=== PATIENT | male | born 1975 | race Caucasian/White ===

== ENCOUNTER → 2020-07-14 12:46 | Outpatient (BNVA) | payer MEDICARE, MEDICAID, SELFPAY | PROVIDERS: PCP Internal Medicine; Visit Provider Physician Assistant | DX: E66.9 Obesity, unspecified (principal); Z68.35 Body mass index [BMI] 35.0-35.9, adult; I10 Essential (primary) hypertension; Z98.84 Bariatric surgery status; Z79.899 Other long term (current) drug therapy; Z79.891 Long term (current) use of opiate analgesic; Z87.891 Personal history of nicotine dependence | CPT/HCPCS: 99213 ==

== ENCOUNTER 2020-07-24 12:08 | Outpatient (REF) | payer MEDICARE, MEDICAID, SELFPAY | END 2020-07-24 12:09 | disposition home or self-care (01) | LOC: HO.LAB 12:08 | PROVIDERS: Visit Provider Internal Medicine | DX: Z20.828 Contact with and (suspected) exposure to other viral communicable diseases (principal) | CPT/HCPCS: 87635 ==

== ENCOUNTER → 2020-08-11 10:36 | Outpatient (BNVA) | payer MEDICARE, MEDICAID, SELFPAY | PROVIDERS: PCP Internal Medicine; Referring Provider Internal Medicine; Visit Provider Surgery | DX: E66.9 Obesity, unspecified (principal); Z68.35 Body mass index [BMI] 35.0-35.9, adult; Z98.84 Bariatric surgery status; R91.1 Solitary pulmonary nodule | CPT/HCPCS: 99212; 99214 ==

== ENCOUNTER 2020-09-06 09:09 | Outpatient (REF) | payer MEDICARE, MEDICAID, SELFPAY ==
[2020-09-06 10:04] LABS: MANUAL DIFF FLAG NO
[2020-09-06 10:22] LABS: Basophils Percent Auto 0.3 % (0-2); Eosinophils Absolute Auto 0.2 X10*3/uL (0.0-0.4); Eosinophils Percent Auto 2.8 % (0-4); Hematocrit 43.8 % (42-52); Hemoglobin 14.4 g/dl (14.0-18.0); Imm Gran Abs Auto 0.02 X10*3/uL (0.00-0.03); Imm Gran Pct Auto 0.3 % (0.0-0.4); Lymphocytes Absolute Auto 1.9 X10*3/uL (1.2-4.9); Lymphocytes Percent Auto 29.3 % (20-40); Mean Corpuscular HGB Conc 32.9 g/dl (31.0-36.0); Mean Corpuscular Hemoglobin 28.7 pg (27.0-33.0); Mean Corpuscular Volume 87.3 fL (80-98); Mean Platelet Volume 9.6 fL (9.4-12.4); Monocytes Absolute Auto 0.5 X10*3/uL (0.1-1.2); Monocytes Percent Auto 7.6 % (2-11); Neutrophils Absolute Auto 3.8 X10*3/uL (2.0-8.3); Neutrophils Percent Auto 59.7 % (45-73); Platelet Count 259 X10*3/uL (160-400); Red Blood Count 5.02 X10*6/uL (4.60-5.80); Red Cell Distribution Width 13.4 % (11.0-16.0); White Blood Count 6.4 X10*3/uL (4.8-10.8)
[2020-09-06 10:50] LABS: Alanine Aminotransferase 40 U/L (0-40); Albumin Level 4.2 g/dL (3.5-5.0); Alkaline Phosphatase 59 U/L (39-117); Anion Gap 11 (12-20); Aspartate Amino Transferase 28 U/L (5-37); Bilirubin Total 0.5 mg/dL (0.0-1.0); Blood Urea Nitrogen 26 mg/dL (9-16); C Reactive Protein 0.67 mg/dL (< or = 0.50); Calcium 9.4 mg/dL (8.4-10.2); Carbon Dioxide 31 mmol/L (22-29); Chloride 101 mmol/L (96-108); Estimated Glomerular Filt Rate > 60; Glucose Random 94 mg/dL (60-115); Potassium 4.2 mmol/l (3.3-5.1); Sodium 139 mmol/L (135-145); Total Protein 7.6 g/dL (6.5-8.0)
[2020-09-06 11:46] LABS: Erythrocyte Sedimentation Rate 17 MM/HR (0-15)
== END 2020-09-06 09:10 | disposition home or self-care (01) ==
LOC: HO.LAB 09:09
PROVIDERS: Absent Provider Internal Medicine Rheumatology; PCP Internal Medicine; Visit Provider Internal Medicine Hypertension Specialist
DX: N28.1 Cyst of kidney, acquired (principal); I10 Essential (primary) hypertension; D63.8 Anemia in other chronic diseases classified elsewhere; M05.79 Rheumatoid arthritis with rheumatoid factor of multiple sites without organ or systems involvement
CPT/HCPCS: 36415; 80053; 85025; 85652; 86140

== ENCOUNTER 2020-09-07 15:02 | Outpatient (REF) | payer MEDICARE, MEDICAID, SELFPAY | END 2020-09-07 15:03 | disposition home or self-care (01) | LOC: HO.LAB 15:02 | PROVIDERS: PCP Internal Medicine; Visit Provider Internal Medicine | DX: Z20.828 Contact with and (suspected) exposure to other viral communicable diseases (principal) | CPT/HCPCS: C9803; U0003 ==

== ENCOUNTER 2020-09-18 14:29 | Outpatient (REF) | payer MEDICARE, MEDICAID, SELFPAY | END 2020-09-18 14:30 | disposition home or self-care (01) | LOC: HO.HAP 14:29 | PROVIDERS: Visit Provider Internal Medicine | DX: Z46.1 Encounter for fitting and adjustment of hearing aid (principal) | CPT/HCPCS: V5267 ==

== ENCOUNTER → 2020-10-13 08:23 | Outpatient (BNVA) | payer MEDICARE, MEDICAID, SELFPAY | PROVIDERS: PCP Internal Medicine; Visit Provider Physician Assistant | DX: E66.9 Obesity, unspecified (principal); Z98.84 Bariatric surgery status | CPT/HCPCS: Q3014 ==

== ENCOUNTER 2020-10-26 14:40 | Outpatient (REF) | payer MEDICARE, MEDICAID, SELFPAY ==
--- NOTE | 2020-10-26 14:28 | US_ITS ---
EXAMINATION: US VENOUS ULTRASOUND WITH DOPPLER LOWER EXTREMITY, BILATERAL CLINICAL INFORMATION: Bilateral lower extremity swelling. COMPARISON: None TECHNIQUE: Ultrasound of the deep veins is performed from the hip to the calf with compression sonography and color and pulse Doppler assessment. Spectral analysis with color-flow imaging is performed. FINDINGS: RIGHT: There is normal venous compression and respiratory variation and augmented flow. The visualized common femoral vein, superficial femoral vein, profunda femoral vein, popliteal vein, and the trifurcation region shows no evidence of deep venous thrombosis. There is no significant popliteal fossa cyst. LEFT: There is normal venous compression and respiratory variation and augmented flow. The visualized common femoral vein, superficial femoral vein, profunda femoral vein, popliteal vein, and the trifurcation region shows no evidence of deep venous thrombosis. There is no significant popliteal fossa cyst. If the patient's symptoms persist, followup ultrasound in 5 days 7 days might be of value to exclude proximal propagation from a non-visualized calf vein. US/US venous duplex LE BI IMPRESSION: No DVT demonstrated in the bilateral lower extremities.
== END 2020-10-26 14:41 | disposition home or self-care (01) ==
LOC: HO.US 14:40
PROVIDERS: PCP Internal Medicine; Visit Provider Internal Medicine
DX: M79.89 Other specified soft tissue disorders (principal); R09.89 Other specified symptoms and signs involving the circulatory and respiratory systems
CPT/HCPCS: 93970

== ENCOUNTER → 2020-11-15 13:23 | Outpatient (BNVA) | payer MEDICARE, MEDICAID, SELFPAY | PROVIDERS: PCP Internal Medicine; Visit Provider Internal Medicine | DX: I25.10 Atherosclerotic heart disease of native coronary artery without angina pectoris (principal); I10 Essential (primary) hypertension; M79.89 Other specified soft tissue disorders | CPT/HCPCS: 93005; 99212 ==

== ENCOUNTER → 2020-12-15 08:15 | Outpatient (BNVA) | payer MEDICARE, MEDICAID, SELFPAY | PROVIDERS: PCP Internal Medicine; Visit Provider Physician Assistant | DX: E66.9 Obesity, unspecified (principal); Z98.84 Bariatric surgery status | CPT/HCPCS: Q3014 ==

== ENCOUNTER 2020-12-25 12:26 | Outpatient (REF) | payer MEDICARE, MEDICAID, SELFPAY ==
[2020-12-25 13:19] LABS: MANUAL DIFF FLAG NO
[2020-12-25 13:29] LABS: Basophils Percent Auto 0.2 % (0-2); Eosinophils Absolute Auto 0.3 X10*3/uL (0.0-0.4); Eosinophils Percent Auto 3.2 % (0-4); Hematocrit 39.4 % (42-52); Hemoglobin 13.1 g/dl (14.0-18.0); Imm Gran Abs Auto 0.04 X10*3/uL (0.00-0.03); Imm Gran Pct Auto 0.5 % (0.0-0.4); Lymphocytes Absolute Auto 1.7 X10*3/uL (1.2-4.9); Mean Corpuscular HGB Conc 33.2 g/dl (31.0-36.0); Mean Corpuscular Hemoglobin 28.5 pg (27.0-33.0); Mean Corpuscular Volume 85.8 fL (80-98); Mean Platelet Volume 9.4 fL (9.4-12.4); Monocytes Absolute Auto 0.7 X10*3/uL (0.1-1.2); Monocytes Percent Auto 8.1 % (2-11); Neutrophils Absolute Auto 6.1 X10*3/uL (2.0-8.3); Platelet Count 280 X10*3/uL (160-400); Red Blood Count 4.59 X10*6/uL (4.60-5.80); Red Cell Distribution Width 12.9 % (11.0-16.0); White Blood Count 8.8 X10*3/uL (4.8-10.8)
[2020-12-25 13:55] LABS: Anion Gap 11 (12-20); Blood Urea Nitrogen 31 mg/dL (9-16); Calcium 9.3 mg/dL (8.4-10.2); Carbon Dioxide 30 mmol/L (22-29); Chloride 102 mmol/L (96-108); Estimated Glomerular Filt Rate > 60; Potassium 4.3 mmol/L (3.3-5.1); Sodium 139 mmol/L (135-145)
[2020-12-25 13:58] LABS: Alanine Aminotransferase 42 U/L (0-40); Albumin Level 3.9 g/dL (3.5-5.0); Alkaline Phosphatase 68 U/L (39-117); Anion Gap 12 (12-20); Aspartate Amino Transferase 25 U/L (5-37); Bilirubin Total 0.5 mg/dL (0.0-1.0); Blood Urea Nitrogen 33 mg/dL (9-16); C Reactive Protein 1.84 mg/dL (< or = 0.50); Calcium 9.3 mg/dL (8.4-10.2); Carbon Dioxide 30 mmol/L (22-29); Chloride 102 mmol/L (96-108); Estimated Glomerular Filt Rate > 60; Glucose Random 103 mg/dL (60-115); Potassium 4.3 mmol/L (3.3-5.1); Sodium 140 mmol/L (135-145); Total Protein 7.3 g/dL (6.5-8.0)
[2020-12-25 14:22] LABS: Erythrocyte Sedimentation Rate 40 MM/HR (0-15)
== END 2020-12-25 12:27 | disposition home or self-care (01) ==
LOC: HO.LAB 12:26
PROVIDERS: Absent Provider Physician Assistant; PCP Internal Medicine; Visit Provider Internal Medicine Hypertension Specialist
DX: I10 Essential (primary) hypertension (principal); N28.1 Cyst of kidney, acquired; D63.8 Anemia in other chronic diseases classified elsewhere; M89.49 Other hypertrophic osteoarthropathy, multiple sites; Z98.84 Bariatric surgery status; Z90.3 Acquired absence of stomach [part of]
CPT/HCPCS: 36415; 80051; 80053; 82310; 82565; 84520; 85025; 85652; 86140

== ENCOUNTER 2021-01-23 11:33 | Outpatient (REF) | payer MEDICARE, MEDICAID, SELFPAY ==
[2021-01-23 11:51] LABS: COVID-19 Test Negative (Negative)
== END 2021-01-23 11:34 | disposition home or self-care (01) ==
LOC: HO.LAB 11:33
PROVIDERS: Visit Provider Internal Medicine
DX: Z20.822 Contact with and (suspected) exposure to COVID-19 (principal)
CPT/HCPCS: 36415; 87635; C9803

== ENCOUNTER 2021-01-29 01:38 | Emergency (ER) | payer MEDICARE, MEDICAID, SELFPAY ==
--- NOTE | 2021-01-29 | ECG_ITS ---
Test Reason : CP Blood Pressure : / mmHG Vent. Rate : 073 BPM Atrial Rate : 073 BPM P-R Int : 142 ms QRS Dur : 094 ms QT Int : 402 ms P-R-T Axes : 010 -01 024 degrees QTc Int : 442 ms Normal sinus rhythm Minimal voltage criteria for LVH, may be normal variant Nonspecific T wave abnormality Abnormal ECG When compared with ECG of 21-JUL-2018 21:49, T wave inversion no longer evident in Anterior leads Referred By: Generic ED Physician Electronically Signed By:ESTRELLITA MOREIRA
[2021-01-29 01:43] VITALS: BP 171/102; PULSE 82; RESP 16; TEMP 36.4; O2SAT 98; BMI 40.6
[2021-01-29 01:49] VITALS: PULSE 73
[2021-01-29 01:52] VITALS: BP 162/98; PULSE 74; RESP 12; TEMP 36.4; O2SAT 98
--- NOTE | 2021-01-29 01:59 | PC.NURSE ---
at bedside for initial assessment
--- NOTE | 2021-01-29 02:09 | ED_ITS ---
HPI - Chest Pain General Chief Complaint: Chest Pain Stated Complaint: chest pain Time Seen by Provider: 01/29/21 01:53 Source: patient Mode of arrival: EMS Limitations: no limitations History of Present Illness HPI narrative: 45-year-old male who presents emergency department for evaluation of chest pain, shortness of breath anxiety. The patient states that he has been anxious since his mother on January 15, 2021. He states that his mother of liver cancer and since that time he has been feeling extremely anxious. He states that this evening, at 11:00 p.m., he developed chest pain. He points to his mid sternal area when asked to localize the pain. He describes the pain as a ?pain ?. The pain lasted approximately 30 seconds. He states that he had several more episodes of this type of chest pain. He states that the chest pain was associated with shortness of breath and anxiety. He denied associated nausea, vomiting, diaphoresis, pain radiate to his neck, jaw, arms or back. The patient took Ativan 1 mg orally at home with no relief his symptoms therefore he called an ambulance and was transported to the emergency department for evaluation. The patient states that he has not had a COVID-19 infection. He received his 1st COVID-19 vaccination January 03, 2021. Related Data Home Medications Medication Instructions Recorded Confirmed ascorbic acid (vitamin C) 500 mg 500 mg PO DAILY 07/14/20 01/24/21 capsule celecoxib 200 mg capsule 200 mg PO BID 07/14/20 01/24/21 escitalopram oxalate 5 mg tablet 5 mg PO DAILY 07/14/20 01/24/21 ferrous sulfate 325 mg (65 mg 325 mg PO DAILY 07/14/20 01/24/21 iron) tablet folic acid 1 mg tablet 1 mg PO DAILY 07/14/20 01/24/21 meclizine 25 mg tablet 25 mg PO TID PRN 07/14/20 01/24/21 methotrexate sodium 25 mg/mL mg SUBCUT 07/14/20 01/24/21 injection solution metoprolol succinate 25 mg 25 mg PO DAILY 07/14/20 01/24/21 tablet,extended release 24 hr oxycodone 10 mg tablet 10 mg PO BID PRN 07/14/20 01/24/21 dxawroxq-xxitzoer-iwxm 45 mg-folic cap PO 08/11/20 01/24/21 acid 800 mcg-vit K 120 mcg capsule aspirin 81 mg tablet,delayed 81 mg PO DAILY 11/15/20 01/24/21 release nitroglycerin 0.4 mg sublingual 0.4 mg SUBLINGUAL Q5M PRN 11/15/20 01/24/21 tablet amlodipine 10 mg tablet 5 mg PO DAILY tab 12/15/20 01/24/21 irbesartan 150 mg tablet 300 mg PO DAILY tab 12/15/20 01/24/21 amlodipine 5 mg tablet 5 mg PO DAILY 01/24/21 01/24/21 irbesartan 300 mg tablet 300 mg PO DAILY 01/24/21 01/24/21 Previous Rx's Medication Instructions Recorded blood sugar diagnostic 1 strip MISCELLANEOUS .QD 90 Days 07/17/20 #100 strip lancets 28 gauge 1 gauge TOPICAL .QD 90 Days #100 07/17/20 cap docusate sodium 100 mg capsule 100 mg PO DAILY 90 Days #90 cap 09/27/20 calcium citrate 315 mg-vitamin D3 2 tab PO BID #360 tab 10/16/20 5 mcg (200 unit) tablet atorvastatin 10 mg tablet 10 mg PO DAILY #90 tab 10/26/20 fluticasone propionate 50 2 spray INTRANASAL DAILY #48 ml 10/30/20 mcg/actuation nasal spray,suspension hydroxyzine HCl 25 mg tablet 25 mg PO BEDTIME PRN #90 tab 11/21/20 lorazepam 1 mg tablet 1 mg PO BID 90 Days #180 tab 11/28/20 albuterol sulfate 90 mcg/actuation 2 puff INHALATION Q4H PRN #8.5 g 12/31/20 aerosol inhaler Allergies Allergy/AdvReac Type Severity Reaction Status Date / Time Iodinated Contrast Media Allergy Mild HIVE AND Verified 01/24/21 12:58 [Iodinated Contrast Media - ITCHINESS IV Dye] ON FACE Review of Systems Review of Systems: Yes all other systems are reviewed and are negative [facility] Past Medical History [facility] Narrative: The patient denies tobacco, alcohol and drug use. Medical History Abnormal cystoscopy Anxiety Asthma Atherosclerotic cardiovascular disease Former smoker GERD (gastroesophageal reflux disease) H/O hidradenitis suppurativa Hyperlipidemia Hypertension Left renal mass Lung nodule Obesity (BMI 30-39.9) Obstructive sleep apnea Rheumatoid arthritis Type 2 diabetes mellitus with hyperglycemia Vertigo Vitamin D deficiency Surgical History History of surgical removal of pilonidal cyst S/P laparoscopic sleeve gastrectomy Family History Family History Father Heart problem Acute arthritis Mother Breast cancer Diabetes mellitus Son No problems noted. Social History Social History Alcohol intake: never Smoking Status: Never smoker Smoked in Last 30 Days: No Use of substances other than those prescribed or required for medical reasons: No Advance Directives: No Advance Directives Information Provided: No Physical Exam Vital Signs: Vital Signs: Last Vital Signs Temp 97.6 F 01/29/21 01:52 Pulse 74 01/29/21 01:52 Resp 12 01/29/21 01:52 BP 162/98 H 01/29/21 01:52 Pulse Ox 98 01/29/21 01:52 Body Mass Index 40.6 Const: General: cooperative and anxious Orientation/consciousness: oriented to person and oriented to place Limitations: no limitations HENMT: Head: Yes normal to inspection, Yes normocephalic and Yes atraumatic Ears: external ears normal General nose exam: Normal external nose present Face and sinus: Yes normal facial exam Mouth: Normal oral and palatal mucosa present Throat: Yes posterior oropharynx normal Eyes: Periorbital: periorbital findings normal Eyelids: Yes eyelids normal Conjunctivae: conjunctivae normal Sclerae: sclerae normal Corneas: corneas normal Pupils: Equal, round and reactive pupils present Direct Ophthalmoscopy: normal light reflex Neck: Neck: Yes full ROM, Yes no lymphadenopathy, Yes no meningeal signs, Yes trachea midline and Yes supple Chest: Chest palpation & inspection: normal inspection of the chest and normal palpation of entire chest wall Resp: Effort & Inspection: normal respiratory effort and able to speak in complete sentences Auscultation: clear to auscultation bilaterally Cardio: Rate: regular rate Rhythm: regular rhythm Heart sounds: S1 n ormal heart sound present, S2 normal heart sound present and no murmurs GI: Inspection: Yes normal to inspection Palpation (GI): Soft to palpation, nontender, no guarding, not rigid and No hepatosplenomegaly present : General: Yes no CVA tenderness Back/Spine/Pelvis: Back: no CVA tenderness Cervical Spine: normal cervical lordosis Thoracic/Lumbar Spine: thoracic and lumbar spine normal to inspection Skin: Lesions: no lesions Rashes: no rashes Wounds: no wounds Neuro: General: oriented to person, oriented to place and no meningeal signs Cranial nerves: Yes CN's II-XII intact bilaterally and Yes Equal, round and reactive pupils present Cognition (Neuro): normal cognition Motor exam (neuro): 5/5 motor strength present throughout Extrem: General: Yes normal to inspection and Yes full ROM Psych: Appearance: well kempt Mental Status: mental status grossly normal Speech and movement: Normal speech and movement present Affect: Anxious affect present Attitude: cooperative Thought process: Normal thought process present Thought content: Normal thought content present Course Course Course Narrative: 45-year-old male who presents emergency department for evaluation of chest pain, shortness of breath and anxiety. The patient states that he has been having increased anxiety since his mother on January 15, 2021 of liver cancer. The patient's vital signs revealed that he was hypertensive with a blood pressure of 171/102 otherwise unremarkable. Physical examination revealed that he was anxious otherwise was unremarkable. I did order a CBC, CMP, troponin and an EKG on the patient. Patient was given Ativan 1 mg IV. 0608: Patient's laboratory evaluation revealed a detectable troponin of 13.6. Repeat 3 hour high sensitivity troponin was 11.6 suggesting the patient did not have myocardial injury is the cause was chest pain. Patient's chest pain is most likely caused by his anxiety and he did feel better after receiving Ativan IV. The patient was discharged home advised to follow-up with his PCP to discuss further management of his anxiety. MDM - Chest Pain Lab Data Result diagrams: 01/29/21 02:12 01/29/21 02:12 Labs: Lab Results 01/29/21 01/29/21 01/29/21 Range/Units 02:12 02:12 02:12 WBC 10.2 (4.8-10.8) X10*3/uL RBC 4.91 (4.60-5.80) X10*6/uL Hgb 13.7 L (14.0-18.0) g/dl Hct 41.8 L (42-52) % MCV 85.1 (80-98) fL MCH 27.9 (27.0-33.0) pg MCHC 32.8 (31.0-36.0) g/dl RDW 13.2 (11.0-16.0) % Plt Count 278 (160-400) X10*3/uL MPV 8.9 L (9.4-12.4) fL Immature Gran % (Auto) 0.4 (0.0-0.4) % Neut % (Auto) 65.7 (45-73) % Lymph % (Auto) 22.6 (20-40) % Cook % (Auto) 7.9 (2-11) % Eos % (Auto) 3.1 (0-4) % Baso % (Auto) 0.3 (0-2) % Lymph # (Auto) 2.3 (1.2-4.9) X10*3/uL Cook # (Auto) 0.8 (0.1-1.2) X10*3/uL Eos # (Auto) 0.3 (0.0-0.4) X10*3/uL Baso # (Auto) 0.0 (0.0-0.2) X10*3/uL Abs Immat Gran (auto) 0.04 H (0.00-0.03) X10*3/uL Absolute Neuts (auto) 6.7 (2.0-8.3) X10*3/uL Absolute Nucleated RBC 0.000 (0.0-0.012) X10*3/uL Nucleated RBC % (auto) 0.0 (0.0-0.2) /100WBC Sodium 142 (135-145) mmol/L Potassium 3.9 (3.3-5.1) mmol/L Chloride 101 (96-108) mmol/L Carbon Dioxide 36 H (22-29) mmol/L Anion Gap 9 L (12-20) BUN 25 H (9-16) mg/dL Creatinine 0.77 (0.5-1.4) mg/dL Estim Creat Clear Calc 125.1 Estimated GFR > 60 Random Glucose 102 (60-115) mg/dL Calcium 9.5 (8.4-10.2) mg/dL Total Bilirubin 0.3 (0.0-1.0) mg/dL AST 21 (5-37) U/L ALT 34 (0-40) U/L Alkaline Phosphatase 76 (39-117) U/L Troponin I High Sens 13.6 (<3.5-35.0) ng/L Total Protein 7.5 (6.5-8.0) g/dL Albumin 4.0 (3.5-5.0) g/dL // Range/Units 04:59 WBC (4.8-10.8) X10*3/uL RBC (4.60-5.80) X10*6/uL Hgb (14.0-18.0) g/dl Hct (42-52) % MCV (80-98) fL MCH (27.0-33.0) pg MCHC (31.0-36.0) g/dl RDW (11.0-16.0) % Plt Count (160-400) X10*3/uL MPV (9.4-12.4) fL Immature Gran % (Auto) (0.0-0.4) % Neut % (Auto) (45-73) % Lymph % (Auto) (20-40) % Cook % (Auto) (2-11) % Eos % (Auto) (0-4) % Baso % (Auto) (0-2) % Lymph # (Auto) (1.2-4.9) X10*3/uL Cook # (Auto) (0.1-1.2) X10*3/uL Eos # (Auto) (0.0-0.4) X10*3/uL Baso # (Auto) (0.0-0.2) X10*3/uL Abs Immat Gran (auto) (0.00-0.03) X10*3/uL Absolute Neuts (auto) (2.0-8.3) X10*3/uL Absolute Nucleated RBC (0.0-0.012) X10*3/uL Nucleated RBC % (auto) (0.0-0.2) /100WBC Sodium (135-145) mmol/L Potassium (3.3-5.1) mmol/L Chloride (96-108) mmol/L Carbon Dioxide (22-29) mmol/L Anion Gap (12-20) BUN (9-16) mg/dL Creatinine (0.5-1.4) mg/dL Estim Creat Clear Calc Estimated GFR Random Glucose (60-115) mg/dL Calcium (8.4-10.2) mg/dL Total Bilirubin (0.0-1.0) mg/dL AST (5-37) U/L ALT (0-40) U/L Alkaline Phosphatase (39-117) U/L Troponin I High Sens 11.3 (<3.5-35.0) ng/L Total Protein (6.5-8.0) g/dL Albumin (3.5-5.0) g/dL ECG Data ECG #1: Attestation: I personally reviewed and interpreted this ECG as follows: Interpretation: Normal sinus rhythm rate of 73, normal MD, QRS and QTC intervals, no T-wave abnormalities, no ST segment elevation, no ST segment depression, no old EKG for comparison. Discharge Plan Discharge Clinical Impression: Anxiety Chest pain Qualifiers: Chest pain type: unspecified Qualified Code(s): R07.9 - Chest pain, unspecified Patient Disposition: Home, Self-Care Instructions: Anxiety (ED) Additional Instructions: Your EKG was unremarkable. Your laboratory evaluation was normal. At this time, I believe that your chest pain shortness of breath caused by your anxiety. Follow-up with your doctor in 2 days to discuss further management of your anxiety. Please return to the emergency department if your symptoms get worse or if you develop any symptoms that are concerning to you. Prescriptions: No Action blood sugar diagnostic [FreeStyle Lite Strips] Strip 1 strip miscellaneous .QD 90 Days Qty: 100 RF: 3 lancets [FreeStyle Lancets] 28 gauge misc 1 gauge topical .QD 90 Days Qty: 100 RF: 3 docusate sodium 100 mg capsule 100 mg PO DAILY 90 Days Qty: 90 RF: 3 calcium citrate-vitamin D3 315 mg-5 mcg (200 unit) tablet 2 tab PO BID Qty: 360 RF: 3 fluticasone propionate 50 mcg/actuation spray,suspension 2 spray intranasal DAILY Qty: 48 RF: 5 hydroxyzine HCl 25 mg tablet 25 mg PO BEDTIME PRN (Reason: for anxiety) Qty: 90 RF: 3 lorazepam 1 mg tablet 1 mg PO BID 90 Days Qty: 180 RF: 1 albuterol sulfate 90 mcg/actuation HFA aerosol inhaler 2 puff inhalation Q4H PRN (Reason: for wheezing) Qty: 8.5 RF: 2 atorvastatin 10 mg tablet 10 mg PO DAILY Qty: 90 RF: 3 irbesartan 300 mg tablet 300 mg PO DAILY RF: 0 amlodipine 5 mg tablet 5 mg PO DAILY RF: 0 aspirin 81 mg tablet,delayed release (DR/EC) 81 mg PO DAILY RF: 0 nitroglycerin [Nitrostat] 0.4 mg tablet, sublingual 0.4 mg sublingual Q5M PRNRF: 0 oxycodone 10 mg tablet 10 mg PO BID PRN (Reason: severe pain) RF: 0 ascorbic acid (vitamin C) 500 mg capsule 500 mg PO DAILY RF: 0 escitalopram oxalate 5 mg tablet 5 mg PO DAILY RF: 0 celecoxib 200 mg capsule 200 mg PO BID RF: 0 folic acid 1 mg tablet 1 mg PO DAILY RF: 0 metoprolol succinate 25 mg tablet extended release 24 hr 25 mg PO DAILY RF: 0 methotrexate sodium 25 mg/mL solution subcut RF: 0 ferrous sulfate 325 mg (65 mg iron) tablet 325 mg PO DAILY RF: 0 meclizine 25 mg tablet 25 mg PO TID PRNRF: 0 irbesartan 150 mg tablet 300 mg PO DAILY RF: 0 amlodipine 10 mg tablet 5 mg PO DAILY RF: 0 Bariatric Multivitamins 45 mg iron- 800 mcg-120 mcg capsule PO RF: 0
[2021-01-29 02:18] LABS: MANUAL DIFF FLAG NO
[2021-01-29 02:19] LABS: Basophils Percent Auto 0.3 % (0-2); Eosinophils Absolute Auto 0.3 X10*3/uL (0.0-0.4); Eosinophils Percent Auto 3.1 % (0-4); Hematocrit 41.8 % (42-52); Hemoglobin 13.7 g/dl (14.0-18.0); Imm Gran Abs Auto 0.04 X10*3/uL (0.00-0.03); Imm Gran Pct Auto 0.4 % (0.0-0.4); Lymphocytes Absolute Auto 2.3 X10*3/uL (1.2-4.9); Lymphocytes Percent Auto 22.6 % (20-40); Mean Corpuscular HGB Conc 32.8 g/dl (31.0-36.0); Mean Corpuscular Hemoglobin 27.9 pg (27.0-33.0); Mean Corpuscular Volume 85.1 fL (80-98); Mean Platelet Volume 8.9 fL (9.4-12.4); Monocytes Absolute Auto 0.8 X10*3/uL (0.1-1.2); Monocytes Percent Auto 7.9 % (2-11); Neutrophils Absolute Auto 6.7 X10*3/uL (2.0-8.3); Neutrophils Percent Auto 65.7 % (45-73); Platelet Count 278 X10*3/uL (160-400); Red Blood Count 4.91 X10*6/uL (4.60-5.80); Red Cell Distribution Width 13.2 % (11.0-16.0); White Blood Count 10.2 X10*3/uL (4.8-10.8)
[2021-01-29] MEDS: LORazepam 2 MG/ML VIAL 1 MG IVPUSH (02:22)
[2021-01-29 02:42] LABS: Troponin-I High Sensitivity 13.6 ng/L (<3.5-35.0)
[2021-01-29 02:46] LABS: Alanine Aminotransferase 34 U/L (0-40); Alkaline Phosphatase 76 U/L (39-117); Anion Gap 9 (12-20); Aspartate Amino Transferase 21 U/L (5-37); Bilirubin Total 0.3 mg/dL (0.0-1.0); Blood Urea Nitrogen 25 mg/dL (9-16); Calcium 9.5 mg/dL (8.4-10.2); Carbon Dioxide 36 mmol/L (22-29); Chloride 101 mmol/L (96-108); Creatinine Clr Calc Pharmacy 125.1; Estimated Glomerular Filt Rate > 60; Glucose Random 102 mg/dL (60-115); Potassium 3.9 mmol/L (3.3-5.1); Sodium 142 mmol/L (135-145); Total Protein 7.5 g/dL (6.5-8.0)
[2021-01-29 05:34] LABS: Troponin-I High Sensitivity 11.3 ng/L (<3.5-35.0)
== END 2021-01-29 06:27 | disposition home or self-care (01) ==
PROVIDERS: Emergency Provider Emergency Medicine Emergency Medical Services
DX: R07.9 Chest pain, unspecified (principal); F41.9 Anxiety disorder, unspecified; I10 Essential (primary) hypertension; E78.5 Hyperlipidemia, unspecified; E11.9 Type 2 diabetes mellitus without complications; Z72.89 Other problems related to lifestyle; Z63.4 Disappearance and death of family member; Z79.02 Long term (current) use of antithrombotics/antiplatelets; Z79.899 Other long term (current) drug therapy; Z79.82 Long term (current) use of aspirin
CPT/HCPCS: 36415; 80053; 84484; 85025; 93005; 96374; 99284; J2060

== ENCOUNTER 2021-02-15 10:24 | Outpatient (REF) | payer MEDICARE, MEDICAID, SELFPAY ==
--- NOTE | ~2021-02-15 | CT_ITS ---
EXAMINATION: CT CHEST WITHOUT CONTRAST CLINICAL INFORMATION: Solitary pulmonary nodule COMPARISON: CT chest 05/19/2020 TECHNIQUE: Multidetector volumetric CT imaging of the chest was done. Axial MIP volume rendering provided. Sagittal and coronal reformatted images were obtained. This CT examination was performed using dose optimization techniques as appropriate, variously including the following: *Automated exposure control *Adjustment of mA and/or kV according to patient size (this includes techniques or standardized protocols for targeted exams where dose is matched to indication/reason for exam; i.e. extremities or head) *Use of iterative reconstruction technique DLP: 288 mGy-cm FINDINGS: OFFLINE EDITOR: Unremarkable. LUNGS: The lungs are expanded and clear of acute pneumonic process. Again visualized is a 1.2 x 0.9 cm nodule right middle lobe lateral segment adjacent to the parahilar region on axial image 34/4. A 2 mm calcified nodule right lower lobe, axial image 436/7, is stable as well. No additional nodules seen. Focal atelectatic changes seen in the right lung base. MEDIASTINUM: Central trachea and the bronchi are widely patent. The thyroid lobes are symmetrical and normal. Heart size and the great vessels are normal caliber. There are coronary artery calcifications present. There is no pericardial effusion. PLEURA: There is no pleural effusion. No pleural mass or thickening. AXILLA: There are small shotty lymph nodes in the mid axilla measuring 6 mm in short axis. The chest wall is unremarkable except for bilateral gynecomastia. UPPER ABDOMEN: Visualized liver, spleen, pancreas and bilateral adrenal glands are unremarkable. Gastric sleeve surgical changes are seen. There is 3 cm complex lesion with calcified muniz in the upper/midpole left kidney. A 1.9 cm exophytic cyst seen in the upper pole right kidney. OSSEOUS STRUCTURES: Unremarkable. CT/CT chest wo con IMPRESSION: Stable 1.2 cm noncalcified nodule right middle lobe, 2 mm calcified nodule right lower lobe. No new nodules seen. Complex lesion with calcified muniz upper/midpole left kidney and an exophytic simple cyst upper pole right kidney are stable. Gastric bypass/surgical changes in the left epigastric region.
== END 2021-02-15 10:25 | disposition home or self-care (01) ==
LOC: HO.CT 10:24
PROVIDERS: Visit Provider Surgery
DX: R91.1 Solitary pulmonary nodule (principal)
CPT/HCPCS: 71250

== ENCOUNTER → 2021-02-16 08:13 | Outpatient (BNVA) | payer MEDICARE, MEDICAID, SELFPAY | PROVIDERS: PCP Internal Medicine; Visit Provider Physician Assistant | DX: E66.01 Morbid (severe) obesity due to excess calories (principal); Z98.84 Bariatric surgery status | CPT/HCPCS: Q3014 ==

== ENCOUNTER → 2021-02-23 10:50 | Outpatient (BNVA) | payer MEDICARE, MEDICAID, SELFPAY | PROVIDERS: PCP Internal Medicine; Visit Provider Surgery | DX: R91.1 Solitary pulmonary nodule (principal); Z79.899 Other long term (current) drug therapy | CPT/HCPCS: 99212 ==

== ENCOUNTER 2021-03-05 11:42 | Outpatient (REF) | payer MEDICARE, MEDICAID, SELFPAY ==
--- NOTE | 2021-03-05 11:49 | MHC.AU.P13 ---
Hearing Instrument Problem Date of Visit: 03/05/21 Right Ear: Geodesist: Phonak Model: AUDEO M50-R Serial Number: [id number] Repair Warranty: 12/29/2021 Loss and Damage Warranty: 12/29/2021 Battery Size: Rechargeable Color: [place] House Father: 2M Type of Dome: SMALL POWER Type of Wax Guard: CERUSHIELD Dispensed By: [facility] Date of Fittin10/12/2018 Left Ear: Geodesist: Phonak Model: AUDEO M50-R Serial Number: [id number] Repair Warranty: 12/29/2021 Loss and Damage Warranty: 12/29/2021 Battery Size: Rechargeable Color: [place] House Father: 2M Type of Dome: SMALL POWER Type of Wax Guard: CERUSHIELD Dispensed By: [facility] Date of Fittin10/12/2018 Follow-Up Summary: Left hearing aid dropped off - charging light stays on even when out of hide selector - sent to [employer] for in warranty repair. Right aid was cleaned, wax guard changed, and small power dome replaced - right amplifying clearly. Recommendations: Recommendations: Patient will be contacted when materials have arrived. Signature: Provider: MARGARET Avendano-HIS
== END 2021-03-05 11:43 | disposition home or self-care (01) ==
LOC: HO.HAP 11:42
PROVIDERS: Visit Provider Internal Medicine
DX: Z13.89 Encounter for screening for other disorder (principal)

== ENCOUNTER 2021-03-06 06:54 | Outpatient (REF) | payer MEDICARE, MEDICAID, SELFPAY ==
[2021-03-06 08:16] LABS: MANUAL DIFF FLAG NO
[2021-03-06 08:21] LABS: Basophils Percent Auto 0.4 % (0-2); Eosinophils Absolute Auto 0.3 X10*3/uL (0.0-0.4); Eosinophils Percent Auto 3.3 % (0-4); Hematocrit 42.6 % (42-52); Hemoglobin 13.9 g/dl (14.0-18.0); Imm Gran Abs Auto 0.03 X10*3/uL (0.00-0.03); Imm Gran Pct Auto 0.4 % (0.0-0.4); Lymphocytes Absolute Auto 2.1 X10*3/uL (1.2-4.9); Lymphocytes Percent Auto 26.9 % (20-40); Mean Corpuscular HGB Conc 32.6 g/dl (31.0-36.0); Mean Corpuscular Hemoglobin 27.8 pg (27.0-33.0); Mean Corpuscular Volume 85.2 fL (80-98); Mean Platelet Volume 9.6 fL (9.4-12.4); Monocytes Absolute Auto 0.6 X10*3/uL (0.1-1.2); Monocytes Percent Auto 8.2 % (2-11); Neutrophils Absolute Auto 4.8 X10*3/uL (2.0-8.3); Neutrophils Percent Auto 60.8 % (45-73); Platelet Count 261 X10*3/uL (160-400); Red Cell Distribution Width 13.8 % (11.0-16.0); White Blood Count 7.9 X10*3/uL (4.8-10.8)
[2021-03-06 08:34] LABS: Estimated Average Glucose 123 mg/dL; Hemoglobin A1c % 5.9 %
[2021-03-06 08:46] LABS: Alanine Aminotransferase 37 U/L (0-40); Albumin Level 3.7 g/dL (3.5-5.0); Alkaline Phosphatase 67 U/L (39-117); Anion Gap 10 (12-20); Aspartate Amino Transferase 26 U/L (5-37); Bilirubin Total 0.6 mg/dL (0.0-1.0); Blood Urea Nitrogen 22 mg/dL (9-16); Calcium 9.4 mg/dL (8.4-10.2); Carbon Dioxide 32 mmol/L (22-29); Chloride 102 mmol/L (96-108); Cholesterol 167 mg/dL; Estimated Glomerular Filt Rate > 60; Glucose Random 109 mg/dL (60-115); HDL Cholesterol 42 mg/dL; LDL Cholesterol Calculated 93 mg/dl; Potassium 4.1 mmol/L (3.3-5.1); Sodium 140 mmol/L (135-145); Triglycerides 164 mg/dL
[2021-03-06 08:52] LABS: Creatinine Urine 31.99 mg/dL
[2021-03-06 08:55] LABS: C Reactive Protein 0.85 mg/dL (< or = 0.50)
[2021-03-06 08:56] LABS: Thyroid Stimulating Hormone 2.57 uIU/mL (0.32-4.0); Vitamin D 25-OH Total 23.5 ng/mL (>30)
[2021-03-06 08:57] LABS: Creatinine Urine 32.14 mg/dL
[2021-03-06 09:03] LABS: Free T4 (Free Thyroxine) 0.91 ng/dL (0.71-1.85)
[2021-03-06 09:09] LABS: Erythrocyte Sedimentation Rate 34 MM/HR (0-15)
[2021-03-06 09:13] LABS: Folate 17.6 ng/mL (> or = 4.0); Vitamin B12 1190 pg/mL (200-900)
[2021-03-11 03:01] LABS: Vitamin A 56 mcg/dL (38-98)
[2021-03-11 12:36] LABS: Vitamin B1 21 nmol/L (8-30)
== END 2021-03-06 06:55 | disposition home or self-care (01) ==
LOC: HO.LAB 06:54
PROVIDERS: Absent Provider Physician Assistant; PCP Internal Medicine; Visit Provider Internal Medicine Rheumatology
DX: M89.49 Other hypertrophic osteoarthropathy, multiple sites (principal); E78.00 Pure hypercholesterolemia, unspecified; E11.65 Type 2 diabetes mellitus with hyperglycemia; I10 Essential (primary) hypertension; M06.9 Rheumatoid arthritis, unspecified; Z90.3 Acquired absence of stomach [part of]; Z98.84 Bariatric surgery status
CPT/HCPCS: 36415; 80053; 80061; 82043; 82306; 82607; 82746; 83036; 84425; 84439; 84443; 84590; 85025; 85652; 86140

== ENCOUNTER 2021-03-09 14:38 | Emergency (ER) | payer MEDICARE, MEDICAID, SELFPAY ==
[2021-03-09] VITALS (7 sets, daily range): BP systolic 165–188; BP diastolic 92–108; PULSE 69–85; RESP 18; TEMP 36.4–36.7; O2SAT 95–98; BMI 40.8
--- NOTE | ~2021-03-09 | US_ITS ---
EXAMINATION: US VENOUS ULTRASOUND WITH DOPPLER LOWER EXTREMITY, LEFT CLINICAL INFORMATION: Pain COMPARISON: Previous exam September 2020 TECHNIQUE: Ultrasound of the deep veins is performed from the hip to the calf with compression sonography and color and pulse Doppler assessment. Spectral analysis with color-flow imaging is performed. FINDINGS: There is normal venous compression and respiratory variation and augmented flow. The visualized common femoral vein, superficial femoral vein, profunda femoral vein, popliteal vein, and the trifurcation region shows no evidence of deep venous thrombosis. There is no significant popliteal fossa cyst. US/US venous duplex LE LT IMPRESSION: No DVT demonstrated in the left lower extremity.
--- NOTE | ~2021-03-09 | XR_ITS ---
EXAMINATION: XR CHEST CLINICAL INFORMATION: Hypertension COMPARISON: Previous chest x-ray most recent April [address] January 2021 TECHNIQUE: 2 views of the chest were obtained. FINDINGS: The cardiac and mediastinal contours are stable. There is a 1.2 cm nodule at the right lung base just lateral to the hilar vessels on the PA view that appears unchanged. The lungs are otherwise clear. There is no pleural effusion or pneumothorax. Bony structures are unremarkable. XR/XR chest 2V IMPRESSION: No evidence for acute disease in the chest. Stable-appearing right base pulmonary nodule.
--- NOTE | ~2021-03-09 | CT_ITS ---
EXAMINATION: CT HEAD WITHOUT CONTRAST CLINICAL INFORMATION: Vision disturbance COMPARISON: Previous head CT August 2007 TECHNIQUE: Contiguous axial imaging was performed from the skull base to vertex without intravenous administration of contrast. This CT examination was performed using dose optimization techniques as appropriate, variously including the following: *Automated exposure control *Adjustment of mA and/or kV according to patient size (this includes techniques or standardized protocols for targeted exams where dose is matched to indication/reason for exam; i.e. extremities or head) *Use of iterative reconstruction technique DLP: 689 mGy-cm FINDINGS: There is no evidence of acute intracranial hemorrhage or territorial infarction. No abnormal mass effect or midline shift is seen. Kitchen to white matter differentiation is well preserved. No extra-axial fluid collections are identified. The ventricles are normal in size. There is no abnormal attenuation within the brain parenchyma. The osseous structures and soft tissues are normal. The mastoid air cells and visualized portions of the paranasal sinuses are well aerated. CT/CT head/brain wo con IMPRESSION: No acute intracranial pathology.
--- NOTE | 2021-03-09 14:49 | ECG_ITS ---
Test Reason : HTN Blood Pressure : / mmHG Vent. Rate : 070 BPM Atrial Rate : 070 BPM P-R Int : 138 ms QRS Dur : 102 ms QT Int : 402 ms P-R-T Axes : 007 -03 028 degrees QTc Int : 434 ms Normal sinus rhythm Minimal voltage criteria for LVH, may be normal variant Nonspecific T wave abnormality Abnormal ECG When compared with ECG of 29-JAN-2021 01:52, No significant change was found Referred By: Generic ED Physician Electronically Signed By:EDWINA ANNE MD
--- NOTE | 2021-03-09 15:12 | ED_ITS ---
HPI - General Adult General Chief complaint: Recheck/Abnormal Lab/Rx Stated complaint: hbp Time Seen by Provider: 03/09/21 14:58 Source: patient Mode of arrival: ambulatory Limitations: no limitations History of Present Illness HPI narrative: 45-year-old male with a past medical history of hypertension, coronary artery disease, diabetes, GERD, obesity, rheumatoid arthritis, hyperlipidemia here with complaints of high blood pressure for several weeks. The patient tells me that he was seen at his doctor on March 01 and was noted to have a blood pressure of 160/100. He denies any changes to his medication. He is followed by Nephrology for his hypertension and currently is taking Norvasc 5 mg daily, irbesartan 300 mg once daily, metoprolol 25 mg once daily. He tells me that he has had a generalized headache for the last 5 days. Takes Tylenol and does improved but returns. No associated nausea or vomiting. Sometimes he has blurry vision but does not feel like his vision is blurry now. No associated photophobia or phonophobia. Tells me he has a lot of stress going on at home. He recently lost his mother in December and this is causing him a lot of anxiety. Related Data Home Medications Medication Instructions Recorded Confirmed ascorbic acid (vitamin C) 500 mg 500 mg PO DAILY 07/14/20 03/02/21 capsule celecoxib 200 mg capsule 200 mg PO BID 07/14/20 03/02/21 escitalopram oxalate 5 mg tablet 5 mg PO DAILY 07/14/20 03/02/21 ferrous sulfate 325 mg (65 mg 325 mg PO DAILY 07/14/20 03/02/21 iron) tablet folic acid 1 mg tablet 1 mg PO DAILY 07/14/20 03/02/21 meclizine 25 mg tablet 25 mg PO TID PRN 07/14/20 03/02/21 methotrexate sodium 25 mg/mL mg SUBCUT 07/14/20 03/02/21 injection solution oxycodone 10 mg tablet 10 mg PO BID PRN 07/14/20 03/02/21 [id number] 45 mg-folic cap PO 08/11/20 03/02/21 acid 800 mcg-vit K 120 mcg capsule aspirin 81 mg tablet,delayed 81 mg PO DAILY 11/15/20 03/02/21 release nitroglycerin 0.4 mg sublingual 0.4 mg SUBLINGUAL Q5M PRN 11/15/20 03/02/21 tablet amlodipine 5 mg tablet 5 mg PO DAILY 01/24/21 03/02/21 irbesartan 300 mg tablet 300 mg PO DAILY 01/24/21 03/02/21 Previous Rx's Medication Instructions Recorded blood sugar diagnostic 1 strip MISCELLANEOUS .QD 90 Days 07/17/20 #100 strip lancets 28 gauge 1 gauge TOPICAL .QD 90 Days #100 07/17/20 cap docusate sodium 100 mg capsule 100 mg PO DAILY 90 Days #90 cap 09/27/20 calcium citrate 315 mg-vitamin D3 2 tab PO BID #360 tab 10/16/20 5 mcg (200 unit) tablet atorvastatin 10 mg tablet 10 mg PO DAILY #90 tab 10/26/20 fluticasone propionate 50 2 spray INTRANASAL DAILY #48 ml 10/30/20 mcg/actuation nasal spray,suspension hydroxyzine HCl 25 mg tablet 25 mg PO BEDTIME PRN #90 tab 11/21/20 lorazepam 1 mg tablet 1 mg PO BID 90 Days #180 tab 11/28/20 albuterol sulfate 90 mcg/actuation 2 puff INHALATION Q4H PRN #8.5 g 12/31/20 aerosol inhaler metoprolol succinate 25 mg 25 mg PO DAILY 90 Days #90 tab 02/06/21 tablet,extended release 24 hr lidocaine 5 % topical patch 1 patch TOPICAL DAILY 90 Days #90 03/02/21 ea cholecalciferol (vitamin D3) 25 25 mcg PO DAILY #30 cap 03/08/21 mcg (1,000 unit) capsule amlodipine [Norvasc] 10 mg PO DAILY #30 tab 03/09/21 Allergies Allergy/AdvReac Type Severity Reaction Status Date / Time Iodinated Contrast Media Allergy Mild HIVE AND Verified 03/09/21 14:46 [Iodinated Contrast Media - ITCHINESS IV Dye] ON FACE Review of Systems Review of Systems: Yes all other systems are reviewed and are negative Constitutional: Constitutional: Reports no additional constitutional complaints, Denies body ache(s), Denies chills, Denies fever(s), Reports headache(s) and Denies weakness Eyes: Eyes: Reports no additional eye complaints, Reports blurry vision and Denies change in vision ENT: Reports system reviewed and no additional complaints, except as documented, Denies dizziness, Reports headache(s), Denies nasal congestion, Denies nasal discharge and Denies neck pain Cardiovascular: Cardiovascular: Reports no additional cardiovascular compl aints, Denies chest pain, Denies leg edema and Denies dyspnea Respiratory: Respiratory: Reports no additional respiratory complaints, Denies cough and Denies dyspnea Gastrointestinal: Gastrointestinal: Reports no additional gastrointestinal complaints, Denies abdominal pain, Denies diarrhea, Denies nausea and Denies vomiting Genitourinary: Genitourinary: Denies urinary incontinence Musculoskeletal: Musculoskeletal: Reports no additional musculoskeletal complaints, Denies back pain, Denies arthralgias, Denies joint swelling, Denies neck pain, Denies numbness and Denies tingling Integumentary/Breasts: Skin/Breast: Reports system reviewed and no additional complaints, except as docu and Denies rash Neurologic: Reports system reviewed and no additional complaints, except as documented, Denies Abnormal speech present, Denies dizziness, Reports headache(s), Denies numbness, Denies tingling and Denies weakness Psychiatric: Psychiatric: Reports anxiety PMFSH Past Medical History Attestation statement: The following information was validated with the patient. Source: old records reviewed and nursing notes reviewed Medical History Abnormal cystoscopy Anxiety Asthma Atherosclerotic cardiovascular disease Former smoker GERD (gastroesophageal reflux disease) H/O hidradenitis suppurativa Hyperlipidemia Hypertension Left renal mass Lung nodule Obesity (BMI 30-39.9) Obstructive sleep apnea Rheumatoid arthritis Type 2 diabetes mellitus with hyperglycemia Vertigo Vitamin D deficiency Surgical History History of surgical removal of pilonidal cyst S/P laparoscopic sleeve gastrectomy Family History Family History Father Heart problem Acute arthritis Mother Breast cancer Diabetes mellitus Son No problems noted. Social History Social History Alcohol intake: never Patient Tobacco Use Status: Former Tobacco user Use of substances other than those prescribed or required for medical reasons: No Advance Directives: No Advance Directives Information Provided: Yes Physical Exam Vital Signs: Vital Signs: Last Vital Signs Temp 98.0 F 03/09/21 18:08 Pulse 72 03/09/21 18:08 Resp 18 03/09/21 18:08 BP 165/108 H 03/09/21 18:08 Pulse Ox 98 03/09/21 18:08 Body Mass Index 40.8 Const: General: cooperative, healthy appearing, comfortable and no acute distress Orientation/consciousness: patient oriented x3 Limitations: no limitations HENMT: Head: Yes normal to inspection Ears: hearing grossly normal bilaterally and TM's normal bilaterally General nose exam: Normal external nose present Face and sinus: Yes normal facial exam Mouth: Normal oral and palatal mucosa present Throat: Yes posterior oropharynx normal, Yes tonsils normal and Yes uvula midline Eyes: General: appearance normal, both eyes and all related structures Pupils: Equal, round and reactive pupils present Neck: Neck: Yes normal visual inspection Chest: Chest palpation & inspection: normal inspection of the chest Resp: Effort & Inspection: normal respiratory effort Auscultation: clear to auscultation bilaterally Cardio: Rate: regular rate Rhythm: regular rhythm Peripheral pulses: Peripheral pulses 2+ throughout GI: Inspection: Yes normal to inspection Palpation (GI): Soft to palpation and nontender Auscultation: normal bowel sounds Back/Spine/Pelvis: Thoracic/Lumbar Spine: thoracic and lumbar spine normal to inspection Skin: General skin exam: no rashes or lesions noted Neuro: General: patient oriented x3, no focal motor deficits and normal sensation to monofilament Cranial nerves: Yes CN's II-XII intact bilaterally, Yes Equal, round and reactive pupils present, Yes Bilaterally intact EOM present, Yes Nystagmus not present, Yes Normal facial strength present and Yes Midline tongue present Cognition (Neuro): normal cognition Speech: No Abnormal speech present Gait exam (Neuro): Normal gait present Motor exam (neuro): 5/5 motor strength present throughout Sensory Exam: Normal double simultaneous stimulation for sensation Extrem: General: Yes normal to inspection and Yes calf tenderness (left calf, mild swelling. no erythema or warmth) Course Course Course Narrative: 45-year-old male with history of hypertension here with complaints of hypertension for the last few weeks on controlled 160/100s despite taking all of his medications as prescribed. Complaining of a headache generalized for the last 5 days with intermittent blurry vision. Normal neuro exam. Hypertension 170/100 on arrival, repeat unchanged. Also complaining of left calf pain and swelling with no erythema or warmth. Will need labs, EKG, chest x-ray, CT head, UA, US LLE,blood pressure control. 1814-imaging unremarkable. Labs are unremarkable with the exception of a mildly elevated troponin which is likely secondary to uncontrolled hypertension. No chest pain or EKG changes. Will plan for repeat 3 hour troponin. Blood pressure is trending down. Patient does tell me that he normally takes his Norv asc 5 mg at 19:00 and so we will give him that dose here. Plan will be an increased dose of Norvasc from 5 mg 10 mg daily and close follow-up with his primary care doctor and able bodied seaman. Headache is improved 1899-repeat troponin delta. Patient is feeling improved. Blood pressure did stabilize. Will have him follow-up with his PCP and able bodied seaman. Patient tells me he has appointment with Dr. Moreland. Will increase dose of Norvasc from 5 mg 10 mg daily. Reviewed worrisome signs and symptoms and when to return to the emergency department. Comfortable discharge home. Medical Decision Making MDM Narrative Medical decision making narrative: Uncontrolled hypertension, ICH versus lesion, end-organ damage, DVT versus strain Medical Records Medical records reviewed: Yes I reviewed the patient's medical records. Lab Data Lab results reviewed: Yes I reviewed the patient's lab results. Result diagrams: 03/09/21 15:10 03/09/21 15:10 Labs: Lab Results 03/09/21 03/09/21 03/09/21 Range/Units 15:10 15:10 15:10 WBC 7.1 (4.8-10.8) X10*3/uL RBC 5.29 (4.60-5.80) X10*6/uL Hgb 14.7 (14.0-18.0) g/dl Hct 45.0 (42-52) % MCV 85.1 (80-98) fL MCH 27.8 (27.0-33.0) pg MCHC 32.7 (31.0-36.0) g/dl RDW 13.7 (11.0-16.0) % Plt Count 176 D (160-400) X10*3/uL MPV Not Reportable Immature Gran % (Auto) 0.6 H (0.0-0.4) % Neut % (Auto) 59.1 (45-73) % Lymph % (Auto) 29.4 (20-40) % [place] % (Auto) 7.3 (2-11) % Eos % (Auto) 3.2 (0-4) % Baso % (Auto) 0.4 (0-2) % Lymph # (Auto) 2.1 (1.2-4.9) X10*3/uL [place] # (Auto) 0.5 (0.1-1.2) X10*3/uL Eos # (Auto) 0.2 (0.0-0.4) X10*3/uL Baso # (Auto) 0.0 (0.0-0.2) X10*3/uL Abs Immat Gran (auto) 0.04 H (0.00-0.03) X10*3/uL Absolute Neuts (auto) 4.2 (2.0-8.3) X10*3/uL Absolute Nucleated RBC 0.020 H (0.0-0.012) X10*3/uL Nucleated RBC % (auto) 0.3 H (0.0-0.2) /100WBC Smear Tech's Comments VERIFIED Sodium 140 (135-145) mmol/L Potassium 3.9 (3.3-5.1) mmol/L Chloride 104 (96-108) mmol/L Carbon Dioxide 30 H (22-29) mmol/L Anion Gap 10 L (12-20) BUN 25 H (9-16) mg/dL Creatinine 0.77 (0.5-1.4) mg/dL Estim Creat Clear Calc 125.4 Estimated GFR > 60 Random Glucose 135 H (60-115) mg/dL Calcium 8.9 (8.4-10.2) mg/dL Total Bilirubin (0.0-1.0) mg/dL Direct Bilirubin (0.0-0.5) mg/dL AST (5-37) U/L ALT (0-40) U/L Alkaline Phosphatase (39-117) U/L Troponin I High Sens 14.7 (<3.5-35.0) ng/L Total Protein (6.5-8.0) g/dL Albumin (3.5-5.0) g/dL Urine Color Urine Appearance Urine pH (5.0-8.0) Ur Specific [place] (1.005-1.025) Urine Protein (NEG-TRACE) MG/DL Urine Glucose (UA) (NEG) MG/DL Urine Ketones (NEG) MG/DL Urine Blood (NEG) Urine Nitrite (NEG) Ur Leukocyte Esterase (NEG) Urine RBC (0) /HPF Urine WBC (0-4) /HPF Ur Squamous Epith Cells /LPF Urine Bacteria /LPF Urine Mucus /LPF 03/09/21 03/09/21 03/09/21 Range/Units 15:10 15:20 18:14 WBC (4.8-10.8) X10*3/uL RBC (4.60-5.80) X10*6/uL Hgb (14.0-18.0) g/dl Hct (42-52) % MCV (80-98) fL MCH (27.0-33.0) pg MCHC (31.0-36.0) g/dl RDW (11.0-16.0) % Plt Count (160-400) X10*3/uL MPV Immature Gran % (Auto) (0.0-0.4) % Neut % (Auto) (45-73) % Lymph % (Auto) (20-40) % [place] % (Auto) (2-11) % Eos % (Auto) (0-4) % Baso % (Auto) (0-2) % Lymph # (Auto) (1.2-4.9) X10*3/uL [place] # (Auto) (0.1-1.2) X10*3/uL Eos # (Auto) (0.0-0.4) X10*3/uL Baso # (Auto) (0.0-0.2) X10*3/uL Abs Immat Gran (auto) (0.00-0.03) X10*3/uL Absolute Neuts (auto) (2.0-8.3) X10*3/uL Absolute Nucleated RBC (0.0-0.012) X10*3/uL Nucleated RBC % (auto) (0.0-0.2) /100WBC Smear Tech's Comments Sodium (135-145) mmol/L Potassium (3.3-5.1) mmol/L Chloride (96-108) mmol/L Carbon Dioxide (22-29) mmol/L Anion Gap (12-20) BUN (9-16) mg/dL Creatinine (0.5-1.4) mg/dL Estim Creat Clear Calc Estimated GFR Random Glucose (60-115) mg/dL Calcium (8.4-10.2) mg/dL Total Bilirubin 0.3 (0.0-1.0) mg/dL Direct Bilirubin < 0.2 (0.0-0.5) mg/dL AST 31 (5-37) U/L ALT 49 H (0-40) U/L Alkaline Phosphatase 69 (39-117) U/L Troponin I High Sens 18.9 (<3.5-35.0) ng/L Total Protein 6.9 (6.5-8.0) g/dL Albumin 3.7 (3.5-5.0) g/dL Urine Color YELLOW Urine Appearance CLEAR Urine pH 6.0 (5.0-8.0) Ur Specific [place] 1.010 (1.005-1.025) Urine Protein 2+ H (NEG-TRACE) MG/DL Urine Glucose (UA) NEG (NEG) MG/DL Urine Ketones NEG (NEG) MG/DL Urine Blood NEG (NEG) Urine Nitrite NEG (NEG) Ur Leukocyte Esterase NEG (NEG) Urine RBC 0 (0) /HPF Urine WBC 0 (0-4) /HPF Ur Squamous Epith Cells 1+ /LPF Urine Bacteria TRACE /LPF Urine Mucus 1+ /LPF Imaging Data CT scan - head: Attestation: I personally reviewed and interpreted this imaging study as follows: Radiologist's impression: FINDINGS: There is no evidence of acute intracranial hemorrhage or territorial infarction. No abnormal mass effect or midline shift is seen. Kitchen to white matter differentiation is well preserved. No extra-axial fluid collections are identified. The ventricles are normal in size. There is no abnormal attenuation within the brain parenchyma. The osseous structures and soft tissues are normal. The mastoid air cells and visualized portions of the paranasal sinuses are well aerated. CT/CT head/brain wo con IMPRESSION: No acute intracranial pathology. Chest x-ray: Attestation: I personally reviewed and interpreted this imaging study as follows: Radiologist's impression: FINDINGS: The cardiac and mediastinal contours are stable. There is a 1.2 cm nodule at the right lung base just lateral to the hilar vessels on the PA view that appears unchanged. The lungs are otherwise clear. There is no pleural effusion or pneumothorax. Bony structures are unremarkable. XR/XR chest 2V IMPRESSION: No evidence for acute disease in the chest. Stable-appearing right base pulmonary nodule. Venous US: Attestation: I personally reviewed and interpreted this imaging study as follows: Radiologist's impression: FINDINGS: There is normal venous compression and respiratory variation and augmented flow. The visualized common femoral vein, superficial femoral vein, profunda femoral vein, popliteal vein, and the trifurcation region shows no evidence of deep venous thrombosis. There is no significant popliteal fossa cyst. US/US venous duplex LE LT IMPRESSION: No DVT demonstrated in the left lower extremity. ECG Data Attestation: I personally reviewed and interpreted this ECG as follows: Interpretation: NSR with rate 70, normal pr, normal qrs, normal qtc LVH Discharge Plan Discharge Clinical Impression: Hypertension, Headache Patient Disposition: Home, Self-Care Instructions: Acute Headache (ED), Hypertension (ED) Additional Instructions: We are increasing your Norvasc from 5 mg daily to 10 mg daily We want you to recheck your blood pressure with your primary care doctor within 1 week Continue Tylenol for pain as needed. Increase fluids rest Prescriptions: New amlodipine [Norvasc] 10 mg tablet 10 mg PO DAILY Qty: 30 RF: 0 No Action blood sugar diagnostic [FreeStyle Lite Strips] Strip 1 strip miscellaneous .QD 90 Days Qty: 100 RF: 3 lancets [FreeStyle Lancets] 28 gauge misc 1 gauge topical .QD 90 Days Qty: 100 RF: 3 docusate sodium 100 mg capsule 100 mg PO DAILY 90 Days Qty: 90 RF: 3 calcium citrate-vitamin D3 315 mg-5 mcg (200 unit) tablet 2 tab PO BID Qty: 360 RF: 3 fluticasone propionate 50 mcg/actuation spray,suspension 2 spray intranasal DAILY Qty: 48 RF: 5 hydroxyzine HCl 25 mg tablet 25 mg PO BEDTIME PRN (Reason: for anxiety) Qty: 90 RF: 3 lorazepam 1 mg tablet 1 mg PO BID 90 Days Qty: 180 RF: 1 albuterol sulfate 90 mcg/actuation HFA aerosol inhaler 2 puff inhalation Q4H PRN (Reason: for wheezing) Qty: 8.5 RF: 2 metoprolol succinate 25 mg tablet extended release 24 hr 25 mg PO DAILY 90 Days Qty: 90 RF: 2 cholecalciferol (vitamin D3) 25 mcg (1,000 unit) capsule 25 mcg PO DAILY Qty: 30 RF: 11 atorvastatin 10 mg tablet 10 mg PO DAILY Qty: 90 RF: 3 irbesartan 300 mg tablet 300 mg PO DAILY RF: 0 amlodipine 5 mg tablet 5 mg PO DAILY RF: 0 lidocaine 5 % adhesive patch,medicated 1 patch topical DAILY 90 Days Qty: 90 RF: 3 aspirin 81 mg tablet,delayed release (DR/EC) 81 mg PO DAILY RF: 0 nitroglycerin [Nitrostat] 0.4 mg tablet, sublingual 0.4 mg sublingual Q5M PRNRF: 0 oxycodone 10 mg tablet 10 mg PO BID PRN (Reason: severe pain) RF: 0 ascorbic acid (vitamin C) 500 mg capsule 500 mg PO DAILY RF: 0 escitalopram oxalate 5 mg tablet 5 mg PO DAILY RF: 0 celecoxib 200 mg capsule 200 mg PO BID RF: 0 folic acid 1 mg tablet 1 mg PO DAILY RF: 0 methotrexate sodium 25 mg/mL solution subcut RF: 0 ferrous sulfate 325 mg (65 mg iron) tablet 325 mg PO DAILY RF: 0 meclizine 25 mg tablet 25 mg PO TID PRNRF: 0 Bariatric Multivitamins 45 mg iron- 800 mcg-120 mcg capsule PO RF: 0 Referrals: Po,Saeid Mckay MD [Primary Care Provider] - 2 days Interventions: ED Discharge Assessment Last Done: 03/09/21 19:10 Discharge Date/Time: 03/09/21 19:10
[2021-03-09 15:18] LABS: Basophils Percent Auto 0.4 % (0-2); Eosinophils Absolute Auto 0.2 X10*3/uL (0.0-0.4); Eosinophils Percent Auto 3.2 % (0-4); Hemoglobin 14.7 g/dl (14.0-18.0); Imm Gran Abs Auto 0.04 X10*3/uL (0.00-0.03); Imm Gran Pct Auto 0.6 % (0.0-0.4); Lymphocytes Absolute Auto 2.1 X10*3/uL (1.2-4.9); Lymphocytes Percent Auto 29.4 % (20-40); MANUAL DIFF FLAG SCAN; Mean Corpuscular HGB Conc 32.7 g/dl (31.0-36.0); Mean Corpuscular Hemoglobin 27.8 pg (27.0-33.0); Mean Corpuscular Volume 85.1 fL (80-98); Monocytes Absolute Auto 0.5 X10*3/uL (0.1-1.2); Monocytes Percent Auto 7.3 % (2-11); NRBC Pct Auto 0.3 /100WBC (0.0-0.2); Neutrophils Absolute Auto 4.2 X10*3/uL (2.0-8.3); Neutrophils Percent Auto 59.1 % (45-73); PLT CLUMP 1; Red Blood Count 5.29 X10*6/uL (4.60-5.80); Red Cell Distribution Width 13.7 % (11.0-16.0); SCAN SMEAR FLAG 1
[2021-03-09] MEDS: Butalb/Acetamin/Caff 50/325/40 TABLET 1 TAB PO (15:29)
[2021-03-09] MEDS: amLODIPine Besylate 5 MG TABLET PO ×2 (15:29→17:44)
[2021-03-09 15:30] LABS: Glucose Urine UA NEG (NEG); Leukocyte Esterase Urine NEG (NEG); Nitrite Urine NEG (NEG); Urine Blood NEG (NEG); Urine Ketones NEG (NEG); Urine Protein 2+ MG/DL (NEG-TRACE)
[2021-03-09 15:33] LABS: Appearance Urine CLEAR; Color Urine YELLOW
[2021-03-09 15:47] LABS: Alanine Aminotransferase 49 U/L (0-40); Albumin Level 3.7 g/dL (3.5-5.0); Alkaline Phosphatase 69 U/L (39-117); Anion Gap 10 (12-20); Aspartate Amino Transferase 31 U/L (5-37); Bilirubin Direct < 0.2 mg/dL (0.0-0.5); Bilirubin Total 0.3 mg/dL (0.0-1.0); Blood Urea Nitrogen 25 mg/dL (9-16); Calcium 8.9 mg/dL (8.4-10.2); Carbon Dioxide 30 mmol/L (22-29); Chloride 104 mmol/L (96-108); Creatinine Clr Calc Pharmacy 125.4; Estimated Glomerular Filt Rate > 60; Glucose Random 135 mg/dL (60-115); Potassium 3.9 mmol/L (3.3-5.1); Sodium 140 mmol/L (135-145); Total Protein 6.9 g/dL (6.5-8.0)
[2021-03-09 15:50] LABS: Bacteria Urine TRACE /LPF; RBC Urine 0 /HPF (0); Squamous Epithelial Cell Urine 1+ /LPF; WBC Urine 0 /HPF (0-4)
[2021-03-09 15:51] LABS: Mucus Urine 1+ /LPF
[2021-03-09 16:06] LABS: Troponin-I High Sensitivity 14.7 ng/L (<3.5-35.0)
[2021-03-09 16:57] LABS: Platelet Count 176 X10*3/uL (160-400); White Blood Count 7.1 X10*3/uL (4.8-10.8)
[2021-03-09 16:58] LABS: SLIDE REVIEW VERIFIED
[2021-03-09 18:51] LABS: Troponin-I High Sensitivity 18.9 ng/L (<3.5-35.0)
== END 2021-03-09 19:10 | disposition home or self-care (01) ==
PROVIDERS: Nurse Practitioner Family; Emergency Provider Emergency Medicine; PCP Internal Medicine
DX: I10 Essential (primary) hypertension (principal); R51.9 Headache, unspecified; M79.662 Pain in left lower leg; I25.10 Atherosclerotic heart disease of native coronary artery without angina pectoris; E11.9 Type 2 diabetes mellitus without complications; Z79.899 Other long term (current) drug therapy; Z98.84 Bariatric surgery status
CPT/HCPCS: 36415; 70450; 71046; 80048; 80076; 81001; 84484; 85025; 93005; 93971; 99285

== ENCOUNTER 2021-03-12 16:26 | Outpatient (REF) | payer MEDICARE, MEDICAID, SELFPAY ==
--- NOTE | ~2021-03-12 | US_ITS ---
EXAMINATION: US SCROTUM CLINICAL INFORMATION: Other specified disorders of male genital organs. COMPARISON: None TECHNIQUE: A sonogram of the scrotum was performed assessing francisco-scale appearance and color Doppler flow. Spectral Doppler analysis of the arterial and venous flow were performed in the testes bilaterally. FINDINGS: RIGHT: Right testicle measures 3.5 x 1.9 x 3.4 cm, volume 11.5 mL. No focal testicular parenchymal lesions are visualized. Spectral Doppler analysis of the arterial and venous flow is normal in the right testis. Right epididymal head is normal in size. No right varicocele or varicocele is seen. Right epididymal Doppler flow is normal. There is asymmetric increased hyperechoic soft tissue seen in the right superior scrotum compared to the left side questionable for a lipoma of the cord versus fat-containing hernia. LEFT: Left testicle measures 4.0 x 2.3 x 2.7 cm, volume 12.8 mL. No focal testicular parenchymal lesions are visualized. Spectral Doppler analysis of the arterial and venous flow is normal in the left testis. Left epididymal head is normal in size. No left hydrocele or varicocele is seen. Left epididymal Doppler flow is normal. US/US scrotum IMPRESSION: Asymmetric increased hyperechoic soft tissue in the right superior scrotum. Right-sided lipoma of the cord versus inguinal hernia containing fat should be considered.
== END 2021-03-12 16:27 | disposition home or self-care (01) ==
LOC: HO.US 16:26
PROVIDERS: PCP Internal Medicine; Visit Provider Internal Medicine
DX: N50.89 Other specified disorders of the male genital organs (principal)
CPT/HCPCS: 76870

== ENCOUNTER 2021-03-15 12:27 | Outpatient (REF) | payer MEDICARE, MEDICAID, SELFPAY | END 2021-03-15 12:28 | disposition home or self-care (01) | LOC: HO.HAP 12:27 | PROVIDERS: Visit Provider Internal Medicine | DX: Z13.89 Encounter for screening for other disorder (principal) ==

== ENCOUNTER → 2021-03-20 08:33 | Outpatient (BNVA) | payer MEDICARE, MEDICAID, SELFPAY | PROVIDERS: PCP Internal Medicine; Visit Provider Dietitian, Registered | DX: E66.01 Morbid (severe) obesity due to excess calories (principal); Z68.41 Body mass index [BMI] 40.0-44.9, adult; E11.9 Type 2 diabetes mellitus without complications | CPT/HCPCS: 97803 ==

== ENCOUNTER 2021-04-18 08:40 | Outpatient (REF) | payer MEDICARE, MEDICAID, SELFPAY ==
[2021-04-22 13:27] LABS: Metanephrine, Free <25 pg/mL (<=57); Normetanephrines, Free 118 pg/mL (<=148); Total Metanephrine, Free 118 pg/mL (<=205)
[2021-04-23 11:56] LABS: Renin 0.44 ng/mL/h (0.25-5.82)
== END 2021-04-18 08:41 | disposition home or self-care (01) ==
LOC: HO.LAB 08:40
PROVIDERS: PCP Internal Medicine; Visit Provider Internal Medicine Hypertension Specialist
DX: I10 Essential (primary) hypertension (principal)
CPT/HCPCS: 36415; 82088; 83835; 84244

== ENCOUNTER 2021-05-15 15:10 | Outpatient (REF) | payer MEDICARE, MEDICAID, SELFPAY ==
--- NOTE | ~2021-05-15 | CT_ITS ---
EXAMINATION: CT ABDOMEN WITHOUT CONTRAST CLINICAL INFORMATION: Cyst of the kidney, acquired. COMPARISON: None. TECHNIQUE: Contiguous axial thin section helical images of the abdomen were performed without contrast. The data set was reformatted in the coronal and sagittal planes and reviewed on an independent workstation. This CT examination was performed using dose optimization techniques as appropriate, variously including the following: *Automated exposure control *Adjustment of mA and/or kV according to patient size (this includes techniques or standardized protocols for targeted exams where dose is matched to indication/reason for exam; i.e. extremities or head) *Use of iterative reconstruction technique DLP: 462 mGy-cm FINDINGS: LUNG BASES: There is plate-like atelectasis in both lung bases. The heart size is normal. LIVER, GALLBLADDER, BILIARY TREE: The liver is homogeneous in density, normal size and shape. There is no intrahepatic ductal dilatation. No focal lesion seen. PANCREAS: The pancreas is normal size and density. The peripancreatic fat is preserved. SPLEEN: The spleen is normal size and density and contour. No focal lesion seen. ADRENAL GLANDS AND KIDNEYS: Bilateral adrenal glands are normal size. There is a moderate size hypodense cyst with calcified muniz in the midpole left kidney measuring 2.8 x 2.8 cm, suggestive of Bosniak type IIF complex cyst. There is exophytic 2.1 x 1.5 cm cyst upper pole left kidney measuring 16 Hounsfield units, suggestive of simple cyst. No additional cysts or bullae visualized. There is mild bilateral perinephric stranding. BOWEL LOOPS: There is evidence of previous gastric bypass surgery. The small bowel loops are normal caliber. Appendix is not visualized. There is scattered stool in the right colon. No colonic distention seen. No free fluid or free air seen. There is mild haziness of the small bowel mesentery/jeff mesentery in the midabdomen without any focal lymph nodes or mass. LYMPH NODES: There are no retroperitoneal lymph nodes or mass seen. VASCULAR: Unremarkable. BONES: No lytic or sclerotic process seen. Mild degenerative disc changes with vacuum disc phenomena L2-L3, L3-L4, L4-L5 and L5-S1 disc levels is noted. 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 No radiopaque renal calculi or hydronephrosis. Post gastric bypass surgical changes in the left upper quadrant and epigastric region. Nonspecific jeff mesentery.
== END 2021-05-15 15:11 | disposition home or self-care (01) ==
LOC: HO.CT 15:10
PROVIDERS: PCP Internal Medicine; Visit Provider Internal Medicine Hypertension Specialist
DX: N28.1 Cyst of kidney, acquired (principal); I25.10 Atherosclerotic heart disease of native coronary artery without angina pectoris; I10 Essential (primary) hypertension; M79.89 Other specified soft tissue disorders
CPT/HCPCS: 74150; 99212

== ENCOUNTER → 2021-05-17 10:42 | Outpatient (BNVA) | payer MEDICARE, MEDICAID, SELFPAY | PROVIDERS: PCP Internal Medicine; Visit Provider Urology | DX: N50.89 Other specified disorders of the male genital organs (principal) | CPT/HCPCS: 99202 ==

== ENCOUNTER 2021-06-08 07:04 | Outpatient (REF) | payer MEDICARE, MEDICAID, SELFPAY ==
[2021-06-08 07:34] LABS: MANUAL DIFF FLAG NO
[2021-06-08 07:37] LABS: Basophils Percent Auto 0.3 % (0-2); Eosinophils Absolute Auto 0.3 X10*3/uL (0.0-0.4); Eosinophils Percent Auto 3.5 % (0-4); Hematocrit 42.8 % (42-52); Hemoglobin 14.1 g/dl (14.0-18.0); Imm Gran Abs Auto 0.04 X10*3/uL (0.00-0.03); Imm Gran Pct Auto 0.4 % (0.0-0.4); Lymphocytes Absolute Auto 2.3 X10*3/uL (1.2-4.9); Lymphocytes Percent Auto 24.9 % (20-40); Mean Corpuscular HGB Conc 32.9 g/dl (31.0-36.0); Mean Corpuscular Hemoglobin 27.5 pg (27.0-33.0); Mean Corpuscular Volume 83.4 fL (80-98); Mean Platelet Volume 9.1 fL (9.4-12.4); Monocytes Absolute Auto 0.6 X10*3/uL (0.1-1.2); Neutrophils Absolute Auto 5.8 X10*3/uL (2.0-8.3); Neutrophils Percent Auto 63.9 % (45-73); Platelet Count 277 X10*3/uL (160-400); Red Blood Count 5.13 X10*6/uL (4.60-5.80); White Blood Count 9.1 X10*3/uL (4.8-10.8)
[2021-06-08 07:59] LABS: Alanine Aminotransferase 37 U/L (0-40); Albumin Level 3.8 g/dL (3.5-5.0); Alkaline Phosphatase 70 U/L (39-117); Anion Gap 11 (12-20); Aspartate Amino Transferase 23 U/L (5-37); Bilirubin Total 0.4 mg/dL (0.0-1.0); Blood Urea Nitrogen 18 mg/dL (9-16); C Reactive Protein 1.21 mg/dL (< or = 0.50); Calcium 9.6 mg/dL (8.4-10.2); Carbon Dioxide 29 mmol/L (22-29); Chloride 104 mmol/L (96-108); Estimated Glomerular Filt Rate > 60; Glucose Fasting 130 mg/dL (60-99); Potassium 4.2 mmol/L (3.3-5.1); Sodium 140 mmol/L (135-145); Total Protein 7.1 g/dL (6.5-8.0)
[2021-06-08 08:15] LABS: Erythrocyte Sedimentation Rate 41 MM/HR (0-15)
[2021-06-13 15:22] LABS: Renin 0.49 ng/mL/h (0.25-5.82)
[2021-06-13 15:50] LABS: Metanephrine, Free 25 pg/mL (<=57); Normetanephrines, Free 62 pg/mL (<=148); Total Metanephrine, Free 87 pg/mL (<=205)
== END 2021-06-08 07:05 | disposition home or self-care (01) ==
LOC: HO.LAB 07:04
PROVIDERS: Absent Provider Internal Medicine Hypertension Specialist; PCP Internal Medicine; Visit Provider Internal Medicine Rheumatology
DX: M05.79 Rheumatoid arthritis with rheumatoid factor of multiple sites without organ or systems involvement (principal); I10 Essential (primary) hypertension
CPT/HCPCS: 36415; 80053; 82088; 83835; 84244; 85025; 85652; 86140

== ENCOUNTER → 2021-07-24 13:20 | Outpatient (BNVA) | payer MEDICARE, MEDICAID, SELFPAY | PROVIDERS: PCP Internal Medicine; Referring Provider Internal Medicine; Visit Provider Physician Assistant Surgical | DX: E66.01 Morbid (severe) obesity due to excess calories (principal); E11.65 Type 2 diabetes mellitus with hyperglycemia; Z68.41 Body mass index [BMI] 40.0-44.9, adult | CPT/HCPCS: 99212 ==

== ENCOUNTER 2021-08-21 12:46 | Outpatient (REF) | payer MEDICARE, MEDICAID, SELFPAY ==
--- NOTE | ~2021-08-21 | CT_ITS ---
EXAMINATION: CT CHEST WITHOUT CONTRAST CLINICAL INFORMATION: Pulmonary nodule. COMPARISON: Multiple priors, most recent CT chest dated 01/28/2021 and chest radiograph dated 03/09/2021. TECHNIQUE: Multidetector volumetric CT imaging of the chest was done. Axial MIP volume rendering provided. Sagittal and coronal reformatted images were obtained. This CT examination was performed using dose optimization techniques as appropriate, variously including the following: *Automated exposure control *Adjustment of mA and/or kV according to patient size (this includes techniques or standardized protocols for targeted exams where dose is matched to indication/reason for exam; i.e. extremities or head) *Use of iterative reconstruction technique DLP: 285 mGy-cm FINDINGS: EQUINE VET: Unremarkable. LUNGS: Redemonstration of a right perihilar nodule measuring 1.2 x 1.0 cm, not significantly changed when compared to the prior examination (axial image 308/625). Stable right lower lobe 0.2 cm calcified granuloma. No new pulmonary nodule, mass, or airspace consolidation. Central airways are patent. MEDIASTINUM: No cardiomegaly. No pericardial effusion. No thoracic aortic dilatation. No significant superior mediastinal or hilar lymphadenopathy. Unremarkable thyroid. PLEURA: There is no pleural effusion. No pleural mass or thickening. CHEST/AXILLA: No lymphadenopathy. Gynecomastia is redemonstrated. UPPER ABDOMEN: Peripherally calcified left renal cyst, unchanged. Postsurgical change related to sleeve gastrectomy, unchanged. Right upper pole renal cyst, unchanged. OSSEOUS STRUCTURES: Unremarkable. CT/CT chest wo con IMPRESSION: 1. Stable noncalcified right upper lobe perihilar nodule measuring up to 1.2 cm and not significantly changed. 2. No new pulmonary nodule, mass, or airspace consolidation. 3. Stable bilateral renal cysts. Fleischner guidelines were followed.
== END 2021-08-21 12:47 | disposition home or self-care (01) ==
LOC: HO.CT 12:46
PROVIDERS: Visit Provider Surgery
DX: R91.1 Solitary pulmonary nodule (principal)
CPT/HCPCS: 71250

== ENCOUNTER 2021-08-29 10:20 | Outpatient (REF) | payer MEDICARE, MEDICAID, SELFPAY ==
[2021-08-29 10:47] LABS: MANUAL DIFF FLAG NO
[2021-08-29 11:08] LABS: Basophils Percent Auto 0.2 % (0-2); Eosinophils Absolute Auto 0.3 X10*3/uL (0.0-0.4); Eosinophils Percent Auto 2.7 % (0-4); Hematocrit 40.5 % (42.0-52.0); Hemoglobin 13.2 g/dl (14.0-18.0); Imm Gran Abs Auto 0.05 X10*3/uL (0.00-0.03); Imm Gran Pct Auto 0.5 % (0.0-0.4); Lymphocytes Absolute Auto 2.4 X10*3/uL (1.2-4.9); Mean Corpuscular HGB Conc 32.6 g/dl (31.0-36.0); Mean Corpuscular Hemoglobin 27.7 pg (27.0-33.0); Mean Corpuscular Volume 84.9 fL (80.0-98.0); Mean Platelet Volume 9.9 fL (9.4-12.4); Monocytes Absolute Auto 0.7 X10*3/uL (0.1-1.2); Monocytes Percent Auto 7.4 % (2-11); Neutrophils Absolute Auto 6.2 x10*3/uL (2.0-8.3); Neutrophils Percent Auto 64.2 % (45-73); Platelet Count 299 X10*3/uL (160-400); Red Blood Count 4.77 X10*6/uL (4.60-5.80); Red Cell Distribution Width 13.8 % (11.0-16.0); White Blood Count 9.7 X10*3/uL (4.8-10.8)
[2021-08-29 11:35] LABS: Alanine Aminotransferase 36 U/L (0-40); Albumin Level 3.9 g/dL (3.5-5.0); Alkaline Phosphatase 75 U/L (39-117); Anion Gap 10 (12-20); Aspartate Amino Transferase 21 U/L (5-37); Bilirubin Total 0.3 mg/dL (0.0-1.0); Blood Urea Nitrogen 30 mg/dL (9-16); Calcium 10.1 mg/dL (8.4-10.2); Carbon Dioxide 31 mmol/L (22-29); Chloride 102 mmol/L (96-108); Estimated Glomerular Filt Rate > 60; Glucose Random 183 mg/dL (60-115); Glucose Random 184 mg/dL (60-115); Potassium 4.4 mmol/L (3.3-5.1); Potassium 4.5 mmol/L (3.3-5.1); Sodium 138 mmol/L (135-145); Sodium 139 mmol/L (135-145); Total Protein 7.5 g/dL (6.5-8.0)
[2021-08-29 11:55] LABS: Erythrocyte Sedimentation Rate 46 MM/HR (0-15)
== END 2021-08-29 10:21 | disposition home or self-care (01) ==
LOC: HO.LAB 10:20
PROVIDERS: Absent Provider Internal Medicine Hypertension Specialist; PCP Internal Medicine; Visit Provider Internal Medicine Rheumatology
DX: M05.79 Rheumatoid arthritis with rheumatoid factor of multiple sites without organ or systems involvement (principal); I10 Essential (primary) hypertension; Z79.899 Other long term (current) drug therapy
CPT/HCPCS: 36415; 80048; 80053; 85025; 85652; 86140

== ENCOUNTER → 2021-09-03 08:16 | Outpatient (BNVA) | payer MEDICARE, MEDICAID, SELFPAY | PROVIDERS: PCP Internal Medicine; Visit Provider Physician Assistant Surgical ==

== ENCOUNTER → 2021-09-07 10:54 | Outpatient (BNVA) | payer MEDICARE, MEDICAID, SELFPAY | PROVIDERS: PCP Internal Medicine; Visit Provider Surgery | DX: R91.1 Solitary pulmonary nodule (principal); Z79.82 Long term (current) use of aspirin; Z87.891 Personal history of nicotine dependence; Z79.899 Other long term (current) drug therapy | CPT/HCPCS: 99212 ==

== ENCOUNTER 2021-11-26 11:03 | Outpatient (REF) | payer SELFPAY | END 2021-11-26 11:04 | disposition home or self-care (01) | LOC: HO.HAP 11:03 | PROVIDERS: Visit Provider Internal Medicine | DX: Z46.1 Encounter for fitting and adjustment of hearing aid (principal); H90.3 Sensorineural hearing loss, bilateral | CPT/HCPCS: V5267 ==

== ENCOUNTER 2021-12-13 11:22 | Outpatient (REF) | payer MEDICARE, MEDICAID, SELFPAY ==
[2021-12-13 11:53] LABS: MANUAL DIFF FLAG NO
[2021-12-13 12:32] LABS: Basophils Absolute Auto 0.1 X10*3/uL (0.0-0.2); Basophils Percent Auto 0.5 % (0-2); Eosinophils Absolute Auto 0.3 X10*3/uL (0.0-0.4); Hematocrit 37.5 % (42.0-52.0); Hemoglobin 12.2 g/dl (14.0-18.0); Imm Gran Abs Auto 0.07 X10*3/uL (0.00-0.03); Imm Gran Pct Auto 0.7 % (0.0-0.4); Lymphocytes Percent Auto 20.6 % (20-40); Mean Corpuscular HGB Conc 32.5 g/dl (31.0-36.0); Mean Corpuscular Hemoglobin 28.2 pg (27.0-33.0); Mean Corpuscular Volume 86.8 fL (80.0-98.0); Mean Platelet Volume 9.8 fL (9.4-12.4); Monocytes Absolute Auto 0.7 X10*3/uL (0.1-1.2); Monocytes Percent Auto 7.4 % (2-11); Neutrophils Absolute Auto 6.4 x10*3/uL (2.0-8.3); Neutrophils Percent Auto 67.8 % (45-73); Platelet Count 307 X10*3/uL (160-400); Red Blood Count 4.32 X10*6/uL (4.60-5.80); Red Cell Distribution Width 13.2 % (11.0-16.0); White Blood Count 9.5 X10*3/uL (4.8-10.8)
[2021-12-13 12:39] LABS: Estimated Average Glucose 166 mg/dL; Hemoglobin A1c % 7.4 %
[2021-12-13 12:58] LABS: C Reactive Protein 2.77 mg/dL (< or = 0.50)
[2021-12-13 13:01] LABS: Alanine Aminotransferase 32 U/L (0-40); Albumin Level 3.9 g/dL (3.5-5.0); Alkaline Phosphatase 79 U/L (39-117); Anion Gap 13 (12-20); Aspartate Amino Transferase 17 U/L (5-37); Bilirubin Total 0.3 mg/dL (0.0-1.0); Blood Urea Nitrogen 33 mg/dL (9-16); Calcium 10.4 mg/dL (8.4-10.2); Carbon Dioxide 29 mmol/L (22-29); Chloride 102 mmol/L (96-108); Estimated Glomerular Filt Rate > 60; Glucose Random 168 mg/dL (60-115); Potassium 4.5 mmol/L (3.3-5.1); Sodium 139 mmol/L (135-145); Total Protein 7.4 g/dL (6.5-8.0)
[2021-12-13 13:13] LABS: Erythrocyte Sedimentation Rate 62 MM/HR (0-15)
[2021-12-13 13:33] LABS: Folate 16.3 ng/mL (> or = 4.0); Vitamin B12 1176 pg/mL (200-900)
[2021-12-14 16:15] LABS: Urine Cytology See Pathology rpt
== END 2021-12-13 11:23 | disposition home or self-care (01) ==
LOC: HO.LABR 11:22
PROVIDERS: Urology; Absent Provider Internal Medicine; PCP Internal Medicine; Visit Provider Internal Medicine Rheumatology
DX: I10 Essential (primary) hypertension (principal); E78.00 Pure hypercholesterolemia, unspecified; E11.65 Type 2 diabetes mellitus with hyperglycemia; M05.79 Rheumatoid arthritis with rheumatoid factor of multiple sites without organ or systems involvement; Z79.899 Other long term (current) drug therapy
CPT/HCPCS: 36415; 80053; 82607; 82746; 83036; 85025; 85652; 86140

== ENCOUNTER 2022-01-17 11:02 | Emergency (ER) | payer MEDICARE, MEDICAID, SELFPAY ==
--- NOTE | ~2022-01-17 | XR_ITS ---
EXAMINATION: XR CHEST CLINICAL INFORMATION: Chest discomfort. Tachycardia. COMPARISON: March 09, 2021 TECHNIQUE: AP portable view of the chest was obtained. FINDINGS: No significant abnormality is noted involving the heart, lungs, mediastinum, bony thorax or soft tissues. XR/XR chest 1V IMPRESSION: No acute disease.
--- NOTE | ~2022-01-17 | NM_ITS ---
EXAMINATION: PULMONARY PERFUSION STUDY CLINICAL INFORMATION: Elevated d-dimer, tachycardia. COMPARISON: No previous lung scan is available for comparison. Radiographs of the chest dated 01/17/2022, the same date as this lung scan is available for comparison. TECHNIQUE: Following the intravenous injection of 4.0 mCi Tc-99m MAA, the lungs were imaged in the anterior and posterior, left and right lateral and AI, RAYMUNDO, LPO, and RPO projections using a gamma scintillation camera. FINDINGS: No segmental perfusion defects are present. There is homogeneous distribution of activity bilaterally. There are no focal anatomic appearing perfusion defects present. NM/NM pul perfusion IMPRESSION: Normal radionuclide lung perfusion scan.
[2022-01-17 11:13] VITALS: BP 183/119; PULSE 143; RESP 20; TEMP 37.2; O2SAT 98; BMI 43.9
--- NOTE | 2022-01-17 11:19 | ECG_ITS ---
Test Reason : cp,hi bp,hi heartrate Blood Pressure : / mmHG Vent. Rate : 134 BPM Atrial Rate : 134 BPM P-R Int : 156 ms QRS Dur : 074 ms QT Int : 270 ms P-R-T Axes : 061 008 115 degrees QTc Int : 403 ms Sinus tachycardia T wave abnormality, consider lateral ischemia Abnormal ECG When compared with ECG of 09-MAR-2021 15:40, Vent. rate has increased BY 64 BPM QRS duration has decreased Inverted T waves have replaced nonspecific T wave abnormality in Lateral leads Referred By: Generic ED Physician Electronically Signed By:EDWINA ANNE MD
--- NOTE | 2022-01-17 11:38 | ED.GENADULT ---
HPI - General Adult General Chief complaint: Anxiety Stated complaint: anxiety shakes Time Seen by Provider: 01/17/22 11:22 Source: patient Mode of arrival: ambulatory Limitations: no limitations History of Present Illness HPI narrative: Patient is a 46 year old male presenting to the emergency department today feeling anxious. Patient states that he sometimes gets this way and will get shakey. Patient states that he takes 1mg of ativan, 3 times a day. Patient denies any dizziness, lightheadedness, abdominal pain, nausea, vomiting, fever, chills, blurry vision, double vision, loss of vision, chest pain, difficulty breathing, shortness of breath, back pain, night sweats, pain with urination, increased urinary frequency, increased urinary urgency, blood in his urine or stool, syncope or a near syncopal episode, recent trauma or falls, bowel incontinence, bladder incontinence, bowel retention, bladder retention, or any other complaints at this time. Onset (ago): minute(s) Relieving factors: none Exacerbating factors: none Associated symptoms: denies other symptoms Treatments prior to arrival: none Related Data Home Medications Medication Instructions Recorded Confirmed celecoxib 200 mg capsule 200 mg PO BID 07/14/20 12/21/21 ferrous sulfate 325 mg (65 mg 325 mg PO DAILY 07/14/20 12/21/21 iron) tablet folic acid 1 mg tablet 1 mg PO DAILY 07/14/20 12/21/21 meclizine 25 mg tablet 25 mg PO TID PRN 07/14/20 12/21/21 oxycodone 10 mg tablet 10 mg PO BID PRN 07/14/20 12/21/21 [id number] 45 mg-folic cap PO 08/11/20 12/21/21 acid 800 mcg-vit K 120 mcg capsule (Bariatric Multivitamins) aspirin 81 mg tablet,delayed 81 mg PO DAILY 11/15/20 12/21/21 release nitroglycerin 0.4 mg sublingual 0.4 mg SUBLINGUAL Q5M PRN 11/15/20 12/21/21 tablet (Nitrostat) irbesartan 300 mg tablet 300 mg PO DAILY 01/24/21 12/21/21 metoprolol tartrate 25 mg tablet 25 mg PO BID 05/15/21 12/21/21 ascorbic acid (vitamin C) 500 mg 500 mg PO DAILY 05/17/21 12/21/21 tablet syringe with needle 1 mL 27 x 1/2 #1 ea 05/17/21 12/21/21 (BD Tuberculin Syringe) infliximab 100 mg intravenous See Rx Instructions IV .COMPLEX 06/18/21 12/21/21 solution (Remicade) methotrexate sodium 25 mg/mL See Rx Instructions SUBCUT .COMPLEX 06/18/21 12/21/21 injection solution amlodipine 10 mg tablet 10 mg PO DAILY 12/21/21 12/21/21 Previous Rx's Medication Instructions Recorded lidocaine 5 % topical patch 1 patch TOPICAL DAILY 90 Days #90 03/02/21 ea cholecalciferol (vitamin D3) 25 25 mcg PO DAILY #30 cap 03/08/21 mcg (1,000 unit) capsule blood pressure monitor (Blood #1 ea 04/16/21 Pressure Kit) spironolactone 25 1 tab PO DAILY #30 tab 06/25/21 mg-hydrochlorothiazide 25 mg tablet (Aldactazide) escitalopram oxalate 5 mg tablet 5 mg PO DAILY #90 tab 07/09/21 blood sugar diagnostic (FreeStyle 1 strip MISCELLANEOUS .QD 90 Days 11/08/21 Lite Strips) #100 strip docusate sodium 100 mg capsule 100 mg PO BID 90 Days #180 cap 11/08/21 hydrocortisone acetate 25 mg 25 mg NV BID 14 Days #28 ea 11/08/21 rectal suppository (Anusol-HC) lancets 28 gauge (FreeStyle 1 gauge TOPICAL .QD 90 Days #100 11/08/21 Lancets) cap albuterol sulfate 90 mcg/actuation 2 puff INHALATION Q4H PRN #8.5 g 11/15/21 aerosol inhaler fluticasone propionate 50 2 spray INTRANASAL DAILY #48 ml 11/15/21 mcg/actuation nasal spray,suspension hydroxyzine HCl 25 mg tablet 25 mg PO BEDTIME PRN #90 tab 11/15/21 lorazepam 1 mg tablet 1 mg PO BID 90 Days #180 tab 11/30/21 atorvastatin 20 mg tablet 20 mg PO DAILY #90 tab 12/20/21 metformin 500 mg tablet,extended 500 mg PO DAILY #30 tab 12/21/21 release 24 hr calcium citrate 315 mg-vitamin D3 2 tab PO BID #360 tab 12/26/21 5 mcg (200 unit) tablet Allergies Allergy/AdvReac Type Severity Reaction Status Date / Time Iodinated Contrast Media Allergy Mild HIVE AND Verified 01/17/22 11:18 [Iodinated Contrast Media - ITCHINESS IV Dye] ON FACE Review of Systems Constitutional: Constitutional: Reports no additional constitutional complaints, Denies chills, Denies fever(s) and Denies night sweats Eyes: Eyes: Reports no additional eye complaints, Denies blurry vision, Denies change in vision, Denies diplopia, Denies eye discharge, Denies loss of vision and Denies eye pain ENT: Denies dizziness Cardiovascular: Cardiovascular: Reports no additional cardiovascular complaints, Denies chest pain, Denies lightheadedness, Denies Loss of Consciousness and Denies dyspnea Respiratory: Respiratory: Reports no additional respiratory complaints and Denies dyspnea Gastrointestinal: Gastrointestinal: Reports no additional gastrointestinal complaints, Denies abdominal pain, Denies melena, Denies hematochezia, Denies change in bowel habits and Denies change in stool character Genitourinary: Genitourinary: Reports no additional male genitourinary complaints, Denies hematuria, Denies oliguria, Denies difficulty urinating, Denies dysuria, Denies urinary frequency, Denies urinary hesitancy, Denies urinary incontinence and Denies urinary urgency Musculoskeletal: Musculoskeletal: Reports no additional musculoskeletal complaints, Denies numbness and Denies tingling Neurologic: Denies dizziness, Denies loss of vision, Denies numbness and Denies tingling Psychiatric: Psychiatric: Reports anxiety Endocrine: Endocrine: Reports no additional endocrine complaints Hematologic/Lymphatic: Hematologic/Lymphatic: Reports no additional hematologic/lymphatic complaints Allergic/Immunologic: Allergic/Immunologic: Reports no additional allergic/immunologic complaints [facility] Past Medical History Attestation statement: The following information was validated with the patient. Source: old records reviewed Medical History Anxiety Asthma Atherosclerotic cardiovascular disease GERD (gastroesophageal reflux disease) H/O hidradenitis suppurativa Hyperlipidemia Left renal mass Lung nodule Morbid obesity with BMI of 40.0-44.9, adult Obstructive sleep apnea Personal history of nicotine dependence Rheumatoid arthritis Type 2 diabetes mellitus with hyperglycemia Vertigo Vitamin D deficiency Surgical History History of bronchoscopy (~2020) History of cystoscopy (~2013) History of surgical removal of pilonidal cyst (~1990) S/P laparoscopic sleeve gastrectomy (~2017) Status post biopsy of kidney (~2013) Family History Family History Father Heart problem Acute arthritis Mother Breast cancer Diabetes mellitus Son No problems noted. 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) Vision needs: Yes (glasses) Physical Exam ED Vital Signs: Vital Signs - 24 hr 01/17/22 11:13 01/17/22 12:21 01/17/22 16:35 Temperature 99 F 99.9 F 98.7 F Pulse Rate 143 H 126 H 109 H Respiratory Rate 20 16 15 Blood Pressure 183/119 H 140/82 H 112/71 Pulse Oximetry 98 96 94 BMI result Body Mass Index 43.9 Const General: cooperative, no acute distress, alert and awake Nutritional Appearance: well nourished Orientation/consciousness: patient oriented x3 Limitations: no limitations HENMT Head: Yes normal to inspection and Yes atraumatic Ears: hearing grossly normal bilaterally and external ears normal General nose exam: Normal external nose present, no nasal discharge noted and no epistaxis Face and sinus: Yes normal facial exam, No abrasion and No laceration Mouth: Normal oral and palatal mucosa present, no drooling and no muffled voice Eyes General: appearance normal, both eyes and all related structures Periorbital: periorbital findings normal Eyelids: Yes eyelids normal Conjunctivae: conjunctivae normal Pupils: Equal, round and reactive pupils present EOM: EOMs intact bilaterally Neck Neck: Yes normal visual inspection, Yes full ROM and Yes no lymphadenopathy Chest Chest palpation & inspection: normal inspection of the chest Resp Effort & Inspection: normal respiratory effort and able to speak in complete sentences Auscultation: clear to auscultation bilaterally Cardio Rate: tachycardic Rhythm: regular rhythm GI Inspection: Yes normal to inspection Neuro General: patient oriented x3 and moves all extremities Cranial nerves: Yes Equal, round and reactive pupils present Cognition (Neuro): normal cognition Motor exam (neuro): 5/5 motor strength present throughout Sensory Exam: Normal double simultaneous stimulation for sensation Coordination: [id number] test normal Extrem General: Yes normal to inspection, Yes full ROM and Yes capillary refill normal Psych Appearance: grossly normal Mental Status: mental status grossly normal Affect: normal affect Attitude: cooperative Thought process: Normal thought process present Thought content: Normal thought content present Insight: Good insight present (Psych) Medical Decision Making MDM Narrative Medical decision making narrative: Patient is a 46 year old male presenting to the emergency department today feeling anxious. Patient's physical exam showed tachycardia but was otherwise unremarkable. Patient's blood work showed an elevated d dimer but was otherwise unremarkable. Patient's EKG showed sinus tachycardia. Patient's chest x-ray and VQ scan showed no acute process. I explained my physical exam findings as well as all test results to the patient. I answered all questions asked by the patient. Patient received IV Ativan and IV fluids which he stated helped his symptoms significantly. I stressed the importance of the patient taking his medication as prescribed. I stressed the importance of the patient following up with his primary care provider. I stressed the importance of the patient returning to the emergency department immediately if his symptoms were to worsen or if he were to develop any dizziness, shortness of breath, difficulty breathing, chest pain, blurry vision, loss of vision, nausea, vomiting, abdominal pain, fever, chills, back pain, or any other complaints. Patient verbalized agreement and understanding with this treatment plan and discharge. Differential Diagnosis Differential Diagnosis: tachycardia, anxiety Medical Records Medical records reviewed: Yes I reviewed the patient's medical records. Lab Data Lab results reviewed: Yes I reviewed the patient's lab results. Result diagrams: 01/17/22 11:28 01/17/22 11:28 Labs: Lab Results 01/17/22 01/17/22 01/17/22 Range/Units 11:28 11:28 11:28 WBC 6.9 (4.8-10.8) X10*3/uL RBC 4.60 (4.60-5.80) X10*6/uL Hgb 13.1 L (14.0-18.0) g/dl Hct 39.8 L (42.0-52.0) % MCV 86.5 (80.0-98.0) fL MCH 28.5 (27.0-33.0) pg MCHC 32.9 (31.0-36.0) g/dl RDW 13.3 (11.0-16.0) % Plt Count 294 (160-400) X10*3/uL MPV 9.4 (9.4-12.4) fL Immature Gran % (Auto) 0.7 H (0.0-0.4) % Neut % (Auto) 90.6 H (45-73) % Lymph % (Auto) 7.9 L (20-40) % Bullitt % (Auto) 0.7 L (2-11) % Eos % (Auto) 0.0 (0-4) % Baso % (Auto) 0.1 (0-2) % Lymph # (Auto) 0.5 L (1.2-4.9) X10*3/uL Bullitt # (Auto) 0.1 (0.1-1.2) X10*3/uL Eos # (Auto) 0.0 (0.0-0.4) X10*3/uL Baso # (Auto) 0.0 (0.0-0.2) X10*3/uL Abs Immat Gran (auto) 0.05 H (0.00-0.03) X10*3/uL Absolute Neuts (auto) 6.2 (2.0-8.3) x10*3/uL Absolute Nucleated RBC 0.000 (0.0-0.012) X10*3/uL Nucleated RBC % (auto) 0.0 (0.0-0.2) /100WBC Smear Tech's Comments VERIFIED D-Dimer High Sensitivty NG/ML Sodium 139 (135-145) mmol/L Potassium 4.7 (3.3-5.1) mmol/L Chloride 102 (96-108) mmol/L Carbon Dioxide 25 (22-29) mmol/L Anion Gap 17 (12-20) BUN 21 H (9-16) mg/dL Creatinine 1.01 (0.5-1.4) mg/dL Estim Creat Clear Calc 98.6 Estimated GFR > 60 Random Glucose 97 D (60-115) mg/dL Calcium 10.0 (8.4-10.2) mg/dL Troponin I High Sens 16.4 (<3.5-35.0) ng/L COVID-19 (CHRISTEN) (Negative) COVID-19 Clin Com Influenza Type A (RYLIE) (Negative) Influenza Type B (RYLIE) (Negative) Influenza A & B Note 01/17/22 01/17/22 01/17/22 Range/Units 11:28 11:28 14:26 WBC (4.8-10.8) X10*3/uL RBC (4.60-5.80) X10*6/uL Hgb (14.0-18.0) g/dl Hct (42.0-52.0) % MCV (80.0-98.0) fL MCH (27.0-33.0) pg MCHC (31.0-36.0) g/dl RDW (11.0-16.0) % Plt Count (160-400) X10*3/uL MPV (9.4-12.4) fL Immature Gran % (Auto) (0.0-0.4) % Neut % (Auto) (45-73) % Lymph % (Auto) (20-40) % Bullitt % (Auto) (2-11) % Eos % (Auto) (0-4) % Baso % (Auto) (0-2) % Lymph # (Auto) (1.2-4.9) X10*3/uL Bullitt # (Auto) (0.1-1.2) X10*3/uL Eos # (Auto) (0.0-0.4) X10*3/uL Baso # (Auto) (0.0-0.2) X10*3/uL Abs Immat Gran (auto) (0.00-0.03) X10*3/uL Absolute Neuts (auto) (2.0-8.3) x10*3/uL Absolute Nucleated RBC (0.0-0.012) X10*3/uL Nucleated RBC % (auto) (0.0-0.2) /100WBC Smear Tech's Comments D-Dimer High Sensitivty 407 NG/ML Sodium (135-145) mmol/L Potassium (3.3-5.1) mmol/L Chloride (96-108) mmol/L Carbon Dioxide (22-29) mmol/L Anion Gap (12-20) BUN (9-16) mg/dL Creatinine (0.5-1.4) mg/dL Estim Creat Clear Calc Estimated GFR Random Glucose (60-115) mg/dL Calcium (8.4-10.2) mg/dL Troponin I High Sens (<3.5-35.0) ng/L COVID-19 (CHRISTEN) Negative (Negative) COVID-19 Clin Com See Note Influenza Type A (RYLIE) Negative (Negative) Influenza Type B (RYLIE) Negative (Negative) Influenza A & B Note See Note Imaging Data Chest x-ray: Attestation: I personally reviewed and interpreted this imaging study as follows: My impression: No acute process. Radiologist's impression: EXAMINATION: XR CHEST CLINICAL INFORMATION: Chest discomfort. Tachycardia. COMPARISON: March 09, 2021 TECHNIQUE: AP portable view of the chest was obtained. FINDINGS: No significant abnormality is noted involving the heart, lungs, mediastinum, bony thorax or soft tissues. XR/XR chest 1V IMPRESSION: No acute disease. Dictated By: Ramez Quintana MD Signed By: Electronically signed by Ramez Quintana MD 01/17/22 1258 VQ Scan: Attestation: I personally reviewed and interpreted this imaging study as follows: My impression: No acute process. Radiologist's impression: EXAMINATION: PULMONARY PERFUSION STUDY CLINICAL INFORMATION: Elevated d-dimer, tachycardia. COMPARISON: No previous lung scan is available for comparison. Radiographs of the chest dated 01/17/2022, the same date as this lung scan is available for comparison. TECHNIQUE: Following the intravenous injection of 4.0 mCi Tc-99m MAA, the lungs were imaged in the anterior and posterior, left and right lateral and [place], RAYMUNDO, LPO, and RPO projections using a gamma scintillation camera. FINDINGS: No segmental perfusion defects are present. There is homogeneous distribution of activity bilaterally. There are no focal anatomic appearing perfusion defects present. NM/NM pul perfusion IMPRESSION: Normal radionuclide lung perfusion scan. Dictated By: Eitan Baig MD Signed By: Electronically signed by Eitan Baig MD 01/17/22 1613 ECG Data Attestation: I personally reviewed and interpreted this ECG as follows: Prior ECG tracings: available for review Interpretation: Vent. Rate: 134 BPM ? ? Atrial Rate: 134 BPM P-R Int: 156 ms? QRS Dur: 074 ms QT Int: 270 ms ? ? ? P-R-T Axes: 061 008 115 degrees QTc Int: 403 ms ? Sinus tachycardia T wave abnormality, consider lateral ischemia Abnormal ECG When compared with ECG of 09-MAR-2021 15:40, Vent. rate has increased BY? 64 BPM QRS duration has decreased Inverted T waves have replaced nonspecific T wave abnormality in Lateral leads Electronically Signed By:HI ANNE MD Dictated By: Hi Anne MD Signed By: Electronically signed by Hi Anne MD 01/17/22 7288 Discharge Plan Discharge Clinical Impression: Anxiety, Tachycardia Patient Disposition: Home, Self-Care Instructions: Anxiety (ED), Tachycardia (ED) Additional Instructions: Follow up with your primary care provider. Return to the emergency department immediately if your symptoms worsen or if you develop any dizziness, shortness of breath, difficulty breathing, chest pain, blurry vision, loss of vision, nausea, vomiting, abdominal pain, fever, chills, back pain, or any other complaints. Prescriptions: No Action cholecalciferol (vitamin D3) 25 mcg (1,000 unit) capsule 25 mcg PO DAILY Qty: 30 11RF spironolacton-hydrochlorothiaz [Aldactazide] 25-25 mg tablet 1 tab PO DAILY Qty: 30 0RF escitalopram oxalate 5 mg tablet 5 mg PO DAILY Qty: 90 3RF hydroxyzine HCl 25 mg tablet 25 mg PO BEDTIME PRN (Reason: for anxiety) Qty: 90 3RF fluticasone propionate 50 mcg/actuation spray,suspension 2 spray intranasal DAILY Qty: 48 5RF albuterol sulfate 90 mcg/actuation HFA aerosol inhaler 2 puff inhalation Q4H PRN (Reason: for wheezing) Qty: 8.5 0RF lorazepam 1 mg tablet 1 mg PO BID 90 Days Qty: 180 1RF atorvastatin 20 mg tablet 20 mg PO DAILY Qty: 90 1RF calcium citrate-vitamin D3 315 mg-5 mcg (200 unit) tablet 2 tab PO BID Qty: 360 3RF (DME) blood pressure monitor [Blood Pressure Kit] Kit See Rx Instructions .ROUTE .MEDSUPPLY Qty: 1 0RF Rx Instructions: As directed irbesartan 300 mg tablet 300 mg PO DAILY 0RF Remicade 100 mg recon soln See Rx Instructions IV .COMPLEX 0RF Rx Instructions: once a week IV; 07/06/2021 lidocaine 5 % adhesive patch,medicated 1 patch topical DAILY 90 Days Qty: 90 3RF Rx Instructions: leave on most painful area for up to 12 hrs docusate sodium 100 mg capsule 100 mg PO BID 90 Days Qty: 180 3RF hydrocortisone acetate [Anusol-HC] 25 mg suppository 25 mg NV BID 14 Days Qty: 28 0RF FreeStyle Lite Strips Strip 1 strip miscellaneous .QD 90 Days Qty: 100 3RF lancets [FreeStyle Lancets] 28 gauge misc 1 gauge topical .QD 90 Days Qty: 100 3RF amlodipine 10 mg tablet 10 mg PO DAILY 0RF metformin 500 mg tablet extended release 24 hr 500 mg PO DAILY Qty: 30 2RF aspirin 81 mg tablet,delayed release (DR/EC) 81 mg PO DAILY 0RF nitroglycerin [Nitrostat] 0.4 mg tablet, sublingual 0.4 mg sublingual Q5M PRN0RF Rx Instructions: do not exceed 3 doses per episode metoprolol tartrate 25 mg tablet 25 mg PO BID 0RF oxycodone 10 mg tablet 10 mg PO BID PRN (Reason: severe pain) 0RF celecoxib 200 mg capsule 200 mg PO BID 0RF folic acid 1 mg tablet 1 mg PO DAILY 0RF ferrous sulfate 325 mg (65 mg iron) tablet 325 mg PO DAILY 0RF meclizine 25 mg tablet 25 mg PO TID PRN0RF methotrexate sodium 25 mg/mL solution See Rx Instructions subcut .COMPLEX 0RF Rx Instructions: subcut; Bariatric Multivitamins 45 mg iron- 800 mcg-120 mcg capsule PO 0RF (DME) BD Tuberculin Syringe 1 mL 27 x 1/2 syringe See Rx Instructions ea subcut QWEEK Qty: 1 0RF Rx Instructions: As directed ascorbic acid (vitamin C) 500 mg tablet 500 mg PO DAILY 0RF Referrals: Po,Saeid Mckay MD [Primary Care Provider] - Print Language: Telugu
[2022-01-17 11:40] LABS: Basophils Percent Auto 0.1 % (0-2); Hematocrit 39.8 % (42.0-52.0); Hemoglobin 13.1 g/dl (14.0-18.0); Imm Gran Abs Auto 0.05 X10*3/uL (0.00-0.03); Imm Gran Pct Auto 0.7 % (0.0-0.4); Lymphocytes Absolute Auto 0.5 X10*3/uL (1.2-4.9); Lymphocytes Percent Auto 7.9 % (20-40); MANUAL DIFF FLAG SCAN; Mean Corpuscular HGB Conc 32.9 g/dl (31.0-36.0); Mean Corpuscular Hemoglobin 28.5 pg (27.0-33.0); Mean Corpuscular Volume 86.5 fL (80.0-98.0); Mean Platelet Volume 9.4 fL (9.4-12.4); Monocytes Absolute Auto 0.1 X10*3/uL (0.1-1.2); Monocytes Percent Auto 0.7 % (2-11); Neutrophils Absolute Auto 6.2 x10*3/uL (2.0-8.3); Neutrophils Percent Auto 90.6 % (45-73); Platelet Count 294 X10*3/uL (160-400); Red Cell Distribution Width 13.3 % (11.0-16.0); SCAN SMEAR FLAG 1; White Blood Count 6.9 X10*3/uL (4.8-10.8)
[2022-01-17 11:51] LABS: Anion Gap 17 (12-20); Blood Urea Nitrogen 21 mg/dL (9-16); Carbon Dioxide 25 mmol/L (22-29); Chloride 102 mmol/L (96-108); Creatinine Clr Calc Pharmacy 98.6; Estimated Glomerular Filt Rate > 60; Glucose Random 97 mg/dL (60-115); Potassium 4.7 mmol/L (3.3-5.1); Sodium 139 mmol/L (135-145)
[2022-01-17 11:52] LABS: COVID-19 Test Negative (Negative)
[2022-01-17] MEDS: LORazepam 1 MG TABLET 2 MG PO (11:52)
[2022-01-17 11:55] LABS: Influenza A Negative (Negative); Influenza B2 Negative (Negative)
[2022-01-17 12:00] LABS: Troponin-I High Sensitivity 16.4 ng/L (<3.5-35.0)
[2022-01-17 12:21] VITALS: BP 140/82; PULSE 126; RESP 16; TEMP 37.7; O2SAT 96
[2022-01-17 12:51] LABS: SLIDE REVIEW VERIFIED
[2022-01-17] MEDS: 0.9 % Sodium Chloride 1,000 ML 999 ML IVCONT ×2 (13:27→16:44)
[2022-01-17 14:44] LABS: D Dimer High Sensitivity 407 NG/ML
[2022-01-17 16:35] VITALS: BP 112/71; PULSE 109; RESP 15; TEMP 37.1; O2SAT 94
[2022-01-17 18:10] VITALS: BP 118/78; PULSE 94; RESP 12; O2SAT 98
== END 2022-01-17 18:24 | disposition home or self-care (01) ==
PROVIDERS: Physician Assistant Medical; Emergency Provider Student in an Organized Health Care Education/Training Program; PCP Internal Medicine
DX: R07.89 Other chest pain (principal); R00.0 Tachycardia, unspecified; F41.1 Generalized anxiety disorder; F43.0 Acute stress reaction; Z20.822 Contact with and (suspected) exposure to COVID-19; Z79.899 Other long term (current) drug therapy; Z87.891 Personal history of nicotine dependence
CPT/HCPCS: 36415; 71045; 78580; 80048; 84484; 85025; 85379; 87502; 87635; 93005; 96360; 96361; 96372; 99284; 99285; A9540

== ENCOUNTER 2022-01-25 11:57 | Outpatient (REF) | payer MEDICARE, MEDICAID, SELFPAY ==
[2022-01-25 14:19] LABS: Alanine Aminotransferase 182 U/L (0-40); Albumin Level 3.9 g/dL (3.5-5.0); Alkaline Phosphatase 79 U/L (39-117); Anion Gap 12 (12-20); Aspartate Amino Transferase 69 U/L (5-37); Bilirubin Total 0.4 mg/dL (0.0-1.0); Blood Urea Nitrogen 24 mg/dL (9-16); Calcium 10.8 mg/dL (8.4-10.2); Carbon Dioxide 29 mmol/L (22-29); Chloride 102 mmol/L (96-108); Estimated Glomerular Filt Rate > 60; Glucose Random 105 mg/dL (60-115); Potassium 4.7 mmol/L (3.3-5.1); Sodium 138 mmol/L (135-145); Total Protein 7.5 g/dL (6.5-8.0)
[2022-01-25 15:36] LABS: Creatinine Urine 50.58 mg/dL; Microalbum/Creatinine Ratio Ur 486.3 ug/mg cr
[2022-01-28 23:01] LABS: Transglutaminase Ab IgG <1.0 U/mL; Transglutaminase IgA <1.0 U/mL
[2022-01-30 11:16] LABS: Vitamin D 25-OH, D2 <4 ng/mL; Vitamin D 25-OH, D3 42 ng/mL; Vitamin D 25-OH, Total 42 ng/mL (30-100)
== END 2022-01-25 11:58 | disposition home or self-care (01) ==
LOC: HO.LAB 11:57
PROVIDERS: Absent Provider Nurse Practitioner Family; PCP Internal Medicine; Referring Provider Internal Medicine; Visit Provider Nurse Practitioner Family
DX: R10.9 Unspecified abdominal pain (principal); K59.01 Slow transit constipation; E83.52 Hypercalcemia; E11.65 Type 2 diabetes mellitus with hyperglycemia
CPT/HCPCS: 36415; 80053; 82043; 82306; 86364; 99202

== ENCOUNTER 2022-01-28 11:54 | Outpatient (REF) | payer OTHER, SELFPAY ==
[2022-02-06 21:56] LABS: Pancreatic Elastase-1 >500 mcg/g
== END 2022-01-28 11:55 | disposition home or self-care (01) ==
LOC: HO.LNP 11:54
PROVIDERS: Visit Provider Nurse Practitioner Family
DX: R10.9 Unspecified abdominal pain (principal)
CPT/HCPCS: 82656

== ENCOUNTER 2022-02-07 07:55 | Outpatient (REF) | payer OTHER, SELFPAY ==
[2022-02-07 08:19] LABS: MANUAL DIFF FLAG NO
[2022-02-07 08:42] LABS: Basophils Percent Auto 0.3 % (0-2); Eosinophils Absolute Auto 0.2 X10*3/uL (0.0-0.4); Eosinophils Percent Auto 3.1 % (0-4); Hematocrit 35.4 % (42.0-52.0); Hemoglobin 11.4 g/dl (14.0-18.0); Imm Gran Abs Auto 0.02 X10*3/uL (0.00-0.03); Imm Gran Pct Auto 0.3 % (0.0-0.4); Lymphocytes Absolute Auto 1.5 X10*3/uL (1.2-4.9); Lymphocytes Percent Auto 21.4 % (20-40); Mean Corpuscular HGB Conc 32.2 g/dl (31.0-36.0); Mean Corpuscular Hemoglobin 27.6 pg (27.0-33.0); Mean Corpuscular Volume 85.7 fL (80.0-98.0); Mean Platelet Volume 9.7 fL (9.4-12.4); Monocytes Absolute Auto 0.5 X10*3/uL (0.1-1.2); Neutrophils Absolute Auto 4.9 x10*3/uL (2.0-8.3); Neutrophils Percent Auto 67.9 % (45-73); Platelet Count 284 X10*3/uL (160-400); Red Blood Count 4.13 X10*6/uL (4.60-5.80); Red Cell Distribution Width 13.4 % (11.0-16.0); White Blood Count 7.1 X10*3/uL (4.8-10.8)
[2022-02-07 09:20] LABS: Alanine Aminotransferase 47 U/L (0-40); Alkaline Phosphatase 78 U/L (39-117); Anion Gap 14 (12-20); Aspartate Amino Transferase 29 U/L (5-37); Bilirubin Total 0.4 mg/dL (0.0-1.0); Blood Urea Nitrogen 19 mg/dL (9-16); C Reactive Protein 2.71 mg/dL (< or = 0.50); Calcium 10.1 mg/dL (8.4-10.2); Carbon Dioxide 27 mmol/L (22-29); Chloride 104 mmol/L (96-108); Cholesterol 123 mg/dL; Estimated Glomerular Filt Rate > 60; Gamma Glutamyl Transpeptidase 51 U/L (11-51); Glucose Random 131 mg/dL (60-115); HDL Cholesterol 28 mg/dL; LDL Cholesterol Calculated 68 mg/dl; Potassium 4.5 mmol/L (3.3-5.1); Sodium 140 mmol/L (135-145); Total Protein 7.3 g/dL (6.5-8.0); Triglycerides 135 mg/dL
[2022-02-07 09:25] LABS: Erythrocyte Sedimentation Rate 53 MM/HR (0-15)
[2022-02-07 09:37] LABS: HBc Num1 0.09 S/CO (0.00-0.79); Hepatitis B Core Antibody Nonreactive (Nonreactive); Hepatitis B Surface Antigen Negative (Negative); ~HepC Num1 0.09 S/CO (0.00-0.79); ~Hepatitis B Surface Antibody NONREACTIVE (Nonreactive); ~Hepatitis C Antibody Nonreactive (Nonreactive)
[2022-02-08 04:07] LABS: Hepatitis A Antibody IgM 0.18 Index (0-0.79); ~Hepatitis A Antibody IgM Nonreactive (Nonreactive)
[2022-02-08 13:41] LABS: Calcium (PTHI) 9.9 mg/dL (8.6-10.3); PTHI 50 pg/mL (16-77)
[2022-02-12 17:02] LABS: Calcium, Ionized 5.4 mg/dL (4.8-5.6)
== END 2022-02-07 07:56 | disposition home or self-care (01) ==
LOC: HO.LAB 07:55
PROVIDERS: Absent Provider Internal Medicine Rheumatology; PCP Internal Medicine; Visit Provider Nurse Practitioner Family
DX: M05.79 Rheumatoid arthritis with rheumatoid factor of multiple sites without organ or systems involvement (principal); E83.52 Hypercalcemia; E78.00 Pure hypercholesterolemia, unspecified; R79.89 Other specified abnormal findings of blood chemistry; Z79.899 Other long term (current) drug therapy
CPT/HCPCS: 36415; 80053; 80061; 82310; 82330; 82977; 83970; 85025; 85652; 86140; 86704; 86706; 86709; 86803; 87340

== ENCOUNTER 2022-03-11 10:52 | Outpatient (REF) | payer OTHER, MEDICAID, SELFPAY ==
--- NOTE | 2022-04-02 10:08 | MHC.AU.AHA ---
Adult Audiological Evaluation Date of Visit: 03/11/22 Quality Assurance Clerk Used: Not Applicable Reason for Appointment: Audiologic re-evaluation to determine possible change in hearing ability. Jorge Luis has a history of bilateral mild to moderately-severe hearing loss and uses binaural hearing aids. Previous Hearing Test Results: 09/04/[address] [facility] Mild sloping to moderate sensorineural hearing loss bilaterally with 100% speech understanding for both ears at 85 dB HL. Ear History: Bothersome Tinnitus/Ringing/Noises in Ears: Both Ears History of occupational noise exposure?: No Medical History: Medical History: Diabetes, High Blood Pressure, Arthritis, Anemia Allergies: IV contrast Medication List: Metformin (in process of changing to a different medication), Spironolactone, HCTZ, Lorazepam, Escitalopram, Ventolin, Oxycodone, Remicade, CPAP machine, Amlodipine, Fluticasone Propionate, Meclizine, Irbesartan, Ferrous Sulfate, Folic Acid, Methotrexate, Docusate Sodium, Metoprolol, Atorvastatin, Calcitrate, Vitamin D, Hydroxyzine, Nitrostat Hearing Instrument History- 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 Ear: 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: [employer] Model: [employer] M50-R Serial Number: [id number] Battery Size: Rechargeable Repair Warranty: 12/29/2021 Loss and Damage Warranty: 12/29/2021 Dispensed By: [facility] Date of Fittin10/12/2018 Hearing Instrument History- Left Ear: 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: [employer] Model: [employer] M50-R Serial Number: [id number] Battery Size: Rechargeable Warranty: 12/29/2021 Loss and Damage Warranty: 12/29/2021 Dispensed By: [facility] Date of Fittin10/12/2018 Otoscopy: Right Ear: Unremarkable Left Ear: Unremarkable Tympanometry: Tympanometry performed due to: To assess integrity of the middle ear system Right Ear: Normal Middle Ear System (Type A) Left Ear: Normal Middle Ear System (Type A) Hearing Evaluation: Transducer(s) Used: Insert Earphones Bone Conduction Method: Conventional Audiometry Stimuli Used: Pure Tones Right Ear: Description of Hearing: Mild sloping to moderately-severe sensorineural hearing loss Left Ear: Description of Hearing: Moderate to moderately-severe sensorineural hearing loss Speech Recognition Threshold (SRT): Method Used: Monitored Live Voice Stimuli Used: Spondee Words Right Ear: 35 dB HL Left Ear: 40 dB HL Word Discrimination: Method: Recorded Lists Word Lists Used: NU-6 Right Ear: 80% at 75 dB HL 96% at 80 dB HL Left Ear: 88% at 75 dB HL 92% at 80 dB HL Comparison: Compared to the most recent evaluation: Thresholds have decreased bilaterally with overall stable speech understanding. Recommendations: Audiological re-evaluation in one year. Will send a reminder card. Hearing aid maintenance performed today. Hearing aid(s) reprogrammed with updated test results. Diagnosis: Primary Diagnosis: H90.3 Bilateral Sensorineural Hearing Loss Services Performed: Comprehensive Audiological Evaluation (CPT 38391) Tympanometry (CPT 47930) Signature: Provider: Zenaida Block, CCC-A
== END 2022-03-11 10:53 | disposition home or self-care (01) ==
LOC: HO.SH 10:52
PROVIDERS: Visit Provider Internal Medicine
DX: Z01.118 Encounter for examination of ears and hearing with other abnormal findings (principal); H90.3 Sensorineural hearing loss, bilateral
CPT/HCPCS: 92557; 92567

== ENCOUNTER 2022-03-11 13:43 | Outpatient (REF) | payer SELFPAY | END 2022-03-11 13:44 | disposition home or self-care (01) | LOC: HO.HAP 13:43 | PROVIDERS: Visit Provider Internal Medicine | DX: Z46.1 Encounter for fitting and adjustment of hearing aid (principal); H90.3 Sensorineural hearing loss, bilateral | CPT/HCPCS: V5267 ==

== ENCOUNTER 2022-03-15 07:11 | Outpatient (REF) | payer OTHER, MEDICAID, SELFPAY ==
[2022-03-15 08:02] LABS: Estimated Average Glucose 143 mg/dL; Hemoglobin A1c % 6.6 %
[2022-03-15 08:14] LABS: Alanine Aminotransferase 28 U/L (0-40); Alkaline Phosphatase 77 U/L (39-117); Aspartate Amino Transferase 19 U/L (5-37); Bilirubin Direct 0.2 mg/dL (0.0-0.5); Bilirubin Total 0.5 mg/dL (0.0-1.0); Total Protein 7.4 g/dL (6.5-8.0)
== END 2022-03-15 07:12 | disposition home or self-care (01) ==
LOC: HO.LAB 07:11
PROVIDERS: PCP Internal Medicine; Visit Provider Nurse Practitioner Family
DX: E11.65 Type 2 diabetes mellitus with hyperglycemia (principal); R79.89 Other specified abnormal findings of blood chemistry
CPT/HCPCS: 36415; 80076; 83036

== ENCOUNTER → 2022-05-16 13:57 | Outpatient (BNVA) | payer OTHER, MEDICAID, SELFPAY | PROVIDERS: PCP Internal Medicine; Referring Provider Internal Medicine; Visit Provider Internal Medicine | DX: I25.10 Atherosclerotic heart disease of native coronary artery without angina pectoris (principal); I10 Essential (primary) hypertension; E11.8 Type 2 diabetes mellitus with unspecified complications; E66.01 Morbid (severe) obesity due to excess calories | CPT/HCPCS: 93005; 99212 ==

== ENCOUNTER 2022-05-29 12:30 | Outpatient (REF) | payer OTHER, SELFPAY ==
[2022-05-29 13:13] LABS: MANUAL DIFF FLAG NO
[2022-05-29 13:40] LABS: Basophils Percent Auto 0.3 % (0-2); Eosinophils Absolute Auto 0.2 X10*3/uL (0.0-0.4); Eosinophils Percent Auto 2.8 % (0-4); Hemoglobin 12.4 g/dl (14.0-18.0); Imm Gran Abs Auto 0.04 X10*3/uL (0.00-0.03); Imm Gran Pct Auto 0.5 % (0.0-0.4); Lymphocytes Percent Auto 23.2 % (20-40); Mean Corpuscular HGB Conc 32.6 g/dl (31.0-36.0); Mean Corpuscular Volume 82.8 fL (80.0-98.0); Mean Platelet Volume 9.8 fL (9.4-12.4); Monocytes Absolute Auto 0.6 X10*3/uL (0.1-1.2); Monocytes Percent Auto 6.8 % (2-11); Neutrophils Absolute Auto 5.8 x10*3/uL (2.0-8.3); Neutrophils Percent Auto 66.4 % (45-73); Platelet Count 306 X10*3/uL (160-400); Red Blood Count 4.59 X10*6/uL (4.60-5.80); Red Cell Distribution Width 13.3 % (11.0-16.0); White Blood Count 8.7 X10*3/uL (4.8-10.8)
[2022-05-29 14:15] LABS: Alanine Aminotransferase 30 U/L (0-40); Albumin Level 4.2 g/dL (3.5-5.0); Alkaline Phosphatase 88 U/L (39-117); Anion Gap 14 (12-20); Aspartate Amino Transferase 20 U/L (5-37); Bilirubin Total 0.2 mg/dL (0.0-1.0); Blood Urea Nitrogen 19 mg/dL (9-16); C Reactive Protein 2.41 mg/dL (< or = 0.50); Calcium 9.8 mg/dL (8.4-10.2); Carbon Dioxide 30 mmol/L (22-29); Chloride 101 mmol/L (96-108); Estimated Glomerular Filt Rate > 60; Glucose Random 96 mg/dL (60-115); Potassium 4.7 mmol/L (3.3-5.1); Sodium 140 mmol/L (135-145); Total Protein 7.9 g/dL (6.5-8.0)
[2022-05-29 14:19] LABS: Erythrocyte Sedimentation Rate 51 MM/HR (0-15)
== END 2022-05-29 12:31 | disposition home or self-care (01) ==
LOC: HO.LABR 12:30
PROVIDERS: PCP Internal Medicine; Visit Provider Internal Medicine Rheumatology
DX: M05.79 Rheumatoid arthritis with rheumatoid factor of multiple sites without organ or systems involvement (principal); Z79.899 Other long term (current) drug therapy
CPT/HCPCS: 36415; 80053; 85025; 85652; 86140

== ENCOUNTER 2022-07-23 09:48 | Day surgery (SDC) | payer MEDICARE, MEDICAID, SELFPAY ==
--- NOTE | 2022-07-22 10:17 | HO.ANESPROP2 ---
Documented by User: Astrid Jim NP 07/22/22 10:19 HPI - Anesthesia Eval Consult details Narrative: 47yo M for Colonoscopy Stable at yearly cardiac visit 04/2022 [facility] Active Problems Active Problems: All Active Problems (Updated 06/20/22 @ 14:28 by AMY Gabriel) Adult general medical exam (Acute) Screening for prostate cancer (Acute) Leg swelling (Acute) Suspected deep vein thrombosis (Acute) Essential hypertension (Acute) Morbid obesity (Acute) Testicular mass (Acute) Low back pain (Acute) Inguinal hernia (Acute) Impacted cerumen of both ears (Acute) Generalized anxiety disorder (Acute) Blood in stool (Acute) Hypercalcemia (Acute) Elevated LFTs (Acute) Microalbuminuria (Acute) Hearing deficit (Acute) Left ear impacted cerumen (Acute) Constipation (Acute) Type 2 diabetes mellitus with unspecified complications (Acute) Lung nodule (Acute) Personal history of nicotine dependence (Acute) Atherosclerotic cardiovascular disease (Acute) Hyperlipidemia (Acute) Type 2 diabetes mellitus with hyperglycemia (Acute) GERD (gastroesophageal reflux disease) (Acute) S/P laparoscopic sleeve gastrectomy (Acute ~2018) Morbid obesity with BMI of 40.0-44.9, adult (Acute) Rheumatoid arthritis (Acute) Past Medical History Medical History Anxiety Asthma Atherosclerotic cardiovascular disease COVID-19 virus infection GERD (gastroesophageal reflux disease) H/O hidradenitis suppurativa History of COVID-19 Hyperlipidemia Left renal mass Lung nodule Morbid obesity with BMI of 40.0-44.9, adult Obstructive sleep apnea Personal history of nicotine dependence Rheumatoid arthritis Type 2 diabetes mellitus with hyperglycemia Vertigo Vitamin D deficiency Family History Family History Father Heart problem Acute arthritis Mother Breast cancer Diabetes mellitus Son No problems noted. Maternal Uncle Myocardial infarct Maternal Aunt Breast cancer Surgical History Surgical History History of bronchoscopy (~2020) History of cystoscopy (~2013) History of surgical removal of pilonidal cyst (~1990) S/P laparoscopic sleeve gastrectomy (~2017) Status post biopsy of kidney (~2013) Social History Social History Housing: Apartment Alcohol intake: never Patient Tobacco Use Status: Former Tobacco user Quit Date: 2008 Tobacco use type: Cigarette Cigarettes Per Day: 15 Years Smoked: 15 Smoked in Last 30 Days: No e-Cigarette/Vaping Use: Never Used Second Hand Smoke Exposure: No Use of substances other than those prescribed or required for medical reasons: No Are you DNR?: No Advance Directives: No Advance Directives Information Provided: Yes service: No Current occupational status: disabled Cognitive needs: No Hearing needs: Yes (hearig aide) Vision needs: Yes (glasses) Meds Allergies Allergy/AdvReac Type Severity Reaction Status Date / Time Iodinated Contrast Media Allergy Mild HIVE AND Verified 07/23/22 11:21 [Iodinated Contrast Media - ITCHINESS IV Dye] ON FACE Home Medications Medication Instructions Recorded Confirmed Last Taken Type celecoxib 200 mg capsule 200 mg PO BID 07/14/20 07/23/22 01/21/22 History ferrous sulfate 325 mg (65 mg 325 mg PO DAILY 07/14/20 07/23/22 07/16/22 History iron) tablet folic acid 1 mg tablet 1 mg PO DAILY 07/14/20 07/23/22 Unknown History meclizine 25 mg tablet 25 mg PO TID PRN Vertigo 07/14/20 07/23/22 Unknown History oxycodone 10 mg tablet 10 mg PO BID PRN severe pain 07/14/20 07/23/22 Unknown History ixbjbclu-apmesglz-hayt 45 mg-folic 1 cap PO DAILY 08/11/20 07/23/22 Unknown History acid 800 mcg-vit K 120 mcg capsule (Bariatric Multivitamins) aspirin 81 mg tablet,delayed 81 mg PO DAILY 11/15/20 07/23/22 07/16/22 History release nitroglycerin 0.4 mg sublingual 0.4 mg sublingual Q5M PRN Chest 11/15/20 07/23/22 Unknown History tablet (Nitrostat) Pain irbesartan 300 mg tablet 300 mg PO DAILY 01/24/21 07/23/22 Unknown History metoprolol tartrate 25 mg tablet 25 mg PO BID 05/15/21 07/23/22 07/23/22 08:00 History syringe with needle 1 mL 27 x 1/2 #1 ea 05/17/21 06/20/22 Unknown History (BD Tuberculin Syringe) infliximab 100 mg intravenous See Rx Instructions IV .COMPLEX 06/18/21 07/23/22 Unknown History solution (Remicade) methotrexate sodium 25 mg/mL See Rx Instructions subcut .COMPLEX 06/18/21 07/23/22 Unknown History injection solution amlodipine 10 mg tablet 5 mg PO DAILY 05/16/22 07/23/22 Unknown History spironolactone 25 1 tab PO DAILY 05/16/22 07/23/22 Unknown History mg-hydrochlorothiazide 25 mg tablet (Aldactazide) Exam Exam Date and Time: July 22, 2022 1018 Narrative Narrative: EKG 04/2022 sinus rhythm at 69/Min; nonspecific ST-T changes but otherwise unremarkable. From 04/2022 cardiology office visit: Coronary CT 2017-severe calcification of proximal to mid RCA; high-grade stenosis could not be excluded; prominent calcification of proximal to mid circumflex; marked calcification of ramus intermedius/mid LAD. Cardiac [id number] to mild disease with no obstructive lesions. [id number] 60-65%; normal diastolic function and otherwise unremarkable. Assessment and Plan Assessment Anesthesia Assessment: Chart Reviewed Documented by User: Jin Chao MD 07/23/22 17:49 [facility] Past Medical History Medical History Anxiety Asthma Atherosclerotic cardiovascular disease COVID-19 virus infection GERD (gastroesophageal reflux disease) H/O hidradenitis suppurativa History of COVID-19 Hyperlipidemia Left renal mass Lung nodule Morbid obesity with BMI of 40.0-44.9, adult Obstructive sleep apnea Personal history of nicotine dependence Rheumatoid arthritis Type 2 diabetes mellitus with hyperglycemia Vertigo Vitamin D deficiency Functional capacity: independent ambulation Family History Family History Father Heart problem Acute arthritis Mother Breast cancer Diabetes mellitus Son No problems noted. Maternal Uncle Myocardial infarct Maternal Aunt Breast cancer Family history of problems with anesthesia: No Surgical History Surgical History History of bronchoscopy (~2020) History of cystoscopy (~2013) History of surgical removal of pilonidal cyst (~1990) S/P laparoscopic sleeve gastrectomy (~2017) Status post biopsy of kidney (~2013) History of Problems with Anesthesia: No Social History Social History Housing: Apartment Alcohol intake: never Patient Tobacco Use Status: Former Tobacco user Quit Date: 2008 Tobacco use type: Cigarette Cigarettes Per Day: 15 Years Smoked: 15 Smoked in Last 30 Days: No e-Cigarette/Vaping Use: Never Used Second Hand Smoke Exposure: No Use of substances other than those prescribed or required for medical reasons: No Are you DNR?: No Advance Directives: No Advance Directives Information Provided: Yes service: No Current occupational status: disabled Cognitive needs: No Hearing needs: Yes (hearig aide) Vision needs: Yes (glasses) Meds Allergies Allergy/AdvReac Type Severity Reaction Status Date / Time Iodinated Contrast Media Allergy Mild HIVE AND Verified 07/23/22 11:21 [Iodinated Contrast Media - ITCHINESS IV Dye] ON FACE Home Medications Medication Instructions Recorded Confirmed Last Taken Type celecoxib 200 mg capsule 200 mg PO BID 07/14/20 07/23/22 01/21/22 History ferrous sulfate 325 mg (65 mg 325 mg PO DAILY 07/14/20 07/23/22 07/16/22 History iron) tablet folic acid 1 mg tablet 1 mg PO DAILY 07/14/20 07/23/22 Unknown History meclizine 25 mg tablet 25 mg PO TID PRN Vertigo 07/14/20 07/23/22 Unknown History oxycodone 10 mg tablet 10 mg PO BID PRN severe pain 07/14/20 07/23/22 Unknown History aqevdvry-ctnbwoqp-tbsx 45 mg-folic 1 cap PO DAILY 08/11/20 07/23/22 Unknown History acid 800 mcg-vit K 120 mcg capsule (Bariatric Multivitamins) aspirin 81 mg tablet,delayed 81 mg PO DAILY 11/15/20 07/23/22 07/16/22 History release nitroglycerin 0.4 mg sublingual 0.4 mg sublingual Q5M PRN Chest 02/17/21 10/25/22 Unknown History tablet (Nitrostat) Pain irbesartan 300 mg tablet 300 mg PO DAILY 01/24/21 07/23/22 Unknown History metoprolol tartrate 25 mg tablet 25 mg PO BID 05/15/21 07/23/22 07/23/22 08:00 History syringe with needle 1 mL 27 x 1/2 #1 ea 05/17/21 06/20/22 Unknown History (BD Tuberculin Syringe) infliximab 100 mg intravenous See Rx Instructions IV .COMPLEX 06/18/21 07/23/22 Unknown History solution (Remicade) methotrexate sodium 25 mg/mL See Rx Instructions subcut .COMPLEX 06/18/21 07/23/22 Unknown History injection solution amlodipine 10 mg tablet 5 mg PO DAILY 05/16/22 07/23/22 Unknown History spironolactone 25 1 tab PO DAILY 05/16/22 07/23/22 Unknown History mg-hydrochlorothiazide 25 mg tablet (Aldactazide) Exam Airway Mallampati Class: IV TM Dist: >3cm Neck ROM: Full Loose/Missing/Broken Teeth: Yes (Poor dentition overall ) Heart: S1,S2 Lungs: b/l bbreath sounds Assessment and Plan Assessment Anesthesia Assessment: Anesthesia Plan Discussed Final Anesthetic Review Family History of Problems with Anesthesia: No History of Problems with Anesthesia: No NPO: Yes ASA Class: III Final Preanesthetic Review: Meds/Allgs Chart Reviewed, Consent Obtained/Reviewed and Anes Risks/Benef Reviewed Patient Risk: Intermediate Procedure Risk: Intermediate Anesthetic Plan Anesthetic Plan: MAC: Disposition: Standard PACU
[2022-07-23 11:10] VITALS: BMI 38.7
[2022-07-23 11:21] VITALS: BP 151/89; PULSE 66; RESP 16; TEMP 36.6; O2SAT 100
[2022-07-23 11:23] LABS: Glucose, Whole Blood 112 mg/dL (60-115)
[2022-07-23] MEDS: Lactated Ringers 1,000 ML 100 ML IVCONT (11:46)
--- NOTE | 2022-07-23 12:38 | P.HPSUR_ITS ---
Pre-Procedural Eval Section A Date of Service: 07/23/22 Section B Chief Complaint: Hemorrhage of anus and rectum Details of Present Illness: see H&P Relevant Family History (Specify if Yes): No Relevant Social History: None Present Medications: see Short Stay Collaborative assessment Medical History: No relevant PMH History of Previous Operations: No relevant previous surgery Allergies: Allergies Allergy/AdvReac Type Severity Reaction Status Date / Time Iodinated Contrast Media Allergy Mild HIVE AND Verified 07/23/22 11:21 [Iodinated Contrast Media - ITCHINESS IV Dye] ON FACE Review of Systems Sugical H&P ROS: Negative: Constitution, Cardiovascular, Respiratory, Neurological, Psychiatric, Hem-Onc, Allergic/Immunologic, Gastrointestinal, Genitourinary, Musculoskeletal, Integumentary, Endocrine and Eyes/Ears/Nose/Thro at Exam Surgical H&P Exam: Normal: HEENT, Normal: Heart, Normal: Lungs, Normal: Extremities, Normal: Abdomen, Normal: Skin and Normal: Neurological Plan Diagnosis/Plan: Unchanged I have reviewed the history and physical and performed a pertinent physical examination on my patient. No changes have occurred unless specified.
--- NOTE | 2022-07-23 13:22 | PM.OP ---
Brief Operative Note Date of Service: 07/23/22 Pre-op diagnosis: rectal bleeding Post-op diagnosis: same Surgeon: Darrell Haines Anesthesia: MAC Was an Supervisor Intelligence Analyst used for this Procedure?: No Estimated blood loss (mL): 2 Pathology: other Condition: stable Disposition: PACU
[2022-07-23 13:24] VITALS: BP 112/49; PULSE 90; RESP 16; TEMP 36.3; O2SAT 97
[2022-07-23 13:39] VITALS: BP 100/54; PULSE 89; RESP 16; TEMP 36.4; O2SAT 98
[2022-07-23 13:54] VITALS: BP 115/87; PULSE 68; RESP 18; TEMP 36.3; O2SAT 100
--- NOTE | 2022-07-24 05:07 | OP_ITS ---
SURGEON: Darrell Haines MD INDICATIONS: Rectal bleeding. PREOPERATIVE DIAGNOSIS: POSTOPERATIVE DIAGNOSIS: PROCEDURE PERFORMED: Colonoscopy to the terminal ileum with biopsy and snare polypectomy. ESTIMATED BLOOD LOSS: COMPLICATIONS: ANESTHESIA: ASSISTANTS: SPECIMENS: MEDICATIONS: Monitored anesthesia care. DESCRIPTION OF PROCEDURE: The procedure was performed on 07/23/2022. History and physical performed. The risks and benefits of the procedure were explained to the patient. Informed consent was obtained. The patient was placed in the left lateral decubitus position. A digital rectal exam was performed and was found to be normal. The Olympus pediatric video colonoscope was introduced into the rectum and advanced to the cecum without difficulty. The cecum was identified by transillumination, palpation, and identification of ileocecal valve. Examination was performed. The scope was removed. He tolerated the procedure well and was taken to recovery area in stable condition. FINDINGS: The terminal ileum was examined and appeared normal. The visualized colonic mucosa was normal. The quality of the prep was good. There were 2 polyps in the cecum that were removed with biopsy forceps. Both measured less than 10 mm. At 25 cm were 2 polyps; 1 was snared and could not be recovered, 1 was removed with biopsy forceps. Both appeared hyperplastic and measured less than 10 mm. Retroflexed examination showed moderate-sized internal hemorrhoids. IMPRESSION: Colon polyps. RECOMMENDATION: Follow up the biopsy results. MD MARGARET Gant/TOÑA / [id number]
== END 2022-07-23 14:28 | disposition home or self-care (01) ==
PROVIDERS: PCP Internal Medicine; Visit Provider Internal Medicine Gastroenterology
PROC: 0DJD8ZZ Inspection of Lower Intestinal Tract, Via Natural or Artificial Opening Endoscopic (ICD-10-PCS; CPT 45378; principal; 2022-07-23 11:30)
DX: K62.5 Hemorrhage of anus and rectum (principal); D12.5 Benign neoplasm of sigmoid colon; K63.5 Polyp of colon; K64.8 Other hemorrhoids; I10 Essential (primary) hypertension; J45.909 Unspecified asthma, uncomplicated; E78.00 Pure hypercholesterolemia, unspecified; E11.9 Type 2 diabetes mellitus without complications; F41.1 Generalized anxiety disorder; M06.9 Rheumatoid arthritis, unspecified; D64.9 Anemia, unspecified; G47.33 Obstructive sleep apnea (adult) (pediatric); Z99.89 Dependence on other enabling machines and devices; Z79.84 Long term (current) use of oral hypoglycemic drugs; Z79.82 Long term (current) use of aspirin; Z79.51 Long term (current) use of inhaled steroids; Z87.891 Personal history of nicotine dependence
CPT/HCPCS: 45385; 45380; 82947; 88305

== ENCOUNTER 2022-10-16 12:01 | Outpatient (REF) | payer SELFPAY | END 2022-10-16 12:02 | disposition home or self-care (01) | LOC: HO.HAP 12:01 | PROVIDERS: Visit Provider Internal Medicine | DX: Z46.1 Encounter for fitting and adjustment of hearing aid (principal); H90.3 Sensorineural hearing loss, bilateral | CPT/HCPCS: V5267 ==

== ENCOUNTER 2022-12-17 12:24 | Outpatient (REF) | payer MEDICARE, MEDICAID, SELFPAY ==
[2022-12-17 12:41] LABS: MANUAL DIFF FLAG NO
[2022-12-17 13:17] LABS: Basophils Percent Auto 0.5 % (0-2); Eosinophils Absolute Auto 0.2 X10*3/uL (0.0-0.4); Eosinophils Percent Auto 2.4 % (0-4); Hemoglobin 11.9 g/dl (14.0-18.0); Imm Gran Abs Auto 0.03 X10*3/uL (0.00-0.03); Imm Gran Pct Auto 0.4 % (0.0-0.4); Lymphocytes Percent Auto 24.2 % (20-40); Mean Corpuscular HGB Conc 32.2 g/dl (31.0-36.0); Mean Corpuscular Hemoglobin 27.4 pg (27.0-33.0); Mean Corpuscular Volume 85.1 fL (80.0-98.0); Mean Platelet Volume 10.1 fL (9.4-12.4); Monocytes Absolute Auto 0.6 X10*3/uL (0.1-1.2); Monocytes Percent Auto 7.4 % (2-11); Neutrophils Absolute Auto 5.5 x10*3/uL (2.0-8.3); Neutrophils Percent Auto 65.1 % (45-73); Platelet Count 287 X10*3/uL (160-400); Red Blood Count 4.35 X10*6/uL (4.60-5.80); Red Cell Distribution Width 13.4 % (11.0-16.0); White Blood Count 8.4 X10*3/uL (4.8-10.8)
[2022-12-17 13:55] LABS: Erythrocyte Sedimentation Rate 33 MM/HR (0-15)
[2022-12-17 14:00] LABS: Alanine Aminotransferase 27 U/L (0-40); Albumin Level 3.9 g/dL (3.5-5.0); Alkaline Phosphatase 67 U/L (39-117); Anion Gap 12 (12-20); Aspartate Amino Transferase 20 U/L (5-37); Bilirubin Total 0.4 mg/dL (0.0-1.0); Blood Urea Nitrogen 23 mg/dL (9-16); C Reactive Protein 1.77 mg/dL (< or = 0.50); Calcium 9.3 mg/dL (8.4-10.2); Carbon Dioxide 29 mmol/L (22-29); Chloride 102 mmol/L (96-108); Estimated Glomerular Filt Rate > 60; Glucose Random 156 mg/dL (60-115); Potassium 4.7 mmol/L (3.3-5.1); Sodium 138 mmol/L (135-145); Total Protein 7.3 g/dL (6.5-8.0)
== END 2022-12-17 12:25 | disposition home or self-care (01) ==
LOC: HO.LAB 12:24
PROVIDERS: PCP Internal Medicine; Visit Provider Internal Medicine Rheumatology
DX: M05.79 Rheumatoid arthritis with rheumatoid factor of multiple sites without organ or systems involvement (principal)
CPT/HCPCS: 36415; 80053; 85025; 85652; 86140

== ENCOUNTER 2023-01-03 14:34 | Outpatient (REF) | payer MEDICARE, MEDICAID, SELFPAY | END 2023-01-03 14:35 | disposition home or self-care (01) | LOC: HO.HAP 14:34 | PROVIDERS: Visit Provider Internal Medicine | DX: Z46.1 Encounter for fitting and adjustment of hearing aid (principal); H90.3 Sensorineural hearing loss, bilateral | CPT/HCPCS: 92593; V5299 ==

== ENCOUNTER 2023-01-13 11:26 | Outpatient (REF) | payer MEDICARE, MEDICAID, SELFPAY ==
[2023-01-13 11:45] LABS: MANUAL DIFF FLAG NO
[2023-01-13 12:03] LABS: Basophils Percent Auto 0.4 % (0-2); Eosinophils Absolute Auto 0.3 X10*3/uL (0.0-0.4); Eosinophils Percent Auto 2.9 % (0-4); Hematocrit 36.9 % (42.0-52.0); Imm Gran Abs Auto 0.05 X10*3/uL (0.00-0.03); Imm Gran Pct Auto 0.5 % (0.0-0.4); Lymphocytes Absolute Auto 2.1 X10*3/uL (1.2-4.9); Lymphocytes Percent Auto 22.9 % (20-40); Mean Corpuscular HGB Conc 32.5 g/dl (31.0-36.0); Mean Corpuscular Hemoglobin 27.8 pg (27.0-33.0); Mean Corpuscular Volume 85.4 fL (80.0-98.0); Mean Platelet Volume 9.9 fL (9.4-12.4); Monocytes Absolute Auto 0.7 X10*3/uL (0.1-1.2); Monocytes Percent Auto 7.3 % (2-11); Neutrophils Absolute Auto 6.2 x10*3/uL (2.0-8.3); Platelet Count 293 X10*3/uL (160-400); Red Blood Count 4.32 X10*6/uL (4.60-5.80); Red Cell Distribution Width 13.1 % (11.0-16.0); White Blood Count 9.4 X10*3/uL (4.8-10.8)
[2023-01-13 12:25] LABS: Alanine Aminotransferase 61 U/L (0-40); Albumin Level 3.9 g/dL (3.5-5.0); Alkaline Phosphatase 68 U/L (39-117); Anion Gap 11 (12-20); Anion Gap 12 (12-20); Aspartate Amino Transferase 26 U/L (5-37); Bilirubin Total 0.3 mg/dL (0.0-1.0); Blood Urea Nitrogen 20 mg/dL (9-16); C Reactive Protein 1.42 mg/dL (< or = 0.50); Calcium 9.7 mg/dL (8.4-10.2); Carbon Dioxide 27 mmol/L (22-29); Carbon Dioxide 28 mmol/L (22-29); Chloride 105 mmol/L (96-108); Estimated Glomerular Filt Rate > 60; Glucose Random 140 mg/dL (60-115); Glucose Random 142 mg/dL (60-115); Potassium 4.6 mmol/L (3.3-5.1); Potassium 4.7 mmol/L (3.3-5.1); Sodium 139 mmol/L (135-145); Total Protein 7.3 g/dL (6.5-8.0)
[2023-01-13 12:43] LABS: Erythrocyte Sedimentation Rate 34 MM/HR (0-15)
== END 2023-01-13 11:27 | disposition home or self-care (01) ==
LOC: HO.LAB 11:26
PROVIDERS: Absent Provider Internal Medicine Rheumatology; PCP Internal Medicine; Visit Provider Internal Medicine Hypertension Specialist
DX: I10 Essential (primary) hypertension (principal); M05.79 Rheumatoid arthritis with rheumatoid factor of multiple sites without organ or systems involvement
CPT/HCPCS: 36415; 80048; 80053; 85025; 85652; 86140

== ENCOUNTER 2023-05-06 13:00 | Outpatient (AMB) | payer MEDICARE, MEDICAID, SELFPAY ==
--- NOTE | 2023-05-06 13:02 | A.OFFVIS_ITS ---
Intake VS Expanded 05/06/23 13:07 Height 5 ft 2 in Weight 223 lb BMI 40.8 Intake Visit Reasons: VIDEO PO LSG 06/23/18 Allergies Iodinated Contrast Media [Iodinated Contrast Media - IV Dye] Allergy (Mild, Verified 02/28/23 15:39) HIVE AND ITCHINESS ON FACE Medication List - Last Reconciled 05/06/23 by WALTER Paiz albuterol sulfate 90 mcg/actuation 2 puffs inhalation Q4H PRN amlodipine 5 mg PO DAILY aspirin 81 mg PO DAILY atorvastatin 20 mg PO DAILY blood pressure monitor (Blood Pressure Kit) As directed blood sugar diagnostic (FreeStyle Lite Strips) 1 strip miscellaneous .QD 90 days celecoxib 200 mg PO BID docusate sodium 100 mg PO BID 90 days escitalopram oxalate 5 mg PO DAILY ferrous sulfate 325 mg PO DAILY fluticasone propionate 50 mcg/actuation 2 sprays intranasal DAILY folic acid 1 mg PO DAILY hydrocortisone acetate (Anusol-HC) 25 mg [place] BID 14 days hydroxyzine HCl 25 mg PO BEDTIME PRN infliximab (Remicade) once a week IV; 07/06/2021 irbesartan 300 mg PO DAILY lancets (FreeStyle Lancets) 1 gauge topical .QD 90 days lidocaine 5% 1 patch topical DAILY 90 days lorazepam 1 mg PO BID 90 days meclizine 25 mg PO TID PRN methotrexate sodium subcut; metoprolol tartrate 25 mg PO BID yjslzmlldxtr-anm-jfjq-FA-vit K 45 mg iron- 800 mcg-120 mcg (Bariatric Multivitamins) 1 cap PO DAILY nitroglycerin (Nitrostat) 0.4 mg sublingual Q5M PRN oxycodone 10 mg PO BID PRN sennosides (Natural Senna Laxative) 17.2 mg (2 x 8.6 mg) PO BEDTIME spironolacton-hydrochlorothiaz 25-25 mg (Aldactazide) 1 tab PO DAILY syringe with needle (BD Tuberculin Syringe) As directed HPI HPI Comments History of Present Illness Details This?is a?48?yo male who is s/p LSG 06/23/2018. Presents for 5 year post op visit. Weight at last visit on 07/24/2021 was 243 pounds with a BMI of 44.4, weight today is 223 pounds, representing a 20 pound weight loss with a BMI today of 40.8.? No complaints of nausea, emesis, abdominal pain or reflux, or constipation. Reports he got off track when his mom 2 years ago followed by sister having a stroke and son having 2 broken legs, got off track but working hard to lose weight again. Present meal plan includes: premier protein bar at BF and L and then a meal at night 4 oz protein and 4 oz vegetables or salad and then one more bar after dinner- previous plan from last visit has been taking MVI Exercise routine includes: usually likes to walk, but for the last week has not been able to exercise; tweaked his back trying to fold his treadmill. Plans to restart once pain resolves. Had been walking an hour every day. Did the patient ever have any of these conditions and are they resolved or still being treated? GERD: never HELEN: CPAP DM: not on meds HTN: on meds Hyperlipidemia: on meds Post op complications: None [facility] Medical History (Updated 02/28/23 @ 15:45 by Saeid Singh MD) Anxiety Asthma Atherosclerotic cardiovascular disease COVID-19 virus infection GERD (gastroesophageal reflux disease) H/O hidradenitis suppurativa History of COVID-19 Hyperlipidemia Left renal mass Leg swelling Lung nodule Morbid obesity with BMI of 40.0-44.9, adult Obstructive sleep apnea Personal history of nicotine dependence Rheumatoid arthritis Screening for prostate cancer Suspected deep vein thrombosis Type 2 diabetes mellitus with hyperglycemia Vertigo Vitamin D deficiency Surgical History History of bronchoscopy (~2020) History of cystoscopy (~2013) History of surgical removal of pilonidal cyst (~1990) S/P laparoscopic sleeve gastrectomy (~2017) Status post biopsy of kidney (~2013) Family History Father Heart problem Acute arthritis Mother Breast cancer Diabetes mellitus Son No problems noted. 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 aide) Vision needs: Yes (glasses) Assessment & Plan Assessment & Plan (1) S/P laparoscopic sleeve gastrectomy: Onset Date: ~2017 Comment: (Dr. Mara Bradford, [facility] [place] - 06/23/2018) Code(s): Z98.84 - Bariatric surgery status (2) Morbid obesity with BMI of 40.0-44.9, adult: Comment: (Morbid Obesity - persistent s/p sleeve gastrectomy 2018) Code(s): E66.01 - Morbid (severe) obesity due to excess calories; Z68.41 - Body mass index [BMI] 40.0-44.9, adult (3) Hyperlipidemia: Code(s): E78.5 - Hyperlipidemia, unspecified Qualifiers: Hyperlipidemia type: pure hypercholesterolemia Qualified Code(s): E78.00 - Pure hypercholesterolemia, unspecified (4) Obstructive sleep apnea: Comment: (on CPAP) Code(s): G47.33 - Obstructive sleep apnea (adult) (pediatric) (5) Essential hypertension: Code(s): I10 - Essential (primary) hypertension Plan Pt has done well since getting back on track with meal plan. He plans to resume exercise once his back feels better. Reviewed recent labs drawn by PCP; will check vitamin levels as those have not been drawn recently. RTC 6 months. Orders: Orders Vitamin B12 and Folate Today Z98.84 - Bariatric surgery status PTHI Today Z98.84 - Bariatric surgery status Vitamin A Today Z98.84 - Bariatric surgery status Vitamin B1 Today Z98.84 - Bariatric surgery status Vitamin D 25-OH Total Today Z98.84 - Bariatric surgery status Zinc Today Z98.84 - Bariatric surgery status Telehealth Telehealth Location of provider rendering services: practice address Location of patient: address on file Patient Identification confirmed using: Name, : Yes Telehealth method: video Patient verbally consented to treatment: Yes Patient verbally consented to billing insurance company: Yes Patient informed of any privacy concerns related to visit: Yes Coding Level of Care Code Tele Est Pt Level 4 (57356) Diagnoses S/P laparoscopic sleeve gastrectomy Z98.84 Morbid obesity with BMI of 40.0-44.9, adult E66.01; Z68.41 Hyperlipidemia E78.00 Hyperlipidemia type: pure hypercholesterolemia Obstructive sleep apnea G47.33 Essential hypertension I10
[2023-05-06 13:07] VITALS: BMI 40.8
== END 2023-05-06 13:18 | disposition home or self-care (01) ==
LOC: HO.HBS 13:17
PROVIDERS: PCP Internal Medicine; Visit Provider Physician Assistant Surgical
DX: E66.01 Morbid (severe) obesity due to excess calories (principal); Z68.41 Body mass index [BMI] 40.0-44.9, adult; Z90.3 Acquired absence of stomach [part of]; Z98.84 Bariatric surgery status
CPT/HCPCS: 99214

== ENCOUNTER → 2023-05-06 13:00 | Outpatient (BNVA) | payer MEDICARE, MEDICAID, SELFPAY | PROVIDERS: PCP Internal Medicine; Visit Provider Physician Assistant Surgical | DX: Z98.84 Bariatric surgery status (principal) ==

== ENCOUNTER 2023-05-15 11:19 | Outpatient (REF) | payer MEDICARE, MEDICAID, SELFPAY ==
[2023-05-15 11:47] LABS: MANUAL DIFF FLAG NO
[2023-05-15 12:23] LABS: Basophils Percent Auto 0.5 % (0-2); Eosinophils Absolute Auto 0.2 X10*3/uL (0.0-0.4); Eosinophils Percent Auto 2.5 % (0-4); Hematocrit 38.1 % (42.0-52.0); Hemoglobin 12.6 g/dl (14.0-18.0); Imm Gran Abs Auto 0.02 X10*3/uL (0.00-0.03); Imm Gran Pct Auto 0.3 % (0.0-0.4); Lymphocytes Absolute Auto 2.4 X10*3/uL (1.2-4.9); Lymphocytes Percent Auto 30.5 % (20-40); Mean Corpuscular HGB Conc 33.1 g/dl (31.0-36.0); Mean Corpuscular Hemoglobin 27.9 pg (27.0-33.0); Mean Corpuscular Volume 84.5 fL (80.0-98.0); Mean Platelet Volume 10.2 fL (9.4-12.4); Monocytes Absolute Auto 0.6 X10*3/uL (0.1-1.2); Monocytes Percent Auto 7.8 % (2-11); Neutrophils Absolute Auto 4.6 x10*3/uL (2.0-8.3); Neutrophils Percent Auto 58.4 % (45-73); Platelet Count 269 X10*3/uL (160-400); Red Blood Count 4.51 X10*6/uL (4.60-5.80); Red Cell Distribution Width 12.6 % (11.0-16.0); White Blood Count 7.9 X10*3/uL (4.8-10.8)
[2023-05-15 13:03] LABS: Erythrocyte Sedimentation Rate 31 MM/HR (0-15)
[2023-05-15 13:08] LABS: Alanine Aminotransferase 34 U/L (0-40); Alkaline Phosphatase 62 U/L (39-117); Anion Gap 13 (12-20); Aspartate Amino Transferase 20 U/L (5-37); Bilirubin Total 0.3 mg/dL (0.0-1.0); Blood Urea Nitrogen 29 mg/dL (9-16); C Reactive Protein 1.23 mg/dL (< or = 0.50); Calcium 10.2 mg/dL (8.4-10.2); Carbon Dioxide 27 mmol/L (22-29); Chloride 103 mmol/L (96-108); Estimated Glomerular Filt Rate > 60; Glucose Random 126 mg/dL (60-115); Potassium 4.4 mmol/L (3.3-5.1); Sodium 139 mmol/L (135-145)
[2023-05-15 13:31] LABS: Vitamin D 25-OH Total 34.8 ng/mL (>30)
[2023-05-15 13:48] LABS: Folate > 20.0 ng/mL (> or = 4.0); Vitamin B12 1204 pg/mL (200-900)
[2023-05-19 13:48] LABS: Calcium (PTHI) 9.8 mg/dL (8.6-10.3); PTHI 48 pg/mL (16-77)
[2023-05-20 01:54] LABS: Zinc 51 mcg/dL (60-130)
[2023-05-20 15:28] LABS: Vitamin A 49 mcg/dL (38-98)
[2023-05-21 16:09] LABS: Vitamin B1 17 nmol/L (8-30)
== END 2023-05-15 11:20 | disposition home or self-care (01) ==
LOC: HO.LABR 11:19
PROVIDERS: Absent Provider Physician Assistant Surgical; PCP Internal Medicine; Referring Provider Internal Medicine; Visit Provider Internal Medicine Rheumatology
DX: M05.79 Rheumatoid arthritis with rheumatoid factor of multiple sites without organ or systems involvement (principal); Z98.84 Bariatric surgery status
CPT/HCPCS: 36415; 80053; 82306; 82607; 82746; 83970; 84425; 84590; 84630; 85025; 85652; 86140

== ENCOUNTER 2023-05-15 11:32 | Outpatient (REF) | payer SELFPAY | END 2023-05-15 11:33 | disposition home or self-care (01) | LOC: HO.HAP 11:32 | PROVIDERS: Visit Provider Internal Medicine | DX: Z46.1 Encounter for fitting and adjustment of hearing aid (principal); H90.3 Sensorineural hearing loss, bilateral | CPT/HCPCS: V5267 ==

== ENCOUNTER 2023-08-01 09:41 | Outpatient (REF) | payer MEDICARE, MEDICAID, SELFPAY ==
--- NOTE | ~2023-08-01 | XR_ITS ---
EXAMINATION: XR SHOULDER, LEFT CLINICAL INFORMATION: Left shoulder pain, rotator cuff injury and left shoulder arthropathy COMPARISON: None available. TECHNIQUE: AP external rotation, Grashey, scapular Y, and axillary views of the left shoulder. FINDINGS: BONES: Bony structures are intact. There is no focal bone destruction or periosteal reaction seen. JOINTS: Alignment of joints is normal. SOFT TISSUE: Soft tissue is normal. No radiopaque foreign body or abnormal air collection is seen. XR/XR shoulder LT min 2V IMPRESSION: 1. Normal x-rays of left shoulder. No fracture or dislocation or signs of osteomyelitis are found.
[2023-08-01 10:12] LABS: MANUAL DIFF FLAG NO
[2023-08-01 10:54] LABS: Basophils Percent Auto 0.4 % (0-2); Eosinophils Absolute Auto 0.2 X10*3/uL (0.0-0.4); Eosinophils Percent Auto 2.2 % (0-4); Hemoglobin 12.4 g/dl (14.0-18.0); Imm Gran Abs Auto 0.04 X10*3/uL (0.00-0.03); Imm Gran Pct Auto 0.5 % (0.0-0.4); Lymphocytes Absolute Auto 1.3 X10*3/uL (1.2-4.9); Lymphocytes Percent Auto 16.8 % (20-40); Mean Corpuscular HGB Conc 32.6 g/dl (31.0-36.0); Mean Corpuscular Hemoglobin 27.7 pg (27.0-33.0); Mean Corpuscular Volume 84.8 fL (80.0-98.0); Mean Platelet Volume 10.4 fL (9.4-12.4); Monocytes Absolute Auto 0.5 X10*3/uL (0.1-1.2); Neutrophils Absolute Auto 5.7 x10*3/uL (2.0-8.3); Neutrophils Percent Auto 74.1 % (45-73); Platelet Count 251 X10*3/uL (160-400); Red Blood Count 4.48 X10*6/uL (4.60-5.80); Red Cell Distribution Width 12.8 % (11.0-16.0); White Blood Count 7.7 X10*3/uL (4.8-10.8)
[2023-08-01 11:24] LABS: Alanine Aminotransferase 33 U/L (0-40); Alkaline Phosphatase 76 U/L (39-117); Anion Gap 11 (12-20); Aspartate Amino Transferase 21 U/L (5-37); Bilirubin Total 0.5 mg/dL (0.0-1.0); Blood Urea Nitrogen 15 mg/dL (9-16); C Reactive Protein 2.07 mg/dL (< or = 0.50); Calcium 9.8 mg/dL (8.4-10.2); Carbon Dioxide 29 mmol/L (22-29); Chloride 103 mmol/L (96-108); Estimated Glomerular Filt Rate > 60; Glucose Random 164 mg/dL (60-115); Potassium 4.1 mmol/L (3.3-5.1); Sodium 139 mmol/L (135-145)
[2023-08-01 11:34] LABS: Anion Gap 10 (12-20); Blood Urea Nitrogen 15 mg/dL (9-16); Calcium 9.6 mg/dL (8.4-10.2); Carbon Dioxide 29 mmol/L (22-29); Chloride 103 mmol/L (96-108); Estimated Glomerular Filt Rate > 60; Glucose Random 164 mg/dL (60-115); Potassium 4.1 mmol/L (3.3-5.1); Sodium 138 mmol/L (135-145)
[2023-08-01 11:40] LABS: Erythrocyte Sedimentation Rate 37 MM/HR (0-15)
[2023-08-01 14:21] LABS: Creatinine Urine 75.36 mg/dL; Protein/Creatinine Ratio, Ur 0.25 (<0.2); Total Protein Urine Random 19 mg/dL (<12)
== END 2023-08-01 09:42 | disposition home or self-care (01) ==
LOC: HO.LAB 09:41
PROVIDERS: Absent Provider Internal Medicine Hypertension Specialist; PCP Internal Medicine; Visit Provider Internal Medicine Rheumatology
DX: M05.79 Rheumatoid arthritis with rheumatoid factor of multiple sites without organ or systems involvement (principal); M12.812 Other specific arthropathies, not elsewhere classified, left shoulder; I10 Essential (primary) hypertension; E66.9 Obesity, unspecified; N28.1 Cyst of kidney, acquired; Z79.620 Long term (current) use of immunosuppressive biologic; Z79.631 Long term (current) use of antimetabolite agent; Z79.1 Long term (current) use of non-steroidal anti-inflammatories (NSAID)
CPT/HCPCS: 36415; 73030; 80048; 80053; 82570; 84156; 85025; 85652; 86140; 99212

== ENCOUNTER 2023-08-01 14:19 | Outpatient (AMB) | payer MEDICARE, MEDICAID, SELFPAY ==
--- NOTE | 2023-08-01 14:34 | HO.NEPHOV ---
HPI Hypertension (Cardio) Most Recent Cardiac Tests: No Data to Display HPI Comments History of Present Illness Details Middle-aged man with history of obesity and hypertension is here for follow-up. FORMERLY [facility] Medical History Screening for prostate cancer History of COVID-19 COVID-19 virus infection Personal history of nicotine dependence Morbid obesity with BMI of 40.0-44.9, adult Atherosclerotic cardiovascular disease Suspected deep vein thrombosis Leg swelling Type 2 diabetes mellitus with hyperglycemia GERD (gastroesophageal reflux disease) Vitamin D deficiency Left renal mass Rheumatoid arthritis H/O hidradenitis suppurativa Lung nodule Vertigo Anxiety Asthma Obstructive sleep apnea Hyperlipidemia Surgical History History of bronchoscopy (~2020) History of cystoscopy (~2013) Status post biopsy of kidney (~2013) History of surgical removal of pilonidal cyst (~1990) S/P laparoscopic sleeve gastrectomy (~2017) Family History Father Heart problem Acute arthritis Mother Breast cancer Diabetes mellitus Son No problems noted. 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 aide) Vision needs: Yes (glasses) Vital Signs 08/01/23 14:37 Height 5 ft 2 in Weight 232 lb BMI 42.4 BP 130/80 Pulse 97 Pulse Source Pulse Oximeter Pulse Oximetry (%) 96 Oxygen Delivery Method Room Air Physical Exam Vital Signs: Last Vital Signs Pulse 97 08/01/23 14:37 BP 130/80 08/01/23 14:37 Pulse Ox 96 08/01/23 14:37 Oxygen Delivery Method Room Air 08/01/23 14:37 BMI result Body Mass Index 42.4 Const General: comfortable Nutritional Appearance: well nourished Orientation/consciousness: patient oriented x3 HEENT Head: No normal to inspection Mouth: moist mucous membranes Neck Neck: Yes supple and Yes no JVD Resp Auscultation: clear to auscultation bilaterally, no rales and rub present Cardio Jugular venous distension: no JVD Palpation: no palpable S3 and no palpable S4 Heart sounds: no rubs GI Palpation (GI): Soft to palpation and nontender Percussion: No Fluid wave present General: Yes no CVA tenderness Back/Spine/Pelvis Back: no CVA tenderness Skin General skin exam: no rashes or lesions noted Neuro General: patient oriented x3 Extrem General: Yes no pedal edema and No clubbing Assessment & Plan Assessment & Plan (1) Essential hypertension: Code(s): I10 - Essential (primary) hypertension Plan: Blood pressure control. Increased and low-sodium diet. Continue current medications. We discussed weight loss. (2) Renal cyst: Code(s): N28.1 - Cyst of kidney, acquired Plan: CT scan in November 2011 showed a renal cyst. This was followed by MRI . He has a history of painless hematuria for which he is following with Urology Orders: Orders Total Protein Urine Random 6 Months I10 - Essential (primary) hypertension Creatinine Urine 6 Months I10 - Essential (primary) hypertension Electrolytes 08/01/23 I10 - Essential (primary) hypertension Creatinine 08/01/23 I10 - Essential (primary) hypertension Blood Urea Nitrogen 08/01/23 I10 - Essential (primary) hypertension Calcium 08/01/23 I10 - Essential (primary) hypertension Medications: New ferrous sulfate 325 mg PO DAILY 90 tabs 2RF Discontinued zinc gluconate Discontinued Reason: Duplicate 10 mg PO DAILY 100 ea 3RF Coding Level of Care Code Est Pt Level 3 (98358) Diagnoses Essential hypertension I10 Renal cyst N28.1
[2023-08-01 14:37] VITALS: BP 130/80; PULSE 97; O2SAT 96; BMI 42.4
== END 2023-08-01 14:52 | disposition home or self-care (01) ==
LOC: HO.HKA 14:19
PROVIDERS: PCP Internal Medicine; Visit Provider Internal Medicine Hypertension Specialist
DX: I10 Essential (primary) hypertension (principal); N28.1 Cyst of kidney, acquired
CPT/HCPCS: 99213

== ENCOUNTER 2023-08-12 13:56 | Outpatient (AMB) | payer MEDICARE, MEDICAID, SELFPAY ==
[2023-08-12 14:05] VITALS: BP 118/74; PULSE 73; BMI 43.1
--- NOTE | 2023-08-12 14:05 | A.OFFVIS_ITS ---
Intake Vital Signs 08/12/23 14:05 Height 5 ft 2 in Weight 235 lb 7.259 oz BMI 43.1 BP 118/74 Blood Pressure Location Lt brachial Pulse 73 Intake Visit Reasons: 1 year follow up [employer] Required: No Allergies Iodinated Contrast Media [Iodinated Contrast Media - IV Dye] Allergy (Mild, Verified 08/12/23 14:06) HIVE AND ITCHINESS ON FACE Medication List - Last Reconciled 08/12/23 by Leta Jeffrey NP albuterol sulfate 90 mcg/actuation 2 puffs inhalation Q4H PRN amlodipine 5 mg PO DAILY aspirin 81 mg PO DAILY atorvastatin 20 mg PO DAILY blood pressure monitor (Blood Pressure Kit) As directed blood sugar diagnostic (FreeStyle Lite Strips) 1 strip miscellaneous .QD 90 days celecoxib 200 mg PO BID docusate sodium 100 mg PO BID 90 days escitalopram oxalate 5 mg PO DAILY ferrous sulfate 325 mg PO DAILY fluticasone propionate 50 mcg/actuation 2 sprays intranasal DAILY folic acid 1 mg PO DAILY hydroxyzine HCl 25 mg PO BEDTIME PRN infliximab (Remicade) once a week IV; 07/06/2021 irbesartan 300 mg PO DAILY lancets (FreeStyle Lancets) 1 gauge topical .QD 90 days lidocaine 5% 1 patch topical DAILY 90 days lorazepam 1 mg PO BID 90 days meclizine 25 mg PO TID PRN methotrexate sodium subcut; metoprolol tartrate 25 mg PO BID [id number]-FA-vit K 45 mg iron- 800 mcg-120 mcg (Bariatric Multivitamins) 1 cap PO DAILY nitroglycerin (Nitrostat) 0.4 mg sublingual Q5M PRN oxycodone 10 mg PO BID PRN sennosides (Natural Senna Laxative) 17.2 mg (2 x 8.6 mg) PO BEDTIME spironolacton-hydrochlorothiaz 25-25 mg (Aldactazide) 1 tab PO DAILY syringe with needle (BD Tuberculin Syringe) As directed zinc gluconate 50 mg PO .weekly HPI HPI Comments History of Present Illness Details 48-year-old male presents for his one ye ar follow-up. He reports he has been doing well since his last visit. He reports he has been trying to lose weight and get his blood sugars under better control. He denies any SOB, chest pain, or swelling. FORMERLY [facility] Medical History Screening for prostate cancer History of COVID-19 COVID-19 virus infection Personal history of nicotine dependence Morbid obesity with BMI of 40.0-44.9, adult Atherosclerotic cardiovascular disease Suspected deep vein thrombosis Leg swelling Type 2 diabetes mellitus with hyperglycemia GERD (gastroesophageal reflux disease) Vitamin D deficiency Left renal mass Rheumatoid arthritis H/O hidradenitis suppurativa Lung nodule Vertigo Anxiety Asthma Obstructive sleep apnea Hyperlipidemia Surgical History History of bronchoscopy (~2020) History of cystoscopy (~2013) Status post biopsy of kidney (~2013) History of surgical removal of pilonidal cyst (~1990) S/P laparoscopic sleeve gastrectomy (~2017) Family History Father Heart problem Acute arthritis Mother Breast cancer Diabetes mellitus Son No problems noted. 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 aide) Vision needs: Yes (glasses) Review of Systems Const Denies chills, Denies fatigue, Denies fever(s), Denies frequent falls, Denies weakness, Denies weight gain and Denies weight loss ENT Denies dizziness Card Denies chest pain, Denies chest pain with activity, Denies syncope, Denies rapid heart rate, Denies pedal edema, Denies irregular heart rhythm, Denies leg edema, Denies lightheadedness, Denies palpitations, Denies dyspnea, Denies dyspnea on exertion, Denies orthopnea and Denies other (LOC) Resp Denies cough, Denies dyspnea and Denies dyspnea on exertion GI Denies hematochezia and Denies change in bowel habits Musc Denies abnormal gait, Denies arthralgias, Denies muscle weakness, Denies numbness, Denies radiating pain into limb and Denies tingling Neuro Denies abnormal gait, Denies dizziness, Denies syncope, Denies frequent falls, Denies numbness, Denies tingling and Denies weakness Endo Denies fatigue and Denies palpitations Physical Exam Const General: healthy appearing and no acute distress Orientation/consciousness: patient oriented x3 HEENT Head: Yes normal to inspection Eyes General: appearance normal, both eyes and all related structures Neck Neck: Yes normal visual inspection Chest Chest palpation & inspection: normal inspection of the chest Resp Effort & Inspection: normal respiratory effort Auscultation: clear to auscultation bilaterally Cardio Jugular venous distension: no JVD Palpation: normal PMI Rate: regular rate Rhythm: regular rhythm Heart sounds: S1 normal heart sound present, S2 normal heart sound present, no click, no gallops, no murmurs and no rubs GI Inspection: Yes normal to inspection Palpation (GI): Soft to palpation Skin General skin exam: no rashes or lesions noted Neuro General: patient oriented x3 Extrem General: Yes normal to inspection Psych Appearance: grossly normal Office Procedures EKG Details: EKG today. Normal Sinus Rhythm. Rate 64bpm. QTc 398ms. OK 134ms. [id number], Complete Assessment & Plan Assessment & Plan (1) Essential hypertension: Code(s): I10 - Essential (primary) hypertension (2) Morbid obesity: Code(s): E66.01 - Morbid (severe) obesity due to excess calories (3) Type 2 diabetes mellitus with unspecified complications: Code(s): E11.8 - Type 2 diabetes mellitus with unspecified complications (4) Atherosclerotic cardiovascular disease: Code(s): I25.10 - Atherosclerotic heart disease of [place] coronary artery without angina pectoris (5) Hyperlipidemia: Code(s): E78.5 - Hyperlipidemia, unspecified Qualifiers: Hyperlipidemia type: pure hypercholesterolemia Qualified Code(s): E78.00 - Pure hypercholesterolemia, unspecified Plan Blood pressure within goal - continue medications. Will recheck fasting lipid panel. report any new or worsening symptoms. Discussed the importance of continuing weight loss journey and getting blood sugars under tighter control. Will have him return in one year or sooner if needed to see Dr. Ladd. Orders: Orders Basic Metabolic Panel Today I25.10 - Atherosclerotic heart disease of [place] coronary artery without angina pectoris Lipid Panel Today I25.10 - Atherosclerotic heart disease of [place] coronary artery without angina pectoris Coding Level of Care Code Est Pt Level 4 (19739) Diagnoses Essential hypertension I10 Morbid obesity E66.01 Type 2 diabetes mellitus with unspecified complications E11.8 Atherosclerotic cardiovascular disease I25.10 Pure hypercholesterolemia E78.00 Hyperlipidemia type: pure hypercholesterolemia CPT Codes EKG - CPT: 11003-[id number], Complete ([id number])
== END 2023-08-12 14:26 | disposition home or self-care (01) ==
PROVIDERS: PCP Internal Medicine; Visit Provider Nurse Practitioner
DX: I10 Essential (primary) hypertension (principal); E66.01 Morbid (severe) obesity due to excess calories; E11.8 Type 2 diabetes mellitus with unspecified complications; I25.10 Atherosclerotic heart disease of native coronary artery without angina pectoris; E78.00 Pure hypercholesterolemia, unspecified
CPT/HCPCS: 93010; 99214

== ENCOUNTER → 2023-08-12 13:56 | Outpatient (BNVA) | payer MEDICARE, MEDICAID, SELFPAY | PROVIDERS: PCP Internal Medicine; Visit Provider Nurse Practitioner | DX: I25.10 Atherosclerotic heart disease of native coronary artery without angina pectoris (principal); I10 Essential (primary) hypertension; E11.8 Type 2 diabetes mellitus with unspecified complications; E78.00 Pure hypercholesterolemia, unspecified; E66.01 Morbid (severe) obesity due to excess calories; Z68.41 Body mass index [BMI] 40.0-44.9, adult | CPT/HCPCS: 93005; 99212 ==

== ENCOUNTER 2023-09-04 12:00 | Outpatient (RCR) | payer MEDICARE, MEDICAID, SELFPAY | END 2023-11-04 12:44 | disposition home or self-care (01) | LOC: HO.PT 12:00 | PROVIDERS: PCP Internal Medicine; Visit Provider Internal Medicine Rheumatology | DX: M12.812 Other specific arthropathies, not elsewhere classified, left shoulder (principal) | CPT/HCPCS: 97110; 97140; 97162 ==

== ENCOUNTER 2023-09-06 22:51 | Emergency (ER) | payer MEDICARE, MEDICAID, SELFPAY ==
--- NOTE | ~2023-09-06 | CT_ITS ---
EXAMINATION: CT ABDOMEN AND PELVIS WITHOUT CONTRAST CLINICAL INFORMATION: Right lower quadrant pain. COMPARISON: 05/15/2021 TECHNIQUE: Multidetector volumetric imaging was performed from the superior aspect of the liver through the pubic symphysis. Sagittal and coronal reformatted images were obtained on the technologist's workstation. This CT examination was performed using dose optimization techniques as appropriate, variously including the following: *Automated exposure control *Adjustment of mA and/or kV according to patient size (this includes techniques or standardized protocols for targeted exams where dose is matched to indication/reason for exam; i.e. extremities or head) *Use of iterative reconstruction technique DLP: 729 mGy-cm FINDINGS: LUNG BASES: The visualized lung bases are unremarkable. LIVER, GALLBLADDER, AND BILIARY TREE: The liver is normal in size, shape, and attenuation. There is a poorly defined hypodense area left lobe of the liver measuring up to 2.2 cm. The gallbladder is unremarkable with no evidence of radiopaque gallstones, gallbladder wall thickening, or obvious pericholecystic inflammatory changes. PANCREAS: Unremarkable. SPLEEN: Unremarkable. ADRENAL GLANDS: Unremarkable. KIDNEYS AND URETERS: The kidneys are normal in size, shape, and attenuation. No hydronephrosis, hydroureter, or calculi seen. No perinephric stranding. There is a stable peripheral calcific likely cysts upper pole left kidney measuring 2.6 cm. There is a intermediate density structure upper pole right kidney measuring 1.9 cm also seen previously. There is no hydronephrosis. BLADDER: Unremarkable. GASTROINTESTINAL TRACT: The small and large bowel are unremarkable. The appendix is unremarkable. There has been a prior gastric sleeve procedure. There is stable central mesenteric infiltration associated with small lymph nodes similar to previous ABDOMINAL WALL: There is a minimal umbilical hernia containing fat. LYMPH NODES: Normal. VASCULAR: Unremarkable. PELVIC VISCERA: Unremarkable. OSSEOUS STRUCTURES: There is diffuse thoracolumbar disc degenerative change. CT/CT abdomen pelvis wo IV con IMPRESSION: No renal calculi or renal collecting system obstructive change. Normal appendix. Poorly defined area of diminished attenuation left lobe the liver of uncertain significance. Consider nonemergent ultrasound assessment. No acute intra-abdominal process. Fleischner guidelines were followed.
[2023-09-06 23:30] VITALS: BP 145/92; PULSE 78; RESP 16; TEMP 36.6; O2SAT 97; BMI 42.1
--- NOTE | 2023-09-07 00:13 | ED_ITS ---
HPI - General Adult General Chief complaint: Abdominal Pain Stated complaint: lower abd pain Time Seen by Provider: 09/07/23 00:08 Source: patient Mode of arrival: ambulatory Limitations: no limitations History of Present Illness HPI narrative: 48-year-old male with a pmhx of hypertension, hyperlipidemia, GERD, and pshx of laparoscopic sleeve gastrectomy in 2018, presents for 2-3 hours of right upper quadrant pain. He also reports RUQ pain with inspiration. His last meal was a bowl of cereal around 6 PM. He denies sick contacts and eating raw/undercooked foods. No nausea, vomiting, diarrhea, constipation, changes in urination or blood in the stools. No back/flank pain. No hematuria or dysuria. No chest pain or shortness of breath. No fevers or chills. He denies a history of hepatitis, gallbladder issues, pancreatitis, and appendectomy. He denies alcohol use. Related Data Home Medications Medication Instructions Recorded Confirmed celecoxib 200 mg capsule 200 mg PO BID 07/14/20 08/12/23 folic acid 1 mg tablet 1 mg PO DAILY 07/14/20 08/12/23 meclizine 25 mg tablet 25 mg PO TID PRN Vertigo 07/14/20 08/12/23 oxycodone 10 mg tablet 10 mg PO BID PRN severe pain 07/14/20 08/12/23 nbidowbg-glupjplk-cvyl 45 mg-folic 1 cap PO DAILY 08/11/20 08/12/23 acid 800 mcg-vit K 120 mcg capsule (Bariatric Multivitamins) aspirin 81 mg tablet,delayed 81 mg PO DAILY 11/15/20 08/12/23 release nitroglycerin 0.4 mg sublingual 0.4 mg sublingual Q5M PRN Chest 11/15/20 08/12/23 tablet (Nitrostat) Pain metoprolol tartrate 25 mg tablet 25 mg PO BID 05/15/21 08/12/23 syringe with needle 1 mL 27 x 1/2 #1 ea 05/17/21 05/06/23 (BD Tuberculin Syringe) infliximab 100 mg intravenous See Rx Instructions IV .COMPLEX 06/18/21 08/12/23 solution (Remicade) methotrexate sodium 25 mg/mL See Rx Instructions subcut .COMPLEX 06/18/21 08/12/23 injection solution amlodipine 10 mg tablet 5 mg PO DAILY 05/16/22 08/12/23 Previous Rx's Medication Instructions Recorded blood pressure monitor (Blood #1 ea 04/16/21 Pressure Kit) lancets 28 gauge (FreeStyle 1 gauge topical .QD 90 days #100 06/20/22 Lancets) caps blood sugar diagnostic (FreeStyle 1 strip miscellaneous .QD 90 days 08/28/22 Lite Strips) #100 strips docusate sodium 100 mg capsule 100 mg PO BID 90 days #180 caps 10/11/22 hydroxyzine HCl 25 mg tablet 25 mg PO BEDTIME PRN for anxiety 10/11/22 #90 tabs fluticasone propionate 50 2 spray intranasal DAILY #48 mL 11/24/22 mcg/actuation nasal spray,suspension atorvastatin 20 mg tablet 20 mg PO DAILY #90 tabs 02/17/23 albuterol sulfate 90 mcg/actuation 2 puff inhalation Q4H PRN for 03/13/23 aerosol inhaler wheezing #8.5 ea lidocaine 5 % topical patch 1 patch topical DAILY 90 days #90 05/29/23 ea lorazepam 1 mg tablet 1 mg PO BID 90 days #180 tabs 05/29/23 sennosides 8.6 mg tablet (Natural 17.2 mg (2 x 8.6 mg) PO BEDTIME 05/29/23 Senna Laxative) constipation #60 tabs escitalopram oxalate 5 mg tablet 5 mg PO DAILY #90 tabs 07/25/23 ferrous sulfate 325 mg (65 mg 325 mg PO DAILY #90 tabs 08/01/23 iron) tablet zinc gluconate 50 mg tablet 50 mg PO .weekly #20 tabs 08/07/23 irbesartan 300 mg tablet 300 mg PO DAILY #30 tabs 09/03/23 spironolactone 25 1 tab PO DAILY #90 tabs 09/04/23 mg-hydrochlorothiazide 25 mg tablet Allergies Allergy/AdvReac Type Severity Reaction Status Date / Time Iodinated Contrast Media Allergy Mild HIVE AND Verified 08/12/23 14:06 [Iodinated Contrast Media - ITCHINESS IV Dye] ON FACE Review of Systems 2 Review of Systems: Constitutional : No Weight loss, No Fever, No Chills Eyes: No Swelling, No Redness Cardiovascular : No Chest Pain, No SOB, NoEdema Respiratory : No Cough, No Sputum, No Wheezing Gastrointestinal : No Nausea, no Vomiting, no Diarrhea, +abdominal Pain, No Hematochezia, No Olinda izabella Genitourinary : No Dysuria, No Urinary Frequency, No Hematuria, No Urgency Musculoskeletal : No joint pain, No Myalgias, No Joint Swelling Skin : No Skin Lesions, No rash Neuro : No Weakness, No Numbness, No Dizziness, No Headache All other systems reviewed and are negative. Yes all other systems are reviewed and are negative [facility] Past Medical History Attestation statement: The following information was validated with the patient. Source: old records reviewed and nursing notes reviewed Medical History Screening for prostate cancer History of COVID-19 COVID-19 virus infection Personal history of nicotine dependence Morbid obesity with BMI of 40.0-44.9, adult Atherosclerotic cardiovascular disease Suspected deep vein thrombosis Leg swelling Type 2 diabetes mellitus with hyperglycemia GERD (gastroesophageal reflux disease) Vitamin D deficiency Left renal mass Rheumatoid arthritis H/O hidradenitis suppurativa Lung nodule Vertigo Anxiety Asthma Obstructive sleep apnea Hyperlipidemia Surgical History History of bronchoscopy (~2020) History of cystoscopy (~2013) Status post biopsy of kidney (~2013) History of surgical removal of pilonidal cyst (~1990) S/P laparoscopic sleeve gastrectomy (~2017) Family History Family History Father Heart problem Acute arthritis Mother Breast cancer Diabetes mellitus Son No problems noted. 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 Oriented X3.? No acute distress.? Head: Normocephalic, atraumatic, no step-offs or deformities Neck: Normal inspection.? Neck supple.? CVS: Normal heart rate and rhythm.? Pulses normal.? Respiratory: No respiratory distress.? Breath sounds normal.? Abdomen: Soft and nondistended. Normoactive bowel sounds in all 4 quadrants. +Tenderness to palpation of the RUQ, but negative Richardson's. Negative Rovsing's, McBurney's, Psoas, obturator sign. Skin: Skin warm and dry.? Normal skin color.? Normal skin turgor.? Extremities: No lower extremity edema.? No calf ttp. 5/5 strength to bilateral upper and lower extremities Back: No midline tenderness, no C-spine tenderness, full range of motion, no CVA tenderness bilaterally Neuro: Oriented X 3.? No motor deficit.? No sensory deficit. CN 2-12 intact Course Reevaluation(s) Reevaluation #1: CBC appears to be around patient's baseline with a normocytic anemia no acute change. Chemistry unremarkable no acute findings requiring intervention. Normal lipase. UA no infection. CT abdomen pelvis & US pending. Sign out to Dr. Mathias Time: 01:55 Medical Decision Making Medical Decision Making MDM Narrative: 48-year-old male presents with 2-3 hours of right upper quadrant pain PE revealed pain with palpation of the RUQ Likely cholecystitis, cholelithiasis, gastroenteritis, biliary colic, GERD; unlikely acute abdomen, SBO, LBO, acute mesenteric ischemia, pancreatitis, appendicitis, diverticulitis . Unlikely dissection,PE ( perc negative), acs. Plan: imaging, UA, labs 0319: CT scan negative for evidence to suggest acute cholecystitis/renal colic/appendicitis. And definitely no evidence to suggest obstruction. Otherwise my interpretation is in agreement with radiology's impression, on re- evaluation at the patient's bedside he does report that the pain has somewhat subsided, he will be offered combination analgesics and encouraged to follow-up with his primary care doctor on Friday morning. Differential Diagnosis Differential Diagnoses: The differential diagnosis associated with the presentation includes Likely cholecystitis, cholelithiasis, gastroenteritis, biliary colic, GERD; unlikely acute abdomen, SBO, LBO, acute mesenteric ischemia, pancreatitis, appendicitis, diverticulitis. Unlikely dissection,PE ( perc negative), acs. Admission/Observation Consideration of admission/observation: Escalation of care including admission/observation considered Lab Data MDM Lab Attestation statement: I reviewed the patient's lab results. 09/07/23 00:12 09/07/23 00:12 Labs: Lab Results 09/07/23 09/07/23 Range/Units 00:12 00:42 WBC 10.0 (4.8-10.8) X10*3/uL RBC 4.49 L (4.60-5.80) X10*6/uL Hgb 12.2 L (14.0-18.0) g/dl Hct 37.4 L (42.0-52.0) % MCV 83.3 (80.0-98.0) fL MCH 27.2 (27.0-33.0) pg MCHC 32.6 (31.0-36.0) g/dl RDW 12.6 (11.0-16.0) % Plt Count 274 (160-400) X10*3/uL MPV 9.8 (9.4-12.4) fL Immature Gran % (Auto) 0.3 (0.0-0.4) % Neut % (Auto) 60.9 (45-73) % Lymph % (Auto) 26.9 (20-40) % [place] % (Auto) 7.5 (2-11) % Eos % (Auto) 3.9 (0-4) % Baso % (Auto) 0.5 (0-2) % Lymph # (Auto) 2.7 (1.2-4.9) X10*3/uL [place] # (Auto) 0.8 (0.1-1.2) X10*3/uL Eos # (Auto) 0.4 (0.0-0.4) X10*3/uL Baso # (Auto) 0.1 (0.0-0.2) X10*3/uL Abs Immat Gran (auto) 0.03 (0.00-0.03) X10*3/uL Absolute Neuts (auto) 6.1 (2.0-8.3) x10*3/uL Absolute Nucleated RBC 0.000 (0.0-0.012) X10*3/uL Nucleated RBC % (auto) 0.0 (0.0-0.2) /100WBC Sodium 136 (135-145) mmol/L Potassium 4.3 (3.3-5.1) mmol/L Chloride 101 (96-108) mmol/L Carbon Dioxide 28 (22-29) mmol/L Anion Gap 11 L (12-20) BUN 23 H (9-16) mg/dL Creatinine 1.24 (0.5-1.4) mg/dL Estim Creat Clear Calc 76.7 Estimated GFR > 60 Random Glucose 226 H (60-115) mg/dL Calcium 10.1 (8.4-10.2) mg/dL Total Bilirubin 0.4 (0.0-1.0) mg/dL AST 20 (5-37) U/L ALT 35 (0-40) U/L Alkaline Phosphatase 68 (39-117) U/L Total Protein 8.2 H (6.5-8.0) g/dL Albumin 4.1 (3.5-5.0) g/dL Lipase 39 (8-78) U/L Urine Color Yellow Urine Appearance Clear Urine pH 6.0 (5.0-9.0) Ur Specific [place] <= 1.005 (1.005-1.025) Urine Protein Negative (Neg-Trace) mg/dL Urine Glucose (UA) 100 H (Negative) mg/dL Urine Ketones Negative (Negative) mg/dL Urine Blood Negative (Negative) Urine Nitrite Negative (Negative) Ur Leukocyte Esterase Negative (Negative) Critical Care Time Critical Care Time Critical Care Time: No Discharge Plan Discharge Clinical Impression: Right sided abdominal pain Patient Disposition: Home, Self-Care Instructions: Abdominal Pain (ED) Additional Instructions: Take your medications as prescribed. If you were prescribed antibiotics today, it is important that you take your medication to their entirety, do not skip any doses, do not finish them early. Follow-up with your primary care provider this week. Return to the emergency department with new or worsening symptoms. Such as fevers, chills, chest pain, shortness of breath, nausea, vomiting, dizziness, headache, vision changes, lethargy In case of emergency call 911 Prescriptions: No Action docusate sodium 100 mg capsule 100 mg PO BID 90 Days Qty: 180 3RF hydroxyzine HCl 25 mg tablet 25 mg PO BEDTIME PRN (Reason: for anxiety) Qty: 90 3RF fluticasone propionate 50 mcg/actuation spray,suspension 2 spray intranasal DAILY Qty: 48 5RF atorvastatin 20 mg tablet 20 mg PO DAILY Qty: 90 2RF albuterol sulfate 90 mcg/actuation HFA aerosol inhaler 2 puff inhalation Q4H PRN (Reason: for wheezing) Qty: 8.5 5RF lidocaine 5 % adhesive patch,medicated 1 patch topical DAILY 90 Days Qty: 90 3RF Rx Instructions: leave on most painful area for up to 12 hrs sennosides [Natural Senna Laxative] 8.6 mg tablet 17.2 mg PO BEDTIME Qty: 60 11RF lorazepam 1 mg tablet 1 mg PO BID 90 Days Qty: 180 0RF escitalopram oxalate 5 mg tablet 5 mg PO DAILY Qty: 90 3RF zinc gluconate 50 mg tablet 50 mg PO .weekly Qty: 20 0RF irbesartan 300 mg tablet 300 mg PO DAILY Qty: 30 6RF spironolacton-hydrochlorothiaz 25-25 mg tablet 1 tab PO DAILY Qty: 90 3RF (DME) blood pressure monitor [Blood Pressure Kit] Kit See Rx Instructions .ROUTE .MEDSUPPLY Qty: 1 0RF Rx Instructions: As directed lancets [FreeStyle Lancets] 28 gauge misc 1 gauge topical .QD 90 Days Qty: 100 3RF Remicade 100 mg recon soln See Rx Instructions IV .COMPLEX Rx Instructions: once a week IV; 07/06/2021 FreeStyle Lite Strips Strip 1 strip miscellaneous .QD 90 Days Qty: 100 3RF aspirin 81 mg tablet,delayed release (DR/EC) 81 mg PO DAILY nitroglycerin [Nitrostat] 0.4 mg tablet, sublingual 0.4 mg sublingual Q5M PRN (Reason: Chest Pain) Rx Instructions: do not exceed 3 doses per episode metoprolol tartrate 25 mg tablet 25 mg PO BID oxycodone 10 mg tablet 10 mg PO BID PRN (Reason: severe pain) celecoxib 200 mg capsule 200 mg PO BID folic acid 1 mg tablet 1 mg PO DAILY meclizine 25 mg tablet 25 mg PO TID PRN (Reason: Vertigo) methotrexate sodium 25 mg/mL solution See Rx Instructions subcut .COMPLEX Rx Instructions: subcut; Bariatric Multivitamins 45 mg iron- 800 mcg-120 mcg capsule 1 cap PO DAILY (DME) BD Tuberculin Syringe 1 mL 27 x 1/2 syringe See Rx Instructions subcut QWEEK Qty: 1 Rx Instructions: As directed amlodipine 10 mg tablet 5 mg PO DAILY ferrous sulfate 325 mg (65 mg iron) tablet 325 mg PO DAILY Qty: 90 2RF Ref[place]: [facility] [place]Provider Group] - 1 week Po,Saeid Mckay MD [Primary Care Provider] - 2 days Stand Alone Forms: Work/School Release
[2023-09-07 00:18] LABS: MANUAL DIFF FLAG NO
[2023-09-07 00:21] LABS: Basophils Absolute Auto 0.1 X10*3/uL (0.0-0.2); Basophils Percent Auto 0.5 % (0-2); Eosinophils Absolute Auto 0.4 X10*3/uL (0.0-0.4); Eosinophils Percent Auto 3.9 % (0-4); Hematocrit 37.4 % (42.0-52.0); Hemoglobin 12.2 g/dl (14.0-18.0); Imm Gran Abs Auto 0.03 X10*3/uL (0.00-0.03); Imm Gran Pct Auto 0.3 % (0.0-0.4); Lymphocytes Absolute Auto 2.7 X10*3/uL (1.2-4.9); Lymphocytes Percent Auto 26.9 % (20-40); Mean Corpuscular HGB Conc 32.6 g/dl (31.0-36.0); Mean Corpuscular Hemoglobin 27.2 pg (27.0-33.0); Mean Corpuscular Volume 83.3 fL (80.0-98.0); Mean Platelet Volume 9.8 fL (9.4-12.4); Monocytes Absolute Auto 0.8 X10*3/uL (0.1-1.2); Monocytes Percent Auto 7.5 % (2-11); Neutrophils Absolute Auto 6.1 x10*3/uL (2.0-8.3); Neutrophils Percent Auto 60.9 % (45-73); Platelet Count 274 X10*3/uL (160-400); Red Blood Count 4.49 X10*6/uL (4.60-5.80); Red Cell Distribution Width 12.6 % (11.0-16.0)
--- NOTE | 2023-09-07 00:21 | PC.NURSE ---
this rn assumed care of pt. pt a&ox4, respirations even and unlabored. pt reporting right sided abdominal pain for 3 days. pt reports the pain stays the same whether he is resting or moving. pt abdomen soft non tender to touch. pt denies n/v/d at this time. pt reports hx of gastric sleeve surgery. IV initiated at this time, labs obtained and sent.
[2023-09-07 00:37] LABS: Alanine Aminotransferase 35 U/L (0-40); Albumin Level 4.1 g/dL (3.5-5.0); Alkaline Phosphatase 68 U/L (39-117); Anion Gap 11 (12-20); Aspartate Amino Transferase 20 U/L (5-37); Bilirubin Total 0.4 mg/dL (0.0-1.0); Blood Urea Nitrogen 23 mg/dL (9-16); Calcium 10.1 mg/dL (8.4-10.2); Carbon Dioxide 28 mmol/L (22-29); Chloride 101 mmol/L (96-108); Creatinine Clr Calc Pharmacy 76.7; Estimated Glomerular Filt Rate > 60; Glucose Random 226 mg/dL (60-115); Lipase 39 U/L (8-78); Potassium 4.3 mmol/L (3.3-5.1); Sodium 136 mmol/L (135-145); Total Protein 8.2 g/dL (6.5-8.0)
[2023-09-07 00:41] VITALS: BP 122/80; PULSE 70; RESP 14; TEMP 36.8; O2SAT 98
[2023-09-07 00:50] LABS: Appearance Urine Clear; Color Urine Yellow; Glucose Urine UA 100 mg/dL (Negative); Leukocyte Esterase Urine Negative (Negative); Nitrite Urine Negative (Negative); Specific Gravity - Urine <= 1.005 (1.005-1.025); Urine Blood Negative (Negative); Urine Ketones Negative (Negative); Urine Protein Negative (Neg-Trace)
[2023-09-07 03:47] VITALS: BP 134/86; PULSE 78; RESP 15; TEMP 36.7; O2SAT 99
[2023-09-07] MEDS: Ibuprofen 400 MG TABLET PO (03:48)
[2023-09-07] MEDS: Acetaminophen 325 MG TABLET 975 MG PO (03:48)
== END 2023-09-07 04:05 | disposition home or self-care (01) ==
PROVIDERS: Emergency Provider Internal Medicine; PCP Internal Medicine
DX: R10.11 Right upper quadrant pain (principal); R10.31 Right lower quadrant pain; I10 Essential (primary) hypertension; E11.9 Type 2 diabetes mellitus without complications; E78.5 Hyperlipidemia, unspecified; E66.9 Obesity, unspecified; Z68.41 Body mass index [BMI] 40.0-44.9, adult; Z98.84 Bariatric surgery status; Z87.891 Personal history of nicotine dependence; Z79.82 Long term (current) use of aspirin; Z79.899 Other long term (current) drug therapy; Z79.02 Long term (current) use of antithrombotics/antiplatelets
CPT/HCPCS: 36415; 74176; 80053; 81003; 83690; 85025; 99284; 99285

== ENCOUNTER 2023-10-01 15:44 | Outpatient (AMB) | payer MEDICARE, MEDICAID, SELFPAY ==
[2023-10-01 15:48] VITALS: BP 118/72; PULSE 92; O2SAT 99; BMI 43.0
--- NOTE | 2023-10-01 15:48 | MHC.PC.OV ---
Vital Signs 10/01/23 15:48 Height 5 ft 2 in Weight 235 lb BMI 43.0 BP 118/72 Blood Pressure Location Lt brachial Position Sitting Pulse 92 Pulse Source Pulse Oximeter Pulse Oximetry (%) 99 Oxygen Delivery Method Room Air Intake Visit Reasons: Abdominal pain Hand Rigger Required: No Allergies Iodinated Contrast Media [Iodinated Contrast Media - IV Dye] Allergy (Mild, Verified 10/01/23 15:48) HIVE AND ITCHINESS ON FACE Medication List - Last Reconciled 10/01/23 by Saeid Singh MD albuterol sulfate 90 mcg/actuation 2 puffs inhalation Q4H PRN amlodipine 5 mg PO DAILY aspirin 81 mg PO DAILY atorvastatin 20 mg PO DAILY blood pressure monitor (Blood Pressure Kit) As directed blood sugar diagnostic (FreeStyle Lite Strips) 1 strip miscellaneous .QD 90 days celecoxib 200 mg PO BID docusate sodium 100 mg PO BID 90 days escitalopram oxalate 5 mg PO DAILY ferrous sulfate 325 mg PO DAILY fluticasone propionate 50 mcg/actuation 2 sprays intranasal DAILY folic acid 1 mg PO DAILY hydroxyzine HCl 25 mg PO BEDTIME PRN infliximab (Remicade) once a week IV; 07/06/2021 irbesartan 300 mg PO DAILY lancets (FreeStyle Lancets) 1 gauge topical .QD 90 days lidocaine 5% 1 patch topical DAILY 90 days lorazepam 1 mg PO BID 90 days meclizine 25 mg PO TID PRN metformin 500 mg PO BIDWMEAL methotrexate sodium subcut; metoprolol tartrate 25 mg PO BID dpbjkoervolm-buk-fdpz-FA-vit K 45 mg iron- 800 mcg-120 mcg (Bariatric Multivitamins) 1 cap PO DAILY nitroglycerin (Nitrostat) 0.4 mg sublingual Q5M PRN oxycodone 10 mg PO BID PRN sennosides (Natural Senna Laxative) 17.2 mg (2 x 8.6 mg) PO BEDTIME spironolacton-hydrochlorothiaz 25-25 mg 1 tab PO DAILY syringe with needle (BD Tuberculin Syringe) As directed zinc gluconate 50 mg PO .weekly Tobacco use date assessed: 10/01/23 HPI Abdominal pain HPI Details 48-year-old obese male with a history of laparoscopic sleeve gastrectomy diabetes mellitus rheumatoid arthritis hypercholesterolemia coronary artery disease hypertension obstructive sleep apnea generalized anxiety disorder last seen in February 2023. Patient is up-to-date with colonoscopy June 2022 recently was in the ER for right lower quadrant abdominal pain had a CT scan showing no calculi normal appendix no intra-abdominal process. Meanwhile follows up with Cardiology blood pressure is well controlled. Patient follows up with Nephrology also diagnosis of the hypertension renal cystic disease and diabetes mellitus. Controlled blood pressure stable renal function 1.02 creatinine. PAtiet continues to complains of RUQ , no sob, no cough, intermittent, no n no v , BP is good , no dysuria will follow-up with diabetes today. [facility] Medical History Screening for prostate cancer History of COVID-19 COVID-19 virus infection Personal history of nicotine dependence Morbid obesity with BMI of 40.0-44.9, adult Atherosclerotic cardiovascular disease Suspected deep vein thrombosis Leg swelling Type 2 diabetes mellitus with hyperglycemia GERD (gastroesophageal reflux disease) Vitamin D deficiency Left renal mass Rheumatoid arthritis H/O hidradenitis suppurativa Lung nodule Vertigo Anxiety Asthma Obstructive sleep apnea Hyperlipidemia Surgical History History of bronchoscopy (~2020) History of cystoscopy (~2013) Status post biopsy of kidney (~2013) History of surgical removal of pilonidal cyst (~1990) S/P laparoscopic sleeve gastrectomy (~2017) Family History Father Heart problem Acute arthritis Mother Breast cancer Diabetes mellitus Son No problems noted. 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 aide) Vision needs: Yes (glasses) Questionnaire Thrive Questionnaire Date Thrive assessed: 06/20/22 AUDIT C Alcohol Use Questionnaire (AUDIT-C) 1. How often do you have a drink containing alcohol?: Never 3. How often do you have six or more drinks on one occasion?: Never Total Score: 0 Score Reviewed/Action Taken: No EPHRAIM-7 AMB Questionnaire EPHRAIM-7 Date EPHRAIM - 7 assessed: 06/20/22 Source: Developed by Drs. Ye Galdamez, Marie Sofia, Beltran Blair and colleagues, with an educational racquel from [employer]. Physical exam (Primary Care) Vital Signs: Last Vital Signs Pulse 92 10/01/23 15:48 BP 118/72 10/01/23 15:48 Pulse Ox 99 10/01/23 15:48 Oxygen Delivery Method Room Air 10/01/23 15:48 BMI result Body Mass Index 43.0 Tobacco/Smoking Status: Tobacco use Status Tobacco use date assessed 10/01/23 10/01/23 15:49 Patient Tobacco Use Status Former Tobacco user 10/01/23 15:49 Tobacco use type Cigarette 10/01/23 15:49 e-Cigarette/Vaping Use Never Used 10/01/23 15:49 Thrive Assessment: Date of Thrive Assessment Date Thrive assessed 06/20/22 10/01/23 15:49 Const General: alert; No acute distress Eyes Conjunctivae: conjunctivae normal Resp Auscultation: clear to auscultation bilaterally Cardio Rate: regular rate Rhythm: regular rhythm GI Inspection: Yes normal to inspection Extrem General: Yes normal to inspection and No edema Office Procedures Flu Questionnaire Does the patient have a severe egg allergy?: No Does the patient have severe life threatening allergies?: No Does the patient have a fever or illness today?: No Has the patient ever had Guillain-[place] Syndrome?: No Has the patient ever had any past reaction to a flu shot?: No Results AMB Hemoglobin A1c AMB Hemoglobin A1c 10.0 % Last Edit by CONCEPCION Maloney on 10/01/23 16:04 Immunizations flu vacc [id number] 6mos up(PF) 60 mcg(15 mcgx4)/0.5 mL IM syringe Performing Provider: Saeid Singh MD [facility] Administered by: CONCEPCION Maloney on 10/01/23 16:04 Dose Route Admin Location Dispensed Lot Number Expiration Date NDC Career Representative 0.5 mL IM Left Deltoid 0.5 mL [id number] 03/28/24 65537-091-51 [employer] VIS Given Date VIS Provided VIS Publication Date 10/01/23 Single Vaccine 21 Eligibility Eligibility Date Funding Source Not VFC Eligible 10/01/23 Private Results Reviewed Results Reviewed: Laboratory Last Values Hgb A1c (Clinic) 10.0 % (4.0-6.0) H 10/01/23 15:26 Assessment and Plan Assessment & Plan (1) S/P laparoscopic sleeve gastrectomy: Onset Date: ~2017 Comment: (Dr. Mara Bradford, [facility] [place] - 06/23/2018) Code(s): Z98.84 - Bariatric surgery status Plan: Continue to follow-up with weight management need to continue losing weight. (2) Type 2 diabetes mellitus with hyperglycemia: Comment: Dr. Stephens Code(s): E11.65 - Type 2 diabetes mellitus with hyperglycemia Qualifiers: Diabetes mellitus exterminator termite insulin use: without residential use Qualified Code(s): E11.65 - Type 2 diabetes mellitus with hyperglycemia Plan: Decrease the amount of carbohydrate intake, pasta, bread, rice and potatoes are all sugar and that is aside from all the sweet stuff, remember that fruits are good but they are Sweet also. Hemoglobin A1c goal of less than 6.5 diet controlled presently. indiscriminate eating. will start med (3) GERD (gastroesophageal reflux disease): Code(s): K21.9 - Gastro-esophageal reflux disease without esophagitis Qualifiers: Esophagitis presence: without esophagitis Qualified Code(s): K21.9 - Gastro-esophageal reflux disease without esophagitis Plan: Avoid the foods that causes that usually spicy foods, tomato products, juices, coffee, soda and foods that your sensitive to. After eating do not lie down, allow 3-4 hours before in lie down. And keep the head of bed above 30 degrees to avoid the acid from going up. (4) Rheumatoid arthritis: Comment: (RA + OA - see [facility] - Dr. Sheldon) Code(s): M06.9 - Rheumatoid arthritis, unspecified Qualifiers: Rheumatoid arthritis location: multiple sites Rheumatoid factor presence: unspecified presence Qualified Code(s): M06.9 - Rheumatoid arthritis, unspecified Plan: Continue to follow-up with Rheumatology on methotrexate (5) Hyperlipidemia: Code(s): E78.5 - Hyperlipidemia, unspecified Qualifiers: Hyperlipidemia type: pure hypercholesterolemia Qualified Code(s): E78.00 - Pure hypercholesterolemia, unspecified Plan: Avoid fried foods, chicken skin, eggs, butter margarine, pastries and meat. Be it pork or beef they have a lot of cholesterol LDL goal of less than 100 and triglyceride of less than 150 patient on atorvastatin 20 mg once a day (6) Atherosclerotic cardiovascular disease: Code(s): I25.10 - Atherosclerotic heart disease of [place] coronary artery without angina pectoris Plan: Control the cholesterol, weight, blood pressure, diabetes continue with aspirin (7) Generalized anxiety disorder: Code(s): F41.1 - Generalized anxiety disorder Plan: Continue with therapy (8) Obstructive sleep apnea: Comment: (on CPAP) Code(s): G47.33 - Obstructive sleep apnea (adult) (pediatric) Plan: Continue with CPAP more than 4 hours a night and benefits from this (9) Essential hypertension: Code(s): I10 - Essential (primary) hypertension Plan: Continue with blood pressure medication. Decrease salt intake and exercise patient takes ear was started 300 mg once a day amlodipine 5 mg once a day and spironolactone hydrochlorothiazide follows up with Cardiology and Nephrology (10) Liver lesion: Comment: 08/2023The liver is normal in size, shape, and attenuation. There is a poorly defined hypodense area left lobe of the liver measuring up to 2.2 cm. Code(s): K76.9 - Liver disease, unspecified Orders: Orders Influenza [id number] Immunization Today Z23 - Encounter for immunization AMB Hemoglobin A1c Today E11.8 - Type 2 diabetes mellitus with unspecified complications US abdomen complete Today K76.9 - Liver disease, unspecified, R79.89 - Other specified abnormal findings of blood chemistry Medications: New metformin 500 mg PO BIDWMEAL 60 tabs 3RF E11.65 - Type 2 diabetes mellitus with hyperglycemia Coding Level of Care Code Est Pt Level 4 (54862) Diagnoses S/P laparoscopic sleeve gastrectomy Z98.84 Type 2 diabetes mellitus with hyperglycemia, without long-term current use of insulin E11.65 Diabetes mellitus exterminator termite insulin use: without residential use Gastroesophageal reflux disease without esophagitis K21.9 Esophagitis presence: without esophagitis Rheumatoid arthritis involving multiple sites, unspecified whether rheumatoid factor present M06.9 Rheumatoid arthritis location: multiple sites Rheumatoid factor presence: unspecified presence Pure hypercholesterolemia E78.00 Hyperlipidemia type: pure hypercholesterolemia Atherosclerotic cardiovascular disease I25.10 Generalized anxiety disorder F41.1 Obstructive sleep apnea G47.33 Essential hypertension I10 Liver lesion K76.9
== END 2023-10-01 16:36 | disposition home or self-care (01) ==
PROVIDERS: PCP Internal Medicine; Visit Provider Internal Medicine
DX: E11.65 Type 2 diabetes mellitus with hyperglycemia (principal); M06.9 Rheumatoid arthritis, unspecified; E11.8 Type 2 diabetes mellitus with unspecified complications; Z23 Encounter for immunization; Z98.84 Bariatric surgery status; K21.9 Gastro-esophageal reflux disease without esophagitis; E78.00 Pure hypercholesterolemia, unspecified; I25.10 Atherosclerotic heart disease of native coronary artery without angina pectoris; F41.1 Generalized anxiety disorder; G47.33 Obstructive sleep apnea (adult) (pediatric); I10 Essential (primary) hypertension; K76.9 Liver disease, unspecified
CPT/HCPCS: 83036; 90471; 90686; 99214

== ENCOUNTER 2023-10-17 09:43 | Outpatient (REF) | payer MEDICARE, MEDICAID, SELFPAY ==
[2023-10-17 09:54] LABS: MANUAL DIFF FLAG NO
[2023-10-17 10:38] LABS: Basophils Absolute Auto 0.1 X10*3/uL (0.0-0.2); Basophils Percent Auto 0.5 % (0-2); Eosinophils Absolute Auto 0.2 X10*3/uL (0.0-0.4); Eosinophils Percent Auto 2.3 % (0-4); Hematocrit 39.3 % (42.0-52.0); Hemoglobin 12.7 g/dl (14.0-18.0); Imm Gran Abs Auto 0.03 X10*3/uL (0.00-0.03); Imm Gran Pct Auto 0.3 % (0.0-0.4); Lymphocytes Absolute Auto 1.9 X10*3/uL (1.2-4.9); Lymphocytes Percent Auto 18.5 % (20-40); Mean Corpuscular HGB Conc 32.3 g/dl (31.0-36.0); Mean Corpuscular Hemoglobin 27.2 pg (27.0-33.0); Mean Corpuscular Volume 84.2 fL (80.0-98.0); Mean Platelet Volume 9.9 fL (9.4-12.4); Monocytes Absolute Auto 0.6 X10*3/uL (0.1-1.2); Monocytes Percent Auto 6.1 % (2-11); Neutrophils Absolute Auto 7.3 x10*3/uL (2.0-8.3); Neutrophils Percent Auto 72.3 % (45-73); Platelet Count 292 X10*3/uL (160-400); Red Blood Count 4.67 X10*6/uL (4.60-5.80); Red Cell Distribution Width 12.8 % (11.0-16.0); White Blood Count 10.2 X10*3/uL (4.8-10.8)
[2023-10-17 11:19] LABS: Alanine Aminotransferase 37 U/L (0-40); Alkaline Phosphatase 66 U/L (39-117); Anion Gap 13 (12-20); Aspartate Amino Transferase 22 U/L (5-37); Bilirubin Total 0.3 mg/dL (0.0-1.0); Blood Urea Nitrogen 17 mg/dL (9-16); C Reactive Protein 2.87 mg/dL (< or = 0.50); Calcium 10.2 mg/dL (8.4-10.2); Carbon Dioxide 29 mmol/L (22-29); Chloride 102 mmol/L (96-108); Estimated Glomerular Filt Rate > 60; Glucose Random 134 mg/dL (60-115); Potassium 4.3 mmol/L (3.3-5.1); Sodium 140 mmol/L (135-145)
[2023-10-17 11:22] LABS: Erythrocyte Sedimentation Rate 38 MM/HR (0-15)
== END 2023-10-17 09:44 | disposition home or self-care (01) ==
LOC: HO.LAB 09:43
PROVIDERS: PCP Internal Medicine; Visit Provider Internal Medicine Rheumatology
DX: M05.79 Rheumatoid arthritis with rheumatoid factor of multiple sites without organ or systems involvement (principal); Z79.620 Long term (current) use of immunosuppressive biologic; Z79.631 Long term (current) use of antimetabolite agent; Z79.1 Long term (current) use of non-steroidal anti-inflammatories (NSAID)
CPT/HCPCS: 36415; 80053; 85025; 85652; 86140

== ENCOUNTER 2023-10-28 13:58 | Outpatient (AMB) | payer MEDICARE, MEDICAID, SELFPAY ==
--- NOTE | 2023-10-28 09:18 | A.OFFVIS_ITS ---
Intake VS Expanded 10/28/23 09:20 Height 5 ft 2 in Weight 229 lb BMI 41.9 Body Fat % 42.6 Body Fat Mass 97.5 Fat Free Mass 131.4 Visceral Fat Rating 15 Body Water % 42 Body Water Mass 96.1 Muscle Mass/Score 123.2 Basal Metabolic Rate/Score 1,658 Intake Visit Reasons: VIDEO PO LSG 06/23/18 Construction Equipment Technician Required: No Allergies Iodinated Contrast Media [Iodinated Contrast Media - IV Dye] Allergy (Mild, Verified 10/01/23 15:48) HIVE AND ITCHINESS ON FACE Medication List - Last Reconciled 10/28/23 by WALTER Walters albuterol sulfate 90 mcg/actuation 2 puffs inhalation Q4H PRN amlodipine 5 mg PO DAILY aspirin 81 mg PO DAILY atorvastatin 20 mg PO DAILY blood pressure monitor (Blood Pressure Kit) As directed blood sugar diagnostic (FreeStyle Lite Strips) 1 strip miscellaneous .QD 90 days celecoxib 200 mg PO BID PRN docusate sodium 100 mg PO BID 90 days escitalopram oxalate 5 mg PO DAILY ferrous sulfate 325 mg PO DAILY fluticasone propionate 50 mcg/actuation 2 sprays intranasal DAILY folic acid 1 mg PO DAILY hydroxyzine HCl 25 mg PO BEDTIME PRN irbesartan 300 mg PO DAILY lancets (FreeStyle Lancets) 1 gauge topical .QD 90 days lidocaine 5% 1 patch topical DAILY 90 days lorazepam 1 mg PO BID 90 days meclizine 25 mg PO TID PRN metformin 500 mg PO BIDWMEAL metoprolol tartrate 25 mg PO BID vjycoodabfcy-zwe-fxax-FA-vit K 45 mg iron- 800 mcg-120 mcg (Bariatric Multivitamins) 1 cap PO DAILY nitroglycerin (Nitrostat) 0.4 mg sublingual Q5M PRN oxycodone 10 mg PO BID PRN sennosides (Natural Senna Laxative) 17.2 mg (2 x 8.6 mg) PO BEDTIME spironolacton-hydrochlorothiaz 25-25 mg 1 tab PO DAILY syringe with needle (BD Tuberculin Syringe) As directed zinc gluconate 50 mg PO .weekly HPI HPI Comments History of Present Illness Details 48-year-old male returns to the office t cr in follow-up for a 5 year 4 month postoperative visit. He underwent laparoscopic sleeve gastrectomy on 06/23/2018. Reports weight today of 229 lb. with a BMI of 41.9. Last office visit was in April 2023 with a weight of 223 lb. In August he was found to have a spot on his liver and he is following up with his PCP and US was ordered scheduled for tomorrow. He reports his RUQ abdominal pain has improved although has been intermittent. Stopped all his arthritis meds at that time. States his goal is to lose weight. Stopped protein bars due to financial reasons. Has premier protein powder at home. Meal plan: oatmeal or 2 eggs w turkey sausage chicken (2-3 oz) and salad or rice bowl of cereal (cheerios or rice krispies, w 1 % milk) 120-160 oz of water Exercise plan: none in the last 2 months. weights and treadmill at home [facility] Medical History Screening for prostate cancer History of COVID-19 COVID-19 virus infection Personal history of nicotine dependence Morbid obesity with BMI of 40.0-44.9, adult Atherosclerotic cardiovascular disease Suspected deep vein thrombosis Leg swelling Type 2 diabetes mellitus with hyperglycemia GERD (gastroesophageal reflux disease) Vitamin D deficiency Left renal mass Rheumatoid arthritis H/O hidradenitis suppurativa Lung nodule Vertigo Anxiety Asthma Obstructive sleep apnea Hyperlipidemia Surgical History History of bronchoscopy (~2020) History of cystoscopy (~2013) Status post biopsy of kidney (~2013) History of surgical removal of pilonidal cyst (~1990) S/P laparoscopic sleeve gastrectomy (~2017) Family History Father Heart problem Acute arthritis Mother Breast cancer Diabetes mellitus Son No problems noted. 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 aide) Vision needs: Yes (glasses) Review of Systems Const All systems reviewed & are unremarkable except as noted in HPI and below Assessment & Plan Assessment & Plan (1) Morbid obesity: Code(s): E66.01 - Morbid (severe) obesity due to excess calories Plan: Patient states that he wants to lose weight and is now committed to the process. We will change his meal plan, utilizing Premier protein powder per his request. Protein shake, Premier protein powder, 2 scoops in 10 oz of almond milk Meal 8 forks of protein and 8 of salad or vegetables. Another shake with 1 scoop in 10 oz of almond milk. Slowly resume treadmill. Reduce fluid intake to 80 oz per day. He will follow up with his primary care physician regarding the right upper quad rant abdominal pain and abnormality seen on CT scan regarding his liver. He is scheduled for an ultrasound tomorrow. Telehealth Telehealth Location of provider rendering services: practice address Location of patient: address on file Patient Identification confirmed using: Name, : Yes Telehealth method: voice only Patient verbally consented to treatment: Yes Patient verbally consented to billing insurance company: Yes Patient informed of any privacy concerns related to visit: Yes Minutes spent on Phone/Video with Pt.: 25 Coding Level of Care Code Tele Est Pt Level 3 (71176) Diagnoses Morbid obesity E66.01 Time Spent (min) 25
[2023-10-28 09:20] VITALS: BMI 41.9
== END 2023-10-28 13:58 | disposition home or self-care (01) ==
LOC: HO.HBS 13:58
PROVIDERS: PCP Internal Medicine; Visit Provider Physician Assistant Surgical
DX: E66.01 Morbid (severe) obesity due to excess calories (principal); Z68.41 Body mass index [BMI] 40.0-44.9, adult; Z90.3 Acquired absence of stomach [part of]; Z98.84 Bariatric surgery status
CPT/HCPCS: 99443

== ENCOUNTER → 2023-10-28 13:58 | Outpatient (BNVA) | payer MEDICARE, MEDICAID, SELFPAY | PROVIDERS: PCP Internal Medicine; Visit Provider Physician Assistant Surgical | DX: Z98.84 Bariatric surgery status (principal); E66.01 Morbid (severe) obesity due to excess calories; Z68.41 Body mass index [BMI] 40.0-44.9, adult; E78.00 Pure hypercholesterolemia, unspecified; G47.33 Obstructive sleep apnea (adult) (pediatric); I10 Essential (primary) hypertension ==

== ENCOUNTER 2023-10-29 07:57 | Outpatient (REF) | payer MEDICARE, MEDICAID, SELFPAY ==
--- NOTE | ~2023-10-29 | US_ITS ---
EXAMINATION: US ABDOMEN COMPLETE CLINICAL INFORMATION: Other specified abnormal findings of blood chemistry. COMPARISON: CT abdomen and pelvis 09/07/2023. TECHNIQUE: Real-time imaging of the abdominal viscera. FINDINGS: PANCREAS: Visualized portions of the pancreas are unremarkable however portions are obscured by bowel gas limiting evaluation. ABDOMINAL AORTA: Visualized aorta is normal in caliber however portions are obscured by bowel gas. INFERIOR VENA CAVA: Visualized portions are normal. LIVER: The liver is normal in size. The liver contour is normal. Markedly increased hepatic echotexture with focal fatty sparing compatible with hepatic steatosis. No focal hepatic lesion. There is no intrahepatic biliary duct dilatation seen. GALLBLADDER: Normal. The gallbladder is physiologically distended without evidence of stones, sludge, polyps, wall thickening or pericholecystic fluid. COMMON BILE DUCT: Normal in caliber measuring 0.4 cm in diameter. RIGHT KIDNEY: No hydronephrosis or renal calculi. The kidney measures 12.2 cm in maximum dimension. Benign-appearing renal cyst measuring 1.9 cm. No follow up imaging is recommended. LEFT KIDNEY: No hydronephrosis or renal calculi. The kidney measures 12.7 cm in maximum dimension. Benign-appearing renal cysts measuring up to 2.1 cm. No follow-up imaging is recommended. Punctate nonobstructing left lower pole renal stone new from prior. SPLEEN: The spleen measures 13.5 cm in maximum dimension which is enlarged. FREE FLUID: None. US/US abdomen complete IMPRESSION: 1. Punctate nonobstructing left lower pole renal stone new from prior. 2. Hepatic steatosis. 3. Splenomegaly. 4. Portions of the pancreas and aorta were obscured by bowel gas limiting evaluation.
[2023-10-29 08:59] LABS: MANUAL DIFF FLAG NO
[2023-10-29 09:35] LABS: Basophils Percent Auto 0.4 % (0-2); Eosinophils Absolute Auto 0.2 X10*3/uL (0.0-0.4); Eosinophils Percent Auto 2.2 % (0-4); Hematocrit 37.7 % (42.0-52.0); Hemoglobin 12.5 g/dl (14.0-18.0); Imm Gran Abs Auto 0.03 X10*3/uL (0.00-0.03); Imm Gran Pct Auto 0.4 % (0.0-0.4); Immature Retic Fraction 8.6 % (2.3-13.4); Lymphocytes Absolute Auto 1.5 X10*3/uL (1.2-4.9); Mean Corpuscular HGB Conc 33.2 g/dl (31.0-36.0); Mean Corpuscular Hemoglobin 27.4 pg (27.0-33.0); Mean Corpuscular Volume 82.5 fL (80.0-98.0); Mean Platelet Volume 10.4 fL (9.4-12.4); Monocytes Absolute Auto 0.4 X10*3/uL (0.1-1.2); Monocytes Percent Auto 5.2 % (2-11); Neutrophils Absolute Auto 5.5 x10*3/uL (2.0-8.3); Neutrophils Percent Auto 72.8 % (45-73); Platelet Count 266 X10*3/uL (160-400); Red Blood Count 4.57 X10*6/uL (4.60-5.80); Red Cell Distribution Width 12.7 % (11.0-16.0); Reticulocyte Percent 1.2 % (0.5-1.8); Reticulocytes Absolute 0.057 X10*6/uL (0.026-0.095); White Blood Count 7.6 X10*3/uL (4.8-10.8)
[2023-10-29 10:25] LABS: Alanine Aminotransferase 36 U/L (0-40); Albumin Level 3.9 g/dL (3.5-5.0); Alkaline Phosphatase 70 U/L (39-117); Anion Gap 13 (12-20); Aspartate Amino Transferase 20 U/L (5-37); Bilirubin Total 0.4 mg/dL (0.0-1.0); Blood Urea Nitrogen 17 mg/dL (9-16); Calcium 9.8 mg/dL (8.4-10.2); Carbon Dioxide 27 mmol/L (22-29); Chloride 101 mmol/L (96-108); Cholesterol 134 mg/dL (<200); Estimated Glomerular Filt Rate > 60; Glucose Random 163 mg/dL (60-115); HDL Cholesterol 28 mg/dL (>40); Iron 52 mcg/dL (45-160); LDL Cholesterol Calculated 81 mg/dL (<100); Magnesium 1.6 mg/dL (1.6-2.6); Percent Iron Saturation 20 % (15-50); Potassium 4.1 mmol/L (3.3-5.1); Sodium 137 mmol/L (135-145); Total Iron Binding Capacity 263 mcg/dL (228-428); Total Protein 7.9 g/dL (6.5-8.0); Triglycerides 126 mg/dL (<150); Unsaturated Iron Binding 211 ug/dL
[2023-10-29 10:42] LABS: Free T4 (Free Thyroxine) 1.01 ng/dL (0.71-1.85); Thyroid Stimulating Hormone 1.79 uIU/mL (0.32-4.0)
[2023-10-29 10:46] LABS: Folate 13.6 ng/mL (> or = 4.0); Vitamin B12 904 pg/mL (200-900)
[2023-10-29 11:06] LABS: Creatinine Urine 76.95 mg/dL; Microalbum/Creatinine Ratio Ur 389.8 ug/mg cr (<30)
[2023-11-03 11:08] LABS: Vitamin A 40 mcg/dL (38-98)
== END 2023-10-29 07:58 | disposition home or self-care (01) ==
LOC: HO.US 07:57
PROVIDERS: PCP Internal Medicine; Visit Provider Internal Medicine
DX: R79.89 Other specified abnormal findings of blood chemistry (principal); E78.00 Pure hypercholesterolemia, unspecified; K76.9 Liver disease, unspecified; E11.65 Type 2 diabetes mellitus with hyperglycemia
CPT/HCPCS: 36415; 76700; 80053; 80061; 82043; 82570; 82607; 82746; 83540; 83735; 84439; 84443; 84550; 84590; 85025; 85045

== ENCOUNTER 2023-11-18 14:39 | Outpatient (AMB) | payer MEDICARE, MEDICAID, SELFPAY ==
--- NOTE | 2023-11-18 13:45 | MHC.OFFVISWM ---
Intake VS Expanded 11/18/23 13:47 Height 5 ft 2 in Weight 226 lb 11.2 oz BMI 41.5 Body Fat % 42.4 Body Fat Mass 96.1 Fat Free Mass 130.5 Visceral Fat Rating 15 Body Water % 42.1 Body Water Mass 95.4 Muscle Mass/Score 122.3 Basal Metabolic Rate/Score 1,649 Intake Visit Reasons: VIDEO PO LSG 06/23/18 Pressure Vessel Inspector Required: No Allergies Iodinated Contrast Media [Iodinated Contrast Media - IV Dye] Allergy (Mild, Verified 10/01/23 15:48) HIVE AND ITCHINESS ON FACE Medication List - Last Reconciled 11/18/23 by WALTER Walters albuterol sulfate 90 mcg/actuation 2 puffs inhalation Q4H PRN amlodipine 5 mg PO DAILY aspirin 81 mg PO DAILY atorvastatin 20 mg PO DAILY blood pressure monitor (Blood Pressure Kit) As directed blood sugar diagnostic (FreeStyle Lite Strips) 1 strip miscellaneous .QD 90 days celecoxib 200 mg PO BID PRN docusate sodium 100 mg PO BID 90 days escitalopram oxalate 5 mg PO DAILY ferrous sulfate 325 mg PO DAILY fluticasone propionate 50 mcg/actuation 2 sprays intranasal DAILY folic acid 1 mg PO DAILY hydroxyzine HCl 25 mg PO BEDTIME PRN irbesartan 300 mg PO DAILY lancets (FreeStyle Lancets) 1 gauge topical .QD 90 days lidocaine 5% 1 patch topical DAILY 90 days lorazepam 1 mg PO BID 90 days meclizine 25 mg PO TID PRN metformin 500 mg PO BIDWMEAL metoprolol tartrate 25 mg PO BID ychzsgzxnljj-hoz-jegv-FA-vit K 45 mg iron- 800 mcg-120 mcg (Bariatric Multivitamins) 1 cap PO DAILY nitroglycerin (Nitrostat) 0.4 mg sublingual Q5M PRN oxycodone 10 mg PO BID PRN sennosides (Natural Senna Laxative) 17.2 mg (2 x 8.6 mg) PO BEDTIME spironolacton-hydrochlorothiaz 25-25 mg 1 tab PO DAILY syringe with needle (BD Tuberculin Syringe) As directed zinc gluconate 50 mg PO .weekly HPI HPI Comments History of Present Illness Details 48-year-old male returns to the office today in follow-up for a 5 year 5 month postoperative visit. He underwent laparoscopic sleeve gastrectomy on 06/23/2018. Reports weight today of 226.7 lb. with a BMI of 41.5. Last office visit was in April 2023 with a weight of 223 lb. He feels as though things are going well. Meal plan: utilizing Premier protein powder per his request. Protein shake, Premier protein powder, 2 scoops in 10 oz of almond milk Meal 8 forks of protein and 8 of salad or vegetables. Another shake with 1 scoop in 10 oz of almond milk. Drinking 80 oz water Exercise plan 30 minutes on treadmill 5 x per week, 100 [place], speed 1.6, incline 0 PFSH Medical History (Updated 10/30/23 @ 18:39 by Saeid Singh MD) Liver lesion Screening for prostate cancer History of COVID-19 COVID-19 virus infection Personal history of nicotine dependence Morbid obesity with BMI of 40.0-44.9, adult Atherosclerotic cardiovascular disease Suspected deep vein thrombosis Leg swelling Type 2 diabetes mellitus with hyperglycemia GERD (gastroesophageal reflux disease) Vitamin D deficiency Left renal mass Rheumatoid arthritis H/O hidradenitis suppurativa Lung nodule Vertigo Anxiety Asthma Obstructive sleep apnea Hyperlipidemia Surgical History History of bronchoscopy (~2020) History of cystoscopy (~2013) Status post biopsy of kidney (~2013) History of surgical removal of pilonidal cyst (~1990) S/P laparoscopic sleeve gastrectomy (~2017) Family History Father Heart problem Acute arthritis Mother Breast cancer Diabetes mellitus Son No problems noted. 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 aide) Vision needs: Yes (glasses) Assessment & Plan Assessment & Plan (1) Morbid obesity: Code(s): E66.01 - Morbid (severe) obesity due to excess calories Plan: Overall, patient is doing well and making improvements. We will adjust his meal plans slightly and diabetic medications as well as his exercise routine utilizing Premier protein powder per his request. Protein shake, Premier protein powder, 1.5 scoops in 10 oz of almond milk Meal 8 forks of protein and 8 of salad or vegetables. Another shake with 1 scoop in 10 oz of almond milk. Drinking 80 oz water Increase speed to 1.8 increase incline 0-3. Decrease metformin to qd Telehealth Telehealth Location of provider rendering services: practice address Location of patient: address on file Patient Identification confirmed using: Name, : Yes Telehealth method: voice only Patient verbally consented to treatment: Yes Patient verbally consented to billing insurance company: Yes Patient informed of any privacy concerns related to visit: Yes Minutes spent on Phone/Video with Pt.: 15 Coding Level of Care Code Tele Est Pt Level 3 (05608) Diagnoses Morbid obesity E66.01
[2023-11-18 13:47] VITALS: BMI 41.5
== END 2023-11-18 14:40 | disposition home or self-care (01) ==
LOC: HO.HBS 14:39
PROVIDERS: PCP Internal Medicine; Visit Provider Physician Assistant Surgical
DX: E66.01 Morbid (severe) obesity due to excess calories (principal); Z68.41 Body mass index [BMI] 40.0-44.9, adult; Z90.3 Acquired absence of stomach [part of]; Z98.84 Bariatric surgery status
CPT/HCPCS: 99442

== ENCOUNTER → 2023-11-18 14:39 | Outpatient (BNVA) | payer MEDICARE, MEDICAID, SELFPAY | PROVIDERS: PCP Internal Medicine; Visit Provider Physician Assistant Surgical ==

== ENCOUNTER 2023-12-16 14:02 | Outpatient (AMB) | payer MEDICARE, MEDICAID, SELFPAY ==
[2023-12-16 09:49] VITALS: BMI 41.0
--- NOTE | 2023-12-16 09:49 | MHC.OFFVISWM ---
Intake VS Expanded 12/16/23 09:49 Height 5 ft 2 in Weight 224 lb 6.4 oz BMI 41.0 Body Fat % 42 Body Fat Mass 94.2 Fat Free Mass 130.1 Visceral Fat Rating 15 Body Water % 42.4 Body Water Mass 95.1 Muscle Mass/Score 122.1 Basal Metabolic Rate/Score 1,645 Intake Visit Reasons: VIDEO PO LSG 06/23/18 Systems Development Consultant Required: No Allergies Iodinated Contrast Media [Iodinated Contrast Media - IV Dye] Allergy (Mild, Verified 10/01/23 15:48) HIVE AND ITCHINESS ON FACE Medication List - Last Reconciled 12/16/23 by WALTER Walters albuterol sulfate 90 mcg/actuation 2 puffs inhalation Q4H PRN amlodipine 5 mg PO DAILY aspirin 81 mg PO DAILY atorvastatin 20 mg PO DAILY blood pressure monitor (Blood Pressure Kit) As directed blood sugar diagnostic (FreeStyle Lite Strips) 1 strip miscellaneous .QD 90 days celecoxib 200 mg PO BID PRN docusate sodium 100 mg PO BID 90 days escitalopram oxalate 5 mg PO DAILY ferrous sulfate 325 mg PO DAILY fluticasone propionate 50 mcg/actuation 2 sprays intranasal DAILY folic acid 1 mg PO DAILY hydroxyzine HCl 25 mg PO BEDTIME PRN irbesartan 300 mg PO DAILY lancets (FreeStyle Lancets) 1 gauge topical .QD 90 days lidocaine 5% 1 patch topical DAILY 90 days lorazepam 1 mg PO BID 90 days meclizine 25 mg PO TID PRN metformin 500 mg PO BIDWMEAL metoprolol tartrate 25 mg PO BID [id number]-[id number]-FA-vit K 45 mg iron- 800 mcg-120 mcg (Bariatric Multivitamins) 1 cap PO DAILY nitroglycerin (Nitrostat) 0.4 mg sublingual Q5M PRN oxycodone 10 mg PO BID PRN sennosides (Natural Senna Laxative) 17.2 mg (2 x 8.6 mg) PO BEDTIME spironolacton-hydrochlorothiaz 25-25 mg 1 tab PO DAILY syringe with needle (BD Tuberculin Syringe) As directed zinc gluconate 50 mg PO .weekly HPI HPI Comments History of Present Illness Details 48-year-old male returns to the office today in follow-up for a 5 year 6 month postoperative visit. He underwent laparoscopic sleeve gastrectomy on 06/23/2018. Reports weight today of 224.4 lb. with a BMI of 41. Last office visit was in October 2023 with a weight of 226.7 lb. He feels as though things are going well. recently twisted his ankle and recovering. Unable to walk as quickly on treadmill but still trying Meal plan: utilizing Premier protein powder per his request. Protein shake, Premier protein powder, 1.5 scoops in 10 oz of almond milk, 8 am Meal 8 forks of protein and 8 of salad or vegetables. 1 pm Another shake with 1 scoop in 10 oz of almond milk. 530 pm Drinking 80 oz water exercise plan: treadmill, Increase speed to 1.7 increase incline 0. daily 200 calories [facility] Medical History (Updated 10/30/23 @ 18:39 by Saeid Singh MD) Liver lesion Screening for prostate cancer History of COVID-19 COVID-19 virus infection Personal history of nicotine dependence Morbid obesity with BMI of 40.0-44.9, adult Atherosclerotic cardiovascular disease Suspected deep vein thrombosis Leg swelling Type 2 diabetes mellitus with hyperglycemia GERD (gastroesophageal reflux disease) Vitamin D deficiency Left renal mass Rheumatoid arthritis H/O hidradenitis suppurativa Lung nodule Vertigo Anxiety Asthma Obstructive sleep apnea Hyperlipidemia Surgical History History of bronchoscopy (~2020) History of cystoscopy (~2013) Status post biopsy of kidney (~2013) History of surgical removal of pilonidal cyst (~1990) S/P laparoscopic sleeve gastrectomy (~2017) Family History Father Heart problem Acute arthritis Mother Breast cancer Diabetes mellitus Son No problems noted. 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 aide) Vision needs: Yes (glasses) Review of Systems Const All systems reviewed & are unremarkable except as noted in HPI and below Assessment & Plan Assessment & Plan (1) Morbid obesity with BMI of 40.0-44.9, adult: Comment: (Morbid Obesity - persistent s/p sleeve gastrectomy 2018) Code(s): E66.01 - Morbid (severe) obesity due to excess calories; Z68.41 - Body mass index [BMI] 40.0-44.9, adult Plan: Patient reports following meal plan. His exercise tolerance has been reduced due to an injury to his ankle. He is recovering although has only been able to walk at a slower pace on the treadmill. Still burning approximately 200 calories per day. He will increase as he recovers. He will continue to text with any questions or concerns and return to the office in 4-6 weeks. Telehealth Telehealth Location of provider rendering services: practice address Location of patient: address on file Patient Identification confirmed using: Name, : Yes Telehealth method: voice only Patient verbally consented to treatment: Yes Patient verbally consented to billing insurance company: Yes Patient informed of any privacy concerns related to visit: Yes Minutes spent on Phone/Video with Pt.: 12 Coding Level of Care Code Tele Est Pt Level 3 (24164) Diagnoses Morbid obesity with BMI of 40.0-44.9, adult E66.01; Z68.41 Time Spent (min) 15
== END 2023-12-16 14:21 | disposition home or self-care (01) ==
LOC: HO.HBS 14:02
PROVIDERS: PCP Internal Medicine; Visit Provider Physician Assistant Surgical
DX: E66.01 Morbid (severe) obesity due to excess calories (principal); Z68.41 Body mass index [BMI] 40.0-44.9, adult; Z90.3 Acquired absence of stomach [part of]; Z98.84 Bariatric surgery status
CPT/HCPCS: 99442

== ENCOUNTER → 2023-12-16 14:02 | Outpatient (BNVA) | payer MEDICARE, MEDICAID, SELFPAY | PROVIDERS: PCP Internal Medicine; Visit Provider Physician Assistant Surgical ==

== ENCOUNTER 2024-02-11 07:45 | Outpatient (REF) | payer MEDICARE, MEDICAID, SELFPAY ==
[2024-02-11 08:57] LABS: Anion Gap 14 (12-20); Blood Urea Nitrogen 24 mg/dL (9-16); Calcium 10.2 mg/dL (8.4-10.2); Carbon Dioxide 28 mmol/L (22-29); Chloride 101 mmol/L (96-108); Estimated Glomerular Filt Rate > 60; Potassium 3.9 mmol/L (3.3-5.1); Sodium 139 mmol/L (135-145)
[2024-02-11 08:58] LABS: Creatinine Urine 88.11 mg/dL; Total Protein Urine Random 44 mg/dL (<12)
== END 2024-02-11 07:46 | disposition home or self-care (01) ==
LOC: HO.LAB 07:45
PROVIDERS: PCP Internal Medicine; Visit Provider Internal Medicine Hypertension Specialist
DX: I10 Essential (primary) hypertension (principal)
CPT/HCPCS: 36415; 80051; 82310; 82565; 82570; 84156; 84520

== ENCOUNTER 2024-02-12 12:01 | Outpatient (AMB) | payer MEDICARE, MEDICAID, SELFPAY ==
[2024-02-12 12:10] VITALS: BP 130/90; PULSE 90; O2SAT 98; BMI 41.3
--- NOTE | 2024-02-12 12:10 | HO.NEPHOV ---
Vital Signs 02/12/24 12:10 Height 5 ft 2 in Weight 226 lb BMI 41.3 BP 130/90 H Blood Pressure Location Lt brachial Position Sitting Pulse 90 Pulse Source Pulse Oximeter Pulse Oximetry (%) 98 Oxygen Delivery Method Room Air Intake Visit Reasons: f/u 6 mth./ Confirmed Template Clerk Required: No Allergies Iodinated Contrast Media [Iodinated Contrast Media - IV Dye] Allergy (Mild, Verified 02/12/24 12:11) HIVE AND ITCHINESS ON FACE HPI Comments Details: Middle-aged man with history of obesity and hypertension is here for follow-up. Overall doing well Occasional leg edema Currently on protein shakes for weight loss Sometimes he gets lightheaded [facility] Medical History (Updated 10/30/23 @ 18:39 by Saeid Singh MD) Liver lesion Screening for prostate cancer History of COVID-19 COVID-19 virus infection Personal history of nicotine dependence Morbid obesity with BMI of 40.0-44.9, adult Atherosclerotic cardiovascular disease Suspected deep vein thrombosis Leg swelling Type 2 diabetes mellitus with hyperglycemia GERD (gastroesophageal reflux disease) Vitamin D deficiency Left renal mass Rheumatoid arthritis H/O hidradenitis suppurativa Lung nodule Vertigo Anxiety Asthma Obstructive sleep apnea Hyperlipidemia Surgical History History of bronchoscopy (~2020) History of cystoscopy (~2013) Status post biopsy of kidney (~2013) History of surgical removal of pilonidal cyst (~1990) S/P laparoscopic sleeve gastrectomy (~2017) Family History Father Heart problem Acute arthritis Mother Breast cancer Diabetes mellitus Son No problems noted. 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 aide) Vision needs: Yes (glasses) Physical Exam Vital Signs: Last Vital Signs Pulse 90 02/12/24 12:10 BP 130/90 H 02/12/24 12:10 Pulse Ox 98 02/12/24 12:10 Oxygen Delivery Method Room Air 02/12/24 12:10 BMI result Body Mass Index 41.3 Const General: comfortable Nutritional Appearance: well nourished Orientation/consciousness: patient oriented x3 HEENT Head: No normal to inspection Mouth: moist mucous membranes Neck Neck: Yes supple and Yes no JVD Resp Auscultation: clear to auscultation bilaterally, no rales and rub present Cardio Jugular venous distension: no JVD Palpation: no palpable S3 and no palpable S4 Heart sounds: no rubs GI Palpation (GI): Soft to palpation and nontender Percussion: No Fluid wave present General: Yes no CVA tenderness Back/Spine/Pelvis Back: no CVA tenderness Skin General skin exam: no rashes or lesions noted Neuro General: patient oriented x3 Extrem General: Yes no pedal edema and No clubbing Results Reviewed Nephrology Results: Hgb 12.5 g/dl (14.0-18.0) L 10/29/23 WBC 7.6 X10*3/uL (4.8-10.8) 10/29/23 Plt Count 266 X10*3/uL (160-400) 10/29/23 Sodium 139 mmol/L (135-145) 02/11/24 Potassium 3.9 mmol/L (3.3-5.1) 02/11/24 Chloride 101 mmol/L (96-108) 02/11/24 Carbon Dioxide 28 mmol/L (22-29) 02/11/24 BUN 24 mg/dL (9-16) H 02/11/24 Creatinine 1.14 mg/dL (0.5-1.4) 02/11/24 Calcium 10.2 mg/dL (8.4-10.2) 02/11/24 Urine Protein Negative mg/dL (Neg-Trace) 09/07/23 Urine Creatinine 88.11 mg/dL 02/11/24 Assessment & Plan Assessment & Plan (1) Essential hypertension: Code(s): I10 - Essential (primary) hypertension Category: Medical Plan: Blood pressure is acceptable today Stay on low-sodium diet. Continue current medications. We discussed weight loss. Due to lightheadedness, will obtain 24 hr ABPM (2) Renal cyst: Code(s): N28.1 - Cyst of kidney, acquired Category: Medical Plan: CT scan in November 2011 showed a renal cyst. This was followed by MRI . He has a history of painless hematuria for which he is following with Urology Orders: Orders AMB 24 Hour Blood Pressure Monitor PLACEMENT Today I10 - Essential (primary) hypertension Coding Level of Care Code Est Pt Level 4 (54777) Diagnoses Essential hypertension I10 Renal cyst N28.1
== END 2024-02-12 12:27 | disposition home or self-care (01) ==
PROVIDERS: PCP Internal Medicine; Visit Provider Internal Medicine Hypertension Specialist
DX: I10 Essential (primary) hypertension (principal); N28.1 Cyst of kidney, acquired
CPT/HCPCS: 99214

== ENCOUNTER → 2024-02-12 12:01 | Outpatient (BNVA) | payer MEDICARE, MEDICAID, SELFPAY | PROVIDERS: PCP Internal Medicine; Visit Provider Internal Medicine Hypertension Specialist | DX: N28.1 Cyst of kidney, acquired (principal); I10 Essential (primary) hypertension | CPT/HCPCS: 99212 ==

== ENCOUNTER → 2024-02-17 09:55 | Outpatient (BNVA) | payer MEDICARE, MEDICAID, SELFPAY | PROVIDERS: PCP Internal Medicine; Visit Provider Internal Medicine Hypertension Specialist ==

== ENCOUNTER → 2024-02-18 10:03 | Outpatient (BNVA) | payer MEDICARE, MEDICAID, SELFPAY | PROVIDERS: PCP Internal Medicine; Visit Provider Internal Medicine Hypertension Specialist ==

== ENCOUNTER 2024-02-25 15:28 | Outpatient (AMB) | payer MEDICARE, MEDICAID, SELFPAY ==
--- NOTE | 2024-02-25 12:24 | A.OFFVIS_ITS ---
VS Expanded 02/25/24 12:31 Height 5 ft 2 in Weight 216 lb 7 oz BMI 39.6 Intake Visit Reasons: tv PO LSG 06/23/18 Feeder Associate Required: No Allergies Iodinated Contrast Media [Iodinated Contrast Media - IV Dye] Allergy (Mild, Verified 02/12/24 12:11) HIVE AND ITCHINESS ON FACE Medication List - Last Reconciled 02/25/24 by WALTER Walters albuterol sulfate 90 mcg/actuation 2 puffs inhalation Q4H PRN amlodipine 5 mg PO DAILY aspirin 81 mg PO DAILY atorvastatin 20 mg PO DAILY blood pressure monitor (Blood Pressure Kit) As directed blood sugar diagnostic (FreeStyle Lite Strips) 1 strip miscellaneous .QD 90 days celecoxib 200 mg PO BID PRN docusate sodium 100 mg PO BID 90 days escitalopram oxalate 5 mg PO DAILY ferrous sulfate 325 mg PO DAILY fluticasone propionate 50 mcg/actuation 2 sprays intranasal DAILY folic acid 1 mg PO DAILY hydroxyzine HCl 25 mg PO BEDTIME PRN irbesartan 300 mg PO DAILY lancets (FreeStyle Lancets) 1 gauge topical .QD 90 days lidocaine 5% 1 patch topical DAILY 90 days lorazepam 1 mg PO BID 90 days meclizine 25 mg PO TID PRN metformin 500 mg PO BID metoprolol tartrate 25 mg PO BID pjtsbfwztfsy-xyb-vewl-FA-vit K 45 mg iron- 800 mcg-120 mcg (Bariatric Mult ivitamins) 1 cap PO DAILY nitroglycerin (Nitrostat) 0.4 mg sublingual Q5M PRN sennosides (Natural Senna Laxative) 17.2 mg (2 x 8.6 mg) PO BEDTIME spironolacton-hydrochlorothiaz 25-25 mg 1 tab PO DAILY syringe with needle (BD Tuberculin Syringe) As directed zinc gluconate 50 mg PO .weekly HPI Comments Details: 48-year-old male returns to the office today in follow-up for a 5 year 8 month postoperative visit. He underwent laparoscopic sleeve gastrectomy on 06/23/2018. Reports weight today of 216.7 lb. with a BMI of 39.6. Last office visit was in November 2023 with a weight of 224.4 lb. He feels as though things are going well. Meal plan: utilizing Premier protein powder per his request. Protein shake, Premier protein powder, 1.5 scoops in 10 oz of almond milk, 8 am Meal 8 forks of protein and 8 of salad or vegetables. 1 pm Another shake with 1 scoop in 10 oz of almond milk. 530 pm Drinking 80 oz water exercise plan: treadmill, Increase speed to 2.1 incline 3. daily 230 calories [facility] Medical History (Updated 10/30/23 @ 18:39 by Saeid Snigh MD) Liver lesion Screening for prostate cancer History of COVID-19 COVID-19 virus infection Personal history of nicotine dependence Morbid obesity with BMI of 40.0-44.9, adult Atherosclerotic cardiovascular disease Suspected deep vein thrombosis Leg swelling Type 2 diabetes mellitus with hyperglycemia GERD (gastroesophageal reflux disease) Vitamin D deficiency Left renal mass Rheumatoid arthritis H/O hidradenitis suppurativa Lung nodule Vertigo Anxiety Asthma Obstructive sleep apnea Hyperlipidemia Surgical History History of bronchoscopy (~2020) History of cystoscopy (~2013) Status post biopsy of kidney (~2013) History of surgical removal of pilonidal cyst (~1990) S/P laparoscopic sleeve gastrectomy (~2017) Family History Father Heart problem Acute arthritis Mother Breast cancer Diabetes mellitus Son No problems noted. 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 aide) Vision needs: Yes (glasses) Telehealth Telehealth Telehealth Platform: Telephone Location of provider rendering services: practice address Location of patient: address on file Patient Identification confirmed using: Name, : Yes Telehealth method: voice only Patient verbally consented to treatment: Yes Patient verbally consented to billing insurance company: Yes Patient informed of any privacy concerns related to visit: Yes Minutes spent on Phone/Video with Pt.: 15 Assessment & Plan Assessment & Plan (1) Obesity (BMI 30-39.9): Code(s): E66.9 - Obesity, unspecified Category: Medical Plan: Patient will continue his current meal plan. We discussed the need to increase his exercise component, increasing the speed on the treadmill at 2.2 and then next week increasing the incline to 4 as he is able. He will alternate increasing speed and incline. We will have him return to the office for follow- up in approximately 2 months with the understanding that he should text weekly with his weight and with any questions or concerns. He is in agreement with this plan
[2024-02-25 12:31] VITALS: BMI 39.6
== END 2024-02-25 16:03 | disposition home or self-care (01) ==
LOC: HO.HBS 15:28
PROVIDERS: PCP Internal Medicine; Visit Provider Physician Assistant Surgical
DX: E66.9 Obesity, unspecified (principal); Z68.39 Body mass index [BMI] 39.0-39.9, adult; Z90.3 Acquired absence of stomach [part of]; Z98.84 Bariatric surgery status
CPT/HCPCS: 99442

== ENCOUNTER → 2024-02-25 15:28 | Outpatient (BNVA) | payer MEDICARE, MEDICAID, SELFPAY | PROVIDERS: PCP Internal Medicine; Visit Provider Physician Assistant Surgical | DX: E66.9 Obesity, unspecified (principal) ==

== ENCOUNTER 2024-03-02 08:20 | Outpatient (REF) | payer MEDICARE, MEDICAID, SELFPAY ==
[2024-03-02 08:40] LABS: MANUAL DIFF FLAG NO
[2024-03-02 08:57] LABS: Basophils Percent Auto 0.6 % (0-2); Eosinophils Absolute Auto 0.2 X10*3/uL (0.0-0.4); Eosinophils Percent Auto 2.5 % (0-4); Hematocrit 37.7 % (42.0-52.0); Hemoglobin 12.3 g/dl (14.0-18.0); Imm Gran Abs Auto 0.02 X10*3/uL (0.00-0.03); Imm Gran Pct Auto 0.3 % (0.0-0.4); Lymphocytes Absolute Auto 2.2 X10*3/uL (1.2-4.9); Lymphocytes Percent Auto 32.2 % (20-40); Mean Corpuscular HGB Conc 32.6 g/dl (31.0-36.0); Mean Corpuscular Volume 82.9 fL (80.0-98.0); Mean Platelet Volume 10.3 fL (9.4-12.4); Monocytes Absolute Auto 0.6 X10*3/uL (0.1-1.2); Monocytes Percent Auto 8.2 % (2-11); Neutrophils Absolute Auto 3.8 x10*3/uL (2.0-8.3); Neutrophils Percent Auto 56.2 % (45-73); Platelet Count 242 X10*3/uL (160-400); Red Blood Count 4.55 X10*6/uL (4.60-5.80); Red Cell Distribution Width 13.4 % (11.0-16.0); White Blood Count 6.7 X10*3/uL (4.8-10.8)
[2024-03-02 09:06] LABS: Estimated Average Glucose 157 mg/dL; Hemoglobin A1c % 7.1 % (<6.0)
== END 2024-03-02 08:21 | disposition home or self-care (01) ==
LOC: HO.LAB 08:20
PROVIDERS: PCP Internal Medicine; Visit Provider Internal Medicine
DX: E11.8 Type 2 diabetes mellitus with unspecified complications (principal)
CPT/HCPCS: 36415; 83036; 85025

== ENCOUNTER 2024-03-25 09:38 | Outpatient (AMB) | payer MEDICARE, MEDICAID, SELFPAY ==
[2024-03-25 09:43] VITALS: BP 130/84; PULSE 76; O2SAT 96; BMI 39.9
--- NOTE | 2024-03-25 09:43 | HO.NEPHOV_ITS ---
Vital Signs 03/25/24 09:43 Height 5 ft 2 in Weight 218 lb BMI 39.9 BP 130/84 Blood Pressure Location Lt brachial Position Sitting Pulse 76 Pulse Source Pulse Oximeter Pulse Oximetry (%) 96 Oxygen Delivery Method Room Air Intake Visit Reasons: Essential hypertension/ 6 weeks fu/ Conf Glass Blowing Lathe Operator Required: No Accompanied by: Self / Same As Patient Allergies Iodinated Contrast Media [Iodinated Contrast Media - IV Dye] Allergy (Mild, Verified 03/25/24 09:45) HIVE AND ITCHINESS ON FACE Medication List - Last Reconciled 03/25/24 by Andre Gandhi MD albuterol sulfate 90 mcg/actuation 2 puffs inhalation Q4H PRN amlodipine 5 mg PO DAILY aspirin 81 mg PO DAILY atorvastatin 20 mg PO DAILY blood pressure monitor (Blood Pressure Kit) As directed blood sugar diagnostic (FreeStyle Lite Strips) 1 strip miscellaneous .QD 90 days celecoxib 200 mg PO BID PRN docusate sodium 100 mg PO BID 90 days escitalopram oxalate 5 mg PO DAILY ferrous sulfate 325 mg PO DAILY fluticasone propionate 50 mcg/actuation 2 sprays intranasal DAILY folic acid 1 mg PO DAILY hydroxyzine HCl 25 mg PO BEDTIME PRN irbesartan 300 mg PO DAILY lancets (FreeStyle Lancets) 1 gauge topical .QD 90 days lidocaine 5% 1 patch topical DAILY 90 days lorazepam 1 mg PO BID 90 days meclizine 25 mg PO TID PRN metformin 500 mg PO DAILY metoprolol tartrate 25 mg PO BID ejzxyfcapmlv-tev-psqt-FA-vit K 45 mg iron- 800 mcg-120 mcg (Bariatric Multivitamins) 1 cap PO DAILY nitroglycerin (Nitrostat) 0.4 mg sublingual Q5M PRN sennosides (Natural Senna Laxative) 17.2 mg (2 x 8.6 mg) PO BEDTIME spironolacton-hydrochlorothiaz 25-25 mg 1 tab PO DAILY syringe with needle (BD Tuberculin Syringe) As directed zinc gluconate 50 mg PO .weekly HPI Comments Details: Middle-aged man with history of obesity and hypertension is here for follow-up. Overall doing well Occasional leg edema Currently on protein shakes for weight loss Sometimes he gets lightheaded [facility] Medical History (Updated 03/25/24 @ 09:54 by Andre Gandhi MD) Liver lesion Screening for prostate cancer History of COVID-19 COVID-19 virus infection Personal history of nicotine dependence Morbid obesity with BMI of 40.0-44.9, adult Atherosclerotic cardiovascular disease Suspected deep vein thrombosis Leg swelling Type 2 diabetes mellitus with hyperglycemia GERD (gastroesophageal reflux disease) Vitamin D deficiency Left renal mass Rheumatoid arthritis H/O hidradenitis suppurativa Lung nodule Vertigo Anxiety Asthma Obstructive sleep apnea Hyperlipidemia Surgical History History of bronchoscopy (~2020) History of cystoscopy (~2013) Status post biopsy of kidney (~2013) History of surgical removal of pilonidal cyst (~1990) S/P laparoscopic sleeve gastrectomy (~2017) Family History Father Heart problem Acute arthritis Mother Breast cancer Diabetes mellitus Son No problems noted. Maternal Uncle Myocardial infarct Maternal Aunt Breast cancer Social History Housing: Apartment Alcohol intake: never Patient Tobacco Use Status: Former Tobacco user Tobacco use type: Cigarette Cigarettes Per Day: 15 Years Smoked: 15 e-Cigarette/Vaping Use: Never Used Second Hand Smoke Exposure: No service: No Current occupational status: disabled Cognitive needs: No Hearing needs: Yes (hearig aide) Vision needs: Yes (glasses) Physical Exam Vital Signs: Last Vital Signs Pulse 76 03/25/24 09:43 BP 130/84 03/25/24 09:43 Pulse Ox 96 03/25/24 09:43 Oxygen Delivery Method Room Air 03/25/24 09:43 BMI result Body Mass Index 39.9 Const General: comfortable; No acute distress Orientation/consciousness: patient oriented x3 Eyes General: appearance normal, both eyes and all related structures Visual Brunson: normal visual brunson by confrontation Neck Neck: Yes supple and Yes no JVD Resp Effort & Inspection: normal respiratory effort and respiratory effort not decreased Auscultation: rhonchi Cardio Palpation: no palpable S3 and no palpable S4 Heart sounds: no rubs GI Inspection: Yes normal to inspection Palpation (GI): Soft to palpation Percussion: Yes normal to percussion Auscultation: normal bowel sounds General: Yes no CVA tenderness Back/Spine/Pelvis Back: no CVA tenderness Skin General skin exam: no petechiae and no purpura Neuro General: patient oriented x3 and no focal motor deficits Extrem General: No clubbing and No edema Results Reviewed Nephrology Results: Hgb 12.3 g/dl (14.0-18.0) L 03/02/24 WBC 6.7 X10*3/uL (4.8-10.8) 03/02/24 Plt Count 242 X10*3/uL (160-400) 03/02/24 Sodium 139 mmol/L (135-145) 02/11/24 Potassium 3.9 mmol/L (3.3-5.1) 02/11/24 Chloride 101 mmol/L (96-108) 02/11/24 Carbon Dioxide 28 mmol/L (22-29) 02/11/24 BUN 24 mg/dL (9-16) H 02/11/24 Creatinine 1.14 mg/dL (0.5-1.4) 02/11/24 Calcium 10.2 mg/dL (8.4-10.2) 02/11/24 Urine Creatinine 88.11 mg/dL 02/11/24 Assessment & Plan Assessment & Plan (1) Essential hypertension: Code(s): I10 - Essential (primary) hypertension Category: Medical Plan: Blood pressure is acceptable today Stay on low-sodium diet. Continue current medications. We discussed weight loss. (2) Renal cyst: Comment: RIGHT KIDNEY: No hydronephrosis or renal calculi. The kidney measures 12.2 cm in maximum dimension. Benign-appearing renal cyst measuring 1.9 cm. No follow up imaging is recommended. LEFT KIDNEY: No hydronephrosis or renal calculi. The kidney measures 12.7 cm in maximum dimension. Benign-appearing renal cysts measuring up to 2.1 cm. No follow-up imaging is recommended. Punctate nonobstructing left lower pole renal stone new from prior. Code(s): N28.1 - Cyst of kidney, acquired Category: Medical Plan: CT scan in November 2011 showed a renal cyst. This was followed by MRI . He has a history of painless hematuria for which he is following with Urology Renal cyst: reportedly benign. No further imaging was recommended Medications: Changed From metformin 500 mg PO BID 180 tabs 1RF E11.65 - Type 2 diabetes mellitus with hyperglycemia To metformin 500 mg PO DAILY E11.65 - Type 2 diabetes mellitus with hyperglycemia Coding Level of Care Code Est Pt Level 4 (11692) Diagnoses Essential hypertension I10 Renal cyst N28.1
== END 2024-03-25 09:59 | disposition home or self-care (01) ==
LOC: HO.HKA 09:38
PROVIDERS: PCP Internal Medicine; Visit Provider Internal Medicine Hypertension Specialist
DX: I10 Essential (primary) hypertension (principal); N28.1 Cyst of kidney, acquired
CPT/HCPCS: 99214

== ENCOUNTER → 2024-03-25 09:38 | Outpatient (BNVA) | payer MEDICARE, MEDICAID, SELFPAY | PROVIDERS: PCP Internal Medicine; Visit Provider Internal Medicine Hypertension Specialist | DX: N28.1 Cyst of kidney, acquired (principal); I10 Essential (primary) hypertension | CPT/HCPCS: 99212 ==

== ENCOUNTER 2024-04-22 11:08 | Outpatient (AMB) | payer MEDICARE, MEDICAID, SELFPAY ==
[2024-04-22 11:27] VITALS: BP 118/78; PULSE 66; O2SAT 98; BMI 39.3
--- NOTE | 2024-04-22 11:27 | A.OFFVIS_ITS ---
Intake Vital Signs 04/22/24 11:27 Height 5 ft 2 in Weight 215 lb BMI 39.3 BP 118/78 Blood Pressure Location Lt brachial Position Sitting Pulse 66 Pulse Source Pulse Oximeter Pulse Oximetry (%) 98 Oxygen Delivery Method Room Air Intake Visit Reasons: AWV Allergies Iodinated Contrast Media [Iodinated Contrast Media - IV Dye] Allergy (Mild, Verified 04/22/24 11:28) HIVE AND ITCHINESS ON FACE Medication List - Last Reconciled 04/22/24 by Saeid Singh MD albuterol sulfate 90 mcg/actuation 2 puffs inhalation Q4H PRN amlodipine 5 mg PO DAILY aspirin 81 mg PO DAILY atorvastatin 20 mg PO DAILY blood pressure monitor (Blood Pressure Kit) As directed blood sugar diagnostic (FreeStyle Lite Strips) 1 strip miscellaneous .QD 90 days celecoxib 200 mg PO BID PRN docusate sodium 100 mg PO BID 90 days escitalopram oxalate 5 mg PO DAILY ferrous sulfate 325 mg PO DAILY fluticasone propionate 50 mcg/actuation 2 sprays intranasal DAILY folic acid 1 mg PO DAILY hydroxyzine HCl 25 mg PO BEDTIME PRN irbesartan 300 mg PO DAILY lancets (FreeStyle Lancets) 1 gauge topical .QD 90 days lidocaine 5% 1 patch topical DAILY 90 days lorazepam 1 mg PO BID 90 days meclizine 25 mg PO TID PRN metformin 500 mg PO DAILY metoprolol tartrate 25 mg PO BID [id number] K 45 mg iron- 800 mcg-120 mcg (Bariatric Multivitamins) 1 cap PO DAILY nitroglycerin (Nitrostat) 0.4 mg sublingual Q5M PRN sennosides (Natural Senna Laxative) 17.2 mg (2 x 8.6 mg) PO BEDTIME spironolacton-hydrochlorothiaz 25-25 mg 1 tab PO DAILY syringe with needle (BD Tuberculin Syringe) As directed zinc gluconate 50 mg PO .weekly HPI AWV HPI Details 49-year-old obese male with a history of sleeve gastrectomy diabetes mellitus GERD rheumatoid arthritis hypercholesterolemia coronary artery disease generalized anxiety disorder obstructive sleep apnea hypertension last seen in 09/2023. Patient is colonoscopy last done in 06/[address] Haines up-to-date 7 years.review of the notes has been following up with Nephrology seen in 04/17/2024 acceptable blood pressure advised weight loss. As for the renal cyst and renal calculi continue to follow that up. [facility] Medical History (Updated 04/22/24 @ 11:46 by Saeid Singh MD) Liver lesion Screening for prostate cancer History of COVID-19 COVID-19 virus infection Personal history of nicotine dependence Morbid obesity with BMI of 40.0-44.9, adult Atherosclerotic cardiovascular disease Suspected deep vein thrombosis Leg swelling Type 2 diabetes mellitus with hyperglycemia GERD (gastroesophageal reflux disease) Vitamin D deficiency Left renal mass Rheumatoid arthritis H/O hidradenitis suppurativa Lung nodule Vertigo Anxiety Asthma Obstructive sleep apnea Hyperlipidemia Surgical History History of bronchoscopy (~2020) History of cystoscopy (~2013) Status post biopsy of kidney (~2013) History of surgical removal of pilonidal cyst (~1990) S/P laparoscopic sleeve gastrectomy (~2017) Family History (Updated 04/22/24 @ 11:56 by Saeid Singh MD) Father Heart problem Acute arthritis Mother Breast cancer Diabetes mellitus Liver cancer Son No problems noted. Maternal Uncle Myocardial infarct Maternal Aunt Breast cancer Social History Housing: Apartment Alcohol intake: never Patient Tobacco Use Status: Former Tobacco user Tobacco use type: Cigarette Cigarettes Per Day: 15 Years Smoked: 15 e-Cigarette/Vaping Use: Never Used Second Hand Smoke Exposure: No service: No Current occupational status: disabled Cognitive needs: No Hearing needs: Yes (hearig aide) Vision needs: Yes (glasses) Questionnaire Medicare Wellness Checkup What is your age?: 65-69 (18-64) What gender do you identify with?: male During the past 4 weeks, how much have you been bothered by emotional problems such as feeling anxious, depressed, irritable, sad or downhearted, and blue?: slightly During the past 4 weeks, has your physical & emotional health limited your social activities with family, friends, neighbors, or groups?: slightly During the past 4 weeks, how much bodily pain have you generally had?: moderate pain During the past 4 weeks, was someone available to help you if you needed & wanted help?: no, not at all During the past 4 weeks, what was the hardest physical activity you could do for at least 2 minutes?: moderate Can you get to places out of walking distance without help? (For eg., can you travel alone on buses, taxis or drive your car?): Yes Can you go shopping for groceries or clothes without someone's help?: Yes Can you prepare your own meals?: Yes Can you do your housework without help?: Yes Because of any health problems, do you need the help of another person with your personal care needs such as eating, bathing, dressing or getting around the house?: No Can you handle your own money without help?: Yes During the past 4 weeks, how would you rate your health in general?: good During the past 4 weeks how have things been going for you?: pretty bad Are you having difficulties driving your car?: no Do you always fasten your seat belt when you are in a car?: yes, usually During past 4 weeks, have you been bothered by the following: never: Sexual p roblems?, Trouble eating well?, Teeth or denture problems? and Problems using the telephone? and sometimes: Falling or dizzy when standing up and Tiredness or fatigue? Have you fallen 2 or more times in the past year?: No Are you afraid of falling?: No Are you a smoker?: no During the past 4 weeks, how many drinks of wine, beer, or other alcoholic beverages did you have?: no alcohol at all Do you exercise for about 20 minutes 3 or more times a week?: yes, most of the time Have you been given information to help with the following?: no: Hazards in your house that might hurt you? and no: Keeping track of your medications? How often do you have trouble taking medicines the way you have been told to take them?: I always take medicine as prescribed How confident are you that you can control & manage most of your health problems?: very confident What is your race?: or origin or descent PHQ-9 Over the last 2 weeks, how often have you been bothered by any of the following problems? 1. Little interest or pleasure in doing things: not at all 2. Feeling down, depressed, or hopeless: not at all 3. Trouble falling or staying asleep, or sleeping too much: not at all 4. Feeling tired or having little energy: not at all 5. Poor appetite or overeating: not at all 6. Feeling bad about yourself - or that you are a failure or have let yourself or your family down: not at all 7. Trouble concentrating on things, such as reading the newspaper or watching television: not at all 8. Moving or speaking so slowly that other people could have noticed. Or the opposite - being so fidgety or restless that you have been moving around a lot more than usual: not at all 9. Thoughts that you would be better off or of hurting yourself in some way: not at all Total score: 0 Depression Screening Interpretation: Negative Depression Screening Done: Yes Source: Developed by Drs. Ye Galdamez, Marie Sofia, Beltran Blair and colleagues, with an educational racquel from [employer]. Review of Systems Const Denies poor appetite and Denies weakness Eyes Denies no additional complaints ENT Reports Normal hearing present, Denies dizziness, Denies nasal congestion, Denies tinnitus and Denies sore throat Card Denies chest pain, Denies syncope, Denies rapid heart rate and Denies dyspnea Resp Denies cough and Denies dyspnea GI Denies change in stool character, Reports constipation, Denies diarrhea, Denies nausea and Denies vomiting Denies dysuria and Denies urinary frequency Neuro Reports Normal hearing present, Denies confusion, Denies dizziness, Denies syncope and Denies weakness Psych Denies confusion Physical Exam Vital Signs: Last Vital Signs Pulse 66 04/22/24 11:27 BP 118/78 04/22/24 11:27 Pulse Ox 98 04/22/24 11:27 Oxygen Delivery Method Room Air 04/22/24 11:27 BMI result Body Mass Index 39.3 Const General: No confusion Orientation/consciousness: No confusion HEENT Head: Yes normocephalic Ears: external ears normal and TM's normal bilaterally Face and sinus: Yes normal facial exam Mouth: moist mucous membranes Throat: Yes tonsils normal Eyes Conjunctivae: conjunctivae normal Pupils: Equal, round and reactive pupils present and Pupil accommodation reflex normal Direct Ophthalmoscopy: normal light reflex Neck Neck: No lymphadenopathy Thyroid: Thyroid normal Chest Chest palpation & inspection: normal inspection of the chest Resp Effort & Inspection: normal respiratory effort and no audible wheezes Auscultation: clear to auscultation bilaterally, no crackles, no wheezes and lung sounds not diminished Cardio Rate: regular rate Rhythm: regular rhythm Peripheral pulses: radial pulses present and dorsalis pedis present GI Palpation (GI): no masses Auscultation: normal bowel sounds and normoactive bowel sounds Rectal Exam - Male: Yes deferred Other: pedal pulse and pin prick normal Male General Exam: Yes normal external exam Skin General skin exam: no rashes or lesions noted Rashes: no rashes Neuro General: No confusion Cranial nerves: Yes Equal, round and reactive pupils present and Yes Normal hearing present Cognition (Neuro): normal cognition Gait exam (Neuro): Normal gait present Motor exam (neuro): 5/5 motor strength present throughout Deep tendon reflexes (DTR's): Right brachioradialis reflex intensity grade: 2+, Left brachioradialis reflex intensity grade: 2+, Right patellar reflex intensity grade: 2+ and Left patellar reflex intensity grade: 2+ Extrem General: No edema Assessment & Plan Assessment & Plan (1) Medicare annual wellness visit, subsequent: Code(s): Z00.00 - Encounter for general adult medical examination without abnormal findings Plan: Patient is advised to eat healthy, keep well hydrated, keep active and have adequate sleep. (2) Type 2 diabetes mellitus with hyperglycemia: Comment: Dr. Stephens Code(s): E11.65 - Type 2 diabetes mellitus with hyperglycemia Qualifiers: Diabetes mellitus long term acute care registered nurse insulin use: without mcc use Qualified Code(s): E11.65 - Type 2 diabetes mellitus with hyperglycemia Plan: Decrease the amount of carbohydrate intake, pasta, bread, rice and potatoes are all sugar and that is aside from all the sweet stuff, remember that fruits are good but they are Sweet also. Hemoglobin A1c goal of less than 6.5. February 2024 A1c was 7 with 1 on metformin 500 mg once a day (3) Rheumatoid arthritis: Comment: (RA + OA - see [facility] - Dr. Sheldon) Code(s): M06.9 - Rheumatoid arthritis, unspecified Qualifiers: Rheumatoid arthritis location: multiple sites Rheumatoid factor presence: unspecified presence Qualified Code(s): M06.9 - Rheumatoid arthritis, unspecified Plan: Continue to follow-up with Rheumatology (4) GERD (gastroesophageal reflux disease): Code(s): K21.9 - Gastro-esophageal reflux disease without esophagitis Qualifiers: Esophagitis presence: without esophagitis Qualified Code(s): K21.9 - Gastro-esophageal reflux disease without esophagitis Plan: Avoid the foods that causes that usually spicy foods, tomato products, juices, coffee, soda and foods that your sensitive to. After eating do not lie down, allow 3-4 hours before in lie down. And keep the head of bed above 30 degrees to avoid the acid from going up. (5) S/P laparoscopic sleeve gastrectomy: Onset Date: ~2017 Comment: (Dr. Mara Bradford, [facility] [place]) Code(s): Z98.84 - Bariatric surgery status Plan: Continue to follow-up with bariatric surgeon (6) Hyperlipidemia: Code(s): E78.5 - Hyperlipidemia, unspecified Qualifiers: Hyperlipidemia type: pure hypercholesterolemia Qualified Code(s): E78.00 - Pure hypercholesterolemia, unspecified Plan: Avoid fried foods, chicken skin, eggs, butter margarine, pastries and meat. Be it pork or beef they have a lot of cholesterol LDL goal of less than 70 and triglyceride of less than 150 patient is on atorvastatin 20 mg once a day (7) Atherosclerotic cardiovascular disease: Code(s): I25.10 - Atherosclerotic heart disease of [place] coronary artery without angina pectoris Plan: Control the cholesterol, weight, blood pressure, diabetes on aspirin 81 mg once a day (8) Generalized anxiety disorder: Code(s): F41.1 - Generalized anxiety disorder Plan: Continue with Lexapro 5 mg once a day (9) Essential hypertension: Code(s): I10 - Essential (primary) hypertension Plan: Continue with blood pressure medication. Decrease salt intake and exercise on spironolactone hydrochlorothiazide metoprolol 25 mg twice a day ear irbesartan 300 mg once a day amlodipine 5 mg once a day patient follows up with Nephrology (10) Obstructive sleep apnea: Comment: (on CPAP) Code(s): G47.33 - Obstructive sleep apnea (adult) (pediatric) Plan: Continue to use the CPAP more than 4 hours a night and benefits from this. (11) Left renal stone: Comment: September 2023 Punctate nonobstructing left lower pole renal stone new from prior. 2. Hepatic steatosis. 3. Splenomegaly. 4. Portions of the pancreas and aorta were obscured by bowel gas limiting evaluation. Code(s): N20.0 - Calculus of kidney Plan: Keep well hydrated avoid NSAIDs. Orders: Orders Complete Blood Count Auto Diff Today E11.65 - Type 2 diabetes mellitus with hyperglycemia Comprehensive Met. Panel Today E11.65 - Type 2 diabetes mellitus with hyperglycemia Vitamin B12 and Folate Today E11.65 - Type 2 diabetes mellitus with hyperglycemia Creatinine Urine 3 Months E11.65 - Type 2 diabetes mellitus with hyperglycemia Microalbumin, Random (w Creat) Today E11.65 - Type 2 diabetes mellitus with hyperglycemia Lipid Panel Today I25.10 - Atherosclerotic heart disease of [place] coronary artery without angina pectoris Free T4 (Free Thyroxine) Today E11.65 - Type 2 diabetes mellitus with hyperglycemia Lipid Panel 3 Months E11.65 - Type 2 diabetes mellitus with hyperglycemia, E78.00 - Pure hypercholesterolemia, unspecified Thyroid Stimulating Hormone Today E11.65 - Type 2 diabetes mellitus with hyperglycemia Hemoglobin A1c Today E11.65 - Type 2 diabetes mellitus with hyperglycemia Quality Reporting (2019) Depression/Bipolar (159/160/161/177) PHQ-9: Total score: 0 Coding Level of Care Code Medicare Subsequent (G0439) Diagnoses Medicare annual wellness visit, subsequent Z00.00 Type 2 diabetes mellitus with hyperglycemia, without long-term current use of insulin E11.65 Diabetes mellitus long term acute care registered nurse insulin use: without long term acute care registered nurse use Rheumatoid arthritis involving multiple sites, unspecified whether rheumatoid factor present M06.9 Rheumatoid arthritis location: multiple sites Rheumatoid factor presence: unspecified presence Gastroesophageal reflux disease without esophagitis K21.9 Esophagitis presence: without esophagitis S/P laparoscopic sleeve gastrectomy Z98.84 Pure hypercholesterolemia E78.00 Hyperlipidemia type: pure hypercholesterolemia Atherosclerotic cardiovascular disease I25.10 Generalized anxiety disorder F41.1 Essential hypertension I10 Obstructive sleep apnea G47.33 Left renal stone N20.0 Additional Codes PHQ-9 - 88987 - PHQ-9 Billing: ([id number])
== END 2024-04-22 12:20 | disposition home or self-care (01) ==
PROVIDERS: PCP Internal Medicine; Visit Provider Internal Medicine
DX: Z00.00 Encounter for general adult medical examination without abnormal findings (principal); E11.65 Type 2 diabetes mellitus with hyperglycemia; M06.9 Rheumatoid arthritis, unspecified; K21.9 Gastro-esophageal reflux disease without esophagitis; Z98.84 Bariatric surgery status; E78.00 Pure hypercholesterolemia, unspecified; I25.10 Atherosclerotic heart disease of native coronary artery without angina pectoris; F41.1 Generalized anxiety disorder; I10 Essential (primary) hypertension; G47.33 Obstructive sleep apnea (adult) (pediatric); N20.0 Calculus of kidney
CPT/HCPCS: G0439

== ENCOUNTER 2024-04-26 11:03 | Outpatient (AMB) | payer MEDICARE, MEDICAID, SELFPAY ==
--- NOTE | 2024-04-26 10:46 | MHC.OFFVISWM ---
VS Expanded 04/26/24 10:47 Height 5 ft 2 in Weight 212 lb BMI 38.8 Body Fat % 39.1 Body Fat Mass 82.8 Intake Visit Reasons: tv PO LSG 06/23/18 Allergies Iodinated Contrast Media [Iodinated Contrast Media - IV Dye] Allergy (Mild, Verified 04/22/24 11:28) HIVE AND ITCHINESS ON FACE HPI Comments Details: 49-year-old male returns to the office today in follow-up for a 5 year 10 month postoperative visit. He underwent laparoscopic sleeve gastrectomy on 06/23/2018. Reports weight today of 212 lb. with a BMI of 38.8. He states he has been eating rice and potatoes at his meal. He had purchased a bag of chicken but it was bad. He also had 2 family members in the month of March. Meal plan: utilizing Premier protein powder per his request. Protein shake, Premier protein powder, 1.5 scoops in 10 oz of almond milk, 8 am Meal 8 forks of protein and 8 of salad or vegetables. 1 pm Another shake with 1 scoop in 10 oz of almond milk. 530 pm Drinking 80 oz water exercise plan: treadmill, Increase speed to 2.1 incline 3. 5-6 days per week 230 calories [facility] [place] Medical History (Updated 04/22/24 @ 11:46 by Saeid Singh MD) Liver lesion Screening for prostate cancer History of COVID-19 COVID-19 virus infection Personal history of nicotine dependence Morbid obesity with BMI of 40.0-44.9, adult Atherosclerotic cardiovascular disease Suspected deep vein thrombosis Leg swelling Type 2 diabetes mellitus with hyperglycemia GERD (gastroesophageal reflux disease) Vitamin D deficiency Left renal mass Rheumatoid arthritis H/O hidradenitis suppurativa Lung nodule Vertigo Anxiety Asthma Obstructive sleep apnea Hyperlipidemia Surgical History History of bronchoscopy (~2020) History of cystoscopy (~2013) Status post biopsy of kidney (~2013) History of surgical removal of pilonidal cyst (~1990) S/P laparoscopic sleeve gastrectomy (~2017) Family History (Updated 04/22/24 @ 11:56 by Saeid Singh MD) Father Heart problem Acute arthritis Mother Breast cancer Diabetes mellitus Liver cancer Son No problems noted. Maternal Uncle Myocardial infarct Maternal Aunt Breast cancer Social History Housing: Apartment Alcohol intake: never Patient Tobacco Use Status: Former Tobacco user Tobacco use type: Cigarette Cigarettes Per Day: 15 Years Smoked: 15 e-Cigarette/Vaping Use: Never Used Second Hand Smoke Exposure: No service: No Current occupational status: disabled Cognitive needs: No Hearing needs: Yes (hearig aide) Vision needs: Yes (glasses) Physical Exam Vital Signs: BMI result Body Mass Index 38.8 Telehealth Telehealth Telehealth Platform: Telephone Location of provider rendering services: practice address Location of patient: address on file Patient Identification confirmed using: Name, : Yes Telehealth method: voice only Patient verbally consented to treatment: Yes Patient verbally consented to billing insurance company: Yes Patient informed of any privacy concerns related to visit: Yes Minutes spent on Phone/Video with Pt.: 12 Assessment & Plan Assessment & Plan (1) S/P laparoscopic sleeve gastrectomy: Onset Date: ~2017 Comment: (Dr. Mara Bradford, [facility] [place]) Code(s): Z98.84 - Bariatric surgery status Category: Medical Plan: Patient will resume his meal plan now that he will be able to buy protein. Encouraged to increase exercise for a goal of burning 300-350 calories per day 7 days a week. Plan on return to the office in person for his 6 year postoperative appointment in May.
[2024-04-26 10:47] VITALS: BMI 38.8
== END 2024-04-26 11:15 | disposition home or self-care (01) ==
LOC: HO.HBS 11:03
PROVIDERS: PCP Internal Medicine; Visit Provider Physician Assistant Surgical
DX: E66.9 Obesity, unspecified (principal); Z68.38 Body mass index [BMI] 38.0-38.9, adult; Z90.3 Acquired absence of stomach [part of]; Z98.84 Bariatric surgery status
CPT/HCPCS: 99442

== ENCOUNTER → 2024-04-26 11:03 | Outpatient (BNVA) | payer MEDICARE, MEDICAID, SELFPAY | PROVIDERS: PCP Internal Medicine; Visit Provider Physician Assistant Surgical ==

== ENCOUNTER 2024-04-27 07:43 | Outpatient (REF) | payer MEDICARE, MEDICAID, SELFPAY ==
[2024-04-27 07:56] LABS: MANUAL DIFF FLAG NO
[2024-04-27 08:29] LABS: Basophils Percent Auto 0.3 % (0-2); Basophils Percent Auto 0.4 % (0-2); Eosinophils Absolute Auto 0.3 X10*3/uL (0.0-0.4); Eosinophils Percent Auto 3.2 % (0-4); Eosinophils Percent Auto 3.5 % (0-4); Hematocrit 37.8 % (42.0-52.0); Hematocrit 37.9 % (42.0-52.0); Hemoglobin 12.4 g/dl (14.0-18.0); Imm Gran Abs Auto 0.03 X10*3/uL (0.00-0.03); Imm Gran Abs Auto 0.04 X10*3/uL (0.00-0.03); Imm Gran Pct Auto 0.4 % (0.0-0.4); Imm Gran Pct Auto 0.5 % (0.0-0.4); Lymphocytes Absolute Auto 2.2 X10*3/uL (1.2-4.9); Lymphocytes Absolute Auto 2.3 X10*3/uL (1.2-4.9); Lymphocytes Percent Auto 27.5 % (20-40); Lymphocytes Percent Auto 28.7 % (20-40); Mean Corpuscular HGB Conc 32.7 g/dl (31.0-36.0); Mean Corpuscular HGB Conc 32.8 g/dl (31.0-36.0); Mean Corpuscular Hemoglobin 27.4 pg (27.0-33.0); Mean Corpuscular Volume 83.6 fL (80.0-98.0); Mean Corpuscular Volume 83.8 fL (80.0-98.0); Mean Platelet Volume 10.3 fL (9.4-12.4); Mean Platelet Volume 10.5 fL (9.4-12.4); Monocytes Absolute Auto 0.6 X10*3/uL (0.1-1.2); Monocytes Percent Auto 7.3 % (2-11); Monocytes Percent Auto 7.7 % (2-11); Neutrophils Absolute Auto 4.8 x10*3/uL (2.0-8.3); Neutrophils Absolute Auto 4.9 x10*3/uL (2.0-8.3); Neutrophils Percent Auto 59.3 % (45-73); Neutrophils Percent Auto 61.2 % (45-73); Platelet Count 232 X10*3/uL (160-400); Platelet Count 233 X10*3/uL (160-400); Red Blood Count 4.52 X10*6/uL (4.60-5.80); Red Cell Distribution Width 13.3 % (11.0-16.0); Red Cell Distribution Width 13.4 % (11.0-16.0); White Blood Count 7.9 X10*3/uL (4.8-10.8); White Blood Count 8.1 X10*3/uL (4.8-10.8)
[2024-04-27 08:36] LABS: Estimated Average Glucose 154 mg/dL
[2024-04-27 09:12] LABS: Erythrocyte Sedimentation Rate 29 MM/HR (0-15)
[2024-04-27 09:15] LABS: Alanine Aminotransferase 22 U/L (0-40); Alkaline Phosphatase 71 U/L (39-117); Anion Gap 12 (12-20); Aspartate Amino Transferase 16 U/L (5-37); Bilirubin Total 0.4 mg/dL (0.0-1.0); Blood Urea Nitrogen 16 mg/dL (9-16); Carbon Dioxide 27 mmol/L (22-29); Chloride 103 mmol/L (96-108); Estimated Glomerular Filt Rate > 60; Glucose Random 124 mg/dL (60-115); Potassium 4.1 mmol/L (3.3-5.1); Sodium 138 mmol/L (135-145); Total Protein 7.6 g/dL (6.5-8.0)
[2024-04-27 09:17] LABS: Alanine Aminotransferase 22 U/L (0-40); Alkaline Phosphatase 75 U/L (39-117); Anion Gap 12 (12-20); Aspartate Amino Transferase 16 U/L (5-37); Bilirubin Total 0.4 mg/dL (0.0-1.0); Blood Urea Nitrogen 16 mg/dL (9-16); Calcium 10.1 mg/dL (8.4-10.2); Carbon Dioxide 29 mmol/L (22-29); Chloride 102 mmol/L (96-108); Cholesterol 127 mg/dL (<200); Estimated Glomerular Filt Rate > 60; Glucose Random 126 mg/dL (60-115); HDL Cholesterol 30 mg/dL (>40); LDL Cholesterol Calculated 58 mg/dL (<100); Potassium 4.4 mmol/L (3.3-5.1); Sodium 139 mmol/L (135-145); Total Protein 7.6 g/dL (6.5-8.0); Triglycerides 198 mg/dL (<150)
[2024-04-27 09:21] LABS: Creatinine Urine 74.92 mg/dL; Microalbum/Creatinine Ratio Ur 293.6 ug/mg cr (<30)
[2024-04-27 09:39] LABS: Folate 13.3 ng/mL (> or = 4.0); Vitamin B12 717 pg/mL (200-900)
[2024-04-27 09:50] LABS: Thyroid Stimulating Hormone 2.79 uIU/mL (0.32-4.0)
== END 2024-04-27 07:44 | disposition home or self-care (01) ==
LOC: HO.LAB 07:43
PROVIDERS: PCP Internal Medicine; Visit Provider Internal Medicine Rheumatology
DX: M05.79 Rheumatoid arthritis with rheumatoid factor of multiple sites without organ or systems involvement (principal); Z79.631 Long term (current) use of antimetabolite agent; Z79.620 Long term (current) use of immunosuppressive biologic; E11.65 Type 2 diabetes mellitus with hyperglycemia; I25.10 Atherosclerotic heart disease of native coronary artery without angina pectoris
CPT/HCPCS: 36415; 80053; 80061; 82043; 82570; 82607; 82746; 83036; 84439; 84443; 85025; 85652; 86140

== ENCOUNTER 2024-05-10 15:02 | Outpatient (AMB) | payer MEDICARE, MEDICAID, SELFPAY ==
[2024-05-10 15:18] VITALS: BP 144/82; PULSE 67; O2SAT 98; BMI 40.1
--- NOTE | 2024-05-10 15:18 | MHC.PC.OV ---
Vital Signs 05/10/24 15:18 05/10/24 15:49 Height 5 ft 2 in Weight 219 lb BMI 40.1 BP 144/82 H 120/80 Blood Pressure Location Lt brachial Lt brachial Position Sitting Sitting Pulse 67 Pulse Source Pulse Oximeter Pulse Oximetry (%) 98 Oxygen Delivery Method Room Air Intake Visit Reasons: Diabetes mellitus, CAD Allergies Iodinated Contrast Media [Iodinated Contrast Media - IV Dye] Allergy (Mild, Verified 05/10/24 15:18) HIVE AND ITCHINESS ON FACE Medication List - Last Reconciled 05/10/24 by Saeid Singh MD albuterol sulfate 90 mcg/actuation 2 puffs inhalation Q4H PRN amlodipine 5 mg PO DAILY aspirin 81 mg PO DAILY atorvastatin 20 mg PO DAILY blood pressure monitor (Blood Pressure Kit) As directed blood sugar diagnostic (FreeStyle Lite Strips) 1 strip miscellaneous .QD 90 days celecoxib 200 mg PO BID PRN docusate sodium 100 mg PO BID 90 days escitalopram oxalate 5 mg PO DAILY ferrous sulfate 325 mg PO DAILY fluticasone propionate 50 mcg/actuation 2 sprays intranasal DAILY folic acid 1 mg PO DAILY hydroxyzine HCl 25 mg PO BEDTIME PRN irbesartan 300 mg PO DAILY lancets (FreeStyle Lancets) 1 gauge topical .QD 90 days lidocaine 5% 1 patch topical DAILY 90 days lorazepam 1 mg PO BID 90 days meclizine 25 mg PO TID PRN metformin 500 mg PO DAILY metoprolol tartrate 25 mg PO BID divkavbhbvcg-yev-rclz-FA-vit K 45 mg iron- 800 mcg-120 mcg (Bariatric Multivitamins) 1 cap PO DAILY nitroglycerin (Nitrostat) 0.4 mg sublingual Q5M PRN sennosides (Natural Senna Laxative) 17.2 mg (2 x 8.6 mg) PO BEDTIME spironolacton-hydrochlorothiaz 25-25 mg 1 tab PO DAILY syringe with needle (BD Tuberculin Syringe) As directed zinc gluconate 50 mg PO .weekly Tobacco use date assessed: 10/01/23 Dental Screening Dental Screen Date: 05/10/24 Did you have a dental visit in the last 12 months?: Yes Did you have a dental problem in the last 6 months where you did not have access to dental care?: No Was dental information given to patient?: Patient has dentist HPI Diabetes mellitus, CAD HPI Details 49-year-old morbidly obese male with diabetes mellitus rheumatoid arthritis GERD history of laparoscopic sleeve gastrectomy May 2018 hypercholesterolemia coronary artery disease generalized anxiety disorder hypertension and obstructive sleep apnea coming in for follow-up. Last seen in April 22 2024. Medicare wellness exam. Patient is up-to-date with colonoscopy in June 2022 7 years patient follows up with bariatric surgery advised meal plan [facility] Medical History (Updated 04/22/24 @ 11:46 by Saeid Singh MD) Liver lesion Screening for prostate cancer History of COVID-19 COVID-19 virus infection Personal history of nicotine dependence Morbid obesity with BMI of 40.0-44.9, adult Atherosclerotic cardiovascular disease Suspected deep vein thrombosis Leg swelling Type 2 diabetes mellitus with hyperglycemia GERD (gastroesophageal reflux disease) Vitamin D deficiency Left renal mass Rheumatoid arthritis H/O hidradenitis suppurativa Lung nodule Vertigo Anxiety Asthma Obstructive sleep apnea Hyperlipidemia Surgical History History of bronchoscopy (~2020) History of cystoscopy (~2013) Status post biopsy of kidney (~2013) History of surgical removal of pilonidal cyst (~1990) S/P laparoscopic sleeve gastrectomy (~2017) Family History (Updated 04/22/24 @ 11:56 by Saeid Singh MD) Father Heart problem Acute arthritis Mother Breast cancer Diabetes mellitus Liver cancer Son No problems noted. Maternal Uncle Myocardial infarct Maternal Aunt Breast cancer Social History Housing: Apartment Alcohol intake: never Patient Tobacco Use Status: Former Tobacco user Tobacco use type: Cigarette Cigarettes Per Day: 15 Years Smoked: 15 e-Cigarette/Vaping Use: Never Used Second Hand Smoke Exposure: No service: No Current occupational status: disabled Cognitive needs: No Hearing needs: Yes (hearig aide) Vision needs: Yes (glasses) Questionnaire PHQ-9 Over the last 2 weeks, how often have you been bothered by any of the following problems? 1. Little interest or pleasure in doing things: not at all 2. Feeling down, depressed, or hopeless: not at all 3. Trouble falling or staying asleep, or sleeping too much: not at all 4. Feeling tired or having little energy: not at all 5. Poor appetite or overeating: not at all 6. Feeling bad about yourself - or that you are a failure or have let yourself or your family down: not at all 7. Trouble concentrating on things, such as reading the newspaper or watching television: not at all 8. Moving or speaking so slowly that other people could have noticed. Or the opposite - being so fidgety or restless that you have been moving around a lot more than usual: not at all 9. Thoughts that you would be better off or of hurting yourself in some way: not at all Total score: 0 Depression Screening Interpretation: Negative Depression Screening Done: Yes Source: Developed by Drs. Ye Galdamez, Marie Sofia, Beltran Blair and colleagues, with an educational racquel from [employer]. Thrive Questionnaire Date Thrive assessed: 05/10/24 I am a: Patient What is your living situation today?: I have a steady place to live Within the past 12 months, did the food you bought not last and you didn't have the money to get more?: Never true Within the past 12 months, did you worry whether your food would run out before you got money to buy more?: Never true Do you have trouble paying for medicines?: No Do you have trouble getting transportation to medical appointments?: No Do you have trouble paying your heating and electricity bill?: No Do you have trouble taking care of your child, family member or friend?: No Do you have trouble with day-to-day activities such as bathing, preparing meals, shopping, managing finances, etc.?: No Are you currently unemployed and looking for a job?: No Are you interested in more education?: No Currently or been in a relationship where the following occur: No concerns reported THRIVE Score: 0 AUDIT C Alcohol Use Questionnaire (AUDIT-C) 1. How often do you have a drink containing alcohol?: Never 3. How often do you have six or more drinks on one occasion?: Never Total Score: 0 Score Reviewed/Action Taken: No EPHRAIM-7 AMB Questionnaire EPHRAIM-7 Date EPHRAIM - 7 assessed: 05/10/24 Feeling nervous, anxious, or on edge: 1 = Several days Not being able to stop or control worryin = Several days Worrying too much about different things: 1 = Several days Trouble relaxin = Not at all Being so restless that it is hard to sit still: 0 = Not at all Becoming easily annoyed or irritable: 1 = Several days Feeling afraid as if something awful might happen: 0 = Not at all Total EPHRAIM-7 score (0-4 normal; 5-9 mild; 10-14 moderate; 15-21 severe): 4 Source: Developed by Drs. Ye Galdamez, Marie Sofia, Beltran Blair and colleagues, with an educational racquel from [employer]. Physical exam (Primary Care) Vital Signs: Last Vital Signs Pulse 67 05/10/24 15:18 BP 144/82 H 05/10/24 15:18 Pulse Ox 98 05/10/24 15:18 Oxygen Delivery Method Room Air 05/10/24 15:18 BMI result Body Mass Index 40.1 Tobacco/Smoking Status: Tobacco use Status Tobacco use date assessed 10/01/23 05/10/24 15:20 Patient Tobacco Use Status Former Tobacco user 05/10/24 15:20 Tobacco use type Cigarette 05/10/24 15:20 e-Cigarette/Vaping Use Never Used 05/10/24 15:20 PHQ-9: PHQ-9 Score PHQ-9: Total score 0 05/10/24 15:20 Depression Screening Interpretation: Negative Thrive Assessment: Date of Thrive Assessment Date Thrive assessed 05/10/24 05/10/24 15:20 Currently or been in a relationship where the following occur: No concerns reported Const General: alert; No acute distress Eyes Conjunctivae: conjunctivae normal Resp Auscultation: clear to auscultation bilaterally Cardio Rate: regular rate Rhythm: regular rhythm GI Inspection: Yes normal to inspection Extrem General: Yes normal to inspection and No edema Assessment and Plan Assessment & Plan (1) Type 2 diabetes mellitus with hyperglycemia: Comment: Dr. Stephens Code(s): E11.65 - Type 2 diabetes mellitus with hyperglycemia Qualifiers: Diabetes mellitus terminal block assembler insulin use: without terminal block assembler use Qualified Code(s): E11.65 - Type 2 diabetes mellitus with hyperglycemia Plan: Decrease the amount of carbohydrate intake, pasta, bread, rice and potatoes are all sugar and that is aside from all the sweet stuff, remember that fruits are good but they are Sweet also. Hemoglobin A1c goal of less than 6.5. Patient is taking metformin 500 mg once a day. decline any new med (2) S/P laparoscopic sleeve gastrectomy: Onset Date: ~2017 Comment: (Dr. Mara Bradford, [facility] - 06/23/2018) Code(s): Z98.84 - Bariatric surgery status Plan: Continue to follow-up with bariatric surgeon and on a meal plan. (3) Morbid obesity with BMI of 40.0-44.9, adult: Comment: (Morbid Obesity - persistent s/p sleeve gastrectomy 2018) Code(s): E66.01 - Morbid (severe) obesity due to excess calories; Z68.41 - Body mass index [BMI] 40.0-44.9, adult Plan: Continue to follow-up with bariatric surgeon and continue with the meal plan (4) Rheumatoid arthritis: Comment: (RA + OA - see [facility] - Dr. Sheldon) Code(s): M06.9 - Rheumatoid arthritis, unspecified Qualifiers: Rheumatoid arthritis location: multiple sites Rheumatoid factor presence: unspecified presence Qualified Code(s): M06.9 - Rheumatoid arthritis, unspecified Plan: Continue with Rheumatology follow-up taking Celebrex. (5) GERD (gastroesophageal reflux disease): Code(s): K21.9 - Gastro-esophageal reflux disease without esophagitis Qualifiers: Esophagitis presence: without esophagitis Qualified Code(s): K21.9 - Gastro-esophageal reflux disease without esophagitis Plan: Avoid the foods that causes that usually spicy foods, tomato products, juices, coffee, soda and foods that your sensitive to. After eating do not lie down, allow 3-4 hours before in lie down. And keep the head of bed above 30 degrees to avoid the acid from going up. (6) Hyperlipidemia: Code(s): E78.5 - Hyperlipidemia, unspecified Qualifiers: Hyperlipidemia type: pure hypercholesterolemia Qualified Code(s): E78.00 - Pure hypercholesterolemia, unspecified Plan: Avoid fried foods, chicken skin, eggs, butter margarine, pastries and meat. Be it pork or beef they have a lot of cholesterol LDL goal of less than 70 and triglyceride of less than 150. On atorvastatin 20 mg once a day (7) Atherosclerotic cardiovascular disease: Code(s): I25.10 - Atherosclerotic heart disease of [place] coronary artery without angina pectoris Plan: Control the cholesterol, weight, blood pressure, diabetes on aspirin 81 mg on day (8) Essential hypertension: Code(s): I10 - Essential (primary) hypertension Plan: Continue with blood pressure medication. Decrease salt intake and exercise patient is on amlodipine 5 mg once a day ear irbesartan 300 mg once a day metoprolol 25 mg twice a day spironolactone hydrochlorothiazide 25/25 mg once a day (9) Generalized anxiety disorder: Code(s): F41.1 - Generalized anxiety disorder Plan: Continue with therapy lorazepam as needed hydroxyzine Lexapro 5 mg once a day Coding Level of Care Code Est Pt Level 4 (18253) Diagnoses Type 2 diabetes mellitus with hyperglycemia, without long-term current use of insulin E11.65 Diabetes mellitus mcc insulin use: without terminal block assembler use S/P laparoscopic sleeve gastrectomy Z98.84 Morbid obesity with BMI of 40.0-44.9, adult E66.01; Z68.41 Rheumatoid arthritis involving multiple sites, unspecified whether rheumatoid factor present M06.9 Rheumatoid arthritis location: multiple sites Rheumatoid factor presence: unspecified presence Gastroesophageal reflux disease without esophagitis K21.9 Esophagitis presence: without esophagitis Pure hypercholesterolemia E78.00 Hyperlipidemia type: pure hypercholesterolemia Atherosclerotic cardiovascular disease I25.10 Essential hypertension I10 Generalized anxiety disorder F41.1 Additional Codes PHQ-9 - 61756 - PHQ-9 Billing: ([id number])
[2024-05-10 15:49] VITALS: BP 120/80
== END 2024-05-10 16:00 | disposition home or self-care (01) ==
PROVIDERS: PCP Internal Medicine; Visit Provider Internal Medicine
DX: E11.65 Type 2 diabetes mellitus with hyperglycemia (principal); Z98.84 Bariatric surgery status; E66.01 Morbid (severe) obesity due to excess calories; Z68.41 Body mass index [BMI] 40.0-44.9, adult; M06.9 Rheumatoid arthritis, unspecified; K21.9 Gastro-esophageal reflux disease without esophagitis; E78.00 Pure hypercholesterolemia, unspecified; I25.10 Atherosclerotic heart disease of native coronary artery without angina pectoris; I10 Essential (primary) hypertension; F41.1 Generalized anxiety disorder
CPT/HCPCS: 96127; 99214

== ENCOUNTER 2024-06-15 14:21 | Outpatient (REF) | payer MEDICARE, MEDICAID, SELFPAY ==
--- NOTE | 2024-06-15 14:50 | MHC.AU.HA3 ---
Hearing Instrument Follow-Up- Binaural Date of Visit: 06/15/24 Right Ear: Fran, Model, Color, Serial Number: Lissa Lisa [id number], #[id number] Night Manager Repair Warranty: 12/29/2021 Night Manager Loss and Damage Warranty: 12/29/2021 [facility] Service Plan: Battery Size: Rechargeable Director Asset/Slim Tube: 2M Earmold/Dome/CShell/SlimTip: Type of Wax Guard: CERUSHIELD Dispensed By: [facility] Date of Fittin10/12/2018 Left Ear: Fran, Model, Color, Serial Number: Lissa Lisa [id number]-R, #[id number] Night Manager Repair Warranty: 12/29/2021 Night Manager Loss and Damage Warranty: 12/29/2021 [facility] Service Plan: Battery Size: Rechargeable Director Asset/Slim Tube: 2M Earmold/Dome/CShell/SlimTip: Type of Wax Guard: CERUSHIELD Dispensed By: [facility] Date of Fittin10/12/2018 Follow-Up Summary: Left aid dropped off . Found dairy manufacturing technologist not working. Cleaned aid. Replaced dairy manufacturing technologist. Listening check positive. Recommendations: Recommendations: Hearing instrument follow-up or maintenance as needed. Diagnosis Code(s): Primary Diagnosis: H90.3 Bilateral Sensorineural Hearing Loss Signature: Provider: Lam Johnson, [facility]
== END 2024-06-15 14:22 | disposition home or self-care (01) ==
LOC: HO.HAP 14:21
PROVIDERS: Visit Provider Internal Medicine
DX: Z46.1 Encounter for fitting and adjustment of hearing aid (principal); H90.3 Sensorineural hearing loss, bilateral
CPT/HCPCS: 92592; V5299

== ENCOUNTER 2024-08-05 14:37 | Outpatient (REF) | payer SELFPAY | END 2024-08-05 14:38 | disposition home or self-care (01) | LOC: HO.HAP 14:37 | PROVIDERS: Visit Provider Internal Medicine | DX: Z46.1 Encounter for fitting and adjustment of hearing aid (principal); H90.3 Sensorineural hearing loss, bilateral | CPT/HCPCS: V5267 ==

== ENCOUNTER 2024-08-12 13:45 | Outpatient (AMB) | payer MEDICARE, MEDICAID, SELFPAY ==
[2024-08-12 13:47] VITALS: BP 130/74; PULSE 67; BMI 39.6
--- NOTE | 2024-08-12 13:47 | MHC.OFFVIS ---
Vital Signs 08/12/24 13:47 Height 5 ft 2 in Weight 216 lb 7.903 oz BMI 39.6 BP 130/74 Blood Pressure Location Lt brachial Position Sitting Pulse 67 Pulse Source Monitor Intake Visit Reasons: 1 yr f/up Steam Hammer Operator Required: No Accompanied by: Self / Same As Patient Allergies Iodinated Contrast Media [Iodinated Contrast Media - IV Dye] Allergy (Mild, Verified 05/10/24 15:18) HIVE AND ITCHINESS ON FACE Medication List - Last Reconciled 08/12/24 by Monty Ibarra MD albuterol sulfate 90 mcg/actuation 2 puffs inhalation Q4H PRN amlodipine 5 mg PO DAILY aspirin 81 mg PO DAILY atorvastatin 20 mg PO DAILY blood pressure monitor (Blood Pressure Kit) As directed blood sugar diagnostic (FreeStyle Lite Strips) 1 strip miscellaneous .QD 90 days celecoxib 200 mg PO BID PRN docusate sodium 100 mg PO BID 90 days escitalopram oxalate 5 mg PO DAILY ferrous sulfate 325 mg PO DAILY fluticasone propionate 50 mcg/actuation 2 sprays intranasal DAILY folic acid 1 mg PO DAILY hydroxyzine HCl 25 mg PO BEDTIME PRN irbesartan 300 mg PO DAILY lancets (FreeStyle Lancets) 1 gauge topical .QD 90 days lidocaine 5% 1 patch topical DAILY 90 days lorazepam 1 mg PO BID 90 days meclizine 25 mg PO TID PRN metformin 500 mg PO DAILY metoprolol tartrate 25 mg PO BID cndyyjtzjyoa-aze-bmdt-FA-vit K 45 mg iron- 800 mcg-120 mcg (Bariatric Multivitamins) 1 cap PO DAILY nitroglycerin (Nitrostat) 0.4 mg sublingual Q5M PRN sennosides (senna) 17.2 mg (2 x 8.6 mg) PO BEDTIME spironolacton-hydrochlorothiaz 25-25 mg 1 tab PO DAILY syringe with needle (BD Tuberculin Syringe) As directed zinc gluconate 50 mg PO QWEEK HPI Comments Details: Jorge Luis returns for follow-up regarding coronary disease. From the cardiac standpoint, he does not have any complaints. No angina or in fact anything along those lines. [facility] Medical History (Updated 04/22/24 @ 11:46 by Saeid Singh MD) Liver lesion Screening for prostate cancer History of COVID-19 COVID-19 virus infection Personal history of nicotine dependence Morbid obesity with BMI of 40.0-44.9, adult Atherosclerotic cardiovascular disease Suspected deep vein thrombosis Leg swelling Type 2 diabetes mellitus with hyperglycemia GERD (gastroesophageal reflux disease) Vitamin D deficiency Left renal mass Rheumatoid arthritis H/O hidradenitis suppurativa Lung nodule Vertigo Anxiety Asthma Obstructive sleep apnea Hyperlipidemia Surgical History (Reviewed 08/12/24 @ 13:52 by Carmen Edouard [facility]) History of bronchoscopy (~2020) History of cystoscopy (~2013) Status post biopsy of kidney (~2013) History of surgical removal of pilonidal cyst (~1990) S/P laparoscopic sleeve gastrectomy (~2017) Family History (Reviewed 08/12/24 @ 13:52 by Carmen Edouard [facility]) Father Heart problem Acute arthritis Mother Breast cancer Diabetes mellitus Liver cancer Son No problems noted. Maternal Uncle Myocardial infarct Maternal Aunt Breast cancer Social History (Reviewed 08/12/24 @ 13:52 by Carmen Edouard [facility]) Housing: Apartment Alcohol intake: never Patient Tobacco Use Status: Former Tobacco user Tobacco use type: Cigarette Cigarettes Per Day: 15 Years Smoked: 15 e-Cigarette/Vaping Use: Never Used Second Hand Smoke Exposure: No service: No Current occupational status: disabled Cognitive needs: No Hearing needs: Yes (hearig aide) Vision needs: Yes (glasses) Review of Systems Const Denies chills, Denies fatigue, Denies fever(s), Denies frequent falls, Denies weakness, Denies weight gain and Denies weight loss ENT Denies dizziness Card Denies chest pain, Denies leg edema, Denies lightheadedness, Denies palpitations, Denies dyspnea and Denies dyspnea on exertion Resp Denies cough, Denies dyspnea and Denies dyspnea on exertion GI Denies hematochezia Musc Denies abnormal gait, Denies muscle weakness, Denies numbness, Denies radiating pain into limb and Denies tingling Neuro Denies abnormal gait, Denies dizziness, Denies frequent falls, Denies numbness, Denies tingling and Denies weakness Endo Denies fatigue and Denies palpitations Physical Exam Vital Signs: Last Vital Signs Pulse 67 08/12/24 13:47 BP 130/74 08/12/24 13:47 BMI result Body Mass Index 39.6 Const General: comfortable and no acute distress Orientation/consciousness: patient oriented x3 HEENT Other: Unremarkable Head: Yes normal to inspection Neck Neck: Yes normal visual inspection Chest Chest palpation & inspection: normal inspection of the chest Resp Auscultation: clear to auscultation bilaterally Cardio Palpation: normal PMI Heart sounds: S1 normal heart sound present, S2 normal heart sound present, no gallops, no murmurs and no rubs GI Palpation (GI): Soft to palpation Back/Spine/Pelvis Other: unremarkable Skin General skin exam: no rashes or lesions noted Neuro General: patient oriented x3 Extrem General: Yes normal to inspection Psych Mental Status: mental status grossly normal Office Procedures EKG Details: EKG with underlying sinus rhythm at 67/Min; no significant ST-T changes and otherwise unremarkable. [place] [id number], Complete Assessment & Plan Assessment & Plan (1) Atherosclerotic cardiovascular disease: Code(s): I25.10 - Atherosclerotic heart disease of [place] coronary artery without angina pectoris Category: Medical Plan: Cardiac studies reviewed. Coronary CT 2018-severe calcification of proximal to mid RCA; high-grade stenosis could not be excluded; prominent calcification of proximal to mid circumflex; marked calcification of ramus intermedius/mid LAD. Cardiac [id number] to mild disease with no obstructive lesions. [id number] 60-65%; normal diastolic function and otherwise unremarkable. Clinically, he does not have any angina. He can remain on aspirin and statins. Continue aspirin and statins. Last LDL 58 mg/dL. (2) Essential hypertension: Code(s): I10 - Essential (primary) hypertension Category: Medical Plan: On a combination of amlodipine, irbesartan, spironolactone/HCTZ. Stable. (3) Type 2 diabetes mellitus with unspecified complications: Code(s): E11.8 - Type 2 diabetes mellitus with unspecified complications Category: Medical Plan: Last hemoglobin A1c is 7%. Seems reasonable. (4) Morbid obesity: Code(s): E66.01 - Morbid (severe) obesity due to excess calories Category: Medical Plan: It seems that his weight is much less now than in the past. Hopefully, he can keep it that way. Coding Level of Care Code Est Pt Level 4 (09049) Diagnoses Atherosclerotic cardiovascular disease I25.10 Essential hypertension I10 Type 2 diabetes mellitus with unspecified complications E11.8 Morbid obesity E66.01 CPT Codes EKG - CPT: 22122-[id number], Complete ([id number])
== END 2024-08-12 14:10 | disposition home or self-care (01) ==
PROVIDERS: PCP Internal Medicine; Visit Provider Internal Medicine
DX: I25.10 Atherosclerotic heart disease of native coronary artery without angina pectoris (principal); I10 Essential (primary) hypertension; E11.8 Type 2 diabetes mellitus with unspecified complications; E66.01 Morbid (severe) obesity due to excess calories
CPT/HCPCS: 93010; 99214

== ENCOUNTER → 2024-08-12 13:45 | Outpatient (BNVA) | payer MEDICARE, MEDICAID, SELFPAY | PROVIDERS: PCP Internal Medicine; Visit Provider Internal Medicine | DX: I25.10 Atherosclerotic heart disease of native coronary artery without angina pectoris (principal); I10 Essential (primary) hypertension; E11.8 Type 2 diabetes mellitus with unspecified complications; E66.01 Morbid (severe) obesity due to excess calories | CPT/HCPCS: 93005; 99212 ==

== ENCOUNTER 2024-08-30 07:34 | Outpatient (REF) | payer MEDICARE, MEDICAID, SELFPAY ==
[2024-08-30 07:49] LABS: MANUAL DIFF FLAG NO
[2024-08-30 08:33] LABS: Basophils Percent Auto 0.4 % (0-2); Eosinophils Absolute Auto 0.2 X10*3/uL (0.0-0.4); Hematocrit 37.5 % (42.0-52.0); Hemoglobin 12.5 g/dl (14.0-18.0); Imm Gran Abs Auto 0.02 X10*3/uL (0.00-0.03); Imm Gran Pct Auto 0.3 % (0.0-0.4); Lymphocytes Absolute Auto 1.9 X10*3/uL (1.2-4.9); Lymphocytes Percent Auto 25.1 % (20-40); Mean Corpuscular HGB Conc 33.3 g/dl (31.0-36.0); Mean Corpuscular Hemoglobin 27.8 pg (27.0-33.0); Mean Corpuscular Volume 83.3 fL (80.0-98.0); Mean Platelet Volume 10.3 fL (9.4-12.4); Monocytes Absolute Auto 0.5 X10*3/uL (0.1-1.2); Monocytes Percent Auto 7.1 % (2-11); Neutrophils Absolute Auto 4.9 x10*3/uL (2.0-8.3); Neutrophils Percent Auto 64.1 % (45-73); Platelet Count 260 X10*3/uL (160-400); Red Cell Distribution Width 13.1 % (11.0-16.0); White Blood Count 7.6 X10*3/uL (4.8-10.8)
[2024-08-30 08:59] LABS: Alanine Aminotransferase 20 U/L (0-40); Albumin Level 4.1 g/dL (3.5-5.0); Alkaline Phosphatase 80 U/L (39-117); Anion Gap 14 (12-20); Aspartate Amino Transferase 22 U/L (5-37); Bilirubin Total 0.5 mg/dL (0.0-1.0); Blood Urea Nitrogen 18 mg/dL (9-16); C Reactive Protein 1.73 mg/dL (< or = 0.50); Carbon Dioxide 24 mmol/L (22-29); Chloride 104 mmol/L (96-108); Cholesterol 119 mg/dL (<200); Estimated Glomerular Filt Rate > 60; Glucose Random 130 mg/dL (60-115); HDL Cholesterol 29 mg/dL (>40); LDL Cholesterol Calculated 55 mg/dL (<100); Potassium 4.3 mmol/L (3.3-5.1); Sodium 138 mmol/L (135-145); Total Protein 8.1 g/dL (6.5-8.0); Triglycerides 178 mg/dL (<150)
[2024-08-30 09:03] LABS: Erythrocyte Sedimentation Rate 38 MM/HR (0-15)
[2024-08-30 09:23] LABS: Creatinine Urine 61.32 mg/dL
== END 2024-08-30 07:35 | disposition home or self-care (01) ==
LOC: HO.LABR 07:34
PROVIDERS: Absent Provider Internal Medicine Rheumatology; PCP Internal Medicine; Visit Provider Internal Medicine
DX: M05.79 Rheumatoid arthritis with rheumatoid factor of multiple sites without organ or systems involvement (principal); Z79.631 Long term (current) use of antimetabolite agent; Z79.620 Long term (current) use of immunosuppressive biologic; E11.65 Type 2 diabetes mellitus with hyperglycemia; E78.00 Pure hypercholesterolemia, unspecified
CPT/HCPCS: 36415; 80053; 80061; 82570; 85025; 85652; 86140

== ENCOUNTER 2024-09-24 12:54 | Outpatient (AMB) | payer MEDICARE, MEDICAID, SELFPAY ==
--- OUTSIDE RECORDS SUMMARY | 2024-09-24 12:56 | XMS_ITS | Data Portability ---
Author Organization [place] - [facility] Address [address] [place] [id number] Care Team Providers Care Envelope Adjuster Name Role Phone GUILLERMO MORA Primary Care Provider Assessment Encounter Date Assessment Date Assessment LastModified by Organization Details LastModified Time 12/28/2020 12/28/2020 Overview/History : 45 y/o M with PMHx sig for asthma, CAD, HLD, HTN, CKD with R renal mass, RA, anemia, preDM, and lung nodules, new to , presents for asymptomatic COVID test after low risk exposure. Patient reports that he was contacted by [facility] on Friday reporting that his mother's caregiver tested positive for COVID. Patient lives with his mother. Caregiver was last in the home on Friday. Caregiver wears a mask and was asymptomatic. Patient and his mother do not wear a mask when caregiver is present. He states his mother has had a mild intermittent cough. Patient feels well and denies any symptoms. Exam: afebrile, RRR, mildly hypertensive, normal resps, O2 sat 96% on RA, non-toxic, well appearing. GENERAL: well developed, well nourished, appears stated age, sitting comfortably in no acute distress. HEENT: normocephalic, atraumatic, sinuses nontender, PERRLA, EOMI, sclera anicteric, no conjunctival injection, nares patent, mmm. NECK: trachea midline, no masses, cervical lymphadenopathy, or thyromegaly. RESP: normal I:E, breathing non-labored, no accessory muscle use, clear to auscultation bilaterally, no wheezes, rhonchi, or rales. CARDIO: RRR, normal S1, S2, no murmurs, rubs, or gallops. NEURO: awake, alert, oriented x3, no focal neuro deficits, moving all extremities spontaneously, normal gait. DDx considered, but not limited to: none, asymptomatic COVID test Work up/Results: COVID PCR pending. Plan/Discussion: The patient under our care today has requested testing for the COVID-19 virus. Currently, they are asymptomatic. Testing was discussed with the patient to ensure understanding of the limitations of this test, including the fact that a negative test does not entirely exclude the possibility of COVID-19 infection. Based on the history obtained and exam today, the decision was made to test for COVID-19 in light of the current pandemic state. The patient was involved in the decision to test using a shared medical decision-making model. Proper Personal Protective Equipment (PPE), including gloves, eye protection, N95 mask, gown, and shoe covers were donned and doffed appropriately and all equipment cleaned using approved technique with germicidal disposable wipes prior to and after care of this patient according to formerly [facility]'s infection prevention protocols. -will call with COVID test results in 3-5 days -Quaratine for at least 10 days, must with without symptoms x3 days prior to breaking quarantine -OK to take OTC Tylenol for any fever, aches, or pains -call for new or worsening sxs -BP mildly elevated, continue antihypertensive s, low sodium diet -hydrate well -f/u with PCP In order to obtain further information and compare any laboratory results/values, I have accessed patient records on the [email or web address]. This information was pertinent in my medical decision making today. camille Not available 12/28/2020 20:26:17 Plan of Treatment Reminders Order Date Submit Date Provider Last Modified By Organization Details Last Modified Time Details Appointments None recorded. Lab SARS CoV 2 RNA (COVID-19), QL, communications writer-PCR, respiratory specimen 2020 021 [email or web address] [facility], [address], [place], [address], 09:27:46 Referral None recorded. Procedures None recorded. Surgeries None recorded. Imaging None recorded. Medication Orders None recorded. Patient TargetsNo targets recorded. Patient InstructionsNo instructions recorded. Reason for Referral None Reported. Results Created Date Observation Date Name Description Value Unit Range Abnormal Flag Note LastModifiedBy Organization Detail LastModifiedTime 12/29/19 21 12/28/2020 covid -19 (nove l coron aviru s) PCR covid-19 PCR specimen source NASAL Not Available [facility] [address] [place], [address], 12/29/2020 10:26:18 12/29/19 21 12/29/2020 covid -19 (nove l coron aviru s) PCR covid-19 PCR result (neg) NEGAT SOREN 2018- novel Coron aviru s (2018 -nCoV ) not detec marcelo by real- time RT-PC R. Note: If clini [place] suspi cion for COVID -19 is high, pooja nue to maint ain preca ution s and consi lambert repea t testi ng. Resul t repor marcelo to the DP. To preve nt error s in diagn osis, test resul ts shoul d be inter prete d in the janet xt of clini berlin findi ngs and other labor atory data. Rare polym orphi sms exist that could lead to false -nega tive or false -posi tive resul ts. If resul ts obtai tavon do not match the clini berlin findi ngs, addit ional testi ng shoul d be consi dered . This test has been autho rized by the FDA under an Emerg ency Use Autho rizat ion (EUA) for use by autho rized labor atori es. Testi ng perfo rmed by real time PCR [facility]ili [facility] [employer] SARS- CoV-2 test. Not Available [facility] [address] [place], [address], 12/29/2020 10:26:18 Result Notes None recorded. Problems Name Problem SNOMED Code Status Onset Date Resolution Date Notes Provider Name and Address Organization Details Recorded Time Rheumatoid arthritis 66547375 Active 2020 WALTER RAVI [address], [place], [address], [place] [facility] 20:01:31 Problem Notes None recorded. Medical Equipment None Reported. Allergies Allergen ID Allergen Name Allergen Category Reaction Reaction Severity Criticality Documentation Date Start Date Code Code System Note Provider Name and Address Organization Details Recorded Time 840341 Iodinated contrast media (substanc e) medicatio n Not available Not available Not available 12/28/2020 69249 2003 SNOMED WALTER RAVI [address], [place], [address], [place] [facility] 20:01:20 Medications Name Sig Start Date Stop Date Status Note LastModified by Organization Details LastModified Time celecoxib 200 mg capsule TAKE 1 CAPSULE BY MOUTH TWICE A DAY active Not Available Not Available No t Available atorvastatin 10 mg tablet TAKE 1 TABLET BY MOUTH DAILY active Not Available Not Available No t Available amlodipine 5 mg tablet TAKE 1 TABLET BY MOUTH EVERY DAY active Not Available Not Available No t Available methotrexate sodium 25 mg/mL injection solution INJECT 1 ML (25 MG TOTAL) UNDER THE SKIN EVERY 7 DAYS. active Not Available Not Available No t Available BD Tuberculin Syringe 1 mL 27 x 1/2 INJECT 1 EACH UNDER THE SKIN EVERY 7 DAYS. active Not Available Not Available No t Available meclizine 25 mg tablet 1 TABLET NEEDED 3 TIMES A DAY ORALLY 30 active Not Available Not Available No t Available amlodipine 10 mg tablet TAKE 1 TABLET BY MOUTH EVERY DAY active Not Available Not Available No t Available ferrous sulfate 325 mg (65 mg iron) tablet TAKE 1 TABLET BY MOUTH EVERY DAY active Not Available Not Available No t Available docusate sodium 100 mg capsule TAKE 1 CAPSULE BY MOUTH EVERY DAY active Not Available Not Available No t Available irbesartan 75 mg tablet TAKE 1 TABLET BY MOUTH EVERY DAY active Not Available Not Available No t Available folic acid 1 mg tablet TAKE 1 TABLET BY MOUTH EVERY DAY active Not Available Not Available No t Available hydroxyzine HCl 25 mg tablet TAKE 25MG BY MOUTH BEDTIME NEEDED FOR FOR ANXIETY active Not Available Not Available No t Available metoprolol succinate ER 25 mg tablet,extend ed release 24 hr TAKE 1 TABLET BY MOUTH EVERY DAY active Not Available Not Available No t Available irbesartan 150 mg tablet TAKE 1 TABLET BY MOUTH EVERY DAY active Not Available Not Available No t Available lorazepam 1 mg tablet TAKE 1 TABLET BY MOUTH BY MOUTH TWICE A DAY active Not Available Not Available No t Available fluticasone propionate 50 mcg/actuation nasal spray,suspens ion SPRAY 2 SPRAYS IN EACH NOSTRIL ONCE A DAY active Not Available Not Available N ot Available ipratropium bromide 21 mcg (0.03 %) nasal spray INHALE 2 SPRAY INTO BOTH NOSTRILS THREE TIMES A DAY DIRECTED active Not Available Not Available No t Available irbesartan 300 mg tablet TAKE 1 TABLET (300 MG TOTAL) BY MOUTH 1 (ONE) TIME EACH DAY active Not Available Not Available No t Available Ventolin HFA 90 mcg/actuation aerosol inhaler TAKE 2 PUFFS EVERY 4 HOURS NEEDED FOR FOR WHEEZING active Not Available Not Available No t Available escitalopram 5 mg tablet TAKE 1 TABLET BY MOUTH EVERY DAY active Not Available Not Available No t Available calcium 315 mg (as citrate)-george min D3 5 mcg (200 unit) tablet TAKE 2 TABLETS BY MOUTH TWICE A DAY WITH BREAKFAST AND LUNCH active Not Available Not Available No t Available Pain Relief Extra Strength (acetaminophe n) 500 mg tablet TAKE 2 TABLETS BY MOUTH NEEDED EVERY 4 6 HRS active Not Available Not Available No t Available oxycodone 10 mg tablet TAKE 1 TABLET BY MOUTH TWICE A DAY NEEDED FOR PAIN active Not Available Not Available No t Available ascorbic acid (vitamin C) 500 mg capsule TAKE 1 CAPSULE BY MOUTH EVERY DAY active Not Available Not Available No t Available Vitals Date Recorded Heart rate Respiratory rate Body temperature Oxygen saturation Oxygen saturation in Arterial blood by Pulse oximetry Systolic blood pressure Diastolic blood pressure Provider Name and Address Organization Details Last Updated DateTime 1 78 /min 16 /min 98.9 [degF] 96 % 96 % 148 mm[Hg] 64 mm[Hg] Not Available [facility] 19:28:13 Social History Question Answer Notes LastModified by Organizat ion Details LastModified Time Tobacco Smoking Status Former Smoker WALTER RAVI [address] [place], [address], [place] [facility] 12/28/2020 20:04:06 Do You Have An Advance Directive? Yes Information not available 12/28/2020 What Is Your Code Status? Full Code Information not available 12/28/2020 Excessive Alcohol Or Drug Use No Information not available 12/28/2020 How Much Tobacco Do You Smoke? 1 PPD Information not available 12/28/2020 How Many Years Have You Smoked Tobacco? 20 Information not available 12/28/2020 Sex: Unknown Functional Status None recorded. Mental Status None recorded. Family History Relationship Description Onset Age of this Age Resolved Age Notes LastModified by Organization Details LastModified Time Mother Diabetes mellitus camille Not available 2020 20:04:27 Medical History Condition Response Coronary Artery Disease Y Depression N COPD N Diabetes N Cancer N Stroke N Asthma Y High Cholesterol Y Pulmonary Embolism N Hypertension Y Kidney Disease Y Past Encounters Encounter ID Performer Location Encounter Start Date Encounter Closed Date Diagnosis/Indication Diagnosis SNOMED-CT Code Diagnosis ICD10 Code [id number] WALTER RAVI [facility] [address] [place] [address] 12/28/2020 19:17:25 12/29/2020 08:02:13 Exposure to communicable disease 514463057 Z20.822 Hypertensive disorder 38 830730 I10 Health Concerns Section Related Observation LastModified by Organization Detai ls LastModified Time None Recorded Concern Status LastModified by Organization Details LastModified Time None Recorded Advance Directives Directive Y: Payers Encounter Date Sequence Insurance Name Policy Number Policy Fox Covered Member ID Fox Member ID Guarantor Name 12/28/2020 1 MEDICARE B[place]: [employer] Syedbuddy Bright III [id number] Syedbuddy Bright 12/28/2020 2 [place] [facility] Syed Deangelo [id number] Jorge Luis Bright Notes Date Note Type Note Provider Name and Address Organization Details Recorded Time 12/28/2020 text/html 45 y/o M with PM Hx sig for asthma, CAD, HLD, HTN, CKD with R renal mass, RA, anemia, preDM, and lung nodules, new to , presents for asymptomatic COVID test after low risk exposure. Patient reports that he was contacted by [facility] on Friday reporting that his mother's caregiver tested positive for COVID. Patient lives with his mother. Caregiver was last in the home on Friday. Caregiver wears a mask and was asymptomatic. Patient and his mother do not wear a mask when caregiver is present. He states his mother has had a mild intermittent cough. Patient feels well and denies any symptoms. WALTER RAVI [address], [place], [address], [place] [facility] 12/28/2020 20:26:40
--- OUTSIDE RECORDS SUMMARY | 2024-09-24 12:57 | XMS_ITS | Patient Health Record ---
Author Organization [facility] Address [address] [place] [address] Care Team Providers Care Yarn Rewinder Name Role Phone Saeid Singh MD Primary Care Provider Darrell Chong Jr ALLERGIES Allergen (clinical drug ingredient) Drug/Non Drug Allergy documented on EMR Reaction Allergy Type Onset Date Status iv contrast (uncoded) Unknown Allergy Active REASON FOR REFERRAL No Information MEDICATIONS Medication SIG (Take, Route, Frequency, Duration) Notes Start Date End Date Status Irbesartan 300 MG 1 tablet Orally Once a day for 30 day(s) Active Nitrostat 0.4 MG as directed Sublingual Active Remicade 100 MG as directed Intravenous Active tylenol 1 tab Oral for 14 days Active amLODIPine Besy-Benazepril HCl 5-10 MG as directed Orally Active Aspirin 81 81 MG 1 tablet Orally Once a day for 30 day(s) Active Fluticasone Propionate (Inhal) 50 MCG/BLIST 1 puff Inhalation Twice a day Active Multivitamin - 1 tablet Orally Once a day for 30 day(s) Active Meclizine HCl 25 MG 1 tablet as needed O rally Once a day for 30 day(s) Active Docusate Sodium 100 MG 1 capsule as need ed Orally Once a day for 30 day(s) Active LORazepam 1 MG 1 tablet at bedtime as needed Orally Once a day Active Atorvastatin Calcium 10 MG 1 tablet Oral ly Once a day for 30 day(s) Active Escitalopram Oxalate 5 MG 1 tablet Orall y Once a day for 30 day(s) Active Calcitrate Plus D 315-200 MG-UNIT 1 tablet Orally Twice a day for 30 day(s) Active Ventolin HFA 108 (90 Base) MCG/ACT 1 puff as needed Inhalation every 4 hrs Active hydrOXYzine HCl 25 MG/ML 2 ml as needed Intramuscular every 6 hrs for 30 day(s) Active oxyCODONE HCl 10 MG 1 tablet as needed O rally every 6 hrs Active Vitamin C Adult Gummies 125 MG as directed Orally Active MiraLax 17 GM/SCOOP as directed Orally Active Folic Acid 1 MG 1 tablet Orally Once a day for 30 day(s) Active metFORMIN HCl ER 500 MG 1 tablet with ev ening meal Orally Once a day for 30 day(s) Active Methotrexate (PF) 15 MG/0.3ML as directed Subcutaneous Act christopher Spironolactone 25 MG 1 tablet Orally for 30 day(s) Active IMMUNIZATIONS Vaccine Route Administration Date Status Comme nts Influenza Unknown 01/03/2022 Refused SOCIAL HISTORY Tobacco Use: Social History Observation Description Date Details (start date - stop date) Former Smoker NA - NA Sex Assigned At : Social History Observation Description Sex Assigned At Unknown Tobacco Use/Smoking Question Answer Notes Patient is a former smoker How long has it been since you last smoked? > 10 years Alcohol Screen Question Answer Notes Did you have a drink containing alcohol in the p ast year? No Points 0 Interpretation Negative PROBLEMS Problem Type ICD Code Onset Dates Problem Status W/U Status Risk SNOMED Code Notes Problem Rectal bleeding (K62.5) Active confirmed 86055141 PLAN OF TREATMENT Future Test Test Name Order Date COLONOSCOPY 01/03/2022 Insurance Providers Payer Name Payer Address Payer Phone Subscriber Number Group Number Insured Name Patient Relationship to Insured Coverage Start Date Coverage End Date MEDICARE OF [place] [address] [place] [phone] [id number] MARGOT FRANCO III Self - patient is the insured MEDICAID OF [employer] [address] [place] [phone] [id number] MARGOT FRANCO III Self - patient is the insured MEDICAL (GENERAL) HISTORY Medical History History ICD Code diabetes asthma Hypertension Elevated cholesterol anxiety Rheumatoid arthritis Anemia HELEN/CPAP Surgical History Surgery Date(Month/Year) gastric bypass 2016
--- NOTE | 2024-09-24 13:19 | MHC.PC.OV ---
Vital Signs 09/24/24 13:35 Height 5 ft 2 in Weight 215 lb 6 oz BMI 39.4 BP 112/80 Blood Pressure Location Lt brachial Position Sitting Pulse 70 Pulse Source Pulse Oximeter Pulse Oximetry (%) 97 Oxygen Delivery Method Room Air Intake Visit Reasons: 3 Month F/U Electronic Security Technician Required: No Accompanied by: Self / Same As Patient Allergies Iodinated Contrast Media [Iodinated Contrast Media - IV Dye] Allergy (Mild, Verified 09/24/24 13:20) HIVE AND ITCHINESS ON FACE Tobacco use date assessed: 10/01/23 Dental Screening Dental Screen Date: 05/10/24 HPI 3 Month F/U HPI Details The patient is a 49-year-old male presenting with evaluation and management of chronic conditions, including anemia, rheumatoid arthritis, proteinuria, hyperglycemia, and hypertriglyceridemia. The patient's history with anemia has been ongoing since 2020, with hemoglobin levels consistently around 12.5, compared to the normal level of 14. The patient has been monitoring rheumatoid arthritis, which has shown a persistently elevated sedimentation rate of 38, indicating ongoing inflammation. Treatment for rheumatoid arthritis includes infliximab infusions; however, the patient missed infusions for two months while in [place]. Proteinuria has been noted, with urinary proteins present, but there has been no change in management. The patient's blood glucose levels have increased, and hemoglobin A1c is now at 7.2%, managed with metformin, which was not well-maintained due to dietary lapses. The patient's triglyceride levels are slightly raised, with current levels at 178 mg/dL, though they remain below the threshold for pharmacological treatment. The patient has been compliant with atorvastatin, maintaining LDL cholesterol at 55 mg/dL. Thyroid function tests from March were within normal limits. The patient's liver function tests are normal, but C-reactive protein is elevated, aligning with the inflammatory process observed. Preventative screenings include a colonoscopy completed in 2021, with the next planned in 2024 based on current guidelines. The patient had a dental check-up last year and is keeping up with regular physical activities despite a decrease during a recent trip to [place]. [facility] Medical History (Updated 09/24/24 @ 13:38 by Saeid Singh MD) Liver lesion Screening for prostate cancer History of COVID-19 COVID-19 virus infection Personal history of nicotine dependence Morbid obesity with BMI of 40.0-44.9, adult Atherosclerotic cardiovascular disease Suspected deep vein thrombosis Leg swelling Type 2 diabetes mellitus with hyperglycemia GERD (gastroesophageal reflux disease) Vitamin D deficiency Left renal mass Rheumatoid arthritis H/O hidradenitis suppurativa Lung nodule Vertigo Anxiety Asthma Obstructive sleep apnea Hyperlipidemia Surgical History History of bronchoscopy (~2020) History of cystoscopy (~2013) Status post biopsy of kidney (~2013) History of surgical removal of pilonidal cyst (~1990) S/P laparoscopic sleeve gastrectomy (~2017) Family History Father Heart problem Acute arthritis Mother Breast cancer Diabetes mellitus Liver cancer Son No problems noted. Maternal Uncle Myocardial infarct Maternal Aunt Breast cancer Social History Housing: Apartment Alcohol intake: never Patient Tobacco Use Status: Former Tobacco user Tobacco use type: Cigarette Cigarettes Per Day: 15 Years Smoked: 15 e-Cigarette/Vaping Use: Never Used Second Hand Smoke Exposure: No service: No Current occupational status: disabled Cognitive needs: No Hearing needs: Yes (hearig aide) Vision needs: Yes (glasses) Questionnaire PHQ-9 Over the last 2 weeks, how often have you been bothered by any of the following problems? 1. Little interest or pleasure in doing things: not at all 2. Feeling down, depressed, or hopeless: not at all 3. Trouble falling or staying asleep, or sleeping too much: not at all 4. Feeling tired or having little energy: not at all 5. Poor appetite or overeating: not at all 6. Feeling bad about yourself - or that you are a failure or have let yourself or your family down: not at all 7. Trouble concentrating on things, such as reading the newspaper or watching television: not at all 8. Moving or speaking so slowly that other people could have noticed. Or the opposite - being so fidgety or restless that you have been moving around a lot more than usual: not at all 9. Thoughts that you would be better off or of hurting yourself in some way: not at all Total score: 0 Depression Screening Interpretation: Negative Depression Screening Done: Yes 04349 - PHQ-9 Billing: Yes Source: Developed by Drs. Ye Galdamez, Beltran Gonzalez and colleagues, with an educational racquel from [employer]. Thrive Questionnaire Date Thrive assessed: 09/24/24 I am a: Patient What is your living situation today?: I have a steady place to live Within the past 12 months, did the food you bought not last and you didn't have the money to get more?: Never true Within the past 12 months, did you worry whether your food would run out before you got money to buy more?: Never true Do you have trouble paying for medicines?: No Do you have trouble getting transportation to medical appointments?: No Do you have trouble paying your heating and electricity bill?: No Do you have trouble taking care of your child, family member or friend?: No Do you have trouble with day-to-day activities such as bathing, preparing meals, shopping, managing finances, etc.?: No Are you currently unemployed and looking for a job?: No Are you interested in more education?: No Currently or been in a relationship where the following occur: No concerns reported THRIVE Score: 0 AUDIT C Alcohol Use Questionnaire (AUDIT-C) 1. How often do you have a drink containing alcohol?: Never 3. How often do you have six or more drinks on one occasion?: Never Total Score: 0 Score Reviewed/Action Taken: No EPHRAIM-7 AMB Questionnaire EPHRAIM-7 Date EPHRAIM - 7 assessed: 09/24/24 Feeling nervous, anxious, or on edge: 1 = Several days Not being able to stop or control worryin = Several days Worrying too much about different things: 1 = Several days Trouble relaxin = Not at all Being so restless that it is hard to sit still: 0 = Not at all Becoming easily annoyed or irritable: 1 = Several days Feeling afraid as if something awful might happen: 0 = Not at all Total EPHRAIM-7 score (0-4 normal; 5-9 mild; 10-14 moderate; 15-21 severe): 4 Source: Developed by Drs. Ye Galdamez, Beltran Gonzalez and colleagues, with an educational racquel from [employer]. EPHRAIM-7 Assessment Billing EPHRAIM-7 Assessment Tool: EPHRAIM-7 Assessment 85812 Physical exam (Primary Care) Vital Signs: Last Vital Signs Pulse 70 09/24/24 13:35 BP 112/80 09/24/24 13:35 Pulse Ox 97 09/24/24 13:35 Oxygen Delivery Method Room Air 09/24/24 13:35 BMI result Body Mass Index 39.4 Tobacco/Smoking Status: Tobacco use Status Tobacco use date assessed 10/01/23 09/24/24 13:21 Patient Tobacco Use Status Former Tobacco user 09/24/24 13:21 Tobacco use type Cigarette 09/24/24 13:21 e-Cigarette/Vaping Use Never Used 09/24/24 13:21 PHQ-9: PHQ-9 Score PHQ-9: Total score 0 09/24/24 13:38 Depression Screening Interpretation: Negative Thrive Assessment: Date of Thrive Assessment Date Thrive assessed 09/24/24 09/24/24 13:21 Currently or been in a relationship where the following occur: No concerns reported Const General: alert; No acute distress Eyes Conjunctivae: conjunctivae normal Resp Auscultation: clear to auscultation bilaterally Cardio Rate: regular rate Rhythm: regular rhythm GI Inspection: Yes normal to inspection Extrem General: Yes normal to inspection and No edema Office Procedures Flu Questionnaire Does the patient have a severe egg allergy?: No Results AMB Hemoglobin A1c AMB Hemoglobin A1c 7.2 % Last Edit by JACQUES Capps on 09/24/24 13:38 Immunizations Fluarix Triv [id number] (PF) 45 mcg (15 mcg x 3)/0.5 mL IM syringe Performing Provider: Saeid Singh MD Per[facility] Documented (not given) by: JACQUES Capps on 09/24/24 13:35 Reason Not Given: Received Previously Results Reviewed Results Reviewed: Laboratory Last Values Hgb A1c (Clinic) 7.2 % (4.0-6.0) H 09/24/24 13:19 Coding Level of Care Code Est Pt Level 4 (95925) Complex EM visit Add On G2211 Diagnoses Type 2 diabetes mellitus with hyperglycemia, without long-term current use of insulin E11.65 Diabetes mellitus chcf insulin use: without terminologist use S/P laparoscopic sleeve gastrectomy Z98.84 Gastroesophageal reflux disease without esophagitis K21.9 Esophagitis presence: without esophagitis Atherosclerotic cardiovascular disease I25.10 Pure hypercholesterolemia E78.00 Hyperlipidemia type: pure hypercholesterolemia Obstructive sleep apnea G47.33 Rheumatoid arthritis involving multiple sites, unspecified whether rheumatoid factor present M06.9 Rheumatoid arthritis location: multiple sites Rheumatoid factor presence: unspecified presence Hypertension I10 Additional Codes EPHRAIM-7 Assessment Billing - EPHRAIM-7 Assessment Tool: EPHRAIM-7 Assessment 39943 ([id number]) PHQ-9 - 24444 - PHQ-9 Billing: Yes ([id number]) Assessment & Plan Assessment & Plan (1) Type 2 diabetes mellitus with hyperglycemia: Comment: Dr. Stephens Code(s): E11.65 - Type 2 diabetes mellitus with hyperglycemia Category: Medical Qualifiers: Diabetes mellitus terminologist insulin use: without chcf use Qualified Code(s): E11.65 - Type 2 diabetes mellitus with hyperglycemia Plan: Decrease the amount of carbohydrate intake, pasta, bread, rice and potatoes are all sugar and that is aside from all the sweet stuff, remember that fruits are good but they are Sweet also. Hemoglobin A1c goal of less than 6.5 patient is on metformin 500 mg once a day (2) S/P laparoscopic sleeve gastrectomy: Onset Date: ~2017 Comment: (Dr. Mara Bradford, [facility] - 06/23/2018) Code(s): Z98.84 - Bariatric surgery status Category: Surgical Plan: Continue to follow-up with bariatric surgeon (3) GERD (gastroesophageal reflux disease): Code(s): K21.9 - Gastro-esophageal reflux disease without esophagitis Category: Medical Qualifiers: Esophagitis presence: without esophagitis Qualified Code(s): K21.9 - Gastro-esophageal reflux disease without esophagitis Plan: Avoid the foods that causes that usually spicy foods, tomato products, juices, coffee, soda and foods that your sensitive to. After eating do not lie down, allow 3-4 hours before in lie down. And keep the head of bed above 30 degrees to avoid the acid from going up. (4) Atherosclerotic cardiovascular disease: Code(s): I25.10 - Atherosclerotic heart disease of [place] coronary artery without angina pectoris Category: Medical Plan: Control the cholesterol, weight, blood pressure, diabetes continue with aspirin 81 mg once a (5) Hyperlipidemia: Code(s): E78.5 - Hyperlipidemia, unspecified Category: Medical Qualifiers: Hyperlipidemia type: pure hypercholesterolemia Qualified Code(s): E78.00 - Pure hypercholesterolemia, unspecified Plan: Avoid fried foods, chicken skin, eggs, butter margarine, pastries and meat. Be it pork or beef they have a lot of cholesterol LDL goal of less than 70 and triglyceride of less than 150 on atorvastatin 20 mg once a day (6) Obstructive sleep apnea: Comment: (on CPAP) Code(s): G47.33 - Obstructive sleep apnea (adult) (pediatric) Category: Medical Plan: Continue to use the CPAP more than 4 hours a night and benefits from this (7) Rheumatoid arthritis: Comment: (RA + OA - see [facility] Rheum - Dr. Sheldon) Code(s): M06.9 - Rheumatoid arthritis, unspecified Category: Medical Qualifiers: Rheumatoid arthritis location: multiple sites Rheumatoid factor presence: unspecified presence Qualified Code(s): M06.9 - Rheumatoid arthritis, unspecified Plan: Continue to follow-up with Rheumatology (8) Hypertension: Code(s): I10 - Essential (primary) hypertension Category: Medical Plan: Continue with amlodipine 5 mg once a day irbesartan 300 mg once a day metformin metoprolol 25 mg twice a day and spironolactone hydrochlorothiazide 25/25 once a day Plan - Increase metformin dosage to twice daily to better control blood glucose levels and manage hyperglycemia. - Continue current rheumatoid arthritis management with infliximab infusions and monitor sedimentation rate. - Maintain atorvastatin therapy for LDL cholesterol management, monitoring for any significant changes in triglyceride levels. - Continue regular monitoring of proteinuria without changes to current management protocols. - Encourage dietary modifications to aid in obesity management and further reduction of hypertriglyceridemia risk, emphasizing lifestyle changes including exercise routines. - Reinforce adherence to medication regimens and appointment schedules, including the next colonoscopy in 2024 and regular vision assessments. - Reassess anemia status and potential adjustments to management in coordination with outpatient follow-ups. - Schedule follow-up appointments in 3 months for further evaluation and management adjustments where required. Orders: Orders AMB Hemoglobin A1c Today E11.8 - Type 2 diabetes mellitus with unspecified complications Influenza 1812-6730 Immunization Today Z23 - Encounter for immunization Medications: New infliximab (Remicade) once a week IV; 07/06/2021 1 ea 0RF methotrexate sodium subcut; 10 mL 0RF Changed From metformin 500 mg PO DAILY 180 tabs 2RF E11.65 - Type 2 diabetes mellitus with hyperglycemia To metformin 500 mg PO BIDWMEAL 180 tabs 2RF E11.65 - Type 2 diabetes mellitus with hyperglycemia
[2024-09-24 13:35] VITALS: BP 112/80; PULSE 70; O2SAT 97; BMI 39.4
== END 2024-09-24 13:51 | disposition home or self-care (01) ==
PROVIDERS: PCP Internal Medicine; Visit Provider Internal Medicine
DX: E11.65 Type 2 diabetes mellitus with hyperglycemia (principal); M06.9 Rheumatoid arthritis, unspecified; E11.8 Type 2 diabetes mellitus with unspecified complications; Z98.84 Bariatric surgery status; K21.9 Gastro-esophageal reflux disease without esophagitis; I25.10 Atherosclerotic heart disease of native coronary artery without angina pectoris; E78.00 Pure hypercholesterolemia, unspecified; G47.33 Obstructive sleep apnea (adult) (pediatric); I10 Essential (primary) hypertension; Z23 Encounter for immunization

== ENCOUNTER → 2024-09-24 12:54 | Outpatient (BNVA) | payer MEDICARE, MEDICAID, SELFPAY | PROVIDERS: PCP Internal Medicine; Visit Provider Internal Medicine | DX: E11.65 Type 2 diabetes mellitus with hyperglycemia (principal); K21.9 Gastro-esophageal reflux disease without esophagitis; I25.10 Atherosclerotic heart disease of native coronary artery without angina pectoris; E78.00 Pure hypercholesterolemia, unspecified; Z98.84 Bariatric surgery status; G47.33 Obstructive sleep apnea (adult) (pediatric); M06.9 Rheumatoid arthritis, unspecified; I10 Essential (primary) hypertension | CPT/HCPCS: 83036; 96127; 99212 ==

== ENCOUNTER 2024-10-11 12:04 | Outpatient (AMB) | payer MEDICARE, MEDICAID, SELFPAY ==
[2024-10-11 12:07] VITALS: BP 112/78; PULSE 81; O2SAT 98; BMI 40.1
--- NOTE | 2024-10-11 12:07 | HO.NEPHOV_ITS ---
Vital Signs 10/11/24 12:07 Height 5 ft 2 in Weight 219 lb BMI 40.1 BP 112/78 Blood Pressure Location Lt brachial Position Sitting Pulse 81 Pulse Source Pulse Oximeter Pulse Oximetry (%) 98 Oxygen Delivery Method Room Air Intake Visit Reasons: Hypertension/ Lm Senior Network Architect Required: No Accompanied by: Self / Same As Patient Allergies Iodinated Contrast Media [Iodinated Contrast Media - IV Dye] Allergy (Mild, Verified 10/11/24 12:10) HIVE AND ITCHINESS ON FACE Medication List - Last Reconciled 10/11/24 by Andre Gandhi MD albuterol sulfate 90 mcg/actuation 2 puffs inhalation Q4H PRN amlodipine 5 mg PO DAILY aspirin 81 mg PO DAILY atorvastatin 20 mg PO DAILY blood pressure monitor (Blood Pressure Kit) As directed blood sugar diagnostic (FreeStyle Lite Strips) 1 strip miscellaneous .QD 90 days celecoxib 200 mg PO BID PRN docusate sodium 100 mg PO BID 90 days escitalopram oxalate 5 mg PO DAILY ferrous sulfate 325 mg PO DAILY fluticasone propionate 50 mcg/actuation 2 sprays intranasal DAILY folic acid 1 mg PO DAILY hydroxyzine HCl 25 mg PO BEDTIME PRN infliximab (Remicade) once a week IV; 07/06/2021 irbesartan 300 mg PO DAILY lancets (FreeStyle Lancets) 1 gauge topical .QD 90 days lidocaine 5% 1 patch topical DAILY 90 days lorazepam 1 mg PO BID 90 days meclizine 25 mg PO TID PRN metformin 500 mg PO BIDWMEAL methotrexate sodium subcut; metoprolol tartrate 25 mg PO BID [id number]-[id number]-vit K 45 mg iron- 800 mcg-120 mcg (Bariatric Multivitamins) 1 cap PO DAILY nitroglycerin (Nitrostat) 0.4 mg sublingual Q5M PRN sennosides (senna) 17.2 mg (2 x 8.6 mg) PO BEDTIME spironolacton-hydrochlorothiaz 25-25 mg 1 tab PO DAILY syringe with needle (BD Tuberculin Syringe) As directed zinc gluconate 50 mg PO QWEEK HPI Comments Details: Middle-aged man with history of obesity and hypertension is here for follow-up. Overall doing well Occasional leg edema Currently on protein shakes for weight loss Sometimes he gets lightheaded- and this has resolved [facility] Medical History (Updated 09/24/24 @ 13:38 by Saeid Singh MD) Liver lesion Screening for prostate cancer History of COVID-19 COVID-19 virus infection Personal history of nicotine dependence Morbid obesity with BMI of 40.0-44.9, adult Atherosclerotic cardiovascular disease Suspected deep vein thrombosis Leg swelling Type 2 diabetes mellitus with hyperglycemia GERD (gastroesophageal reflux disease) Vitamin D deficiency Left renal mass Rheumatoid arthritis H/O hidradenitis suppurativa Lung nodule Vertigo Anxiety Asthma Obstructive sleep apnea Hyperlipidemia Surgical History History of bronchoscopy (~2020) History of cystoscopy (~2013) Status post biopsy of kidney (~2013) History of surgical removal of pilonidal cyst (~1990) S/P laparoscopic sleeve gastrectomy (~2017) Family History Father Heart problem Acute arthritis Mother Breast cancer Diabetes mellitus Liver cancer Son No problems noted. Maternal Uncle Myocardial infarct Maternal Aunt Breast cancer Social History Housing: Apartment Alcohol intake: never Patient Tobacco Use Status: Former Tobacco user Tobacco use type: Cigarette Cigarettes Per Day: 15 Years Smoked: 15 e-Cigarette/Vaping Use: Never Used Second Hand Smoke Exposure: No service: No Current occupational status: disabled Cognitive needs: No Hearing needs: Yes (hearig aide) Vision needs: Yes (glasses) Physical Exam Vital Signs: BMI result Body Mass Index 40.1 Results Reviewed Nephrology Results: Hgb 12.5 g/dl (14.0-18.0) L 08/30/24 WBC 7.6 X10*3/uL (4.8-10.8) 08/30/24 Plt Count 260 X10*3/uL (160-400) 08/30/24 Sodium 138 mmol/L (135-145) 08/30/24 Potassium 4.3 mmol/L (3.3-5.1) 08/30/24 Chloride 104 mmol/L (96-108) 08/30/24 Carbon Dioxide 24 mmol/L (22-29) 08/30/24 BUN 18 mg/dL (9-16) H 08/30/24 Creatinine 1.04 mg/dL (0.5-1.4) 08/30/24 Calcium 10.0 mg/dL (8.4-10.2) 08/30/24 Urine Creatinine 61.32 mg/dL 08/30/24 Assessment & Plan Assessment & Plan (1) Essential hypertension: Code(s): I10 - Essential (primary) hypertension Category: Medical Plan: Blood pressure is acceptable today Stay on low-sodium diet. Continue current medications. We discussed weight loss. (2) Renal cyst: Comment: RIGHT KIDNEY: No hydronephrosis or renal calculi. The kidney measures 12.2 cm in maximum dimension. Benign-appearing renal cyst measuring 1.9 cm. No follow up imaging is recommended. LEFT KIDNEY: No hydronephrosis or renal calculi. The kidney measures 12.7 cm in maximum dimension. Benign-appearing renal cysts measuring up to 2.1 cm. No follow-up imaging is recommended. Punctate nonobstructing left lower pole renal stone new from prior. Code(s): N28.1 - Cyst of kidney, acquired Category: Medical Plan: CT scan in November 2011 showed a renal cyst. This was followed by MRI . He has a history of painless hematuria for which he is following with Urology Renal cyst: reportedly benign. No further imaging was recommended Orders: Orders Total Protein Urine Random 6 Months I10 - Essential (primary) hypertension, N28.1 - Cyst of kidney, acquired UA and rflx microscopic 6 Months I10 - Essential (primary) hypertension, N28.1 - Cyst of kidney, acquired Creatinine Urine 6 Months I10 - Essential (primary) hypertension, N28.1 - Cyst of kidney, acquired Basic Metabolic Panel 6 Months I10 - Essential (primary) hypertension, N28.1 - Cyst of kidney, acquired Coding Level of Care Code Est Pt Level 4 (80640) Diagnoses Essential hypertension I10 Renal cyst N28.1
--- OUTSIDE RECORDS SUMMARY | 2024-10-11 14:20 | XMS_ITS | Patient Health Record ---
Author Organization [facility] Address [address] [place] [address] Care Team Providers Care Patrol Sergeant Name Role Phone Saeid Singh MD Primary Care Provider Darrell Chong Jr [phone] ALLERGIES Allergen (clinical drug ingredient) Drug/Non Drug [...] Notes Problem Rectal bleeding (K62.5) Active confirmed [id number] PLAN OF TREATMENT Future Test Test Name Order Date COLONOSCOPY 01/03/2022 Insurance Providers Payer Name Payer Address Payer Phone Subscriber Number Group Number Insured Name Patient Relationship to Insured Coverage Start Date Coverage End Date MEDICARE OF [place] [address] [place] [id number] MARGOT FRANCO III Self - patient is the insured MEDICAID OF [place] [address] [place] [phone] [id number] MARGOT FRANCO III Self - patient is the insured MEDICAL (GENERAL) HISTORY Medical History History ICD Code diabetes asthma Hypertension Elevated cholesterol anxiety Rheumatoid arthritis Anemia HELEN/CPAP Surgical History Surgery Date(Month/Year) gastric bypass 2016
== END 2024-10-11 12:19 | disposition home or self-care (01) ==
PROVIDERS: PCP Internal Medicine; Visit Provider Internal Medicine Hypertension Specialist
DX: I10 Essential (primary) hypertension (principal); N28.1 Cyst of kidney, acquired
CPT/HCPCS: 99214

== ENCOUNTER → 2024-10-11 12:04 | Outpatient (BNVA) | payer MEDICARE, MEDICAID, SELFPAY | PROVIDERS: PCP Internal Medicine; Visit Provider Internal Medicine Hypertension Specialist | DX: I10 Essential (primary) hypertension (principal); N28.1 Cyst of kidney, acquired | CPT/HCPCS: 99212 ==

== ENCOUNTER 2024-11-26 09:59 | Outpatient (REF) | payer MEDICARE, MEDICAID, SELFPAY ==
--- NOTE | 2024-11-26 10:13 | MHC.AU.HA3 ---
Hearing Instrument Follow-Up- Binaural Date of Visit: 11/26/24 Right Ear: Fran, Model, Color, Serial Number: Lissa Lisa [id number], #[id number] Blueprinting And Photocopy Supervisor Repair Warranty: 12/29/2021 [employer] Supervisor Loss and Damage Warranty: 12/29/2021 [facility] Service Plan: Battery Size: Rechargeable Site Identification Specialist/Slim Tube: 2M Earmold/Dome/CShell/SlimTip: Type of Wax Guard: CERUSHIELD Dispensed By: [facility] Date of Fittin10/12/2018 Left Ear: Fran, Model, Color, Serial Number: Lissa Lisa [id number]-[id number], #[id number] Blueprinting And Photocopy Supervisor Repair Warranty: 12/29/2021 [employer] And [employer]oc[employer] Supervisor Loss and Damage Warranty: 12/29/2021 [facility] Service Plan: Battery Size: Rechargeable Site Identification Specialist/Slim Tube: 2M Earmold/Dome/CShell/SlimTip: Type of Wax Guard: CERUSHIELD Dispensed By: [facility] Date of Fittin10/12/2018 Follow-Up Summary: Walk in - [facility] not working. Needs new retail seasonal specialist. Changed out of warranty, cleaned hearing aid, replaced dome, cleaned microphones. Listening check ok. Recommendations: Recommendations: Patient will call if problems persist. Diagnosis Code(s): Primary Diagnosis: H90.3 Bilateral Sensorineural Hearing Loss Signature: Provider: Zenaida Greenwood, [facility]
--- OUTSIDE RECORDS SUMMARY | 2024-11-26 11:02 | XMS_ITS | Encounter Summary ---
Author Organization [facility] Address [address] [place] [address] Phone Care Team Providers Care Spraying Machine Operator Name Role Phone Saeid Singh MD Primary Care Provider [phone] Encounter Details Date Type Department Care Team (Late st Contact Info) Description 2021 Orders Only [facility] [address] [place] [address] [place] [address] Andre Gandhi MD Cyst of kidney Social History Tobacco Use Types Packs/Day Years Used Date Smoking Tobacco: Former Cigarettes Q uit: 09/29/2006 Smokeless Tobacco: Never Sex and Gender Information Value Date Recorded Sex Assigned at Not on file Legal Sex Male 4:59 PM EST Gender Identity Not on file Sexual Orientation Not on file documented as of this encounter Plan of Treatment Not on file documented as of this encounter Visit Diagnoses Diagnosis Cyst of kidney documented in this encounter Care Teams Spraying Machine Operator Relationship Specialty Start Date End Date Saeid Singh MD [facility] [place] [id number] [place] PCP - General 10/09/20 documented as of this encounter
--- OUTSIDE RECORDS SUMMARY | 2024-11-26 11:02 | XMS_ITS | Patient Health Record ---
Author Organization [facility] [place] Address [address] [place] [address] Care Team Providers Care Insurance Law Specialist Name Role Phone Saeid Singh MD Primary Care Provider Darrell Chong Jr [phone] ALLERGIES Allergen (clinical drug ingredient) Drug/Non Drug [...] Notes Problem Rectal bleeding (K62.5) Active confirmed [id number] PLAN OF TREATMENT Future Test Test Name Order Date COLONOSCOPY 01/03/2022 Insurance Providers Payer Name Payer Address Payer Phone Subscriber Number Group Number Insured Name Patient Relationship to Insured Coverage Start Date Coverage End Date MEDICARE OF [place] [address] [place] [phone] [id number] MARGOT FRANCO III Self - patient is the insured MEDICAID OF [employer] [address] [place] [phone] [id number] MARGOT FRANCO III Self - patient is the insured MEDICAL (GENERAL) HISTORY Medical History History ICD Code diabetes asthma Hypertension Elevated cholesterol anxiety Rheumatoid arthritis Anemia HELEN/CPAP Surgical History Surgery Date(Month/Year) gastric bypass 2016
--- OUTSIDE RECORDS SUMMARY | 2024-11-26 11:02 | XMS_ITS | Clinical Summary ---
Author Organization [facility] Address [address] [place] [address] [place] [address] Phone Care Team Providers Care Needle Board Repairer Name Role Phone Saeid Singh MD Primary Care Provider [phone] Allergies Active Allergy Reactions Criticality Noted Date Comments Maurice Inhibitors Other (see comments) 12/14/2020 Iodinated Contrast Media 03/14/2021 Other Other (see comments),Itching Low 017 Medications albuterol HFA (PROVENTIL HFA;VENTOLIN HFA) 108 (90 Base) MCG/ACT inhaler Active aspirin (ST ANDREA) 81 MG EC tablet Take 81 mg by mouth daily Active docusate sodium (COLACE) 100 MG capsule Take by mouth 2 (two) times a day 09/28/2020 Active escitalopram (LEXAPRO) 5 MG tablet Take 5 mg by mouth 1 (one) time each day 09/26/2020 Active hydrOXYzine (ATARAX) 25 MG tablet TAKE 25MG BY MOUTH BEDTIME NEEDED FOR FOR ANXIETY 11/21/2020 Active folic acid (FOLVITE) 1 MG tablet TAKE 1 TABLET BY MOUTH EVERY DAY 05/03/2020 Active inFLIXimab (Remicade) 100 MG injection 400 mg 10/28/2017 Active LORazepam (ATIVAN) 1 MG tablet Take 1 mg by mouth twice a day 11/30/2020 Active Meclizine HCl 25 MG chewable tablet 1 tablet every 8 (eight) hours if needed Active methotrexate 50 MG/2ML injection INJECT 1 ML (25 MG TOTAL) UNDER THE SKIN EVERY 7 DAYS. 09/24/2020 Active nitroglycerin (NITROSTAT) 0.[address] 1 tablet under the tongue Active oxyCODONE (ROXICODONE) 10 MG immediate release tablet Take 1 tablet by mouth 2 (two) times a day Active Calcium Citrate-Vitamin D (CALCIUM CITRATE + D3 PO) Take 1 tablet by mouth twice a day Active therapeutic multivitamin-mi nerals (THERAGRAN-M) tablet Take 1 tablet by mouth daily Active Ascorbic Acid (Vitamin C) 500 MG capsule Take 1 tablet by mouth 1 (one) time each day 12/30/2020 Active atorvastatin (LIPITOR) 20 MG tablet Take 20 mg by mouth 1 (one) time each day For 30 days 06/18/2021 Active celecoxib (CeleBREX) 200 MG capsule 08/05/2021 Active fluticasone (FLONASE) 50 MCG/ACT nasal spray 08/05/2021 Active lidocaine (LIDODERM) 5 % patch 07/14/2021 Active ferrous sulfate 325 (65 Fe) MG tablet TAKE 1 TABLET BY MOUTH EVERY DAY 90 tablet 5 01/24/2022 Active metFORMIN (GLUMETZA) 500 MG 24 hr tablet Take 500 mg by mouth 1 (one) time each day with dinner Do not crush, chew, or split. Active spironolactone- hydroCHLOROthia zide (ALDACTAZIDE) 25-25 MG per tablet TAKE 1/2 TABLET BY MOUTH EVERY DAY 45 tablet 3 08/20/2022 Active irbesartan (AVAPRO) 300 MG tablet TAKE 1 TABLET BY MOUTH 1 TIME EACH DAY. 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 I reviewed with him that as long as he did not have any allergic reactions to prior vaccinations he should get the COVID-19 vaccine as soon as available. No need to adjust dosing of Remicade for it. skilled nursing current use of aspirin 01/10/2020 06/22/2021 Overview (12/14/2020): Last Assessment & Plan: Avoid falls, injuries and cuts. Monitor for excessive bruising and bleeding. Obesity 08/26/2018 06/22/2021 Overview (12/14/2020): Last Assessment & Plan: Portion control. Continue watchful diet exactly as educated by weight management team. Limit concentrated sugars, saturated fats and calories in the diet. Keep well-hydrated. If unable to achieve expected goal consider formal dietary/nutritional support. Pain of knee region 03/06/2018 06/22/20 21 Degenerative joint disease i nvolving multiple joints 08/20/2017 06/22/2021 Overview (12/14/2020): Last Assessment & Plan: Joint protection, energy conservation. Gentle, regular exercise routine as directed by PT and OT. Avoid falls, injuries, overuse. Limit stair climbing, squatting, kneeling, heavy lifting, sudden turns. Keep body weight in an ideal range for his height. Importance of ongoing weight management reviewed and underlined: It reduces the rate of excessive weight related joint damage. Topical cream versus patch 2-3 times daily or at least at bedt time ? 2 -3 weeks as needed. Call if worse or with questions. Drug therapy finding 08/20/2017 021 Overview (12/14/2020): Last Assessment & Plan: Monitor for muscle tenderness, swelling and weakness Last Assessment & Plan: Continue subcutaneous administration every 7 days on Friday Remain alcohol free while taking methotrexate. Keep well-hydrated. Return for regular checkups as scheduled no later than every 3 months. Hold methotrexate whenever running fever, feeling sick or taking antibiotics. Wait at least 48 hours after last dose of antibiotic before restarting weekly methotrexate on its usual schedule. roasterman current use of opiate analgesic 08/20/2017 06/22/2021 Overview (12/14/2020): Last Assessment & Plan: Since clinically and laboratory ryan patient is stable I agree with postponing tomorrow's Remicade infusion due to increased risk of teena unusual infections while on chronic immunosuppression including Covid19 in addition to being diabetic and hypertensive. Monitor carefully for any signs of developing infection such as fever, excessive tiredness, flulike symptoms, headaches, cough, skin rashes etc. Make sure to inform any new ??Medical doctor, FILLING SEPARATOR or PA about chronic immunosuppression with methotrexate and Remicade especially in emergency situations Last Assessment & Plan: Take exactly as prescribed, try to limit frequency by employing non-for pharmacologic measures such as topical creams, warm packs, patches, regular relaxation/mediation/positive imagery sessions etc. Build up regular exercise routine up to the goal of 30-45 minutes daily. Monitor for increasing shortness of breath, reduced respiratory drive, increasing constipation Rheumatoid arthritis of multiple joints 08/20/2017 06/22/2021 Overview (12/14/2020): Last Assessment & Plan: Carefully continue weekly methotrexate,?? daily folic acid,??Celebrex??and every 6 weeks Remicade as prescribed adjusted for his weight loss. Avoid sick contacts. Joint protection, energy conservation. Get labs monitoring safety and efficacy at least every 6 weeks. Get the yearly influenza vaccine today. Call if questions or problems. Immunizations Name Administration Dates Next Due Influenza, Quadrivalent, Preservative Free 08/03 Family History Medical History Relation Comments Cancer Mother Diabetes Mother Hypertension Mother Relation Status Comments Father Unknown Mother Unknown Social History Tobacco Use Types Packs/Day Years Used Date Smoking Tobacco: Former Cigarettes Q uit: 09/29/2006 Smokeless Tobacco: Never Tobacco Cessation:Counseling Given: Not Answered Alcohol Use Standard Drinks/Week Comments Not Currently 0 (1 standard drink = 0.6 oz pure alcohol) Alcoholic Drinks/day: Occasional social drink Sex and Gender Information Value Date Recorded Sex Assigned at Not on file Legal Sex Male 4:59 PM EST Gender Identity Not on file Sexual Orientation Not on file Last Filed Vital Signs Vital Sign Reading Time Taken Comments Blood Pressure 134/82 01/13/2023 2:03 PM EDT Pulse 75 01/13/2023 2:03 PM EDT Temperature - - Respiratory Rate - - Oxygen Saturation 96% 01/13/2023 2:03 PM EDT Inhaled Oxygen Concentration - - Weight 102 kg (225 lb) 01/13/2023 2:03 PM EDT Height 162.6 cm (5' 4 ) 01/13/2023 2:03 PM EDT Body Mass Index 38.62 01/13/2023 2:03 PM EDT Plan of Treatment Health Maintenance Due Date Last Done Comments Pneumococcal Vaccine: Pediat rics (0 to 5 Years) and At-Risk Patients (6 to 64 Years) (1 of 2 - PCV) 1981 Hepatitis B Vaccine (1 of 3 - 19+ 3-dose series) 03/16 Colorectal Cancer Screening: Annual FOBT 2024 Colorectal Cancer Screening: Colonoscopy 2024 Colorectal Cancer Screening: Sigmoidoscopy 2024 Influenza Vaccine (#1) 2024 08/03/[id number] MEDICARE [place] Care Teams Needle Board Repairer Relationship Specialty Start Date End Date Saeid Singh MD [address] [place], [place] PCP - General 10/09/20
== END 2024-11-26 10:00 | disposition home or self-care (01) ==
LOC: HO.HAP 09:59
PROVIDERS: Visit Provider Internal Medicine
DX: Z46.1 Encounter for fitting and adjustment of hearing aid (principal); H90.3 Sensorineural hearing loss, bilateral
CPT/HCPCS: 92592; 99499; V5299

== ENCOUNTER 2025-03-02 06:11 | Outpatient (REF) | payer MEDICARE, MEDICAID, SELFPAY ==
[2025-03-02 06:27] LABS: MANUAL DIFF FLAG NO
[2025-03-02 07:16] LABS: Basophils Absolute Auto 0.1 X10*3/uL (0.0-0.2); Basophils Percent Auto 0.6 % (0-2); Eosinophils Absolute Auto 0.3 X10*3/uL (0.0-0.4); Hematocrit 36.5 % (42.0-52.0); Hemoglobin 12.1 g/dl (14.0-18.0); Imm Gran Abs Auto 0.03 X10*3/uL (0.00-0.03); Imm Gran Pct Auto 0.4 % (0.0-0.4); Lymphocytes Absolute Auto 2.3 X10*3/uL (1.2-4.9); Lymphocytes Percent Auto 27.8 % (20-40); Mean Corpuscular HGB Conc 33.2 g/dl (31.0-36.0); Mean Corpuscular Hemoglobin 27.8 pg (27.0-33.0); Mean Corpuscular Volume 83.7 fL (80.0-98.0); Mean Platelet Volume 10.5 fL (9.4-12.4); Monocytes Absolute Auto 0.6 X10*3/uL (0.1-1.2); Monocytes Percent Auto 7.3 % (2-11); Neutrophils Absolute Auto 5.1 x10*3/uL (2.0-8.3); Neutrophils Percent Auto 60.9 % (45-73); Platelet Count 232 X10*3/uL (160-400); Red Blood Count 4.36 X10*6/uL (4.60-5.80); White Blood Count 8.4 X10*3/uL (4.8-10.8)
[2025-03-02 07:35] LABS: Anion Gap 13 (12-20)
[2025-03-02 07:55] LABS: Alanine Aminotransferase 58 U/L (0-40); Albumin Level 4.2 g/dL (3.5-5.0); Aspartate Amino Transferase 29 U/L (5-37); Bilirubin Total 0.4 mg/dL (0.0-1.0); Blood Urea Nitrogen 17 mg/dL (9-16); C Reactive Protein 1.37 mg/dL (< or = 0.50); Calcium 9.4 mg/dL (8.4-10.2); Carbon Dioxide 31 mmol/L (22-29); Chloride 101 mmol/L (96-108); Estimated Glomerular Filt Rate > 60; Glucose Random 175 mg/dL (60-115); Potassium 4.3 mmol/L (3.3-5.1); Sodium 141 mmol/L (135-145); Total Protein 7.4 g/dL (6.5-8.0)
[2025-03-02 08:01] LABS: Erythrocyte Sedimentation Rate 28 MM/HR (0-15)
[2025-03-02 13:06] LABS: Alkaline Phosphatase 66 U/L (39-117)
== END 2025-03-02 06:12 | disposition home or self-care (01) ==
LOC: HO.LABR 06:11
PROVIDERS: PCP Internal Medicine; Visit Provider Internal Medicine Rheumatology
DX: M05.79 Rheumatoid arthritis with rheumatoid factor of multiple sites without organ or systems involvement (principal)
CPT/HCPCS: 36415; 80053; 85025; 85652; 86140

== ENCOUNTER 2025-04-12 14:31 | Outpatient (AMB) | payer MEDICARE, MEDICAID, SELFPAY ==
--- NOTE | 2025-04-12 14:35 | MHC.PC.OV ---
Vital Signs 04/12/25 14:36 Height 5 ft 2 in Weight 225 lb BMI 41.1 BP 132/86 Blood Pressure Location Lt brachial Position Sitting Pulse 105 H Pulse Source Pulse Oximeter Pulse Oximetry (%) 95 Oxygen Delivery Method Room Air Intake Visit Reasons: DM Intake Note: Patient here for a follow up DM [employer] Required: No Accompanied by: Self / Same As Patient Allergies Iodinated Contrast Media (Iodinated Contrast Media - IV Dye) Allergy (Mild, Verified 04/12/25 14:43) HIVE AND ITCHINESS ON FACE Medication List - Last Reconciled 04/12/25 by Saeid Singh MD albuterol sulfate 90 mcg/actuation 2 puffs inhalation Q4H PRN amlodipine 5 mg (1/2 x 10 mg) PO DAILY aspirin 81 mg PO DAILY atorvastatin 20 mg PO DAILY blood pressure monitor (Blood Pressure Kit) As directed blood sugar diagnostic (FreeStyle Lite Strips) 1 strip miscellaneous .QD 90 days celecoxib 200 mg PO BID PRN docusate sodium 100 mg PO BID 90 days empagliflozin (Jardiance) 10 mg PO DAILY escitalopram oxalate 5 mg PO DAILY ferrous sulfate 325 mg PO DAILY fluticasone propionate 50 mcg/actuation 2 sprays intranasal DAILY folic acid 1 mg PO DAILY hydroxyzine HCl 25 mg PO BEDTIME PRN infliximab (Remicade) once a week IV; 07/06/2021 irbesartan 300 mg PO DAILY lancets (FreeStyle Lancets) 1 gauge topical .QD 90 days lidocaine 5% 1 patch topical DAILY 90 days lorazepam 1 mg PO BID 90 days meclizine 25 mg PO TID PRN metformin 500 mg PO BIDWMEAL methotrexate sodium subcut; metoprolol tartrate 25 mg PO BID nitroglycerin (Nitrostat) 0.4 mg sublingual Q5M PRN sennosides (senna) 17.2 mg (2 x 8.6 mg) PO BEDTIME spironolacton-hydrochlorothiaz 25-25 mg 1 tab PO DAILY syringe with needle (BD Tuberculin Syringe) As directed zinc gluconate 50 mg PO QWEEK Tobacco use date assessed: 04/12/25 Dental Screening Dental Screen Date: 04/12/25 Did you have a dental visit in the last 12 months?: No Did you have a dental problem in the last 6 months where you did not have access to dental care?: No Was dental information given to patient?: Patient has dentist [facility] Medical History (Updated 04/12/25 @ 14:57 by Saeid Singh MD) Type 2 diabetes mellitus with unspecified complications Liver lesion Screening for prostate cancer History of COVID-19 COVID-19 virus infection Personal history of nicotine dependence Morbid obesity with BMI of 40.0-44.9, adult Atherosclerotic cardiovascular disease Suspected deep vein thrombosis Leg swelling Type 2 diabetes mellitus with hyperglycemia GERD (gastroesophageal reflux disease) Vitamin D deficiency Left renal mass Rheumatoid arthritis H/O hidradenitis suppurativa Lung nodule Vertigo Anxiety Asthma Obstructive sleep apnea Hyperlipidemia Surgical History History of bronchoscopy (~2020) History of cystoscopy (~2013) Status post biopsy of kidney (~2013) History of surgical removal of pilonidal cyst (~1990) S/P laparoscopic sleeve gastrectomy (~2017) Family History Father Heart problem Acute arthritis Mother Breast cancer Diabetes mellitus Liver cancer Son No problems noted. Maternal Uncle Myocardial infarct Maternal Aunt Breast cancer Social History Housing: Apartment Alcohol intake: never Patient Tobacco Use Status: Former Tobacco user Tobacco use type: Cigarette Cigarettes Per Day: 15 Years Smoked: 15 e-Cigarette/Vaping Use: Never Used Second Hand Smoke Exposure: No service: No Current occupational status: disabled Cognitive needs: No Hearing needs: Yes (hearig aide) Vision needs: Yes (glasses) Questionnaire PHQ-9 Over the last 2 weeks, how often have you been bothered by any of the following problems? 1. Little interest or pleasure in doing things: not at all 2. Feeling down, depressed, or hopeless: not at all 3. Trouble falling or staying asleep, or sleeping too much: not at all 4. Feeling tired or having little energy: not at all 5. Poor appetite or overeating: not at all 6. Feeling bad about yourself - or that you are a failure or have let yourself or your family down: not at all 7. Trouble concentrating on things, such as reading the newspaper or watching television: not at all 8. Moving or speaking so slowly that other people could have noticed. Or the opposite - being so fidgety or restless that you have been moving around a lot more than usual: not at all 9. Thoughts that you would be better off or of hurting yourself in some way: not at all Total score: 0 Depression Screening Interpretation: Negative Depression Screening Done: Yes Source: Developed by Drs. Ye Galdamez, Marie Sofia, Beltran Blair and colleagues, with an educational racquel from [employer]. Thrive Questionnaire Date Thrive assessed: 04/12/25 I am a: Patient What is your living situation today?: I have a steady place to live Within the past 12 months, did the food you bought not last and you didn't have the money to get more?: Often true Within the past 12 months, did you worry whether your food would run out before you got money to buy more?: Often true Do you have trouble paying for medicines?: No Do you have trouble getting transportation to medical appointments?: No Do you have trouble paying your heating and electricity bill?: No Do you have trouble taking care of your child, family member or friend?: I choose not to answer this question Do you have trouble with day-to-day activities such as bathing, preparing meals, shopping, managing finances, etc.?: No Are you currently unemployed and looking for a job?: I choose not to answer this question Are you interested in more education?: No Please select the resources that you would like help with: None Currently or been in a relationship where the following occur: I choose not to answer THRIVE Score: 2 AUDIT C Alcohol Use Questionnaire (AUDIT-C) 1. How often do you have a drink containing alcohol?: Never Total Score: 0 EPHRAIM-7 AMB Questionnaire EPHRAIM-7 Date EPHRAIM - 7 assessed: 04/12/25 Feeling nervous, anxious, or on edge: 0 = Not at all Not being able to stop or control worryin = Not at all Worrying too much about different things: 0 = Not at all Trouble relaxin = Not at all Being so restless that it is hard to sit still: 0 = Not at all Becoming easily annoyed or irritable: 0 = Not at all Feeling afraid as if something awful might happen: 0 = Not at all Total EPHRAIM-7 score (0-4 normal; 5-9 mild; 10-14 moderate; 15-21 severe): 0 Source: Developed by Drs. Ye Galdamez, Marie Sofia, Beltran Blair and colleagues, with an educational racquel from [employer]. Physical exam (Primary Care) Vital Signs: Last Vital Signs Pulse 105 H 04/12/25 14:36 BP 132/86 04/12/25 14:36 Pulse Ox 95 04/12/25 14:36 Oxygen Delivery Method Room Air 04/12/25 14:36 BMI result Body Mass Index 41.1 Tobacco/Smoking Status: Tobacco use Status Tobacco use date assessed 04/12/25 04/12/25 14:44 Patient Tobacco Use Status Former Tobacco user 04/12/25 14:39 Tobacco use type Cigarette 04/12/25 14:39 e-Cigarette/Vaping Use Never Used 04/12/25 14:39 PHQ-9: PHQ-9 Score PHQ-9: Total score 0 04/12/25 15:00 Depression Screening Interpretation: Negative Thrive Assessment: Date of Thrive Assessment Date Thrive assessed 04/12/25 04/12/25 14:39 Currently or been in a relationship where the following occur: I choose not to answer Const General: alert; No acute distress Eyes Conjunctivae: conjunctivae normal Resp Auscultation: clear to auscultation bilaterally Cardio Rate: regular rate Rhythm: regular rhythm GI Inspection: Yes normal to inspection Extrem General: Yes normal to inspection and No edema Results AMB Hemoglobin A1c AMB Hemoglobin A1c 8.7 % Last Edit by CONCEPCION Patel on 04/12/25 14:49 Results Reviewed Results Reviewed: Laboratory Last Values Hgb A1c (Clinic) 8.7 % (4.0-6.0) H 04/12/25 14:35 Coding Level of Care Code Est Pt Level 4 (86277) Complex EM visit Add On G2211 Diagnoses Type 2 diabetes mellitus with hyperglycemia, without long-term current use of insulin E11.65 Diabetes mellitus shelter insulin use: without shelter use Hypertension I10 Pure hypercholesterolemia E78.00 Hyperlipidemia type: pure hypercholesterolemia Atherosclerotic cardiovascular disease I25.10 Generalized anxiety disorder F41.1 S/P laparoscopic sleeve gastrectomy Z98.84 Gastroesophageal reflux disease without esophagitis K21.9 Esophagitis presence: without esophagitis Rheumatoid arthritis involving multiple sites, unspecified whether rheumatoid factor present M06.9 Rheumatoid arthritis location: multiple sites Rheumatoid factor presence: unspecified presence Obstructive sleep apnea G47.33 Assessment & Plan Assessment & Plan (1) Type 2 diabetes mellitus with hyperglycemia: Comment: Dr. Stephens Code(s): E11.65 - Type 2 diabetes mellitus with hyperglycemia Category: Medical Qualifiers: Diabetes mellitus terminal clerk insulin use: without terminal clerk use Qualified Code(s): E11.65 - Type 2 diabetes mellitus with hyperglycemia Plan: Decrease the amount of carbohydrate intake, pasta, bread, rice and potatoes are all sugar and that is aside from all the sweet stuff, remember that fruits are good but they are Sweet also. Hemoglobin A1c goal of less than 6.5. Patient is on metformin 500 mg twice a day only (2) Hypertension: Code(s): I10 - Essential (primary) hypertension Category: Medical Plan: Continue with blood pressure medication. Decrease salt intake and exercise on spironolactone hydrochlorothiazide 25/25 once a day metoprolol 25 mg twice a day ear irbesartan 300 mg once a day amlodipine 5 mg once a day (3) Hyperlipidemia: Code(s): E78.5 - Hyperlipidemia, unspecified Category: Medical Qualifiers: Hyperlipidemia type: pure hypercholesterolemia Qualified Code(s): E78.00 - Pure hypercholesterolemia, unspecified Plan: Avoid fried foods, chicken skin, eggs, butter margarine, pastries and meat. Be it pork or beef they have a lot of cholesterol LDL goal of less than 70 on atorvastatin 20 mg once a day August 2025 last blood work (4) Atherosclerotic cardiovascular disease: Code(s): I25.10 - Atherosclerotic heart disease of [place] coronary artery without angina pectoris Category: Medical Plan: Control the cholesterol, weight, blood pressure, diabetes patient is on aspirin 81 mg once a day (5) Generalized anxiety disorder: Code(s): F41.1 - Generalized anxiety disorder Category: Medical Plan: Continue with present therapy on lorazepam (6) S/P laparoscopic sleeve gastrectomy: Onset Date: ~2017 Comment: [place] [facility] [place] Code(s): Z98.84 - Bariatric surgery status Category: Surgical Plan: Continue to follow-up with bariatric (7) GERD (gastroesophageal reflux disease): Code(s): K21.9 - Gastro-esophageal reflux disease without esophagitis Category: Medical Qualifiers: Esophagitis presence: without esophagitis Qualified Code(s): K21.9 - Gastro-esophageal reflux disease without esophagitis Plan: Avoid the foods that causes that usually spicy foods, tomato products, juices, coffee, soda and foods that your sensitive to. After eating do not lie down, allow 3-4 hours before in lie down. And keep the head of bed above 30 degrees to avoid the acid from going up. (8) Rheumatoid arthritis: Comment: (RA + OA - see [facility] Rheum - Dr. Sheldon) Code(s): M06.9 - Rheumatoid arthritis, unspecified Category: Medical Qualifiers: Rheumatoid arthritis location: multiple sites Rheumatoid factor presence: unspecified presence Qualified Code(s): M06.9 - Rheumatoid arthritis, unspecified Plan: Continue to follow-up on Rheumatology on Remicade (9) Obstructive sleep apnea: Comment: (on CPAP) Code(s): G47.33 - Obstructive sleep apnea (adult) (pediatric) Category: Medical Plan: Continue to use the CPAP more than 4 hours a night and benefits from this. Plan History of Present Illness The patient is a 50-year-old male presenting for follow-up of multiple chronic conditions including diabetes mellitus, hypercholesterolemia, and hypertension. The patient has a history of rheumatoid arthritis and underwent a sleep destructomy in May 2018. He has been diagnosed with uncontrolled diabetes mellitus, gastroesophageal reflux disease, hypercholesterolemia, and atherosclerotic cardiovascular disease. He also has a history of nicotine dependence and anxiety disorder. The patient reports using a CPAP machine regularly for obstructive sleep apnea and benefits from its use. He has hepatic steatosis and hypertension, with a history of anemia and elevated C-reactive protein levels. His last colon test was conducted in June 2022, and he follows up with ophthalmology and nephrology regularly. The patient is on multiple medications including metformin, spironolactone, hydrochlorothiazide, metoprolol, atorvastatin, and aspirin. He has been advised to continue using the CPAP machine and to follow up with bariatrics and rheumatology. Health Maintenance - Colon cancer screening last performed in June 2022 - Regular follow-up with ophthalmology and nephrology - CPAP usage for obstructive sleep apnea - Advised to consider shingles vaccination Social History - History of nicotine dependence - Reports weight gain of 13 pounds - Limited physical activity due to back pain associated with arthritis Review of Systems - Musculoskeletal: Reports back pain associated with arthritis - Respiratory: Reports regular use of CPAP for obstructive sleep apnea - General: Reports weight gain of 13 pounds Physical Exam Results - Labs: Anemia with hemoglobin 12.1 g/dL, hematocrit 36.5% - Labs: C-reactive protein elevated at 14.5 mg/L - Labs: Hemoglobin A1c at 8.7% indicating uncontrolled diabetes - Labs: Elevated liver enzymes with one value at 58 U/L - Labs: LDL cholesterol at 55 mg/dL Plan The patient will continue with current medications including metformin for diabetes management, with the addition of Jardiance to improve glycemic control and potentially aid in weight reduction. For hypertension, the patient is on a regimen of spironolactone, hydrochlorothiazide, metoprolol, and amlodipine, which will be continued. The patient is advised to maintain CPAP usage for obstructive sleep apnea and to follow up with bariatrics and rheumatology for ongoing management of obesity and rheumatoid arthritis, respectively. A request for a lower back x-ray has been made to assess the cause of persistent back pain, and the patient is encouraged to engage in regular physical activity as tolerated to manage weight and improve overall health. The patient is advised to consider receiving the shingles vaccine for additional preventative care. Patient was informed and verbally consented to the use of an ambient scribe for clinic note documentation during this visit. Discussion Notes During the visit, we discussed the management of the patient's uncontrolled diabetes, including the addition of Jardiance to his regimen to improve glycemic control and potentially aid in weight reduction. We reviewed the importance of maintaining CPAP usage for obstructive sleep apnea and the continuation of current antihypertensive therapy. I recommended considering the shingles vaccine for additional preventative care and discussed the plan to obtain a lower back x-ray to evaluate persistent back pain. Patient Instructions - Continue taking all prescribed medications as directed. - Use CPAP machine regularly for at least 4 hours each night. - Engage in regular physical activity as tolerated to help manage weight and improve health. - Consider receiving the shingles vaccine for additional preventative care. - Schedule and complete the lower back x-ray as soon as possible. Orders: Orders AMB Hemoglobin A1c Today E11.65 - Type 2 diabetes mellitus with hyperglycemia XR lumbar spine 2-3V Today M54.5 - Low back pain Medications: New empagliflozin (Jardiance) 10 mg PO DAILY 30 tabs 3RF E11.65 - Type 2 diabetes mellitus with hyperglycemia
[2025-04-12 14:36] VITALS: BP 132/86; PULSE 105; O2SAT 95; BMI 41.1
--- OUTSIDE RECORDS SUMMARY | 2025-04-12 15:54 | XMS_ITS | Encounter Summary ---
Author Organization [facility] Address [address] [place] [address] Phone Care Team Providers Care Hand Cloth Cutter Name Role Phone Saeid Singh MD Primary Care Provider [phone] Encounter Details Date Type Department Care Team (Late st Contact Info) Description 2021 Orders Only [facility] [address] [place] [address] [place] [address] Andre Gandhi MD Cyst of kidney [...] kidney documented in this encounter Care Teams Hand Cloth Cutter Relationship Specialty Start Date End Date Saeid Singh MD [place] [facility] [address] [place] PCP - General 10/09/20 documented as of this encounter
--- OUTSIDE RECORDS SUMMARY | 2025-04-12 15:54 | XMS_ITS | Patient Health Record ---
Author Organization [facility] Address [address] [place] [address] Care Team Providers Care Manager Nc Name Role Phone Saeid Singh MD Primary Care Provider Darrell Chong Jr Allergies Allergen (clinical drug ingredient) Drug/Non Drug Allergy documented on EMR Reaction Allergy Type Onset Date Status iv contrast (uncoded) Unknown Allergy Active Reason For Referral No Information Medications Medication SIG (Take, Route, Frequency, Duration) Notes [...] 1 tablet Orally for 30 day(s) Active Immunizations Vaccine Route Administration Date Status Comme nts Influenza Unknown 01/03/2022 Refused Social History Tobacco Use: Social History Observation Description Date Details (start date - stop date) Former Smoker NA - NA Tobacco Use/Smoking Question Answer Notes Patient is a former smoker How long has it been since you last smoked? > 10 years Alcohol Screen Question Answer Notes Did you have a drink containing alcohol in the p ast year? No Points 0 Interpretation Negative Problems Problem Type SNOMED Code ICD Code Onset Dates Problem Status W/U Status Risk Notes Problem 78852562 Rectal bleeding (K62.5) Active confirmed Plan Of Treatment Future Test Test Name Order Date COLONOSCOPY 01/03/2022 Insurance Providers Payer Name Payer Address Payer Phone Subscriber Number Group Number Insured Name Patient Relationship to Insured Coverage Start Date Coverage End Date MEDICARE OF [place] [address] JYOT[place] GABRIEL [id number] MARGOT FRANCO III Self - patient is the insured MEDICAID OF [facility] [address] [place] [address] [id number] MARGOT FRANCO III Self - patient is the insured Medical (General) History Medical History History ICD Code diabetes asthma Hypertension Elevated cholesterol anxiety Rheumatoid arthritis Anemia HELEN/CPAP Surgical History Surgery Date(Month/Year) gastric bypass 2016
--- OUTSIDE RECORDS SUMMARY | 2025-04-12 15:54 | XMS_ITS | Data Portability ---
Author Organization [place] [facility] Address [address] [place] [id number] Care Team Providers Care Placement Specialist Name Role Phone GUILLERMO MORA Primary Care [...] Patient reports that he was contacted by [facility] on Friday reporting that his mother's caregiver [...] after care of this patient according to [facility]'s infection prevention protocols. -will call with COVID [...] I have accessed patient records on the [employer]. This information was pertinent in my medical decision making today. camille Not available 12/28/2020 20:26:17 Plan of Treatment Reminders Order Date Submit Date Provider Last Modified By Organization Details Last Modified Time Details Appointments None recorded. 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 Procedures None recorded. [...] specimen source NASAL Not Available [facility] (Centralized Electronic Ordering - All Locations) Patient Can Go To The Location Of Their Choice, [id number] 12/29/2020 10:26:18 12/29/19 21 12/29/2020 covid -19 (nove l coron aviru s) PCR covid-19 PCR result (neg) NEGAT SOREN 2018- novel Coron aviru s (2018nCoV ) not detec marcelo by real- time RT-PC R. Note: If clini [place] suspi cion for COVID -19 is high, pooja nue to maint ain preca ution s and consi lambert repea t testi ng. Resul t repor marcelo to the [facility]. To preve nt error s in diagn [...] perfo rmed by real time PCR [facility] SARS- CoV-2 test. Not Available [facility] (Centralized Electronic Ordering - All Locations) Patient Can Go To The Location Of Their Choice, [id number] 12/29/2020 10:26:18 Result Notes None recorded. Problems Name Problem SNOMED Code Status Onset Date Resolution Date Notes Provider Name and Address Organization Details Recorded Time Rheumatoid arthritis 21319738 Active 2020 WALTER RAVI [address] [facility] [place], [address], [place] [facility] 20:01:31 Problem Notes None recorded. Medical Equipment None Reported. Allergies Allergen ID Allergen Name Allergen Category Reaction Reaction Severity Criticality Documentation Date Start Date Code Code System Note Provider Name and Address Organization Details Recorded Time 395584 Iodinated contrast media (substanc e) medicatio n Not available Not available Not available 12/28/2020 24441 2003 SNOMED WALTER RAVI [address] [place], [address], [place] [facility] 20:01:20 Medications Name Sig Start Date Stop [...] in Arterial blood by Pulse oximetry Systolic And Diastolic Provider Name and Address Organization Details Last Updated DateTime 1 78 /min 16 /min 98.9 [degF] 96 % 96 % 148/64 mm[Hg] Not Available [facility] 19:28:13 Social History Question Answer Notes LastModified by Organizat ion Details LastModified Time Tobacco Smoking Status Former Smoker WALTER RAVI [address] [place], [address], [place] [facility] 12/28/2020 20:04:06 Do You Have An Advance Directive? Yes [email or web address] Information not available 12/28/2020 What Is Your Code Status? Full Code [email or web address] Information not available 12/28/2020 Excessive Alcohol Or Drug Use No [email or web address] Information not available 12/28/2020 How Much Tobacco [...] available 2020 20:04:27 Medical History Condition Response Diabetes N Coronary Artery Disease Y Cancer N Stroke N COPD N Depression N Asthma Y High Cholesterol Y Pulmonary Embolism N Hypertension Y Kidney Disease Y Past Encounters Encounter ID Performer Location Encounter Start Date Encounter Closed Date Diagnosis/Indication Diagnosis SNOMED-CT Code Diagnosis ICD10 Code Diagnosis Note [id number] WALTER RAVI [facility] [address] [place] [address] 12/28/2020 19:17:25 12/29/2020 08:02:13 Exposure to communicable disease 116376739 Z20.822 Hypertensive disorder 38 812232 I10 Health Concerns Section Related Observation LastModified by Organization Detai ls LastModified Time None Recorded Concern Status LastModified by Organization Details LastModified Time None Recorded Advance Directives Directive Y: Payers Insurance Date Sequence Insurance Name Policy Number Policy Fox Covered Member ID Fox Member ID Guarantor Name 12/28/2020 1 *SELF PAY* Jorge Luis Bright [id number] Syed Bright 12/28/2020 2 [place] Syed Bright [id number] Syed Bright 01/01/2021 1 [place] [employer] Syed Bright III [id number] Jorge Luis Bright Notes Date Note Type Note Provider Name and Address Organization Details Recorded Time 12/28/2020 text/html 45 y/o M with PM Hx sig for asthma, CAD, HLD, HTN, CKD with R renal mass, RA, anemia, preDM, and lung nodules, new to , presents for asymptomatic COVID test after low risk exposure. Patient reports that he was contacted by [facility] on Friday reporting that his mother's caregiver [...] and denies any symptoms. WALTER RAVI [address], [place], [address], [place] [facility] 12/28/2020 20:26:40
== END 2025-04-12 15:14 | disposition home or self-care (01) ==
LOC: HO.HMCH 14:32
PROVIDERS: PCP Internal Medicine; Visit Provider Internal Medicine
DX: E11.65 Type 2 diabetes mellitus with hyperglycemia (principal); M06.9 Rheumatoid arthritis, unspecified; I10 Essential (primary) hypertension; E78.00 Pure hypercholesterolemia, unspecified; I25.10 Atherosclerotic heart disease of native coronary artery without angina pectoris; F41.1 Generalized anxiety disorder; Z98.84 Bariatric surgery status; K21.9 Gastro-esophageal reflux disease without esophagitis; G47.33 Obstructive sleep apnea (adult) (pediatric)

== ENCOUNTER 2025-04-12 14:31 | Outpatient (REF) | payer MEDICARE, MEDICAID, SELFPAY ==
--- NOTE | ~2025-04-12 | XR_ITS ---
EXAMINATION: XR LUMBAR SPINE 2-3 VIEWS HISTORY: M54.5 - Low back pain COMPARISON: Comparison is made with the prior examination dated 03/09/2015. FINDINGS: AP, lateral, and coned down views of the lumbar spine are submitted. Osseous mineralization is normal. Five nonrib-bearing lumbar vertebral bodies are identified, maintaining normal height and alignment without evidence of fracture or spondylolisthesis. There is mild degenerative disc disease with disc space narrowing and osteophyte formation. There is osteoarthritis of the lower lumbar facet joints. There is calcification of the abdominal aorta. XR/XR lumbar spine 2-3V IMPRESSION: Degenerative changes of the lumbar spine as described. Electronically signed by: Ye Shanks MD 04/12/2025 03:47 PM EDT
== END 2025-04-12 14:32 | disposition home or self-care (01) ==
LOC: HO.XRAY 14:31
PROVIDERS: PCP Internal Medicine; Visit Provider Internal Medicine
DX: E11.65 Type 2 diabetes mellitus with hyperglycemia (principal); I10 Essential (primary) hypertension; E78.00 Pure hypercholesterolemia, unspecified; I25.10 Atherosclerotic heart disease of native coronary artery without angina pectoris; F41.1 Generalized anxiety disorder; K21.9 Gastro-esophageal reflux disease without esophagitis; M06.9 Rheumatoid arthritis, unspecified; G47.33 Obstructive sleep apnea (adult) (pediatric); M54.50 Low back pain, unspecified; Z79.82 Long term (current) use of aspirin; Z79.84 Long term (current) use of oral hypoglycemic drugs; Z79.899 Other long term (current) drug therapy; Z98.84 Bariatric surgery status; Z13.31 Encounter for screening for depression; Z13.39 Encounter for screening examination for other mental health and behavioral disorders
CPT/HCPCS: 72100; 83036; 96127; 99212

== ENCOUNTER → 2025-04-12 15:24 | Outpatient (BNV) | payer MEDICARE, MEDICAID, SELFPAY | PROVIDERS: PCP Internal Medicine; Visit Provider Radiology Diagnostic Radiology | DX: M51.369 Other intervertebral disc degeneration, lumbar region without mention of lumbar back pain or lower extremity pain (principal) | CPT/HCPCS: 72100 ==

== ENCOUNTER 2025-04-18 11:33 | Emergency (ER) | payer MEDICARE, MEDICAID, SELFPAY ==
--- NOTE | 2025-04-18 11:49 | ED.GENADULT ---
HPI - General Adult General Chief complaint: General Medical Stated complaint: jaw pain Time Seen by Provider: 04/18/25 13:10 Source: patient Mode of arrival: ambulatory Limitations: no limitations History of Present Illness ED Provider: Ese Almanzar PA-C HPI narrative: 50-year-old male with history of hypertension and fatty liver disease presenting to the emergency department today for evaluation of right-sided facial swelling and pain. He reports just waking up with this in the swelling has progressively worsened and her just as much to open and close his jaw and a 2. He is denying any dental pain or sinus or ear pain. He does wear hearing aids at baseline. Does not have any fevers and no pain with moving his neck around her neck pain itself. He denies any recent dental work last dental cleaning was 2 years ago. He has no difficulty with swallowing or painful swallowing. He has not tried to treat this in any way it has never happened to him before his vaccines are up-to-date. He denies any trauma left side is unaffected. No paresthesias. He denies any bony tenderness Related Data Home Medications ?Medication ?Instructions ?Recorded ?Confirmed folic acid 1 mg tablet 1 mg PO DAILY 07/14/20 04/12/25 meclizine 25 mg tablet 25 mg PO TID PRN Vertigo 07/14/20 04/12/25 aspirin 81 mg tablet,delayed 81 mg PO DAILY 11/15/20 04/12/25 release nitroglycerin 0.4 mg sublingual 0.4 mg sublingual Q5M PRN Chest 11/15/20 04/12/25 tablet (Nitrostat) Pain syringe with needle 1 mL 27 x 1/2 #1 ea 05/17/21 04/12/25 (BD Tuberculin Syringe) celecoxib 200 mg capsule 200 mg PO BID PRN 10/28/23 04/12/25 Previous Rx's ?Medication ?Instructions ?Recorded blood pressure monitor (Blood #1 ea 04/16/21 Pressure Kit) docusate sodium 100 mg capsule 100 mg PO BID 90 days #180 caps 10/11/22 escitalopram oxalate 5 mg tablet 5 mg PO DAILY #90 tabs 07/25/23 ferrous sulfate 325 mg (65 mg 325 mg PO DAILY #90 tabs 08/02/24 iron) tablet lidocaine 5 % topical patch 1 patch topical DAILY 90 days #90 11/04/24 ea sennosides 8.6 mg tablet (senna) 17.2 mg (2 x 8.6 mg) PO BEDTIME 08/02/24 for constipation #180 tabs zinc gluconate 50 mg tablet 50 mg PO QWEEK #20 tabs 08/02/24 blood sugar diagnostic (FreeStyle 1 strip miscellaneous .QD 90 days 09/19/24 Lite Strips) #100 strips spironolactone 25 1 tab PO DAILY #90 tabs 09/20/24 mg-hydrochlorothiazide 25 mg tablet infliximab 100 mg intravenous See Rx Instructions IV .COMPLEX #1 09/24/24 solution (Remicade) ea metformin 500 mg tablet 500 mg PO BIDWMEAL #180 tabs 09/24/24 methotrexate sodium 25 mg/mL See Rx Instructions subcut 09/24/24 injection solution .COMPLEX #10 mL hydroxyzine HCl 25 mg tablet 25 mg PO BEDTIME PRN for anxiety 10/11/24 #90 tabs irbesartan 300 mg tablet 300 mg PO DAILY #90 tabs 11/17/24 albuterol sulfate 90 mcg/actuation 2 puff inhalation Q4H PRN for 01/21/25 aerosol inhaler wheezing #8.5 ea fluticasone propionate 50 2 spray intranasal DAILY #48 mL 02/17/25 mcg/actuation nasal spray,suspension metoprolol tartrate 25 mg tablet 25 mg PO BID #180 tabs 03/23/25 amlodipine 10 mg tablet 5 mg (1/2 x 10 mg) PO DAILY #90 03/24/25 tabs lancets 28 gauge (FreeStyle 1 gauge topical .QD 90 days #100 04/11/25 Lancets) caps lorazepam 1 mg tablet 1 mg PO BID 90 days #180 tabs 04/11/25 empagliflozin 10 mg tablet 10 mg PO DAILY #30 tabs 04/12/25 (Jardiance) atorvastatin 20 mg tablet 20 mg PO DAILY #90 tabs 04/13/25 amoxicillin 875 mg tablet 875 mg PO BID #20 tabs 04/18/25 Allergies Allergy/AdvReac Type Severity Reaction Status Date / Time Iodinated Contrast Media Allergy Mild HIVE AND Verified 04/18/25 11:53 (Iodinated Contrast Media - ITCHINESS IV Dye) ON FACE Review of Systems Review of Systems: Yes all other systems are reviewed and are negative PMFSH Past Medical History Attestation statement: The following information was validated with the patient. Source: old records reviewed, nursing notes reviewed and other (RME reviewed) Medical History Type 2 diabetes mellitus with unspecified complications Liver lesion Screening for prostate cancer History of COVID-19 COVID-19 virus infection Personal history of nicotine dependence Morbid obesity with BMI of 40.0-44.9, adult Atherosclerotic cardiovascular disease Suspected deep vein thrombosis Leg swelling Type 2 diabetes mellitus with hyperglycemia GERD (gastroesophageal reflux disease) Vitamin D deficiency Left renal mass Rheumatoid arthritis H/O hidradenitis suppurativa Lung nodule Vertigo Anxiety Asthma Obstructive sleep apnea Hyperlipidemia Surgical History History of bronchoscopy (~2020) History of cystoscopy (~2013) Status post biopsy of kidney (~2013) History of surgical removal of pilonidal cyst (~1990) S/P laparoscopic sleeve gastrectomy (~2017) Family History Family History Father Heart problem Acute arthritis Mother Breast cancer Diabetes mellitus Liver cancer Son No problems noted. Maternal Uncle Myocardial infarct Maternal Aunt Breast cancer Social History Social History Housing: Apartment Alcohol intake: never Patient Tobacco Use Status: Former Tobacco user Tobacco use type: Cigarette Cigarettes Per Day: 15 Years Smoked: 15 e-Cigarette/Vaping Use: Never Used Second Hand Smoke Exposure: No Advance Directives: No Advance Directives Information Provided: Yes service: No Current occupational status: disabled Cognitive needs: No Hearing needs: Yes (hearig aide) Vision needs: Yes (glasses) Physical Exam ED Vital Signs: Vital Signs - 24 hr 04/18/25 11:52 Temperature 97.7 F Pulse Rate 82 Respiratory Rate 18 Blood Pressure 138/94 H Pulse Oximetry 97 Oxygen Delivery Method Room Air BMI result Body Mass Index 41.1 General: Appears in no acute distress, appears well nourished body habitus is obese, appears stated age. No septic or ill-appearing. Vitals reviewed normal, PMH/Social and Surgical hx reviewed including allergies and current medications. - reviewed for prior visits here Head: Normocephalic, no abnormal lesions noted. Eyes: EOMI. conj and sclera clear ENMT: moist oral mucosa, no edematous nasal turbinates, erythema, or purulent d/c noted. No erythema, normal appearing and intact tympanic membrane. Hearing intact. No mastoid tenderness b/l. Normal posterior pharynx and structures. Uvula is midline no trismus. right parotid gland appears slightly enlarged tender, but no fluctuance or erythema Neck: trachea midline, no lymphadenopathy. No nuchal rigidity. Cardiovascular: peripheral perfusion normal, S1 and S2 present, no M/R/G. RRR Respiratory: no respiratory distress, lungs clear to auscultation b/l, respirations full and symmetric. No flail chest, chest wall tenderness or crepitus noted. Speaking in full smooth sentences. Abdomen: obese Extremities: Warm and appear well perfused. Moving extremities without difficulty. Psych: Cooperative, calm. Neuro: Alert and orientated. No obvious focal deficits. Course Course Course Narrative: This is an RME performed by Mary Langford CNP: Additional HPI, ROS, PE not included below will be deferred to primary provider. Patient is a 50-year-old male with past medical history of type 2 diabetes, obesity, ASCVD, GERD, hyperlipidemia, hypertension, history of laparoscopic sleeve gastrectomy, rheumatoid arthritis on Remicade, vitamin-D deficiency, asthma, HELEN with CPAP, anxiety, vertigo presenting for evaluation of right jaw swelling and pain, denies any dental pain. Onset this morning. Reports associated clicking of the jaw, no history of this in past, and painful chewing. Denies fevers, chills, sore throat, recent URI symptoms, drainage from the ear, neck pain, foul tase in mouth. Right TM without evidence of a of cerumen in external canal no evidence of otitis externa. No mastoiditis. Localized tenderness upon palpation swelling to the preauricular area. No visible dental abscess. normal posterior oropharynx. No alivary duct obstruction noted Medical Decision Making Medical Decision Making MDM Narrative: Well-appearing 50-year-old male with acute onset of right-sided facial swelling over the parotid gland region. 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 No dental pain either. He does have soft tissue swelling of this parotid gland area that is unilateral. Light erythema developing concerning for infected salivary gland he is not septic or toxic appearing labs were deferred. Considered viral etiology as well as just mechanical block of salivary stone. No abscess at this time. He has not been on methotrexate for the past few weeks therefore no interaction with Augmentin. Discussed supportive care vs antibiotics and disease process complications and reasons to seek medical attention again. No evidence of AOM/ AOE, malignant AOM/AOE, mastoiditis, BOAT LABORER, RPA< strep, uvulitis, or candelaria's angina. No tooth/dental infection at this time. Pain controlled. He is hydrated. As he farias snot appear ill or toxic and is able to maintain his secretions, I did not feel CT/ face/neck (kiersten in setting of him having allergy to IV contrast) or admission was indicated at this time. Will trial supportive care and abx. Plan as below. Patient demonstrated verbal understanding of the plan and agreed; he was d/c to home stable. Differential Diagnosis Differential Diagnoses: The differential diagnosis associated with the presentation includes See [facility] Admission/Observation Consideration of admission/observation: Escalation of care including admission/observation considered Lab Data MDM Lab Attestation statement: I reviewed the patient's lab results. No leukocytosis. 04/18/25 12:35 04/18/25 12:35 Labs: Lab Results 04/18/25 Range/Units 12:35 WBC 10.4 (4.8-10.8) X10*3/uL RBC 4.71 (4.60-5.80) X10*6/uL Hgb 13.2 L (14.0-18.0) g/dl Hct 39.8 L (42.0-52.0) % MCV 84.5 (80.0-98.0) fL MCH 28.0 (27.0-33.0) pg MCHC 33.2 (31.0-36.0) g/dl RDW 12.7 (11.0-16.0) % Plt Count 287 (160-400) X10*3/uL MPV 10.1 (9.4-12.4) fL Immature Gran % (Auto) 0.5 H (0.0-0.4) % Neut % (Auto) 72.9 (45-73) % Lymph % (Auto) 17.4 L (20-40) % [place] % (Auto) 6.5 (2-11) % Eos % (Auto) 2.1 (0-4) % Baso % (Auto) 0.6 (0-2) % Lymph # (Auto) 1.8 (1.2-4.9) X10*3/uL [place] # (Auto) 0.7 (0.1-1.2) X10*3/uL Eos # (Auto) 0.2 (0.0-0.4) X10*3/uL Baso # (Auto) 0.1 (0.0-0.2) X10*3/uL Abs Immat Gran (auto) 0.05 H (0.00-0.03) X10*3/uL Absolute Neuts (auto) 7.6 (2.0-8.3) x10*3/uL Absolute Nucleated RBC 0.000 (0.0-0.012) X10*3/uL Nucleated RBC % (auto) 0.0 (0.0-0.2) /100WBC Sodium 139 (135-145) mmol/L Potassium 4.4 (3.3-5.1) mmol/L Chloride 102 (96-108) mmol/L Carbon Dioxide 27 (22-29) mmol/L Anion Gap 14 (12-20) BUN 16 (9-16) mg/dL Creatinine 1.15 (0.5-1.4) mg/dL Estim Creat Clear Calc 79.9 Estimated GFR > 60 Random Glucose 200 H (60-115) mg/dL Calcium 9.9 (8.4-10.2) mg/dL Total Bilirubin 0.3 (0.0-1.0) mg/dL AST 46 H (5-37) U/L ALT 89 H (0-40) U/L Alkaline Phosphatase 71 (39-117) U/L Total Protein 8.1 H (6.5-8.0) g/dL Albumin 4.6 (3.5-5.0) g/dL Tests considered The following testing was considered but not selected: See mDM Prescription Management I considered prescription management with: Pain Medication and Antibiotic Chronic Conditions Patient?s care impacted by: Hypertension and Other (obesity) Social Determinants Patient?s care significantly limited by Social Determinants of Health including: Other Social Determinant of Health Discharge Plan Discharge Clinical Impression: Acute sialoadenitis Patient Disposition: Home, Self-Care Instructions: Sialoadenitis (ED) Additional Instructions: History and physical exam most consistent with sialolithiasis/salivary duct stones and blockage with potential for infected glands at this time. The most common cause of parotid gland swelling is a salivary stone (sialolithiasis) blocking the flow of saliva. Dehydration, poor oral hygiene, and medications that reduce saliva production (like antihistamines or diuretics) can increase the risk. This blockage can lead to saliva backup, causing swelling and discomfort, even without infection. At home: - Maintain good oral hygiene by brushing twice a day and flossing daily. - Drink plenty of water to promote saliva production and flush out small stones. - Apply warm compress to the affected area several times a day to reduce swelling. - Gently massage the affected gland to dislodge small stones. - Use sugarless gum or sour candies to stimulate saliva flow. - Use [id number] pain relievers for discomfort. - Avoid trigger foods that may worsen salivary gland swelling. - Attend follow-up appointment for monitoring and healing assessment. - Follow a soft diet to minimize strain on salivary glands. - Avoid tobacco and alcohol as they can worsen the condition. - Watch for signs of infection and seek medical attention if they occur. - Stay hydrated by drinking water regularly. - Maintain good oral health and visit the dentist regularly. If the swelling persists or becomes painful, seek medical attention. You may require further intervention and or PO/IV antibiotics if it becomes infected. I showed you images of what to be concerned about such as facial redness, increased swelling, pain, and or fevers, and or the inability to drink. Please do not let it get to that point! You may need to see and Ears, Nose and Throat specialist. Please schedule follow up with your PCP, return here for acute concerns. Prescriptions: New amoxicillin 875 mg tablet 875 mg PO BID Qty: 20 0RF Rx Instructions: Patient not currently taking MTX No Action docusate sodium 100 mg capsule 100 mg PO BID 90 Days Qty: 180 3RF escitalopram oxalate 5 mg tablet 5 mg PO DAILY Qty: 90 3RF sennosides [senna] 8.6 mg tablet 17.2 mg PO BEDTIME Qty: 180 3RF lidocaine 5 % adhesive patch,medicated 1 patch topical DAILY 90 Days Qty: 90 3RF Rx Instructions: leave on most painful area for up to 12 hrs ferrous sulfate 325 mg (65 mg iron) tablet 325 mg PO DAILY Qty: 90 2RF zinc gluconate 50 mg tablet 50 mg PO QWEEK Qty: 20 0RF FreeStyle Lite Strips Strip 1 strip miscellaneous .QD 90 Days Qty: 100 3RF spironolacton-hydrochlorothiaz 25-25 mg tablet 1 tab PO DAILY Qty: 90 3RF hydroxyzine HCl 25 mg tablet 25 mg PO BEDTIME PRN (Reason: for anxiety) Qty: 90 3RF irbesartan 300 mg tablet 300 mg PO DAILY Qty: 90 2RF albuterol sulfate 90 mcg/actuation HFA aerosol inhaler 2 puff inhalation Q4H PRN (Reason: for wheezing) Qty: 8.5 2RF fluticasone propionate 50 mcg/actuation spray,suspension 2 spray intranasal DAILY Qty: 48 5RF metoprolol tartrate 25 mg tablet 25 mg PO BID Qty: 180 2RF amlodipine 10 mg tablet 5 mg PO DAILY Qty: 90 2RF lancets [FreeStyle Lancets] 28 gauge misc 1 gauge topical .QD 90 Days Qty: 100 3RF lorazepam 1 mg tablet 1 mg PO BID 90 Days Qty: 180 0RF atorvastatin 20 mg tablet 20 mg PO DAILY Qty: 90 2RF (DME) blood pressure monitor [Blood Pressure Kit] Kit See Rx Instructions .ROUTE .MEDSUPPLY Qty: 1 0RF Rx Instructions: As directed aspirin 81 mg tablet,delayed release (DR/EC) 81 mg PO DAILY nitroglycerin [Nitrostat] 0.4 mg tablet, sublingual 0.4 mg sublingual Q5M PRN (Reason: Chest Pain) Rx Instructions: do not exceed 3 doses per episode folic acid 1 mg tablet 1 mg PO DAILY meclizine 25 mg tablet 25 mg PO TID PRN (Reason: Vertigo) celecoxib 200 mg capsule 200 mg PO BID PRN (DME) BD Tuberculin Syringe 1 mL 27 x 1/2 syringe See Rx Instructions subcut QWEEK Qty: 1 Rx Instructions: As directed methotrexate sodium 25 mg/mL solution See Rx Instructions subcut .COMPLEX Qty: 10 0RF Rx Instructions: subcut; infliximab [Remicade] 100 mg recon soln See Rx Instructions IV .COMPLEX Qty: 1 0RF Rx Instructions: once a week IV; 07/06/2021 metformin 500 mg tablet 500 mg PO BIDWMEAL Qty: 180 2RF Jardiance 10 mg tablet 10 mg PO DAILY Qty: 30 3RF Referrals: Saeid Singh MD [Primary Care Provider, Internal Medicine] Referral Note: follow up sialadenitis Discharge Date/Time: 04/18/25 22:21 Print Language: [place] Islander
[2025-04-18 11:52] VITALS: BP 138/94; PULSE 82; RESP 18; TEMP 36.5; O2SAT 97; BMI 41.1
[2025-04-18 12:44] LABS: MANUAL DIFF FLAG NO
[2025-04-18 12:46] LABS: Hematocrit 39.8 % (42.0-52.0); Hemoglobin 13.2 g/dl (14.0-18.0); Imm Gran Abs Auto 0.05 X10*3/uL (0.00-0.03); Imm Gran Pct Auto 0.5 % (0.0-0.4); Lymphocytes Absolute Auto 1.8 X10*3/uL (1.2-4.9); Mean Corpuscular HGB Conc 33.2 g/dl (31.0-36.0); Mean Corpuscular Hemoglobin 28.0 pg (27.0-33.0); Mean Corpuscular Volume 84.5 fL (80.0-98.0); NRBC Abs Auto 0.000 X10*3/uL (0.0-0.012); NRBC Pct Auto 0.0 /100WBC (0.0-0.2); Platelet Count 287 X10*3/uL (160-400); Red Blood Count 4.71 X10*6/uL (4.60-5.80); White Blood Count 10.4 X10*3/uL (4.8-10.8)
[2025-04-18 13:02] LABS: Alanine Aminotransferase 89 U/L (0-40); Albumin Level 4.6 g/dL (3.5-5.0); Alkaline Phosphatase 71 U/L (39-117); Anion Gap 14 (12-20); Aspartate Amino Transferase 46 U/L (5-37); Blood Urea Nitrogen 16 mg/dL (9-16); Calcium 9.9 mg/dL (8.4-10.2); Carbon Dioxide 27 mmol/L (22-29); Chloride 102 mmol/L (96-108); Creatinine Clr Calc Pharmacy 79.9; Estimated Glomerular Filt Rate > 60; Potassium 4.4 mmol/L (3.3-5.1); Sodium 139 mmol/L (135-145); Total Protein 8.1 g/dL (6.5-8.0)
--- OUTSIDE RECORDS SUMMARY | 2025-04-18 13:42 | XMS_ITS | Clinical Summary ---
Author Organization [facility] Address [address] [place] [address] Phone Care Team Providers Care Supply Tech Name Role Phone Saeid Singh MD Primary Care Provider [phone] Jody Sheldon MD Unavailable [phone] Allergies Active Allergy Reactions Criticality Noted Date Comments Iodinated Contrast Media Itching Low 08/18/2017 Medications aspirin 81 MG EC tablet Take 81 mg by mouth daily. Active docusate sodium (COLACE) 100 MG capsule daily as needed. Active lidocaine (LIDODERM) 5 % Place 1 patch onto the skin daily. Active LORazepam (ATIVAN) 1 MG tablet Take 1 mg by mouth 2 (two) times a day. Active albuterol 90 mcg/actuation inhaler 1-2 puffs as needed Active meclizine (ANTIVERT) 25 MG tabletIndications: vertigo,takes as needed only Take 25 mg by mouth every 8 (eight) hours. Indications: sensation of spinning or whirling, takes as needed only Active escitalopram oxalate (LEXAPRO) 5 MG tablet Take 5 mg by mouth daily. Active atorvastatin (LIPITOR) 10 MG tablet Take 20 mg by mouth daily. Active METOPROLOL SUCCINATE ORALIndications:ch anged to BID regular release Take 25 mg by mouth 2 (two) times a day. Indications: changed to BID regular release Active therapeutic multivitamin tablet Take 1 tablet by mouth daily. Active amLODIPine (NORVASC) 5 MG tablet Take 5 mg by mouth daily. Active fluticasone propionate (FLONASE NASL) 50 mcg by Nasal route. Active polyethylene glycol 3350 (MIRALAX ORAL) Take by mouth as needed. Active ferrous sulfate 325 mg (65 mg [place] iron) tablet Take 325 mg by mouth daily with breakfast. Active hydrOXYzine (ATARAX) 25 MG tablet Take 25 mg by mouth nightly at bedtime. Active irbesartan (AVAPRO) 150 MG tablet Take 300 mg by mouth daily. Active syringe with needle (BD SAFETYGLIDE TB REG BEVEL) 1 mL 27 x 1/2 SyrgIndications:Se ropositive rheumatoid arthritis of multiple sites,On methotrexate therapy Inject 1 each under the skin every 7 days. 50 each 1 09/14/20 21 Active SENNA 8.6 mg tablet TAKE 2 TABLETS BY MOUTH AT BEDTIME NEEDED CONSTIPATION 01/26/20 22 Active inFLIXimab-dyyb (INFLECTRA) 100 mg injectionIndicatio ns:rheumatoid arthritis Inject 5,310 mg into the vein once. Returned to Inflectra infusions on 02/07/23 after long absence (last infusion on 08/13/2021). Indications: rheumatoid arthritis Active spironolactone-hyd roCHLOROthiazide (ALDACTAZIDE) 25-25 mg per tablet Take 0.5 tablets by mouth every morning. 05/29/20 23 Active metFORMIN (GLUCOPHAGE) 500 MG tablet Take 500 mg by mouth 2 (two) times a day with meals. 10/01/19 24 Active folic acid (FOLVITE) 1 MG tabletIndications: Seropositive rheumatoid arthritis of multiple sites take 1 tablet by mouth every day 90 tablet 3 02/25/20 24 Active celecoxib (CELEBREX) 200 MG capsuleIndications :Rheumatoid arthritis involving multiple sites with positive rheumatoid factor Take 1 capsule (200 mg total) by mouth 2 (two) times a day. 180 capsule 1 08/30/20 24 Active methotrexate sodium 25 mg/mL injectionIndicatio ns:Seropositive rheumatoid arthritis of multiple sites Inject 1 mL (25 mg total) under the skin every 7 days. 12 mL 1 03/02/20 25 Active oxyCODONE HCl 10 mg TabIndications:Delia miguel osteoarthritis involving multiple joints,Seropositiv e rheumatoid arthritis of multiple sites Take 1 tablet (10 mg total) by mouth 2 (two) times a day as needed (severe pain). Pt. may request partial fill 56 tablet 03/30/20 25 025 Active oxyCODONE HCl 10 mg TabIndications:Delia rivera osteoarthritis involving multiple joints,Seropositiv e rheumatoid arthritis of multiple sites Take 1 tablet (10 mg total) by mouth 2 (two) times a day as needed (severe pain). Pt. 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 Aim at blood glucose 90-120 mg % Rotator cuff arthropathy of left shoulder 2022 Assessment & Plan (06/17/2023 10:29 PM EDT): Use warm packs versus warm shower prior to gentle, regular ROM, stretching and muscle strengthening exercises. Examples of exercises with pictures and detailed instructions printed for home use today. May need to consider formal PT if not better despite above strategies. He may benefit from topical Voltaren, Arnica, Biofreeze versus medicated patches such as Salonpas or IcyHot patch Class 2 severe obesity due t o excess calories with serious comorbidity and body mass index (BMI) of 38.0 to 38.9 in adult 03/25/2023 Assessment & Plan (03/29/2025 7:22 PM EDT): Encouraged to continue diligent portion control particularly in view of gaining 12 pounds from 213 on 08/30/2024 up to 225 today. Limit concentrated sugars, saturated fats and calories in the diet. Keep well-hydrated. If unable to achieve expected goal consider formal dietary/nutritional support. Assessment & Plan (03/25/2023 5:30 PM EDT): Encouraged to continue diligent portion control. Limit concentrated sugars, saturated fats and calories in the diet. Keep well-hydrated. If unable to achieve expected goal consider formal dietary/nutritional support. Medial epicondylitis of left elbow 03/10/2023 Assessment & Plan (03/25/2023 5:27 PM EDT): Avoid prolonged, repetitive use of forearm especially lifting on outstretched arms, pulling and pushing. Use warm packs prior to gentle, regular stretching and muscle strengthening exercises -examples of exercises with pictures and detailed instructions printed for home use. Topical cream versus patch may provide additional benefit. May need to consider medial elbow pad for extended activities. If symptoms do not improve despite above measures former PT versus local steroid injection will be considered. Seropositive rheumatoid arthritis of multiple si chato 08/21/2022 Assessment & Plan (03/29/2025 7:18 PM EDT): Clinically appears stable-carefully continue weekly methotrexate 1.0 cc= 25 mg every week on , continue daily folic acid & every 6 weeks Remicade . Avoid sick contacts. Joint protection, energy conservation. Get labs monitoring safety and efficacy at least every 6 weeks-standing orders in epic. Call if questions or problems. Assessment & Plan (08/30/2024 3:06 PM EST): After holding weekly methotrexate for 2 doses to optimize benefit from today's yearly influenza vaccination carefully continue weekly methotrexate 1.0 cc= 25 mg every week on , continue daily folic acid & every 6 weeks Remicade . Avoid sick contacts. Joint protection, energy conservation. Get labs monitoring safety and efficacy at least every 6 weeks-standing orders in epic. Call if questions or problems. Assessment & Plan (04/28/2024 4:16 PM EDT): Carefully continue weekly methotrexate 1.0 cc= 25 mg every week on , continue daily folic acid & every 6 weeks Remicade . Avoid sick contacts. Joint protection, energy conservation. Get labs monitoring safety and efficacy at least every 6 weeks-standing orders in epic. Call if questions or problems. Assessment & Plan (06/17/2023 10:28 PM EDT): Carefully continue weekly methotrexate 1.0 cc= 25 mg every week on , continue daily folic acid & every 6 weeks Remicade . Avoid sick contacts. Joint protection, energy conservation. Get labs monitoring safety and efficacy at least every 6 weeks-standing orders in epic. Call if questions or problems. Assessment & Plan (03/25/2023 5:25 PM EDT): Carefully continue weekly methotrexate 0.4 cc= 10 mg every week on Friday, continue daily folic acid & every 6 weeks Remicade after reassuring colonoscopy. Avoid sick contacts. Joint protection, energy conservation. Get labs monitoring safety and efficacy at least every 6 weeks-standing orders in [facility]. Call if questions or problems. History of rectal bleeding 12/14/2021 Assessment & Plan (02/13/2022 3:19 PM EDT): Close f/u with GI as scheduled. Assessment & Plan (12/22/2021 1:40 PM EDT): Close f/u with GI as scheduled. Aspirin long-term use 12/14/2021 Assessment & Plan (08/30/2024 2:31 PM EST): Avoid falls, injuries and cuts. Monitor for excessive bruising and bleeding. Assessment & Plan (04/28/2024 4:20 PM EDT): Avoid falls, injuries and cuts. Monitor for excessive bruising and bleeding. Assessment & Plan (10/24/2023 1:56 PM EST): Avoid falls, injuries and cuts. Monitor for excessive bruising and bleeding. Assessment & Plan (03/10/2023 2:12 PM EDT): Avoid falls, injuries and cuts. Monitor for excessive bruising and bleeding. Assessment & Plan (03/03/2022 9:44 PM EDT): Hold till GI bleeding source worked up. Avoid falls, injuries and cuts. Monitor for excessive bruising and bleeding. Assessment & Plan (12/14/2021 4:04 PM EDT): Avoid falls, injuries and cuts. Monitor for excessive bruising and bleeding. Advice given about COVID-19 virus infection 11/27 Assessment & Plan (08/21/2022 3:19 PM EST): Get yearly influenza & bivalent COVID-19 vaccine and skip 2 weekly Methotrexate doses. Assessment & Plan (03/03/2022 9:45 PM EDT): I have educated Jorge Luis to get COVID -19 3rd vaccine dose now so he can benefit maximally rather than fit it in between every 6 wks Remicade infusions. He is educated to call within first 24-48 hrs from COVID-19 infection once positive to review need for Paxlovid versus IV monoclonal antibody therapy. Assessment & Plan (12/22/2021 1:44 PM EDT): I have educated Jorge Luis to get COVID -19 3rd vaccine dose now so he can benefit maximally rather than fit it in between every 6 wks Remicade infusions. He is educated to call within first 24-48 hrs from COVID-19 infection once positive. Other headache syndrome 03/09/2021 Wears hearing aid in both ears 03/09/2021 Assessment & Plan (03/29/2025 7:20 PM EDT): Continue regular follow-up with inspector assembly as scheduled to maintain best quality of hearing aids function. Advice given about COVID-19 virus by telephone 0 12/22/2020 Assessment & Plan (12/22/2020 3:03 PM EDT): Continue social distancing, wearing facial mask and diligent hand hygiene. I reviewed with him that as long as he did not have any allergic reactions to prior vaccinations he should get the COVID-19 vaccine as soon as available. No need to adjust dosing of Remicade for it. Chronic pain of both knees 03/06/2018 Infliximab (Remicade) long-term use 11/29/2017 Assessment & Plan (03/02/2025 3:49 PM EDT): Carefully restart every 6 weeks Remicade infusions at [facility] since colonoscopy returned reassuring. Get labs monitoring safety and efficacy of therapy at least every 6 weeks- standing orders in [facility] Monitor carefully for any signs of developing infection such as fever, excessive tiredness, flulike symptoms, headaches, cough, skin rashes etc. Make sure to inform any new Medical doctor, SMOCKER or PA about chronic immunosuppression with methotrexate and Remicade especially in emergency situations Assessment & Plan (08/30/2024 2:30 PM EST): Carefully restart every 6 weeks Remicade infusions at [facility] since colonoscopy returned reassuring. Get labs monitoring safety and efficacy of therapy at least every 6 weeks- standing orders in epic Monitor carefully for any signs of developing infection such as fever, excessive tiredness, flulike symptoms, headaches, cough, skin rashes etc. Make sure to inform any new Medical doctor, SMOCKER or PA about chronic immunosuppression with methotrexate and Remicade especially in emergency situations Assessment & Plan (04/28/2024 4:18 PM EDT): Carefully restart every 6 weeks Remicade infusions at [facility] since colonoscopy returned reassuring. Get labs monitoring safety and efficacy of therapy at least every 6 weeks- standing orders in epic Monitor carefully for any signs of developing infection such as fever, excessive tiredness, flulike symptoms, headaches, cough, skin rashes etc. Make sure to inform any new Medical doctor, SMOCKER or PA about chronic immunosuppression with methotrexate and Remicade especially in emergency situations Assessment & Plan (06/12/2023 3:39 PM EDT): Carefully restart every 6 weeks Remicade infusions at [facility] since colonoscopy returned reassuring. Get labs monitoring safety and efficacy of therapy at least every 6 weeks- standing orders in epic Monitor carefully for any signs of developing infection such as fever, excessive tiredness, flulike symptoms, headaches, cough, skin rashes etc. Make sure to inform any new Medical doctor, SMOCKER or PA about chronic immunosuppression with methotrexate and Remicade especially in emergency situations Assessment & Plan (03/10/2023 2:12 PM EDT): Carefully restart every 6 weeks Remicade infusions at [facility] since colonoscopy returned reassuring. Get labs monitoring safety and efficacy of therapy at least every 6 weeks- standing orders in epic Monitor carefully for any signs of developing infection such as fever, excessive tiredness, flulike symptoms, headaches, cough, skin rashes etc. Make sure to inform any new Medical doctor, SMOCKER or PA about chronic immunosuppression with methotrexate and Remicade especially in emergency situations Assessment & Plan (09/15/2022 9:31 PM EST): Carefully restart every 6 weeks Remicade infusions at [facility] since colonoscopy returned reassuring. Get labs monitoring safety and efficacy of therapy at least every 6 weeks- standing orders in epic Monitor carefully for any signs of developing infection such as fever, excessive tiredness, flulike symptoms, headaches, cough, skin rashes etc. Make sure to inform any new Medical doctor, SMOCKER or PA about chronic immunosuppression with methotrexate and Remicade especially in emergency situations Assessment & Plan (03/03/2022 9:43 PM EDT): Hold until clarified regarding GI bleeding by colonoscopy & GI systems consultant. Get labs monitoring safety and efficacy of therapy at least every 6 weeks- standing orders in epic Monitor carefully for any signs of developing infection such as fever, excessive tiredness, flulike symptoms, headaches, cough, skin rashes etc. Make sure to inform any new Medical doctor, SMOCKER or PA about chronic immunosuppression with methotrexate and Remicade especially in emergency situations Assessment & Plan (12/14/2021 4:04 PM EDT): Get labs monitoring safety and efficacy of therapy at least every 6 weeks- standing orders in epic Monitor carefully for any signs of developing infection such as fever, excessive tiredness, flulike symptoms, headaches, cough, skin rashes etc. Make sure to inform any new Medical doctor, SMOCKER or PA about chronic immunosuppression with methotrexate and Remicade especially in emergency situations Assessment & Plan (09/14/2021 3:35 PM EST): Get labs monitoring safety and efficacy of therapy at least every 6 weeks- standing orders in epic Monitor carefully for any signs of developing infection such as fever, excessive tiredness, flulike symptoms, headaches, cough, skin rashes etc. Make sure to inform any new Medical doctor, SMOCKER or PA about chronic immunosuppression with methotrexate and Remicade especially in emergency situations Assessment & Plan (06/08/2021 3:50 PM EDT): Get labs monitoring safety and efficacy of therapy at least every 6 weeks- standing orders in epic Monitor carefully for any signs of developing infection such as fever, excessive tiredness, flulike symptoms, headaches, cough, skin rashes etc. Make sure to inform any new Medical doctor, SMOCKER or PA about chronic immunosuppression with methotrexate and Remicade especially in emergency situations Assessment & Plan (04/24/2021 11:13 AM EDT): Get labs monitoring safety and efficacy of therapy at least every 6 weeks- standing orders in epic Monitor carefully for any signs of developing infection such as fever, excessive tiredness, flulike symptoms, headaches, cough, skin rashes etc. Make sure to inform any new Medical doctor, SMOCKER or PA about chronic immunosuppression with methotrexate and Remicade especially in emergency situations Assessment & Plan (01/26/2021 9:19 AM EDT): Get labs monitoring his disease activity and schedule Remicade infusion as soon as possible since he missed it in September and October 2020. Monitor carefully for any signs of developing infection such as fever, excessive tiredness, flulike symptoms, headaches, cough, skin rashes etc. Make sure to inform any new Medical doctor, SMOCKER or PA about chronic immunosuppression with methotrexate and Remicade especially in emergency situations Assessment & Plan (12/22/2020 2:58 PM EDT): Get labs monitoring his disease activity and schedule Remicade infusion as soon as possible since he missed it in September and October 2020. Monitor carefully for any signs of developing infection such as fever, excessive tiredness, flulike symptoms, headaches, cough, skin rashes etc. Make sure to inform any new Medical doctor, SMOCKER or PA about chronic immunosuppression with methotrexate and Remicade especially in emergency situations Assessment & Plan (08/06/2020 7:36 PM EST): Since clinically and laboratory ryan patient is stable I agree with postponing tomorrow's Remicade infusion due to increased risk of teena unusual infections while on chronic immunosuppression including Covid19 in addition to being diabetic and hypertensive. Monitor carefully for any signs of developing infection such as fever, excessive tiredness, flulike symptoms, headaches, cough, skin rashes etc. Make sure to inform any new Medical doctor, SMOCKER or PA about chronic immunosuppression with methotrexate and Remicade especially in emergency situations Assessment & Plan (01/10/2020 1:38 PM EDT): Since clinically and laboratory ryan patient is stable I agree with postponing tomorrow's Remicade infusion due to increased risk of teena unusual infections while on chronic immunosuppression including Covid19 in addition to being diabetic and hypertensive. Monitor carefully for any signs of developing infection such as fever, excessive tiredness, flulike symptoms, headaches, cough, skin rashes etc. Make sure to inform any new Medical doctor, SMOCKER or PA about chronic immunosuppression with methotrexate and Remicade especially in emergency situations . Next infusion on 02/10/20. Assessment & Plan (10/11/2019 1:55 PM EST): Monitor carefully for any signs of developing infection such as fever, excessive tiredness, flulike symptoms, headaches, cough, skin rashes etc. Make sure to inform any new Medical doctor, SMOCKER or PA about chronic immunosuppression with methotrexate and Remicade especially in emergency situations . Next infusion on 10/19/19. Assessment & Plan (08/18/2019 9:38 PM EST): Monitor carefully for any signs of developing infection such as fever, excessive tiredness, flulike symptoms, headaches, cough, skin rashes etc. Make sure to inform any new Medical doctor, SMOCKER or PA about chronic immunosuppression with methotrexate and Remicade especially in emergency situations . Next infusion in 6 weeks from 07/21/2019 (on 09/01/2019). Assessment & Plan (02/14/2019 8:28 PM EDT): Monitor carefully for any signs of developing infection such as fever, excessive tiredness, flulike symptoms, headaches, cough, skin rashes etc. Make sure to inform any new Medical doctor, SMOCKER or PA about chronic immunosuppression with methotrexate and Remicade especially in emergency situations . Next infusion in 6 weeks from 01/29/2019 (on 03/12/2019). Assessment & Plan (11/28/2018 7:44 PM EST): Monitor carefully for any signs of developing infection such as fever, excessive tiredness, flulike symptoms, headaches, cough, skin rashes etc. Make sure to inform any new Medical doctor, SMOCKER or PA about chronic immunosuppression with methotrexate and Remicade especially in emergency situations . Next infusion scheduled for 12/07/18. On methotrexate therapy 10/15/2017 Assessment & Plan (03/02/2025 3:49 PM EDT): Continue subcutaneous administration every 7 days Remain alcohol free while taking methotrexate. Keep well-hydrated. Return for regular checkups as scheduled no later than every 3 months. Hold methotrexate whenever running fever, feeling sick or taking antibiotics. Wait at least 48 hours after last dose of antibiotic before restarting weekly methotrexate on its usual schedule. Monitor for breathing difficulty, chest pain, coughing, mucosal ulcerations, stomach upset, diarrhea etc. Assessment & Plan (08/30/2024 2:30 PM EST): Continue subcutaneous administration every 7 days Remain alcohol free while taking methotrexate. Keep well-hydrated. Return for regular checkups as scheduled no later than every 3 months. Hold methotrexate whenever running fever, feeling sick or taking antibiotics. Wait at least 48 hours after last dose of antibiotic before restarting weekly methotrexate on its usual schedule. Monitor for breathing difficulty, chest pain, coughing, mucosal ulcerations, stomach upset, diarrhea etc. Assessment & Plan (04/28/2024 4:18 PM EDT): Continue subcutaneous administration every 7 days Remain alcohol free while taking methotrexate. Keep well-hydrated. Return for regular checkups as scheduled no later than every 3 months. Hold methotrexate whenever running fever, feeling sick or taking antibiotics. Wait at least 48 hours after last dose of antibiotic before restarting weekly methotrexate on its usual schedule. Monitor for breathing difficulty, chest pain, coughing, mucosal ulcerations, stomach upset, diarrhea etc. Assessment & Plan (06/12/2023 3:40 PM EDT): Continue subcutaneous administration every 7 days Remain alcohol free while taking methotrexate. Keep well-hydrated. Return for regular checkups as scheduled no later than every 3 months. Hold methotrexate whenever running fever, feeling sick or taking antibiotics. Wait at least 48 hours after last dose of antibiotic before restarting weekly methotrexate on its usual schedule. Monitor for breathing difficulty, chest pain, coughing, mucosal ulcerations, stomach upset, diarrhea etc. Assessment & Plan (08/21/2022 3:12 PM EST): Continue subcutaneous administration every 7 days Remain alcohol free while taking methotrexate. Keep well-hydrated. Return for regular checkups as scheduled no later than every 3 months. Hold methotrexate whenever running fever, feeling sick or taking antibiotics. Wait at least 48 hours after last dose of antibiotic before restarting weekly methotrexate on its usual schedule. Monitor for breathing difficulty, chest pain, coughing, mucosal ulcerations, stomach upset, diarrhea etc. Assessment & Plan (03/03/2022 9:42 PM EDT): Continue subcutaneous administration every 7 days Remain alcohol free while taking methotrexate. Keep well-hydrated. Return for regular checkups as scheduled no later than every 3 months. Hold methotrexate whenever running fever, feeling sick or taking antibiotics. Wait at least 48 hours after last dose of antibiotic before restarting weekly methotrexate on its usual schedule. Monitor for breathing difficulty, chest pain, coughing, mucosal ulcerations, stomach upset, diarrhea etc. Assessment & Plan (12/14/2021 4:05 PM EDT): Continue subcutaneous administration every 7 days Remain alcohol free while taking methotrexate. Keep well-hydrated. Return for regular checkups as scheduled no later than every 3 months. Hold methotrexate whenever running fever, feeling sick or taking antibiotics. Wait at least 48 hours after last dose of antibiotic before restarting weekly methotrexate on its usual schedule. Assessment & Plan (09/14/2021 3:36 PM EST): Continue subcutaneous administration every 7 days Remain alcohol free while taking methotrexate. Keep well-hydrated. Return for regular checkups as scheduled no later than every 3 months. Hold methotrexate whenever running fever, feeling sick or taking antibiotics. Wait at least 48 hours after last dose of antibiotic before restarting weekly methotrexate on its usual schedule. Assessment & Plan (06/08/2021 3:48 PM EDT): Continue subcutaneous administration every 7 days Remain alcohol free while taking methotrexate. Keep well-hydrated. Return for regular checkups as scheduled no later than every 3 months. Hold methotrexate whenever running fever, feeling sick or taking antibiotics. Wait at least 48 hours after last dose of antibiotic before restarting weekly methotrexate on its usual schedule. Assessment & Plan (04/19/2021 2:56 PM EDT): Continue subcutaneous administration every 7 days Remain alcohol free while taking methotrexate. Keep well-hydrated. Return for regular checkups as scheduled no later than every 3 months. Hold methotrexate whenever running fever, feeling sick or taking antibiotics. Wait at least 48 hours after last dose of antibiotic before restarting weekly methotrexate on its usual schedule. Assessment & Plan (01/26/2021 9:19 AM EDT): Continue subcutaneous administration every 7 days Remain alcohol free while taking methotrexate. Keep well-hydrated. Return for regular checkups as scheduled no later than every 3 months. Hold methotrexate whenever running fever, feeling sick or taking antibiotics. Wait at least 48 hours after last dose of antibiotic before restarting weekly methotrexate on its usual schedule. Assessment & Plan (12/22/2020 2:59 PM EDT): Continue subcutaneous administration every 7 days Remain alcohol free while taking methotrexate. Keep well-hydrated. Return for regular checkups as scheduled no later than every 3 months. Hold methotrexate whenever running fever, feeling sick or taking antibiotics. Wait at least 48 hours after last dose of antibiotic before restarting weekly methotrexate on its usual schedule. Assessment & Plan (08/06/2020 7:36 PM EST): Continue subcutaneous administration every 7 days on Friday Remain alcohol free while taking methotrexate. Keep well-hydrated. Return for regular checkups as scheduled no later than every 3 months. Hold methotrexate whenever running fever, feeling sick or taking antibiotics. Wait at least 48 hours after last dose of antibiotic before restarting weekly methotrexate on its usual schedule. Assessment & Plan (05/09/2020 10:23 PM EDT): Continue subcutaneous administration every 7 days on Friday Remain alcohol free while taking methotrexate. Keep well-hydrated. Return for regular checkups as scheduled no later than every 3 months. Hold methotrexate whenever running fever, feeling sick or taking antibiotics. Wait at least 48 hours after last dose of antibiotic before restarting weekly methotrexate on its usual schedule. Assessment & Plan (01/10/2020 1:36 PM EDT): Continue subcutaneous administration every 7 days on Friday Remain alcohol free while taking methotrexate. Keep well-hydrated. Return for regular checkups as scheduled no later than every 3 months. Hold methotrexate whenever running fever, feeling sick or taking antibiotics. Wait at least 48 hours after last dose of antibiotic before restarting weekly methotrexate on its usual schedule. Assessment & Plan (10/13/2019 10:30 AM EST): Continue every 7 days on Friday Remain alcohol free while taking methotrexate. Keep well-hydrated. Return for regular checkups as scheduled no later than every 3 months. Hold methotrexate whenever running fever, feeling sick or taking antibiotics. Assessment & Plan (08/18/2019 9:32 PM EST): Continue every 7 days on Friday Remain alcohol free while taking methotrexate. Keep well-hydrated. Return for regular checkups as scheduled no later than every 3 months. Hold methotrexate whenever running fever, feeling sick or taking antibiotics. Assessment & Plan (02/14/2019 8:29 PM EDT): Continue every 7 days on Friday Remain alcohol free while taking methotrexate. Keep well-hydrated. Return for regular checkups as scheduled no later than every 3 months. Hold methotrexate whenever running fever, feeling sick or taking antibiotics. Assessment & Plan (11/28/2018 7:44 PM EST): Continue every 7 days on Friday Remain alcohol free while taking methotrexate. Keep well-hydrated. Return for regular checkups as scheduled no later than every 3 months. Hold methotrexate whenever running fever, feeling sick or taking antibiotics. Rheumatoid arthritis involvi ng multiple sites with positive rheumatoid factor 08/20/2017 Assessment & Plan (08/30/2024 2:36 PM EST): Carefully continue weekly methotrexate 1.0 cc= 25 mg every week on , continue daily folic acid & every 6 weeks Remicade . Avoid sick contacts. Joint protection, energy conservation. Get labs monitoring safety and efficacy at least every 6 weeks-standing orders in epic. Call if questions or problems. Assessment & Plan (05/04/2024 10:24 PM EDT): Clinically and laboratory ryan more active since he methotrexate and missed Remicade in early March 2024 due to his uncle's . He has a follow-up Remicade infusion scheduled for 05/12/2024 and continues weekly methotrexate 0.4 cc every with daily folic acid 1 mg. Avoid sick contacts. Joint protection, energy conservation. Get labs monitoring safety and efficacy at least every 6 weeks-standing orders in epic. Call if questions or problems. Assessment & Plan (10/26/2023 1:59 PM EST): Clinically and laboratory ryan more active since he stopped methotrexate and Remicade in early August from concern regarding side effects from DMARD therapy. He has a follow-up abdominal ultrasound next week that most likely will confirm stability. If no worrisome findings restart weekly methotrexate 0.4 cc every with daily folic acid 1 mg and every 6 weeks IV Remicade at [facility] infusion center. Avoid sick contacts. Joint protection, energy conservation. Get labs monitoring safety and efficacy at least every 6 weeks-standing orders in epic. Call if questions or problems. Assessment & Plan (09/15/2022 9:29 PM EST): Carefully continue weekly methotrexate to 0.4 cc= 10 mg every week on , continue daily folic acid & re-start every 6 weeks Remicade after reassuring colonoscopy. Avoid sick contacts. Joint protection, energy conservation. Get labs monitoring safety and efficacy at least every 6 weeks-standing orders in epic. Call if questions or problems. Assessment & Plan (03/03/2022 9:41 PM EDT): Carefully continue weekly methotrexate to 0.4 cc= 10 mg every week on , continue daily folic acid & hold every 6 weeks Remicade until GI clearance regarding bloody stools after colonoscopy. Avoid sick contacts. Joint protection, energy conservation. Get labs monitoring safety and efficacy at least every 6 weeks-standing orders in epic. Call if questions or problems. Assessment & Plan (12/22/2021 1:40 PM EDT): Carefully continue weekly methotrexate to 0.4 cc= 10 mg every week on , continue daily folic acid & every 6 weeks Remicade as prescribed adjusted for his weight . Avoid sick contacts. Joint protection, energy conservation. Get labs monitoring safety and efficacy at least every 6 weeks-standing orders in epic. Call if questions or problems. Assessment & Plan (09/30/2021 9:48 PM EST): Carefully continue weekly methotrexate to 0.4 cc= 10 mg every week on Friday, continue daily folic acid, Celebrex and every 6 weeks Remicade as prescribed adjusted for his weight . Avoid sick contacts. Joint protection, energy conservation. Get labs monitoring safety and efficacy at least every 6 weeks-standing orders in [facility]. Check if ankle swelling and blood pressure decrease if he reduces Celebrex to once daily administration. Call if questions or problems. Assessment & Plan (06/17/2021 9:02 PM EDT): Carefully increase weekly methotrexate to 0.4 cc= 10 mg every week on , continue daily folic acid, Celebrex and every 6 weeks Remicade as prescribed adjusted for his weight . Avoid sick contacts. Joint protection, energy conservation. Get labs monitoring safety and efficacy at least every 6 weeks-standing orders in [facility]. Get yearly influenza vaccine 3 weeks after Remicade infusion preferably by mid June 2021. Check if ankle swelling and blood pressure decrease if he reduces Celebrex to once daily administration. Call if questions or problems. Assessment & Plan (04/19/2021 2:55 PM EDT): Carefully continue weekly methotrexate, daily folic acid, Celebrex and every 6 weeks Remicade as prescribed adjusted for his weight . Avoid sick contacts. Joint protection, energy conservation. Get labs monitoring safety and efficacy at least every 6 weeks-standing orders in [facility]. Call if questions or problems. Assessment & Plan (01/26/2021 9:16 AM EDT): Carefully continue weekly methotrexate, daily folic acid, Celebrex and every 6 weeks Remicade as prescribed adjusted for his weight . Avoid sick contacts. Joint protection, energy conservation. Get labs monitoring safety and efficacy at least every 6 weeks-standing orders in epic. Call if questions or problems. Assessment & Plan (12/22/2020 3:00 PM EDT): Carefully continue weekly methotrexate, daily folic acid, Celebrex and every 6 weeks Remicade as prescribed adjusted for his weight . Avoid sick contacts. Joint protection, energy conservation. Get labs monitoring safety and efficacy at least every 6 weeks-standing orders in epic. Call if questions or problems. Assessment & Plan (08/06/2020 7:35 PM EST): Carefully continue weekly methotrexate, daily folic acid, Celebrex and every 6 weeks Remicade as prescribed adjusted for his weight loss. Avoid sick contacts. Joint protection, energy conservation. Get labs monitoring safety and efficacy at least every 6 weeks. Get the yearly influenza vaccine today. Call if questions or problems. Assessment & Plan (05/09/2020 10:22 PM EDT): Due to COVID 19 nancie Kang postpones Remicade infusion until 06/01/2020. Carefully continue weekly methotrexate, daily folic acid, Celebrex and every 6 weeks Remicade as prescribed adjusted for his weight loss. Avoid sick contacts. Joint protection, energy conservation. Get labs monitoring safety and efficacy at least every 6 weeks. Get the yearly influenza vaccine by June 2020 Call if questions or problems. Assessment & Plan (01/10/2020 1:34 PM EDT): Due to COVID 19 nancie Kang postpones tomorrow's Remicade infusion by 1 month. Carefully continue weekly methotrexate, daily folic acid, Celebrex and every 6 weeks Remicade as prescribed adjusted for his weight loss. Avoid sick contacts. Joint protection, energy conservation. Get labs monitoring safety and efficacy at least every 6 weeks. Call if questions or problems. Assessment & Plan (10/11/2019 1:53 PM EST): Carefully continue weekly methotrexate, daily folic acid, Celebrex and every 6 weeks Remicade as prescribed adjusted for his weight loss. Avoid sick contacts. Joint protection, energy conservation. Get labs monitoring safety and efficacy at least every 6 weeks. Call if questions or problems. Assessment & Plan (08/18/2019 9:30 PM EST): Carefully continue weekly methotrexate, daily folic acid, Celebrex and every 6 weeks Remicade as prescribed adjusted for his weight loss. Avoid sick contacts. Joint protection, energy conservation. Get labs monitoring safety and efficacy at least every 6 weeks. Call if questions or problems. Assessment & Plan (02/14/2019 8:22 PM EDT): Carefully continue weekly methotrexate, daily folic acid, Celebrex and every 6 weeks Remicade as prescribed adjusted for his significant weight loss. Avoid sick contacts. Joint protection, energy conservation. Get labs monitoring safety and efficacy at least every 6 weeks. Call if questions or problems. Assessment & Plan (11/28/2018 7:41 PM EST): Carefully continue weekly methotrexate, daily folic acid, Celebrex and every 6 weeks Remicade as prescribed. Avoid sick contacts. Joint protection, energy conservation. Get labs monitoring safety and efficacy at least every 6 weeks. Call if questions or problems. Primary osteoarthritis involving multiple joints 08/20/2017 Assessment & Plan (03/02/2025 3:37 PM EDT): Joint protection, energy conservation. Gentle, regular exercise routine. Avoid falls, injuries, overuse. Keep body weight in ideal range for his height. He may benefit from topical cream such as Arnica, Biofreeze, Aspercreme versus medicated patches such as salonpas, icy hot patch 2-3 times daily and if necessary at bedtime x 3 weeks. Assessment & Plan (08/30/2024 2:30 PM EST): Joint protection, energy conservation. Gentle, regular exercise routine. Avoid falls, injuries, overuse. Keep body weight in ideal range for his height. He may benefit from topical cream such as Arnica, Biofreeze, Aspercreme versus medicated patches such as salonpas, icy hot patch 2-3 times daily and if necessary at bedtime x 3 weeks. Assessment & Plan (04/28/2024 4:16 PM EDT): Joint protection, energy conservation. Gentle, regular exercise routine. Avoid falls, injuries, overuse. Keep body weight in ideal range for his height. He may benefit from topical cream such as Arnica, Biofreeze, Aspercreme versus medicated patches such as salonpas, icy hot patch 2-3 times daily and if necessary at bedtime x 3 weeks. Assessment & Plan (10/24/2023 1:54 PM EST): Joint protection, energy conservation. Gentle, regular exercise routine. Avoid falls, injuries, overuse. Keep body weight in ideal range for his height. He may benefit from topical cream such as Arnica, Biofreeze, Aspercreme versus medicated patches such as salonpas, icy hot patch 2-3 times daily and if necessary at bedtime x 3 weeks. Assessment & Plan (06/12/2023 3:38 PM EDT): Joint protection, energy conservation. Gentle, regular exercise routine. Avoid falls, injuries, overuse. Keep body weight in ideal range for his height. He may benefit from topical cream such as Arnica, Biofreeze, Aspercreme versus medicated patches such as salonpas, icy hot patch 2-3 times daily and if necessary at bedtime x 3 weeks. Assessment & Plan (03/10/2023 2:12 PM EDT): Joint protection, energy conservation. Gentle, regular exercise routine. Avoid falls, injuries, overuse. Keep body weight in ideal range for his height. He may benefit from topical cream such as Arnica, Biofreeze, Aspercreme versus medicated patches such as salonpas, icy hot patch 2-3 times daily and if necessary at bedtime x 3 weeks. Assessment & Plan (02/13/2022 3:17 PM EDT): Joint protection, energy conservation. Gentle, regular exercise [...] daily or at least at bedt time 2-3 weeks as needed. Call if worse or with questions. Assessment & Plan (12/14/2021 4:03 PM EDT): Joint protection, energy conservation. Gentle, regular exercise [...] daily or at least at bedt time 2-3 weeks as needed. Call if worse or with questions. Assessment & Plan (09/14/2021 3:32 PM EST): Joint protection, energy conservation. Gentle, regular exercise [...] daily or at least at bedt time 2-3 weeks as needed. Call if worse or with questions. Assessment & Plan (06/08/2021 3:48 PM EDT): Joint protection, energy conservation. Gentle, regular exercise [...] daily or at least at bedt time 2-3 weeks as needed. Call if worse or with questions. Assessment & Plan (04/19/2021 2:56 PM EDT): Joint protection, energy conservation. Gentle, regular exercise [...] daily or at least at bedt time 2-3 weeks as needed. Call if worse or with questions. Assessment & Plan (01/26/2021 9:17 AM EDT): Joint protection, energy conservation. Gentle, regular exercise [...] daily or at least at bedt time 2-3 weeks as needed. Call if worse or with questions. Assessment & Plan (12/22/2020 2:59 PM EDT): Joint protection, energy conservation. Gentle, regular exercise [...] daily or at least at bedt time 2-3 weeks as needed. Call if worse or with questions. Assessment & Plan (08/06/2020 7:35 PM EST): Joint protection, energy conservation. Gentle, regular exercise [...] daily or at least at bedt time 2-3 weeks as needed. Call if worse or with questions. Assessment & Plan (05/08/2020 3:20 PM EDT): Joint protection, energy conservation. Gentle, regular exercise [...] daily or at least at bedt time 2-3 weeks as needed. Call if worse or with questions. Assessment & Plan (01/10/2020 1:35 PM EDT): Joint protection, energy conservation. Gentle, regular exercise [...] daily or at least at bedt time 2-3 weeks as needed. Call if worse or with questions. Assessment & Plan (10/13/2019 10:33 AM EST): Joint protection, energy conservation. Gentle, regular exercise [...] daily or at least at bedt time 2-3 weeks as needed. Call if worse or with questions. Assessment & Plan (08/18/2019 9:31 PM EST): Joint protection, energy conservation. Gentle, regular exercise routine as directed by PT and OT. Avoid falls, injuries, overuse. Limit stair climbing, squatting, kneeling, heavy lifting, sudden turns. Keep body weight in an ideal range for his height. Topical cream versus patch 2-3 times daily or at least at bedt time 2-3 weeks as needed. Call if worse or with questions. Assessment & Plan (02/14/2019 8:23 PM EDT): Joint protection, energy conservation. Gentle, regular exercise routine as directed by PT and OT. Avoid falls, injuries, overuse. Limit stair climbing, squatting, kneeling, heavy lifting, sudden turns. Keep body weight in an ideal range for his height. Topical cream versus patch 2-3 times daily or at least at bedt time 2-3 weeks as needed. Call if worse or with questions. Assessment & Plan (11/28/2018 7:42 PM EST): Joint protection, energy conservation. Gentle, regular exercise routine as directed by PT and OT. Avoid falls, injuries, overuse. Limits stair climbing, squatting, kneeling, heavy lifting, sudden turns. Work on reducing body weight as close as possible to ideal range for his height. Topical cream versus patch 2-3 times daily or at least at bedt time 2-3 weeks as needed. Call if worse or with questions. 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 Build up regular exercise routine up to the goal of 30-45 minutes daily. Monitor for increasing shortness of breath, reduced respiratory drive, increasing constipation. He is reviewing and signing narcotic pain medication agreement and getting drug monitoring urine test today. Assessment & Plan (08/30/2024 2:30 PM EST): Take exactly as prescribed, try to limit frequency by employing non-for pharmacologic measures such as topical creams, warm packs, patches, regular relaxation/mediation/positive imagery sessions etc. Build up regular exercise routine up to the goal of 30-45 minutes daily. Monitor for increasing shortness of breath, reduced respiratory drive, increasing constipation Assessment & Plan (04/28/2024 4:16 PM EDT): Take exactly as prescribed, try to limit frequency by employing non-for pharmacologic measures such as topical creams, warm packs, patches, regular relaxation/mediation/positive imagery sessions etc. Build up regular exercise routine up to the goal of 30-45 minutes daily. Monitor for increasing shortness of breath, reduced respiratory drive, increasing constipation Assessment & Plan (10/24/2023 1:54 PM EST): Take exactly as prescribed, try to limit frequency by employing non-for pharmacologic measures such as topical creams, warm packs, patches, regular relaxation/mediation/positive imagery sessions etc. Build up regular exercise routine up to the goal of 30-45 minutes daily. Monitor for increasing shortness of breath, reduced respiratory drive, increasing constipation Assessment & Plan (06/12/2023 3:39 PM EDT): Take exactly as prescribed, try to limit frequency by employing non-for pharmacologic measures such as topical creams, warm packs, patches, regular relaxation/mediation/positive imagery sessions etc. Build up regular exercise routine up to the goal of 30-45 minutes daily. Monitor for increasing shortness of breath, reduced respiratory drive, increasing constipation Assessment & Plan (03/10/2023 2:13 PM EDT): Take exactly as prescribed, try to limit frequency by employing non-for pharmacologic measures such as topical creams, warm packs, patches, regular relaxation/mediation/positive imagery sessions etc. Build up regular exercise routine up to the goal of 30-45 minutes daily. Monitor for increasing shortness of breath, reduced respiratory drive, increasing constipation Assessment & Plan (08/21/2022 3:12 PM EST): Take exactly as prescribed, try to limit frequency by employing non-for pharmacologic measures such as topical creams, warm packs, patches, regular relaxation/mediation/positive imagery sessions etc. Build up regular exercise routine up to the goal of 30-45 minutes daily. Monitor for increasing shortness of breath, reduced respiratory drive, increasing constipation Assessment & Plan (02/13/2022 3:20 PM EDT): Take exactly as prescribed, try to limit frequency by employing non-for pharmacologic measures such as topical creams, warm packs, patches, regular relaxation/mediation/positive imagery sessions etc. Build up regular exercise routine up to the goal of 30-45 minutes daily. Monitor for increasing shortness of breath, reduced respiratory drive, increasing constipation Assessment & Plan (12/14/2021 4:04 PM EDT): Take exactly as prescribed, try to limit frequency by employing non-for pharmacologic measures such as topical creams, warm packs, patches, regular relaxation/mediation/positive imagery sessions etc. Build up regular exercise routine up to the goal of 30-45 minutes daily. Monitor for increasing shortness of breath, reduced respiratory drive, increasing constipation Assessment & Plan (09/14/2021 3:36 PM EST): Take exactly as prescribed, try to limit frequency by employing non-for pharmacologic measures such as topical creams, warm packs, patches, regular relaxation/mediation/positive imagery sessions etc. Build up regular exercise routine up to the goal of 30-45 minutes daily. Monitor for increasing shortness of breath, reduced respiratory drive, increasing constipation Assessment & Plan (06/08/2021 3:49 PM EDT): Take exactly as prescribed, try to limit frequency by employing non-for pharmacologic measures such as topical creams, warm packs, patches, regular relaxation/mediation/positive imagery sessions etc. Build up regular exercise routine up to the goal of 30-45 minutes daily. Monitor for increasing shortness of breath, reduced respiratory drive, increasing constipation Assessment & Plan (04/19/2021 2:56 PM EDT): Take exactly as prescribed, try to limit frequency by employing non-for pharmacologic measures such as topical creams, warm packs, patches, regular relaxation/mediation/positive imagery sessions etc. Build up regular exercise routine up to the goal of 30-45 minutes daily. Monitor for increasing shortness of breath, reduced respiratory drive, increasing constipation Assessment & Plan (01/26/2021 9:17 AM EDT): Take exactly as prescribed, try to limit frequency by employing non-for pharmacologic measures such as topical creams, warm packs, patches, regular relaxation/mediation/positive imagery sessions etc. Build up regular exercise routine up to the goal of 30-45 minutes daily. Monitor for increasing shortness of breath, reduced respiratory drive, increasing constipation Assessment & Plan (12/22/2020 2:59 PM EDT): Take exactly as prescribed, try to limit frequency by employing non-for pharmacologic measures such as topical creams, warm packs, patches, regular relaxation/mediation/positive imagery sessions etc. Build up regular exercise routine up to the goal of 30-45 minutes daily. Monitor for increasing shortness of breath, reduced respiratory drive, increasing constipation Assessment & Plan (08/06/2020 7:35 PM EST): Take exactly as prescribed, try to limit frequency by employing non-for pharmacologic measures such as topical creams, warm packs, patches, regular relaxation/mediation/positive imagery sessions etc. Build up regular exercise routine up to the goal of 30-45 minutes daily. Monitor for increasing shortness of breath, reduced respiratory drive, increasing constipation Assessment & Plan (05/08/2020 3:21 PM EDT): Take exactly as prescribed, try to limit frequency by employing non-for pharmacologic measures such as topical creams, warm packs, patches, regular relaxation/mediation/positive imagery sessions etc. Build up regular exercise routine up to the goal of 30-45 minutes daily. Monitor for increasing shortness of breath, reduced respiratory drive, increasing constipation Assessment & Plan (01/10/2020 1:35 PM EDT): Take exactly as prescribed, try to limit frequency by employing non-for pharmacologic measures such as topical creams, warm packs, patches, regular relaxation/mediation/positive imagery sessions etc. Build up regular exercise routine up to the goal of 30-45 minutes daily. Monitor for increasing shortness of breath, reduced respiratory drive, increasing constipation . Assessment & Plan (10/13/2019 10:25 AM EST): Take exactly as prescribed, try to limit frequency by employing non-for pharmacologic measures such as topical creams, warm packs, patches, regular relaxation/mediation/positive imagery sessions etc. Build up regular exercise routine up to the goal of 30-45 minutes daily. Monitor for increasing shortness of breath, reduced respiratory drive, increasing constipation Urine toxicology ordered today and new opiate agreement reviewed in details and signed today. Assessment & Plan (08/18/2019 9:31 PM EST): Take exactly as prescribed, try to limit frequency by employing non-for pharmacologic measures such as topical creams, warm packs, patches, regular relaxation/mediation/positive imagery sessions etc. Build up regular exercise routine up to the goal of 30-45 minutes daily. Monitor for increasing shortness of breath, reduced respiratory drive, increasing constipation Assessment & Plan (02/14/2019 8:30 PM EDT): Take exactly as prescribed, try to limit frequency by employing non-for pharmacologic measures such as topical creams, warm packs, patches, regular relaxation/mediation/positive imagery sessions etc. Build up regular exercise routine up to the goal of 30-45 minutes daily. Monitor for increasing shortness of breath, reduced respiratory drive, increasing constipation Assessment & Plan (11/28/2018 7:42 PM EST): Take exactly as prescribed, try to limit frequency by employing non-for pharmacologic measures such as topical creams, warm packs, patches, regular relaxation/mediation/positive imagery sessions etc. Build up regular exercise routine up to the goal of 30-45 minutes daily. Monitor for increasing shortness of breath, reduced respiratory drive, increasing constipation assisted current use of non -steroidal anti-inflammatories (NSAID) 08/20/2017 Assessment & Plan (03/02/2025 3:48 PM EDT): Take the lowest dose, with least frequency, for shortest time. Remember to take it always with food. Favor topical over oral preparations. Assessment & Plan (08/30/2024 2:30 PM EST): Take the lowest dose, with least frequency, for shortest time. Remember to take it always with food. Favor topical over oral preparations. Assessment & Plan (04/28/2024 4:17 PM EDT): Take the lowest dose, with least frequency, for shortest time. Remember to take it always with food. Favor topical over oral preparations. Assessment & Plan (10/24/2023 1:54 PM EST): Take the lowest dose, with least frequency, for shortest time. Remember to take it always with food. Favor topical over oral preparations. Assessment & Plan (06/12/2023 3:39 PM EDT): Take the lowest dose, with least frequency, for shortest time. Remember to take it always with food. Favor topical over oral preparations. Assessment & Plan (03/10/2023 2:12 PM EDT): Take the lowest dose, with least frequency, for shortest time. Remember to take it always with food. Favor topical over oral preparations. Assessment & Plan (08/21/2022 3:12 PM EST): Take the lowest dose, with least frequency, for shortest time. Remember to take it always with food. Favor topical over oral preparations. Assessment & Plan (09/14/2021 3:36 PM EST): Take the lowest dose, with least frequency, for shortest time. Remember to take it always with food. Favor topical over oral preparations. Assessment & Plan (06/08/2021 3:49 PM EDT): Take the lowest dose, with least frequency, for shortest time. Remember to take it always with food. Favor topical over oral preparations. Assessment & Plan (04/19/2021 2:56 PM EDT): Take the lowest dose, with least frequency, for shortest time. Remember to take it always with food. Favor topical over oral preparations. Assessment & Plan (01/26/2021 9:17 AM EDT): Take the lowest dose, with least frequency, for shortest time. Remember to take it always with food. Favor topical over oral preparations. Assessment & Plan (12/22/2020 2:59 PM EDT): Take the lowest dose, with least frequency, for shortest time. Remember to take it always with food. Favor topical over oral preparations. Assessment & Plan (08/06/2020 7:35 PM EST): Take the lowest dose, with least frequency, for shortest time. Remember to take it always with food. Favor topical over oral preparations. Assessment & Plan (05/08/2020 3:21 PM EDT): Take the lowest dose, with least frequency, for shortest time. Remember to take it always with food. Favor topical over oral preparations. Assessment & Plan (01/10/2020 1:35 PM EDT): Take the lowest dose, with least frequency, for shortest time. Remember to take it always with food. Favor topical over oral preparations. Assessment & Plan (10/11/2019 1:55 PM EST): Take the lowest dose, with least frequency, for shortest time. Remember to take it always with food. Favor topical over oral preparations. Assessment & Plan (08/18/2019 9:31 PM EST): Take the lowest dose, with least frequency, for shortest time. Remember to take it always with food. Favor topical over oral preparations. Assessment & Plan (02/14/2019 8:29 PM EDT): Take the lowest dose, with least frequency, for shortest time. Remember to take it always with food. Favor topical over oral preparations. Assessment & Plan (11/28/2018 7:43 PM EST): Take the lowest dose, with least frequency, for shortest time. Remember to take it always with food. Favor topical over oral preparations. On statin therapy 08/20/2017 Assessment & Plan (03/02/2025 3:48 PM EDT): Monitor for muscle tenderness, swelling and weakness Assessment & Plan (08/30/2024 2:31 PM EST): Monitor for muscle tenderness, swelling and weakness Assessment & Plan (10/24/2023 1:55 PM EST): Monitor for muscle tenderness, swelling and weakness Assessment & Plan (02/13/2022 3:20 PM EDT): Monitor for muscle tenderness, swelling and weakness Assessment & Plan (12/14/2021 4:05 PM EDT): Monitor for muscle tenderness, swelling and weakness Assessment & Plan (09/14/2021 3:37 PM EST): Monitor for muscle tenderness, swelling and weakness Assessment & Plan (01/26/2021 9:19 AM EDT): Monitor for muscle tenderness, swelling and weakness Assessment & Plan (12/22/2020 2:59 PM EDT): Monitor for muscle tenderness, swelling and weakness Assessment & Plan (08/06/2020 7:35 PM EST): Monitor for muscle tenderness, swelling and weakness Assessment & Plan (05/08/2020 3:09 PM EDT): Monitor for muscle tenderness, swelling and weakness Assessment & Plan (01/10/2020 1:35 PM EDT): Monitor for muscle tenderness, swelling and weakness Assessment & Plan (10/11/2019 1:55 PM EST): Monitor for muscle tenderness, swelling and weakness Assessment & Plan (08/18/2019 9:32 PM EST): Monitor for muscle tenderness, swelling and weakness Assessment & Plan (02/14/2019 8:30 PM EDT): Monitor for muscle tenderness, swelling and weakness Assessment & Plan (11/28/2018 7:43 PM EST): Monitor for muscle tenderness, swelling and weakness Primary hypertension 08/07/2017 Resolved Problems Problem Noted Date Diagnosed Date Resolved Date Class 3 severe obesity due t o excess calories with serious comorbidity and body mass index (BMI) of 40.0 to 44.9 in adult 06/12/2023 5 Assessment & Plan (05/04/2024 10:26 PM EDT): Congratulations on losing 18 pounds from 237 in late September 2023 down to 219 today and keep it off. Continue diligent portion control. Limit concentrated sugars, saturated fats and calories in the diet. Keep well-hydrated. If unable to achieve expected goal consider formal dietary/nutritional support. Assessment & Plan (10/24/2023 1:55 PM EST): Encouraged to continue diligent portion control specially in view of 3 pounds weight gain since May 2023 visit from 234 lbs up to 237 lbs today. Limit concentrated sugars, saturated fats and calories in the diet. Keep well-hydrated. If unable to achieve expected goal consider formal dietary/nutritional support. Assessment & Plan (06/17/2023 7:29 PM EDT): Encouraged to continue diligent portion control specially in view of 5 pounds weight gain since February 2023 visit from 229 lbs up to 234 lbs today. Limit concentrated sugars, saturated fats and calories in the diet. Keep well-hydrated. If unable to achieve expected goal consider formal dietary/nutritional support. Class 2 severe obesity due t o excess calories with serious comorbidity and body mass index (BMI) of 37.0 to 37.9 in adult 08/21/2022 3 Assessment & Plan (06/12/2023 3:38 PM EDT): Portion control. Limit concentrated sugars, saturated fats and calories in the diet. Keep well-hydrated. If unable to achieve expected goal consider formal dietary/nutritional support. Assessment & Plan (09/15/2022 9:28 PM EST): Carefully continue diligent portion control in coordination with his weight management program professionals. Limit concentrated sugars, saturated fats and calories in the diet. Keep well-hydrated. If unable to achieve expected goal consider formal dietary/nutritional support. Class 2 severe obesity due t o excess calories with serious comorbidity and body mass index (BMI) of 39.0 to 39.9 in adult 03/03/2022 2 Assessment & Plan (03/03/2022 9:38 PM EDT): Continue diligent portion control in coordination with his weight management program professionals. Limit concentrated sugars, saturated fats and calories in the diet. Keep well-hydrated. If unable to achieve expected goal consider formal dietary/nutritional support. Class 2 severe obesity due t o excess calories with serious comorbidity in adult 04/19/20212020 Assessment & Plan (04/24/2021 11:12 AM EDT): Continue close follow-up with rn home health from weight management program as scheduled. Portion control. Limit concentrated sugars, saturated fats and calories in the diet. Keep well-hydrated. If unable to achieve expected goal consider formal dietary/nutritional support. Class 2 severe obesity due t o excess calories with serious comorbidity and body mass index (BMI) of 36.0 to 36.9 in adult 12/22/2020 Assessment & Plan (12/22/2020 3:01 PM EDT): Portion control. Limit concentrated sugars, saturated fats and calories in the diet. Keep well-hydrated. If unable to achieve expected goal consider formal dietary/nutritional support. Aspirin long-term use 01/10/20202021 Assessment & Plan (06/08/2021 3:51 PM EDT): Avoid falls, injuries and cuts. Monitor for excessive bruising and bleeding. Assessment & Plan (04/19/2021 2:57 PM EDT): Avoid falls, injuries and cuts. Monitor for excessive bruising and bleeding. Assessment & Plan (01/26/2021 9:20 AM EDT): Avoid falls, injuries and cuts. Monitor for excessive bruising and bleeding. Assessment & Plan (12/22/2020 2:57 PM EDT): Avoid falls, injuries and cuts. Monitor for excessive bruising and bleeding. Assessment & Plan (08/06/2020 7:36 PM EST): Avoid falls, injuries and cuts. Monitor for excessive bruising and bleeding. Assessment & Plan (05/08/2020 3:20 PM EDT): Avoid falls, injuries and cuts. Monitor for excessive bruising and bleeding. Assessment & Plan (01/10/2020 1:39 PM EDT): Avoid falls, injuries and cuts. Monitor for excessive bruising and bleeding. Obesity due to excess calori es with serious comorbidity 08/26/2018 06/08/2021 Class 1 obesity due to exces s calories with serious comorbidity and body mass index (BMI) of 31.0 to 31.9 in adult 08/26/2018 06/08/2021 Assessment & Plan (08/06/2020 7:34 PM EST): Portion control. Continue watchful diet exactly as educated by weight management team. Limit concentrated sugars, saturated fats and calories in the diet. Keep well-hydrated. If unable to achieve expected goal consider formal dietary/nutritional support. Class 2 severe obesity due t o excess calories with serious comorbidity and body mass index (BMI) of 35.0 to 35.9 in adult 06/19/2018 8 Open wound of right thigh 09/24/2017 Assessment & Plan (10/01/2017 3:27 PM EST): We are very pleased with his progress. He'll call us with any further needs. He has an appointment on October [address] Costa and may restart his rheumatoid arthritis meds. Assessment & Plan (09/24/2017 4:26 PM EST): Decision was made to make a david in all 3 lesions to allow for adequate drainage and eventual healing. The patient agrees with this plan. Reviewed procedure for I&D, consent signed. Prepped and anesthetized with 1% lidocaine with epinephrine at all 3 locations. Incision into each abscess cavity and evacuation of purulent drainage. Abscess cavity cleansed with hydrogen peroxide and loculations broken with cotton-tipped applicator, covered with DSD. To remove dressing in 24 hours, wash site well with soap and water and keep covered while draining. To call with any questions or problems. Class 3 obesity due to exces s calories with serious comorbidity and body mass index (BMI) of 40.0 to 44.9 in adult 08/20/2017 03/03/2022 Assessment & Plan (12/22/2021 1:38 PM EDT): Continue diligent portion control. Limit concentrated sugars, saturated fats and calories in the diet. Keep well-hydrated. If unable to achieve expected goal consider formal dietary/nutritional support. Assessment & Plan (09/14/2021 3:35 PM EST): Portion control. Limit concentrated sugars, saturated fats and calories in the diet. Keep well-hydrated. If unable to achieve expected goal consider formal dietary/nutritional support. Assessment & Plan (06/17/2021 8:58 PM EDT): Meet with weight management team as scheduled. Portion control. Limit concentrated sugars, saturated fats and calories in the diet. Keep well-hydrated. If unable to achieve expected goal consider formal dietary/nutritional support. Open wound of left chest wal l without complication 08/07/2017 09/24/2017 Assessment & Plan (08/07/2017 2:52 PM EST): The wound appears to be healing well and filling in from the bottom up. We will have visiting nurses continue quarter inch plain packing to the wound with gauze coverage and Hypafix tape. Open wound of right chest wa ll without complication 08/07/2017 09/24/2017 Assessment & Plan (08/07/2017 2:52 PM EST): It is possible a small pocket of fluid formed while this incision was previously healing. We will have visiting nurses use quarter inch plain packing to the wound with gauze coverage and Hypafix tape. Open wound of back without complication 08/07/2017 09/24/2017 Assessment & Plan (08/07/2017 2:53 PM EST): We will have visiting nurses use quarter inch plain packing to the wound with gauze coverage and Hypafix tape. There does not appear to be surrounding cellulitis, so I do not think antibiotics are necessary at this point. We will have the visiting nurses continue to monitor the area and call us with any changes. The patient has a return appointment with us next week, so I have given a warm hand off to Grady Christy who will see him then. Rheumatoid arthritis 07/19/2017 018 Encounters Date Type Department Care Team Description 03/29/2025 Telephone [facility] [address] [place] [address] Saeid Singh MD 03/24/2025 Refill [facility] [address] [place] [address] [place] [address] Soniya Carl MA 03/10/2025 Telephone [facility] [address] [place] [address] [place] [address] Francisca Loaiza CMA 03/03/2025 Orders Only [address] [place] [address] Sarah Thrasher MA Rheumatoid arthritis involving multiple sites with positive rheumatoid factor 03/02/2025 3:00 PM EDT Office Visit [facility] [address] [place] [address] [place] [address] Jody Sheldon MD Seropositive rheumatoid arthritis of multiple sites (Primary Dx); Primary osteoarthritis involving multiple joints; Infliximab (Remicade) long-term use; On methotrexate therapy; watermelon inspector current use of non-steroidal anti-inflammatories (NSAID); watermelon inspector current use of opiate analgesic; Wears hearing aid in both ears; On statin therapy; watermelon inspector current use of oral hypoglycemic drug; Class 2 severe obesity due to excess calories with serious comorbidity and body mass index (BMI) of 38.0 to 38.9 in adult 02/28/2025 Refill [facility] [address] [place] [address] [place] [address] Jody Sheldon MD Medication Refill 02/24/2025 Telephone [facility] [address] [place] [address] Jody Sheldon MD Labs 01/27/2025 Refill [facility] [address] [place] [address] Francisca Loaiza CMA Medication Refill from Last 3 Months Immunizations Immunization Administration Dates Next Due Influenza Quadrivalent Preservative Free IM 01/2020 Influenza Trivalent Preservative Free IM 024 Family History Medical History Relation Comments Diabetes mellitus Mother 2 Relation Status Comments Mother 1 Alive Mother 2 Social History Tobacco Use Types Packs/Day Years Used Date Smoking Tobacco: Former Cigarettes 1 18 1 988 - 2005 Smokeless Tobacco: Never Tobacco Cessation:Counseling Given: Not Answered Alcohol Use Standard Drinks/Week Comments No 0 (1 standard drink = 0.6 oz pur e alcohol) Education Answer Date Recorded Are you interested in more education? Not on gael e 01/24/2023 Are you concerned about learning? Not on file 01/24/2023 No 01/24/2023 No 01/24/2023 Digital Access Answer Date Recorded No 02/18/2023 No 02/18/2023 Reliable internet access at home? Not on file 02/18/2023 Device with a working camera? Not on file Sex and Gender Information Value Date Recorded Sex Assigned at Not on file Legal Sex Male 9:29 PM EDT Gender Identity Not on file Sexual Orientation Not on file Last Filed Vital Signs Vital Sign Reading Time Taken Comments Blood Pressure 148/90 03/02/2025 2:59 PM EDT Pulse 101 03/02/2025 2:59 PM EDT Temperature 36.7 C (98 F) 12/20/2024 2:10 PM EDT Respiratory Rate 18 12/20/2024 2:10 PM EDT Oxygen Saturation 98% 03/02/2025 2:59 PM EDT Inhaled Oxygen Concentration - - Weight 102.3 kg (225 lb 9.6 oz) 03/02/2025 2:59 PM EDT Height 162.6 cm (5' 4.02 ) 03/02/2025 2:59 PM ED T Body Mass Index 38.7 03/02/2025 2:59 PM EDT Plan of Treatment Upcoming Encounters Date Type Department Care Team (Late st Contact Info) Description 05/12/2025 11:30 AM EDT Infusion [facility] [address] [place] [address] Jody Sheldon MD [address] [place] [address], [address] [place] [address] 07/06/2025 2:00 PM EDT Office Visit [facility] [address] [place] [address] Jody Sheldon MD [address] [place] [address], [address] [place] [id number] Health Maintenance Due Date Last Done Comments LIPID PANEL 1975 DEPRESSION SCREENING 1987 HEPATITIS C SCREENING 1993 HIV ONE-TIME SCREENING (18-65 YEARS) 1993 PNEUMOCOCCAL VACCINES (50+ years) (1 of 2 - PCV) 1994 ZOSTER VACCINES (1 of 2) 1994 COLOGUARD 2020 COLONOSCOPY 2020 COLORECTAL CANCER SCREENING 2020 FIT TEST 2020 FOBT 2020 SIGMOIDOSCOPY 2020 VIRTUAL COLONOSCOPY 2020 COVID-19 VACCINE ( season) 2024 11/09/2023, 02/01/2021, 01/11/2021 BLOOD PRESSURE 09/01/2025 03/02/2025 POTASSIUM LEVEL 12/20/2025 12/20/2024, 02/0 01/2025, 02/16/2024, Additional history exists CREATININE LEVEL 03/02/2026 03/02/2025, , 11/03/2024, Additional history exists SCREENING FOR DIABETES 11/03/2027 11/03/2024 Adult Td,Tdap Booster 11/19/2029 11/19/2019 SMOKING STATUS SCREENING (Once After 26 Yrs) Completed 03/02/2025 HEPATITIS A VACCINES Aged Out No long er eligible based on patient's age to complete this topic HIB VACCINES Aged Out No longer eligi ble based on patient's age to complete this topic MENINGOCOCCAL VACCINES (ACWY) Aged Out No longer eligible based on patient's age to complete this topic MENINGOCOCCAL VACCINES (B) Aged Out N o longer eligible based on patient's age to complete this topic Medical Devices Not on file Procedures Procedure Name Priority Date/Time Associated Diagnosis Comments URINE DRUG SCREEN Routine 03/03/2025 8:3 3 AM EDT watermelon inspector current use of opiate analgesic COMPREHENSIVE METABOLIC PANEL Routine 03/02/2025 11:57 AM EDT Rheumatoid arthritis involving multiple sites with positive rheumatoid factor CBC AND DIFFERENTIAL Routine 03/02/2025 11:57 AM EDT Rheumatoid arthritis involving multiple sites with positive rheumatoid factor SEDIMENTATION RATE (ESR) Routine 03/02/2025 11:57 AM EDT Rheumatoid arthritis involving multiple sites with positive rheumatoid factor C-REACTIVE PROTEIN Routine 03/02/2025 11 :57 AM EDT Rheumatoid arthritis involving multiple sites with positive rheumatoid factor COMPREHENSIVE METABOLIC PANEL Routine 12/20/2024 11:25 AM EDT Rheumatoid arthritis involving multiple sites with positive rheumatoid factor from Last 3 Months or Most Recently Relevant to Health Maintenance Results * Urine Drug Screen (03/03/2025 8:33 AM EDT) Urine (Urine) us Jody Sheldon MD URINE ORDERABLES Final R esult EXTERNAL NON-INTERFACED REF LAB * Comprehensive metabolic panel (03/02/2025 11:57 AM EDT) Only the most recent of2 resultswithin the time period is included. Blood Jody Sheldon MD LAB BLOOD ORDERABLES Fin al Result Performing Organization Address [facility] de Phone Number EXTERNAL NON-INTERFACED REF LAB * CBC and differential (03/02/2025 11:57 AM EDT) Blood Jody Sheldon MD LAB BLOOD ORDERABLES Fin al Result Performing Organization Address [facility] de Phone Number EXTERNAL NON-INTERFACED REF LAB * Sedimentation rate (ESR) (03/02/2025 11:57 AM EDT) Blood Jody Sheldon MD LAB BLOOD ORDERABLES Fin al Result Performing Organization Address [facility] de Phone Number EXTERNAL NON-INTERFACED REF LAB * C-Reactive Protein (03/02/2025 11:57 AM EDT) Blood Jody Sheldon MD LAB BLOOD ORDERABLES Fin al Result Performing Organization Address [facility] de Phone Number EXTERNAL NON-INTERFACED REF LAB from Last 3 Months or Most Recently Relevant to Health Maintenance Insurance [facility]IC[facility] PART A & [facility] MEDICARE PART A & [place] & B HEALTH MEDICARE PART A & B Member Subscriber Plan / Payer ( fective 2013-) Name:Jorge Luis Bright Member ID:[id number] Relation to Subscriber:Self Name:Jorge Luis Bright Subscriber ID:[id number] Payer ID:[id number] Group ID:Not on file Type:Medicare Address: [employer] [address] & B [facility] Care Teams Supply Tech Relationship Specialty Start Date End Date Saeid Singh MD [address] [facility] [address] [place] [id number] PCP - General 07/17/17 Jody Sheldon MD [address] [facility], [address] [place] [address] Historical LMR Provider Rheumatology 07/19/17 Additional Source Comments The information contained in this document represents components of the legal health record. It is not the complete legal health record.[facility]
--- OUTSIDE RECORDS SUMMARY | 2025-04-18 13:42 | XMS_ITS | Patient Health Record ---
Author Organization [facility] Address [address] [place] [address] Care Team Providers Care White Shoe Ragger Name Role Phone Saeid Singh MD Primary [...] Problem Status W/U Status Risk Notes Problem [id number] Rectal bleeding (K62.5) Active confirmed Plan Of Treatment Future Test Test Name Order Date COLONOSCOPY 01/03/2022 Insurance Providers Payer Name Payer Address Payer Phone Subscriber Number Group Number Insured Name Patient Relationship to Insured Coverage Start Date Coverage End Date MEDICARE OF [place] [address] JYOTI GABRIEL [id number] MARGOT FRANCO III Self - patient is the insured MEDICAID OF [facility] [address] [place] [address] [phone] [id number] MARGOT FRANCO III Self - patient is the insured Medical (General) History Medical History History ICD Code diabetes asthma Hypertension Elevated cholesterol anxiety Rheumatoid arthritis Anemia HELEN/CPAP Surgical History Surgery Date(Month/Year) gastric bypass 2016
--- OUTSIDE RECORDS SUMMARY | 2025-04-18 13:42 | XMS_ITS | Clinical Summary ---
Author Organization [facility] Address [address] [place] [address] Phone Care Team Providers Care Facility Maintenance Supervisor Name Role Phone Saeid Singh MD Primary Care Provider [phone] Allergies Active Allergy Reactions Criticality Noted Date [...] to adjust dosing of Remicade for it. 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 [facility] current use of opiate analgesic 08/20/2017 06/22/2021 [...] sure to inform any new Medical doctor, INVOICE CODER or PA about chronic immunosuppression with methotrexate [...] Last Assessment & Plan: Carefully continue weekly methotrexate, daily folic acid, Celebrex and every 6 weeks Remicade as prescribed adjusted for his weight loss. Avoid sick contacts. Joint protection, energy conservation. Get labs monitoring safety and efficacy at least every 6 weeks. Get the yearly influenza vaccine today. Call if questions or problems. Immunizations Immunization Administration Dates Next Due Influenza, Quadrivalent, Preservative [...] Health Maintenance Due Date Last Done Comments Hepatitis B Vaccine (1 of 3 - 19+ 3-dose series) 03/16 Pneumococcal Vaccine: 50+ Years (1 of 2 - PCV) 994 Colorectal Cancer Screening: Annual FOBT 2024 Colorectal Cancer Screening: Colonoscopy 2024 Colorectal Cancer Screening: Sigmoidoscopy 2024 Influenza Vaccine (#1) 2025 08/03/2020 Insurance [place] [id number] Medicare Medicaid [place] * Guarantor: JORGE LUIS FRANCO A Account Type Relation to Patient Date of Phone Billing Address Personal/Family 1975 [address] [facility] [place] [address] [place] Care Teams Facility Maintenance Supervisor Relationship Specialty Start Date End Date Saeid Singh MD [address] [place], [place] PCP - General 10/09/20
== END 2025-04-18 22:21 | disposition home or self-care (01) ==
PROVIDERS: Nurse Practitioner Family; Emergency Provider Emergency Medicine; PCP Internal Medicine
DX: K11.21 Acute sialoadenitis (principal); R68.84 Jaw pain; E11.9 Type 2 diabetes mellitus without complications; I10 Essential (primary) hypertension; E78.5 Hyperlipidemia, unspecified
CPT/HCPCS: 36415; 80053; 85025; 99281; 99283

== ENCOUNTER 2025-04-21 11:11 | Outpatient (REF) | payer MEDICARE, MEDICAID, SELFPAY ==
[2025-04-21 11:25] LABS: MANUAL DIFF FLAG NO
[2025-04-21 11:39] LABS: Hematocrit 36.9 % (42.0-52.0); Hemoglobin 12.2 g/dl (14.0-18.0); Imm Gran Abs Auto 0.04 X10*3/uL (0.00-0.03); Imm Gran Pct Auto 0.5 % (0.0-0.4); Lymphocytes Absolute Auto 1.7 X10*3/uL (1.2-4.9); Mean Corpuscular HGB Conc 33.1 g/dl (31.0-36.0); Mean Corpuscular Hemoglobin 27.8 pg (27.0-33.0); Mean Corpuscular Volume 84.1 fL (80.0-98.0); NRBC Abs Auto 0.000 X10*3/uL (0.0-0.012); NRBC Pct Auto 0.0 /100WBC (0.0-0.2); Platelet Count 278 X10*3/uL (160-400); Red Blood Count 4.39 X10*6/uL (4.60-5.80); White Blood Count 8.2 X10*3/uL (4.8-10.8)
[2025-04-21 11:47] LABS: Appearance Urine Clear; Glucose Urine UA >=1000 mg/dL (Negative); PH 7.0 (5.0-9.0); Specific Gravity - Urine 1.015 (1.005-1.025); UMIC TRIGGER UA YES
--- OUTSIDE RECORDS SUMMARY | 2025-04-21 12:06 | XMS_ITS | Clinical Summary ---
Author Organization [facility] Address [address] [place] [address] Phone Care Team Providers Care Stonemason Helper Name Role Phone Saeid Singh MD Primary Care Provider [phone] Allergies Active Allergy Reactions Criticality Noted Date [...] to adjust dosing of Remicade for it. 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 [facility] current use of opiate analgesic 08/20/2017 06/22/2021 [...] sure to inform any new Medical doctor, DIRECTOR OF STUDENT FINANCIAL SERVICES or PA about chronic immunosuppression with methotrexate [...] Vaccine (#1) 2025 08/03/2020 Insurance [place] [id number] Medicare Medicaid [place] * Guarantor: JORGE LUIS FRANCO A Account Type Relation to Patient Date of Phone Billing Address Personal/Family 1975 [address] [facility] [place] [address] [place] Medicare Care Teams Stonemason Helper Relationship Specialty Start Date End Date Saeid Singh MD [address] [place], [place] PCP - General 10/09/20
--- OUTSIDE RECORDS SUMMARY | 2025-04-21 12:06 | XMS_ITS | Patient Health Record ---
Author Organization [facility] Address [address] [place] [address] Care Team Providers Care Chief Ophthalmic Technician Name Role Phone aSeid Singh MD Primary Care Provider Darrell Chong Jr [phone] Allergies Allergen (clinical drug ingredient) Drug/Non Drug [...] Problem Status W/U Status Risk Notes Problem [id number] Rectal bleeding (K62.5) Active confirmed Plan Of Treatment Future Test Test Name Order Date COLONOSCOPY 01/03/2022 Insurance Providers Payer Name Payer Address Payer Phone Subscriber Number Group Number Insured Name Patient Relationship to Insured Coverage Start Date Coverage End Date MEDICARE OF [place] [address] JYOT[place] GABRIEL [id number] MARGOT FRANCO III Self - patient is the insured MEDICAID OF [facility] [address] [place] [phone] [id number] MARGOT FRANCO III Self - patient is the insured Medical (General) History Medical History History ICD Code diabetes asthma Hypertension Elevated cholesterol anxiety Rheumatoid arthritis Anemia HELEN/CPAP Surgical History Surgery Date(Month/Year) gastric bypass 2016
--- OUTSIDE RECORDS SUMMARY | 2025-04-21 12:06 | XMS_ITS | Clinical Summary ---
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 Call if questions or problems. History [...] (12/22/2021 1:44 PM EDT): I have educated oJrge Luis to get COVID -19 3rd vaccine dose now so he can benefit maximally rather than fit it in between every 6 wks Remicade infusions. He is educated to call within first 24-48 hrs from COVID-19 infection once positive. Other headache syndrome 03/09/2021 Wears hearing aid in both ears 03/09/2021 Assessment & Plan (03/29/2025 7:20 PM EDT): Continue regular follow-up with guidance adviser as scheduled to maintain best quality of [...] restart every 6 weeks Remicade infusions at [facility] since colonoscopy returned reassuring. Get labs monitoring safety and efficacy of therapy at least every 6 weeks- standing orders in [facility] Monitor carefully for any signs of developing infection such as fever, excessive tiredness, flulike symptoms, headaches, cough, skin rashes etc. Make sure to inform any new Medical doctor, RECTIFIER OPERATOR or PA about chronic immunosuppression with methotrexate and Remicade especially in emergency situations Assessment & Plan (08/30/2024 2:30 PM EST): Carefully restart every 6 weeks Remicade infusions at [facility] since colonoscopy returned reassuring. Get labs monitoring safety and efficacy of therapy at least every 6 weeks- standing orders in epic Monitor carefully for any signs of developing infection such as fever, excessive tiredness, flulike symptoms, headaches, cough, skin rashes etc. Make sure to inform any new Medical doctor, RECTIFIER OPERATOR or PA about chronic immunosuppression with methotrexate and Remicade especially in emergency situations Assessment & Plan (04/28/2024 4:18 PM EDT): Carefully restart every 6 weeks Remicade infusions at [facility] since colonoscopy returned reassuring. Get labs monitoring safety and efficacy of therapy at least every 6 weeks- standing orders in epic Monitor carefully for any signs of developing infection such as fever, excessive tiredness, flulike symptoms, headaches, cough, skin rashes etc. Make sure to inform any new Medical doctor, RECTIFIER OPERATOR or PA about chronic immunosuppression with methotrexate and Remicade especially in emergency situations Assessment & Plan (06/12/2023 3:39 PM EDT): Carefully restart every 6 weeks Remicade infusions at [facility] since colonoscopy returned reassuring. Get labs monitoring safety and efficacy of therapy at least every 6 weeks- standing orders in epic Monitor carefully for any signs of developing infection such as fever, excessive tiredness, flulike symptoms, headaches, cough, skin rashes etc. Make sure to inform any new Medical doctor, RECTIFIER OPERATOR or PA about chronic immunosuppression with methotrexate and Remicade especially in emergency situations Assessment & Plan (03/10/2023 2:12 PM EDT): Carefully restart every 6 weeks Remicade infusions at [facility] since colonoscopy returned reassuring. Get labs monitoring safety and efficacy of therapy at least every 6 weeks- standing orders in epic Monitor carefully for any signs of developing infection such as fever, excessive tiredness, flulike symptoms, headaches, cough, skin rashes etc. Make sure to inform any new Medical doctor, RECTIFIER OPERATOR or PA about chronic immunosuppression with methotrexate and Remicade especially in emergency situations Assessment & Plan (09/15/2022 9:31 PM EST): Carefully restart every 6 weeks Remicade infusions at [facility] since colonoscopy returned reassuring. Get labs monitoring safety and efficacy of therapy at least every 6 weeks- standing orders in epic Monitor carefully for any signs of developing infection such as fever, excessive tiredness, flulike symptoms, headaches, cough, skin rashes etc. Make sure to inform any new Medical doctor, RECTIFIER OPERATOR or PA about chronic immunosuppression with methotrexate and Remicade especially in emergency situations Assessment & Plan (03/03/2022 9:43 PM EDT): Hold until clarified regarding GI bleeding by colonoscopy & GI nutrition consultant. Get labs monitoring safety and efficacy of therapy at least every 6 weeks- standing orders in epic Monitor carefully for any signs of developing infection such as fever, excessive tiredness, flulike symptoms, headaches, cough, skin rashes etc. Make sure to inform any new Medical doctor, RECTIFIER OPERATOR or PA about chronic immunosuppression with methotrexate [...] sure to inform any new Medical doctor, RECTIFIER OPERATOR or PA about chronic immunosuppression with methotrexate [...] sure to inform any new Medical doctor, RECTIFIER OPERATOR or PA about chronic immunosuppression with methotrexate [...] sure to inform any new Medical doctor, RECTIFIER OPERATOR or PA about chronic immunosuppression with methotrexate [...] sure to inform any new Medical doctor, RECTIFIER OPERATOR or PA about chronic immunosuppression with methotrexate [...] sure to inform any new Medical doctor, RECTIFIER OPERATOR or PA about chronic immunosuppression with methotrexate [...] sure to inform any new Medical doctor, RECTIFIER OPERATOR or PA about chronic immunosuppression with methotrexate [...] sure to inform any new Medical doctor, RECTIFIER OPERATOR or PA about chronic immunosuppression with methotrexate [...] sure to inform any new Medical doctor, RECTIFIER OPERATOR or PA about chronic immunosuppression with methotrexate and Remicade especially in emergency situations . Next infusion on 02/10/20. Assessment & Plan (10/11/2019 1:55 PM EST): Monitor carefully for any signs of developing infection such as fever, excessive tiredness, flulike symptoms, headaches, cough, skin rashes etc. Make sure to inform any new Medical doctor, RECTIFIER OPERATOR or PA about chronic immunosuppression with methotrexate and Remicade especially in emergency situations . Next infusion on 10/19/19. Assessment & Plan (08/18/2019 9:38 PM EST): Monitor carefully for any signs of developing infection such as fever, excessive tiredness, flulike symptoms, headaches, cough, skin rashes etc. Make sure to inform any new Medical doctor, RECTIFIER OPERATOR or PA about chronic immunosuppression with methotrexate and Remicade especially in emergency situations . Next infusion in 6 weeks from 07/21/2019 (on 09/01/2019). Assessment & Plan (02/14/2019 8:28 PM EDT): Monitor carefully for any signs of developing infection such as fever, excessive tiredness, flulike symptoms, headaches, cough, skin rashes etc. Make sure to inform any new Medical doctor, RECTIFIER OPERATOR or PA about chronic immunosuppression with methotrexate and Remicade especially in emergency situations . Next infusion in 6 weeks from 01/29/2019 (on 03/12/2019). Assessment & Plan (11/28/2018 7:44 PM EST): Monitor carefully for any signs of developing infection such as fever, excessive tiredness, flulike symptoms, headaches, cough, skin rashes etc. Make sure to inform any new Medical doctor, RECTIFIER OPERATOR or PA about chronic immunosuppression with methotrexate [...] and every 6 weeks IV Remicade at [facility] infusion center. Avoid sick contacts. Joint protection, [...] at least every 6 weeks-standing orders in [facility]. Check if ankle swelling and blood [...] at least every 6 weeks-standing orders in [facility]. Get yearly influenza vaccine 3 weeks [...] at least every 6 weeks-standing orders in [facility]. Call if questions or problems. Assessment [...] needed. Call if worse or with questions. 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 Portion [...] Type Department Care Team Description 03/29/2025 Telephone [facility] [address] [place] [address] Saeid Singh MD 03/24/2025 Refill [facility] [address] [place] [address] [place] [address] Soniya Carl MA 03/10/2025 Telephone [facility] [address] [place] [address] [place] [address] Francisca Loaiza CMA 03/03/2025 Orders Only [address] [place] [address] Sarah Thrasher MA Rheumatoid arthritis involving multiple sites with positive rheumatoid factor 03/02/2025 3:00 PM EDT Office Visit [facility] [address] [place] [address] [place] [address] Jody Sheldon MD Seropositive rheumatoid arthritis of multiple sites (Primary Dx); Primary osteoarthritis involving multiple joints; Infliximab (Remicade) long-term use; On methotrexate therapy; 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-inflammatories (NSAID); 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; Wears hearing aid in both ears; On statin therapy; 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 drug; Class 2 severe obesity due to excess calories with serious comorbidity and body mass index (BMI) of 38.0 to 38.9 in adult 02/28/2025 Refill [facility] [address] [place] [address] [place] [address] Jody Sheldon MD Medication Refill 02/24/2025 Telephone [facility] [address] [place] [address] oJdy Sheldon MD Labs 01/27/2025 Refill [facility] [address] [place] [address] Francisca Loaiza CMA Medication Refill from Last [...] Info) Description 05/12/2025 11:30 AM EDT Infusion [facility] [address] [place] [address] Jody Sheldon MD [address] [place] [address], [address] [place] [address] [email or web address] 07/06/2025 2:00 PM EDT Office Visit [facility] [address] [place] [address] Jody Sheldon MD [address] [place] [address], [address] [place] [id number] [email or web address] Health Maintenance Due Date Last Done Comments [...] SCREEN Routine 03/03/2025 8:3 3 AM EDT 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 COMPREHENSIVE METABOLIC [...] ORDERABLES Fin al Result Performing Organization Address [facility] de Phone Number EXTERNAL NON-INTERFACED REF LAB * CBC and differential (03/02/2025 11:57 AM EDT) Blood Jody Sheldon MD LAB BLOOD ORDERABLES Fin al Result Performing Organization Address [facility] de Phone Number EXTERNAL NON-INTERFACED REF LAB * Sedimentation rate (ESR) (03/02/2025 11:57 AM EDT) Blood Jody Sheldon MD LAB BLOOD ORDERABLES Fin al Result Performing Organization Address [facility] de Phone Number EXTERNAL NON-INTERFACED REF LAB * C-Reactive Protein (03/02/2025 11:57 AM EDT) Blood Jody Sheldon MD LAB BLOOD ORDERABLES Fin al Result Performing Organization Address [facility] de Phone Number EXTERNAL NON-INTERFACED REF LAB from Last 3 Months or Most Recently Relevant to Health Maintenance Insurance MEDICARE PART A & B Member Subscriber Plan / Payer (Ef fective 2013-Present) Name:Jorge Luis Bright Member ID:[id number] Relation to Subscriber:Self Name:Jorge Luis Bright Subscriber ID:[id number] Payer ID:[id number] Group ID:Not on file Type:Medicare Address: [facility] [employer] [email or web address] [address] [place] [address] [facility] MEDICARE PART A & B MEDICARE PART A & B [place] MEDICARE PART A & B HEALTH MEDICARE PART A & B Member Subscriber Plan / Payer ( fective 2013-) Name:Jorge Luis Bright Member ID:[id number] Relation to Subscriber:Self Name:Jorge Luis Bright Subscriber ID:[id number] Payer ID:[id number] Group ID:Not on file Type:Medicare Address: [employer] [address] & B [facility] MEDICARE PART A & [facility] B [facility] Care Teams Biological Engineer Relationship Specialty Start Date End Date Saeid Singh MD [address] [facility] [address] [place] [address] PCP - General 07/17/17 Jody Sheldon MD [address] [facility], [address] [place] [address] Historical L[facility] Provider Rheumatology 07/19/17 Additional Source Comments The information contained in this document represents components of the legal health record. It is not the complete legal health record.[facility]
[2025-04-21 12:11] LABS: Alanine Aminotransferase 65 U/L (0-40); Albumin Level 4.2 g/dL (3.5-5.0); Alkaline Phosphatase 73 U/L (39-117); Anion Gap 12 (12-20); Aspartate Amino Transferase 36 U/L (5-37); Blood Urea Nitrogen 18 mg/dL (9-16); Calcium 9.5 mg/dL (8.4-10.2); Carbon Dioxide 28 mmol/L (22-29); Chloride 99 mmol/L (96-108); Estimated Glomerular Filt Rate > 60; Potassium 4.1 mmol/L (3.3-5.1); Sodium 135 mmol/L (135-145); Total Protein 7.6 g/dL (6.5-8.0)
[2025-04-21 12:33] LABS: Total Protein Urine Random < 7 mg/dL (<12)
== END 2025-04-21 11:12 | disposition home or self-care (01) ==
LOC: HO.LABR 11:11
PROVIDERS: Absent Provider Internal Medicine Hypertension Specialist; PCP Internal Medicine; Visit Provider Internal Medicine Rheumatology
DX: I10 Essential (primary) hypertension (principal); N28.1 Cyst of kidney, acquired; M05.79 Rheumatoid arthritis with rheumatoid factor of multiple sites without organ or systems involvement
CPT/HCPCS: 36415; 80053; 81001; 82570; 84156; 85025; 85652; 86140

== ENCOUNTER 2025-04-25 10:01 | Outpatient (AMB) | payer MEDICARE, MEDICAID, SELFPAY ==
--- NOTE | 2025-04-25 10:05 | HO.NEPHOV ---
Vital Signs 04/25/25 10:06 Height 5 ft 2 in Weight 223 lb BMI 40.8 BP 118/80 Blood Pressure Location Rt brachial Position Sitting Pulse 72 Pulse Source Pulse Oximeter Pulse Oximetry (%) 96 Oxygen Delivery Method Room Air Intake Visit Reasons: Hypertension-Conf Track Vehicle Repairer Required: No Accompanied by: Self / Same As Patient Allergies Iodinated Contrast Media (Iodinated Contrast Media - IV Dye) Allergy (Mild, Verified 04/25/25 10:07) HIVE AND ITCHINESS ON FACE Medication List - Last Reconciled 04/25/25 by Andre Gandhi MD albuterol sulfate 90 mcg/actuation 2 puffs inhalation Q4H PRN amlodipine 5 mg (1/2 x 10 mg) PO DAILY amoxicillin 875 mg PO BID aspirin 81 mg PO DAILY atorvastatin 20 mg PO DAILY blood pressure monitor (Blood Pressure Kit) As directed blood sugar diagnostic (FreeStyle Lite Strips) 1 strip miscellaneous .QD 90 days celecoxib 200 mg PO BID PRN docusate sodium 100 mg PO BID 90 days empagliflozin (Jardiance) 10 mg PO DAILY escitalopram oxalate 5 mg PO DAILY ferrous sulfate 325 mg PO DAILY fluticasone propionate 50 mcg/actuation 2 sprays intranasal DAILY folic acid 1 mg PO DAILY hydroxyzine HCl 25 mg PO BEDTIME PRN infliximab (Remicade) once a week IV; 07/06/2021 irbesartan 300 mg PO DAILY lancets (FreeStyle Lancets) 1 gauge topical .QD 90 days lidocaine 5% 1 patch topical DAILY 90 days lorazepam 1 mg PO BID 90 days meclizine 25 mg PO TID PRN metformin 500 mg PO BIDWMEAL methotrexate sodium subcut; metoprolol tartrate 25 mg PO BID nitroglycerin (Nitrostat) 0.4 mg sublingual Q5M PRN oxycodone 10 mg PO BID PRN sennosides (senna) 17.2 mg (2 x 8.6 mg) PO BEDTIME spironolacton-hydrochlorothiaz 25-25 mg 1 tab PO DAILY syringe with needle (BD Tuberculin Syringe) As directed zinc gluconate 50 mg PO QWEEK HPI Comments Details: Middle-aged man with history of obesity and hypertension is here for follow-up. Overall doing well Occasional leg edema Currently on protein shakes for weight loss Sometimes he gets lightheaded- and this has resolved 04/25/25 Currently on Amoxicillin Jardiance was added on 04/12/25 [facility] Medical History Type 2 diabetes mellitus with unspecified complications Liver lesion Screening for prostate cancer History of COVID-19 COVID-19 virus infection Personal history of nicotine dependence Morbid obesity with BMI of 40.0-44.9, adult Atherosclerotic cardiovascular disease Suspected deep vein thrombosis Leg swelling Type 2 diabetes mellitus with hyperglycemia GERD (gastroesophageal reflux disease) Vitamin D deficiency Left renal mass Rheumatoid arthritis H/O hidradenitis suppurativa Lung nodule Vertigo Anxiety Asthma Obstructive sleep apnea Hyperlipidemia Surgical History History of bronchoscopy (~2020) History of cystoscopy (~2013) Status post biopsy of kidney (~2013) History of surgical removal of pilonidal cyst (~1990) S/P laparoscopic sleeve gastrectomy (~2017) Family History Father Heart problem Acute arthritis Mother Breast cancer Diabetes mellitus Liver cancer Son No problems noted. Maternal Uncle Myocardial infarct Maternal Aunt Breast cancer Social History Housing: Apartment Alcohol intake: never Patient Tobacco Use Status: Former Tobacco user Tobacco use type: Cigarette Cigarettes Per Day: 15 Years Smoked: 15 e-Cigarette/Vaping Use: Never Used Second Hand Smoke Exposure: No service: No Current occupational status: disabled Cognitive needs: No Hearing needs: Yes (hearig aide) Vision needs: Yes (glasses) Physical Exam Vital Signs: Last Vital Signs Pulse 72 04/25/25 10:06 BP 118/80 04/25/25 10:06 Pulse Ox 96 04/25/25 10:06 Oxygen Delivery Method Room Air 04/25/25 10:06 BMI result Body Mass Index 40.8 Const General: comfortable; No acute distress Orientation/consciousness: patient oriented x3 Eyes General: appearance normal, both eyes and all related structures Visual Brunson: normal visual brunson by confrontation Neck Neck: Yes supple and Yes no JVD Resp Effort & Inspection: normal respiratory effort and respiratory effort not decreased Auscultation: rhonchi Cardio Palpation: no palpable S3 and no palpable S4 Heart sounds: no rubs GI Inspection: Yes normal to inspection Palpation (GI): Soft to palpation Percussion: Yes normal to percussion Auscultation: normal bowel sounds General: Yes no CVA tenderness Back/Spine/Pelvis Back: no CVA tenderness Skin General skin exam: no petechiae and no purpura Neuro General: patient oriented x3 and no focal motor deficits Extrem General: No clubbing and No edema Results Reviewed Nephrology Results: Hgb, (14.0-18.0) 12.2 g/dl L 04/21/25 WBC, (4.8-10.8) 8.2 X10*3/uL 04/21/25 Plt Count, (160-400) 278 X10*3/uL 04/21/25 Sodium, (135-145) 135 mmol/L 04/21/25 Potassium, (3.3-5.1) 4.1 mmol/L 04/21/25 Chloride, (96-108) 99 mmol/L 04/21/25 Carbon Dioxide, (22-29) 28 mmol/L 04/21/25 BUN, (9-16) 18 mg/dL H 04/21/25 Creatinine, (0.5-1.4) 1.19 mg/dL 04/21/25 Calcium, (8.4-10.2) 9.5 mg/dL 04/21/25 Urine Protein, (Neg-Trace) Negative mg/dL 04/21/25 Urine Creatinine 18.85 mg/dL 04/21/25 Assessment & Plan Assessment & Plan (1) Essential hypertension: Code(s): I10 - Essential (primary) hypertension Category: Medical Plan: Blood pressure is acceptable today Stay on low-sodium diet. Continue current medications. We discussed weight loss. (2) Renal cyst: Comment: RIGHT KIDNEY: No hydronephrosis or renal calculi. The kidney measures 12.2 cm in maximum dimension. Benign-appearing renal cyst measuring 1.9 cm. No follow up imaging is recommended. LEFT KIDNEY: No hydronephrosis or renal calculi. The kidney measures 12.7 cm in maximum dimension. Benign-appearing renal cysts measuring up to 2.1 cm. No follow-up imaging is recommended. Punctate nonobstructing left lower pole renal stone new from prior. Code(s): N28.1 - Cyst of kidney, acquired Category: Medical Plan: CT scan in November 2011 showed a renal cyst. This was followed by MRI . He has a history of painless hematuria for which he is following with Urology Renal cyst: reportedly benign. No further imaging was recommended (3) Hypercalcemia: Code(s): E83.52 - Hypercalcemia Category: Medical (4) Microalbuminuria: Code(s): R80.9 - Proteinuria, unspecified Category: Medical Plan Mild bump in creatinine in a setting of infection and recent addition of Jardiance Keep I > O watch renal function Orders: Orders Total Protein Urine Random 6 Months I10 - Essential (primary) hypertension Basic Metabolic Panel 6 Months E83.52 - Hypercalcemia, N28.1 - Cyst of kidney, acquired, R80.9 - Proteinuria, unspecified Creatinine Urine 6 Months I10 - Essential (primary) hypertension UA and rflx microscopic 6 Months I10 - Essential (primary) hypertension Coding Level of Care Code Est Pt Level 4 (34113) Diagnoses Essential hypertension I10 Renal cyst N28.1 Hypercalcemia E83.52 Microalbuminuria R80.9
[2025-04-25 10:06] VITALS: BP 118/80; PULSE 72; O2SAT 96; BMI 40.8
--- OUTSIDE RECORDS SUMMARY | 2025-04-25 11:02 | XMS_ITS | Clinical Summary ---
Author Organization [facility] Address [address] [place] [address] Phone Care Team Providers Care Commercial Escrow Officer Name Role Phone Saeid Singh MD Primary Care Provider [phone] Allergies Active Allergy Reactions Criticality Noted Date [...] to adjust dosing of Remicade for it. 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 pen[facility]entiary current use of opiate analgesic 08/20/2017 06/22/2021 [...] sure to inform any new Medical doctor, SNOW SHOVELER or PA about chronic immunosuppression with methotrexate [...] 2024 Influenza Vaccine (#1) 2025 08/03/2020 Insurance [place] [id number] Medicare Medicaid [place] * Guarantor: JORGE LUIS FRANCO A Account Type Relation to Patient Date of Phone Billing Address Personal/Family 1975 [address] [facility] [place] [address] Medicaid [place] Medicare Care Teams Commercial Escrow Officer Relationship Specialty Start Date End Date Saeid Singh MD [address] [place], [place] PCP - General 10/09/20
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
--- OUTSIDE RECORDS SUMMARY | 2025-04-25 11:02 | XMS_ITS | Patient Health Record ---
Author Organization [facility] Address [address] [place] [address] Care Team Providers Care On Site Nurse Name Role Phone Saeid Singh MD Primary [...] Problem Status W/U Status Risk Notes Problem [id number] Rectal bleeding (K62.5) Active confirmed Plan Of Treatment Future Test Test Name Order Date COLONOSCOPY 01/03/2022 Insurance Providers Payer Name Payer Address Payer Phone Subscriber Number Group Number Insured Name Patient Relationship to Insured Coverage Start Date Coverage End Date MEDICARE OF [place] [address] JYOTI GABRIEL [id number] MARGOT FRANCO III Self - patient is the insured MEDICAID OF [facility] [address] [place] [address] [id number] MARGOT FRANCO III Self - patient is the insured Medical (General) History Medical History History ICD Code diabetes asthma Hypertension Elevated cholesterol anxiety Rheumatoid arthritis Anemia HELEN/CPAP Surgical History Surgery Date(Month/Year) gastric bypass 2016
--- OUTSIDE RECORDS SUMMARY | 2025-04-25 11:03 | XMS_ITS | Data Portability ---
Author Organization [place] [facility] Address [address] [place] [id number] Care Team Providers Care Medical/Surgery Registered Nurse Name Role Phone GUILLERMO MORA Primary Care Provider [phone] Assessment Encounter Date Assessment Date Assessment LastModified by Organization Details LastModified Time 12/28/2020 12/28/2020 Overview/History : 45 y/o M with PMHx sig for asthma, CAD, HLD, HTN, CKD with R renal mass, RA, anemia, preDM, and lung nodules, new to , presents for asymptomatic COVID test after low risk exposure. Patient reports that he was contacted by [facility] on Friday reporting that his mother's [...] after care of this patient according to [facility]'s infection prevention protocols. -will call with COVID [...] I have accessed patient records on the [employer]. This information was pertinent in my medical decision making today. camille Not available 12/28/2020 20:26:17 Plan of Treatment Reminders Order Date Submit Date Provider Last Modified By Organization Details Last Modified Time Details Appointments None recorded. Lab SARS CoV 2 RNA (COVID-19), QL, donor specialist-PCR, respiratory specimen 2020 021 [email or web address] [facility] (Centralized Electronic Ordering - All Locations), Patient Can Go To The Location Of Their Choice, [address] 09:27:46 Referral None recorded. Procedures None recorded. [...] Go To The Location Of Their Choice, [id number] 12/29/2020 10:26:18 12/29/19 21 12/29/2020 covid -19 [...] ng. Resul t repor marcelo to the [facility]. To preve nt error s in [...] perfo rmed by real time PCR [facility] [email or web address] SARS- CoV-2 test. Not Available [facility] (Centralized Electronic Ordering - All Locations) Patient Can Go To The Location Of Their Choice, [address] 12/29/2020 10:26:18 Result Notes None recorded. Problems Name Problem SNOMED Code Status Onset Date Resolution Date Notes Provider Name and Address Organization Details Recorded Time Rheumatoid arthritis 76546600 Active 2020 WALTER RAVI [address] [facility] [place], [address], [place] [facility] 20:01:31 Problem Notes None recorded. Medical Equipment None Reported. Allergies Allergen ID Allergen Name Allergen Category Reaction Reaction Severity Criticality Documentation Date Start Date Code Code System Note Provider Name and Address Organization Details Recorded Time 197709 Iodinated contrast media (substanc e) medicatio n Not available Not available Not available 12/28/2020 12339 2003 SNOMED WALTER RAVI [address] [facility] [place], [address], [place] [facility] [...] % 96 % 148/64 mm[Hg] Not Available [facility] 19:28[facility] Social History Question Answer Notes LastModified by Organizat ion Details LastModified Time Tobacco Smoking Status Former Smoker WALTER RAVI [address] [place], [address], [place] [facility] 12/28/2020 20:04:06 Do You Have An Advance Directive? Yes [email or web address] Information not available 12/28/2020 What Is Your Code Status? Full Code [email or web address] Contentwilfredo Information not available 12/28/2020 Excessive Alcohol Or Drug Use No [employer] Information not available 12/28/2020 How Much Tobacco [...] History Condition Response Coronary Artery Disease Y COPD N Depression N Cancer N Stroke N High Cholesterol Y Kidney Disease Y Diabetes N Asthma Y Pulmonary Embolism N Hypertension Y Past Encounters Encounter ID Performer Location Encounter Start Date Encounter Closed Date Diagnosis/Indication Diagnosis SNOMED-CT Code Diagnosis ICD10 Code Diagnosis Note [id number] WALTER RAVI [facility] [address] [place] [address] 12/28/2020 19:17:25 12/29/2020 08:02:13 Exposure to communicable disease 756755223 Z20.822 Hypertensive disorder 38 948500 I10 Health Concerns Section Related Observation LastModified by Organization Detai ls LastModified Time None Recorded Concern Status LastModified by Organization Details LastModified Time None Recorded Advance Directives Directive Y: Payers Insurance Date Sequence Insurance Name Policy Number Policy Fox Covered Member ID Fox Member ID Guarantor Name 12/28/2020 1 *SELF PAY* Jorge Luis Bright [id number] Jorge Luis Bright 12/28/2020 2 [place] [facility] Jorge Luis Bright [id number] Jorge Luis Bright 01/01/2021 1 [place]IC[place] B[place] [employer] Jorge Luis Bright III [id number] Jorge Luis Bright
== END 2025-04-25 10:17 | disposition home or self-care (01) ==
LOC: HO.HKA 10:02
PROVIDERS: PCP Internal Medicine; Visit Provider Internal Medicine Hypertension Specialist
DX: I10 Essential (primary) hypertension (principal); N28.1 Cyst of kidney, acquired; E83.52 Hypercalcemia; R80.9 Proteinuria, unspecified
CPT/HCPCS: 99214

== ENCOUNTER → 2025-04-25 10:01 | Outpatient (BNVA) | payer MEDICARE, MEDICAID, SELFPAY | PROVIDERS: PCP Internal Medicine; Visit Provider Internal Medicine Hypertension Specialist | DX: I10 Essential (primary) hypertension (principal); N28.1 Cyst of kidney, acquired; E83.52 Hypercalcemia; R80.9 Proteinuria, unspecified | CPT/HCPCS: 99212 ==

== ENCOUNTER 2025-04-29 10:50 | Outpatient (AMB) | payer MEDICARE, MEDICAID, SELFPAY ==
[2025-04-29 10:53] VITALS: BP 138/78; PULSE 75; RESP 16; TEMP 36.2; O2SAT 96; BMI 40.3
--- NOTE | 2025-04-29 10:53 | AM.OFFVISMDC ---
Intake Vital Signs 04/29/25 10:53 Height 5 ft 2 in Weight 220 lb 6 oz BMI 40.3 BP 138/78 Blood Pressure Location Lt brachial Position Sitting Respiration 16 Pulse 75 Pulse Source Pulse Oximeter Temp 97.1 F Temp Source Temporal Artery Scan Pulse Oximetry (%) 96 Oxygen Delivery Method Room Air Intake Visit Reasons: SAWV Allergies Iodinated Contrast Media (Iodinated Contrast Media - IV Dye) Allergy (Mild, Verified 04/29/25 10:54) HIVE AND ITCHINESS ON FACE Medication List - Last Reconciled 04/29/25 by Saeid Singh MD albuterol sulfate 90 mcg/actuation 2 puffs inhalation Q4H PRN amlodipine 5 mg (1/2 x 10 mg) PO DAILY aspirin 81 mg PO DAILY atorvastatin 20 mg PO DAILY blood pressure monitor (Blood Pressure Kit) As directed blood sugar diagnostic (FreeStyle Lite Strips) 1 strip miscellaneous .QD 90 days celecoxib 200 mg PO BID PRN docusate sodium 100 mg PO BID 90 days empagliflozin (Jardiance) 10 mg PO DAILY escitalopram oxalate 5 mg PO DAILY ferrous sulfate 325 mg PO DAILY fluticasone propionate 50 mcg/actuation 2 sprays intranasal DAILY folic acid 1 mg PO DAILY hydroxyzine HCl 25 mg PO BEDTIME PRN infliximab (Remicade) once a week IV; 07/06/2021 irbesartan 300 mg PO DAILY lancets (FreeStyle Lancets) 1 gauge topical .QD 90 days lidocaine 5% 1 patch topical DAILY 90 days lorazepam 1 mg PO BID 90 days meclizine 25 mg PO TID PRN metformin 500 mg PO BIDWMEAL methotrexate sodium subcut; metoprolol tartrate 25 mg PO BID nitroglycerin (Nitrostat) 0.4 mg sublingual Q5M PRN oxycodone 10 mg PO BID PRN sennosides (senna) 17.2 mg (2 x 8.6 mg) PO BEDTIME spironolacton-hydrochlorothiaz 25-25 mg 1 tab PO DAILY syringe with needle (BD Tuberculin Syringe) As directed HPI SAWV HPI Details [place] of care Dr. Gandhi Nephrology, Ophthalmology [facility], Cardiology Dr. Ibarra, bariatric surgery Dr. Cristina rheumatology Dr. Sheldon, thoracic surgeon Dr. Angulo urology Dr. Leonardo PFSH Medical History Type 2 diabetes mellitus with unspecified complications Liver lesion Screening for prostate cancer History of COVID-19 COVID-19 virus infection Personal history of nicotine dependence Morbid obesity with BMI of 40.0-44.9, adult Atherosclerotic cardiovascular disease Suspected deep vein thrombosis Leg swelling Type 2 diabetes mellitus with hyperglycemia GERD (gastroesophageal reflux disease) Vitamin D deficiency Left renal mass Rheumatoid arthritis H/O hidradenitis suppurativa Lung nodule Vertigo Anxiety Asthma Obstructive sleep apnea Hyperlipidemia Surgical History History of bronchoscopy (~2020) History of cystoscopy (~2013) Status post biopsy of kidney (~2013) History of surgical removal of pilonidal cyst (~1990) S/P laparoscopic sleeve gastrectomy (~2017) Family History Father Heart problem Acute arthritis Mother Breast cancer Diabetes mellitus Liver cancer Son No problems noted. Maternal Uncle Myocardial infarct Maternal Aunt Breast cancer Social History (Updated 04/29/25 @ 11:34 by Saeid Singh MD) Housing: Apartment Alcohol intake: never Patient Tobacco Use Status: Former Tobacco user Tobacco use type: Cigarette Cigarettes Per Day: 15 Years Smoked: stopped 2004 e-Cigarette/Vaping Use: Never Used Second Hand Smoke Exposure: No service: No Current occupational status: disabled Cognitive needs: No Hearing needs: Yes (hearig aide) Vision needs: Yes (glasses) Questionnaire Medicare Wellness Checkup What gender do you identify with?: male During the past 4 weeks, how much have you been bothered by emotional problems such as feeling anxious, depressed, irritable, sad or downhearted, and blue?: slightly During the past 4 weeks, has your physical & emotional health limited your social activities with family, friends, neighbors, or groups?: not at all During the past 4 weeks, how much bodily pain have you generally had?: severe pain During the past 4 weeks, was someone available to help you if you needed & wanted help?: yes, quite a bit During the past 4 weeks, what was the hardest physical activity you could do for at least 2 minutes?: moderate Can you get to places out of walking distance without help? (For eg., can you travel alone on buses, taxis or drive your car?): Yes Can you go shopping for groceries or clothes without someone's help?: Yes Can you prepare your own meals?: Yes Can you do your housework without help?: Yes Because of any health problems, do you need the help of another person with your personal care needs such as eating, bathing, dressing or getting around the house?: No Can you handle your own money without help?: Yes During the past 4 weeks, how would you rate your health in general?: good During the past 4 weeks how have things been going for you?: pretty well Are you having difficulties driving your car?: no Do you always fasten your seat belt when you are in a car?: yes, usually During past 4 weeks, have you been bothered by the following: never: Falling or dizzy when standing up, Sexual problems?, Trouble eating well?, Teeth or denture problems?, Problems using the telephone? and Tiredness or fatigue? Have you fallen 2 or more times in the past year?: No Are you afraid of falling?: No Are you a smoker?: no During the past 4 weeks, how many drinks of wine, beer, or other alcoholic beverages did you have?: no alcohol at all Do you exercise for about 20 minutes 3 or more times a week?: yes, all the time Have you been given information to help with the following?: no: Hazards in your house that might hurt you? and no: Keeping track of your medications? How often do you have trouble taking medicines the way you have been told to take them?: I always take medicine as prescribed How confident are you that you can control & manage most of your health problems?: very confident What is your race?: or origin or descent PHQ-9 Over the last 2 weeks, how often have you been bothered by any of the following problems? 1. Little interest or pleasure in doing things: several days 2. Feeling down, depressed, or hopeless: not at all 3. Trouble falling or staying asleep, or sleeping too much: not at all 4. Feeling tired or having little energy: not at all 5. Poor appetite or overeating: not at all 6. Feeling bad about yourself - or that you are a failure or have let yourself or your family down: not at all 7. Trouble concentrating on things, such as reading the newspaper or watching television: not at all 8. Moving or speaking so slowly that other people could have noticed. Or the opposite - being so fidgety or restless that you have been moving around a lot more than usual: not at all 9. Thoughts that you would be better off or of hurting yourself in some way: not at all Total score: 1 Depression Screening Interpretation: Negative Depression Screening Done: Yes [id number] - PHQ-9 Billing: Yes Source: Developed by Drs. Ye Galdamez, Marie Sofia, Beltran Blair and colleagues, with an educational racquel from [employer]. Review of Systems Const Denies poor appetite and Denies weakness Eyes Denies no additional complaints ENT Reports Normal hearing present, Denies dizziness, Denies nasal congestion, Denies tinnitus and Denies sore throat Card Denies chest pain, Denies syncope, Denies rapid heart rate and Denies dyspnea Resp Denies cough and Denies dyspnea GI Denies change in stool character, Reports constipation, Denies diarrhea, Denies nausea and Denies vomiting Denies dysuria and Denies urinary frequency Neuro Reports Normal hearing present, Denies confusion, Denies dizziness, Denies syncope and Denies weakness Psych Denies confusion Physical Exam Vital Signs: Last Vital Signs Temp 97.1 F 04/29/25 10:53 Pulse 75 04/29/25 10:53 Resp 16 04/29/25 10:53 BP 138/78 04/29/25 10:53 Pulse Ox 96 04/29/25 10:53 Oxygen Delivery Method Room Air 04/29/25 10:53 BMI result Body Mass Index 40.3 Const General: No confusion Orientation/consciousness: No confusion HEENT Head: Yes normocephalic Ears: external ears normal and TM's normal bilaterally Face and sinus: Yes normal facial exam Mouth: moist mucous membranes Throat: Yes tonsils normal Eyes Conjunctivae: conjunctivae normal Pupils: Equal, round and reactive pupils present and Pupil accommodation reflex normal Direct Ophthalmoscopy: normal light reflex Neck Neck: No lymphadenopathy Thyroid: Thyroid normal Chest Chest palpation & inspection: normal inspection of the chest Resp Effort & Inspection: normal respiratory effort and no audible wheezes Auscultation: clear to auscultation bilaterally, no crackles, no wheezes and lung sounds not diminished Cardio Rate: regular rate Rhythm: regular rhythm Peripheral pulses: radial pulses present and dorsalis pedis present GI Other: colon test referral Palpation (GI): no masses Auscultation: normal bowel sounds and normoactive bowel sounds Rectal Exam - Male: Yes deferred Male General Exam: Yes normal external exam Skin General skin exam: no rashes or lesions noted Rashes: no rashes Neuro General: No confusion Cranial nerves: Yes Equal, round and reactive pupils present and Yes Normal hearing present Cognition (Neuro): normal cognition Gait exam (Neuro): Normal gait present Motor exam (neuro): 5/5 motor strength present throughout Deep tendon reflexes (DTR's): Right brachioradialis reflex intensity grade: 2+, Left brachioradialis reflex intensity grade: 2+, Right patellar reflex intensity grade: 2+ and Left patellar reflex intensity grade: 2+ Extrem General: No edema Assessment & Plan Assessment & Plan (1) Medicare annual wellness visit, subsequent: Code(s): Z00.00 - Encounter for general adult medical examination without abnormal findings Plan: Patient is advised to eat healthy, keep well hydrated, keep active and have adequate sleep. (2) Type 2 diabetes mellitus with hyperglycemia: Comment: Dr. Stephens Code(s): E11.65 - Type 2 diabetes mellitus with hyperglycemia Qualifiers: Diabetes mellitus chcf insulin use: without chcf use Qualified Code(s): E11.65 - Type 2 diabetes mellitus with hyperglycemia Plan: Decrease the amount of carbohydrate intake, pasta, bread, rice and potatoes are all sugar and that is aside from all the sweet stuff, remember that fruits are good but they are Sweet also. Hemoglobin A1c goal of less than 6.5. Patient is on Jardiance 10 mg once a day metformin 500 mg twice a day (3) Hyperlipidemia: Code(s): E78.5 - Hyperlipidemia, unspecified Qualifiers: Hyperlipidemia type: pure hypercholesterolemia Qualified Code(s): E78.00 - Pure hypercholesterolemia, unspecified Plan: Avoid fried foods, chicken skin, eggs, butter margarine, pastries and meat. Be it pork or beef they have a lot of cholesterol LDL goal of less than 70 and triglyceride of less than 150 patient is taking atorvastatin 20 mg once a day (4) Atherosclerotic cardiovascular disease: Code(s): I25.10 - Atherosclerotic heart disease of [place] coronary artery without angina pectoris Plan: Control the cholesterol, weight, blood pressure, diabetes continue with aspirin (5) Essential hypertension: Code(s): I10 - Essential (primary) hypertension Plan: Continue with blood pressure medication. Decrease salt intake and exercise patient follows up with Nephrology patient is on spironolactone hydrochlorothiazide metoprolol 25 mg twice a day ear irbesartan 300 mg once a day amlodipine 5 mg once a day (6) S/P laparoscopic sleeve gastrectomy: Onset Date: ~2017 Comment: [place] [facility] [place] Code(s): Z98.84 - Bariatric surgery status Plan: Continue to follow-up with bariatric (7) Morbid obesity with BMI of 40.0-44.9, adult: Comment: (Morbid Obesity - persistent s/p sleeve gastrectomy 2017) Code(s): E66.01 - Morbid (severe) obesity due to excess calories; Z68.41 - Body mass index [BMI] 40.0-44.9, adult Plan: Continue with diet and exercise (8) GERD (gastroesophageal reflux disease): Code(s): K21.9 - Gastro-esophageal reflux disease without esophagitis Qualifiers: Esophagitis presence: without esophagitis Qualified Code(s): K21.9 - Gastro-esophageal reflux disease without esophagitis Plan: Avoid the foods that causes that usually spicy foods, tomato products, juices, coffee, soda and foods that your sensitive to. After eating do not lie down, allow 3-4 hours before in lie down. And keep the head of bed above 30 degrees to avoid the acid from going up. (9) Fatty liver: Comment: September 2023 Punctate nonobstructing left lower pole renal stone new from prior. 2. Hepatic steatosis. 3. Splenomegaly. 4. Portions of the pancreas and aorta were obscured by bowel gas limiting evaluation. Code(s): K76.0 - Fatty (change of) liver, not elsewhere classified Plan: Low-fat diet and exercise (10) Rheumatoid arthritis: Comment: (RA + OA - see [facility] - Dr. Sheldon) Code(s): M06.9 - Rheumatoid arthritis, unspecified Qualifiers: Rheumatoid arthritis location: multiple sites Rheumatoid factor presence: unspecified presence Qualified Code(s): M06.9 - Rheumatoid arthritis, unspecified Plan: Continue to follow-up with Rheumatology (11) Left renal stone: Comment: September 2023 Punctate nonobstructing left lower pole renal stone new from prior. 2. Hepatic steatosis. 3. Splenomegaly. 4. Portions of the pancreas and aorta were obscured by bowel gas limiting evaluation. Code(s): N20.0 - Calculus of kidney Plan: Keep well hydrated (12) Obstructive sleep apnea: Comment: (on CPAP) Code(s): G47.33 - Obstructive sleep apnea (adult) (pediatric) Plan: Continues the CPAP more than 4 hours a night and benefits from this (13) Personal history of nicotine dependence: Code(s): Z87.891 - Personal history of nicotine dependence Plan: Patient is strongly advised to stop smoking (14) Tubular adenoma of colon: Code(s): D12.6 - Benign neoplasm of colon, unspecified Plan: Patient is reminded about colonoscopy Orders: Referrals Gastroenterology Referral D12.6 - Benign neoplasm of colon, unspecified Speech and Hearing Referral H91.90 - Unspecified hearing loss, unspecified ear Medications: New blood-glucose meter (FreeStyle Lite Meter kit) As directed 1 ea 0RF E11.65 - Type 2 diabetes mellitus with hyperglycemia, H91.90 - Unspecified hearing loss, unspecified ear blood-glucose meter (FreeStyle Lite Meter kit) As directed 1 ea 0RF E11.65 - Type 2 diabetes mellitus with hyperglycemia, H91.90 - Unspecified hearing loss, unspecified ear Refilled blood pressure monitor (Blood Pressure Kit) As directed 1 ea 0RF I10 - Essential (primary) hypertension Quality Reporting (2019) Depression/Bipolar (159/160/161/177) PHQ-9: Total score: 1 Coding Level of Care Code Medicare Subsequent (G0439) Diagnoses Medicare annual wellness visit, subsequent Z00.00 Type 2 diabetes mellitus with hyperglycemia, without long-term current use of insulin E11.65 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 Pure hypercholesterolemia E78.00 Hyperlipidemia type: pure hypercholesterolemia Atherosclerotic cardiovascular disease I25.10 Essential hypertension I10 S/P laparoscopic sleeve gastrectomy Z98.84 Morbid obesity with BMI of 40.0-44.9, adult E66.01; Z68.41 Gastroesophageal reflux disease without esophagitis K21.9 Esophagitis presence: without esophagitis Fatty liver K76.0 Rheumatoid arthritis involving multiple sites, unspecified whether rheumatoid factor present M06.9 Rheumatoid arthritis location: multiple sites Rheumatoid factor presence: unspecified presence Left renal stone N20.0 Obstructive sleep apnea G47.33 Personal history of nicotine dependence Z87.891 Tubular adenoma of colon D12.6 Additional Codes PHQ-9 - 74596 - PHQ-9 Billing: Yes ([id number])
--- OUTSIDE RECORDS SUMMARY | 2025-04-29 11:00 | XMS_ITS | Clinical Summary ---
Author Organization [facility] Address [address] [place] [address] Phone Care Team Providers Care Space Engineer Name Role Phone Saeid Singh MD Primary Care Provider [phone] Jody Sheldon MD Unavailable [phone] Allergies Active Allergy Reactions Criticality Noted Date [...] Active ferrous sulfate 325 mg (65 mg ugashik iron) tablet Take 325 mg by mouth [...] Pt. may request partial fill 56 tablet 04/27/20 25 025 Active oxyCODONE HCl 10 mg TabIndications:Delia rivera osteoarthritis involving multiple joints,Seropositiv e rheumatoid arthritis of multiple sites Take 1 tablet (10 mg total) by mouth 2 (two) times a day as needed (severe pain). Pt. 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 Call if questions or problems. History [...] PM EDT): Continue regular follow-up with garment supervisor as scheduled to maintain best quality of [...] restart every 6 weeks Remicade infusions at [facility] since colonoscopy returned reassuring. Get labs monitoring safety and efficacy of therapy at least every 6 weeks- standing orders in [facility] Monitor carefully for any signs of developing infection such as fever, excessive tiredness, flulike symptoms, headaches, cough, skin rashes etc. Make sure to inform any new Medical doctor, SALES PERFORMANCE MANAGER or PA about chronic immunosuppression with methotrexate and Remicade especially in emergency situations Assessment & Plan (08/30/2024 2:30 PM EST): Carefully restart every 6 weeks Remicade infusions at [facility] since colonoscopy returned reassuring. Get labs monitoring safety and efficacy of therapy at least every 6 weeks- standing orders in epic Monitor carefully for any signs of developing infection such as fever, excessive tiredness, flulike symptoms, headaches, cough, skin rashes etc. Make sure to inform any new Medical doctor, SALES PERFORMANCE MANAGER or PA about chronic immunosuppression with methotrexate and Remicade especially in emergency situations Assessment & Plan (04/28/2024 4:18 PM EDT): Carefully restart every 6 weeks Remicade infusions at [facility] since colonoscopy returned reassuring. Get labs monitoring safety and efficacy of therapy at least every 6 weeks- standing orders in epic Monitor carefully for any signs of developing infection such as fever, excessive tiredness, flulike symptoms, headaches, cough, skin rashes etc. Make sure to inform any new Medical doctor, SALES PERFORMANCE MANAGER or PA about chronic immunosuppression with methotrexate and Remicade especially in emergency situations Assessment & Plan (06/12/2023 3:39 PM EDT): Carefully restart every 6 weeks Remicade infusions at [facility] since colonoscopy returned reassuring. Get labs monitoring safety and efficacy of therapy at least every 6 weeks- standing orders in epic Monitor carefully for any signs of developing infection such as fever, excessive tiredness, flulike symptoms, headaches, cough, skin rashes etc. Make sure to inform any new Medical doctor, SALES PERFORMANCE MANAGER or PA about chronic immunosuppression with methotrexate and Remicade especially in emergency situations Assessment & Plan (03/10/2023 2:12 PM EDT): Carefully restart every 6 weeks Remicade infusions at [facility] since colonoscopy returned reassuring. Get labs monitoring safety and efficacy of therapy at least every 6 weeks- standing orders in epic Monitor carefully for any signs of developing infection such as fever, excessive tiredness, flulike symptoms, headaches, cough, skin rashes etc. Make sure to inform any new Medical doctor, SALES PERFORMANCE MANAGER or PA about chronic immunosuppression with methotrexate and Remicade especially in emergency situations Assessment & Plan (09/15/2022 9:31 PM EST): Carefully restart every 6 weeks Remicade infusions at [facility] since colonoscopy returned reassuring. Get labs monitoring safety and efficacy of therapy at least every 6 weeks- standing orders in epic Monitor carefully for any signs of developing infection such as fever, excessive tiredness, flulike symptoms, headaches, cough, skin rashes etc. Make sure to inform any new Medical doctor, SALES PERFORMANCE MANAGER or PA about chronic immunosuppression with methotrexate and Remicade especially in emergency situations Assessment & Plan (03/03/2022 9:43 PM EDT): Hold until clarified regarding GI bleeding by colonoscopy & GI data security consultant. Get labs monitoring safety and efficacy of therapy at least every 6 weeks- standing orders in epic Monitor carefully for any signs of developing infection such as fever, excessive tiredness, flulike symptoms, headaches, cough, skin rashes etc. Make sure to inform any new Medical doctor, SALES PERFORMANCE MANAGER or PA about chronic immunosuppression with methotrexate [...] sure to inform any new Medical doctor, SALES PERFORMANCE MANAGER or PA about chronic immunosuppression with methotrexate [...] sure to inform any new Medical doctor, SALES PERFORMANCE MANAGER or PA about chronic immunosuppression with methotrexate [...] sure to inform any new Medical doctor, SALES PERFORMANCE MANAGER or PA about chronic immunosuppression with methotrexate [...] sure to inform any new Medical doctor, SALES PERFORMANCE MANAGER or PA about chronic immunosuppression with methotrexate [...] sure to inform any new Medical doctor, SALES PERFORMANCE MANAGER or PA about chronic immunosuppression with methotrexate [...] sure to inform any new Medical doctor, SALES PERFORMANCE MANAGER or PA about chronic immunosuppression with methotrexate [...] sure to inform any new Medical doctor, SALES PERFORMANCE MANAGER or PA about chronic immunosuppression with methotrexate [...] sure to inform any new Medical doctor, SALES PERFORMANCE MANAGER or PA about chronic immunosuppression with methotrexate and Remicade especially in emergency situations . Next infusion on 02/10/20. Assessment & Plan (10/11/2019 1:55 PM EST): Monitor carefully for any signs of developing infection such as fever, excessive tiredness, flulike symptoms, headaches, cough, skin rashes etc. Make sure to inform any new Medical doctor, SALES PERFORMANCE MANAGER or PA about chronic immunosuppression with methotrexate and Remicade especially in emergency situations . Next infusion on 10/19/19. Assessment & Plan (08/18/2019 9:38 PM EST): Monitor carefully for any signs of developing infection such as fever, excessive tiredness, flulike symptoms, headaches, cough, skin rashes etc. Make sure to inform any new Medical doctor, SALES PERFORMANCE MANAGER or PA about chronic immunosuppression with methotrexate and Remicade especially in emergency situations . Next infusion in 6 weeks from 07/21/2019 (on 09/01/2019). Assessment & Plan (02/14/2019 8:28 PM EDT): Monitor carefully for any signs of developing infection such as fever, excessive tiredness, flulike symptoms, headaches, cough, skin rashes etc. Make sure to inform any new Medical doctor, SALES PERFORMANCE MANAGER or PA about chronic immunosuppression with methotrexate and Remicade especially in emergency situations . Next infusion in 6 weeks from 01/29/2019 (on 03/12/2019). Assessment & Plan (11/28/2018 7:44 PM EST): Monitor carefully for any signs of developing infection such as fever, excessive tiredness, flulike symptoms, headaches, cough, skin rashes etc. Make sure to inform any new Medical doctor, SALES PERFORMANCE MANAGER or PA about chronic immunosuppression with methotrexate [...] and every 6 weeks IV Remicade at [facility] infusion center. Avoid sick contacts. Joint [...] at least every 6 weeks-standing orders in [facility]. Check if ankle swelling and blood [...] at least every 6 weeks-standing orders in [facility]. Get yearly influenza vaccine 3 weeks [...] at least every 6 weeks-standing orders in [facility]. Call if questions or problems. Assessment [...] needed. Call if worse or with questions. 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 Portion [...] Encounters Date Type Department Care Team Description 04/25/2025 Refill [facility] [address] [place] [address] [place] [id number] Soniya Carl MA Medication Refill 04/22/2025 Orders Only [facility]umatology [address] [place] [address] [place] [id number] Sarah Thrasher MA Rheumatoid arthritis involving multiple sites with positive rheumatoid factor 03/29/2025 Telephone [facility] [address] [place] [address] Saeid Singh MD 03/24/2025 Refill [facility] Rheumatology [address] [place] [id number] Soniya Carl MA 03/10/2025 Telephone [facility]umatology [address] [place] [address] [place] [id number] Francisca Loaiza CMA 03/03/2025 Orders Only [facility] Rheumatology [address] [place] [address] [place] [id number] Sarah Thrasher MA Rheumatoid arthritis involving multiple sites with positive rheumatoid factor 03/02/2025 3:00 PM EDT Office Visit [facility]ology [address] [place] [address] Jody Sheldon MD Seropositive rheumatoid arthritis of multiple sites (Primary Dx); Primary osteoarthritis involving multiple joints; Infliximab (Remicade) long-term use; On methotrexate therapy; 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 non-steroidal anti-inflammatories (NSAID); 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 opiate analgesic; Wears hearing aid in both ears; On statin therapy; senior care current use of oral hypoglycemic drug; Class 2 severe obesity due to excess calories with serious comorbidity and body mass index (BMI) of 38.0 to 38.9 in adult 02/28/2025 Refill [facility] Rhe[facility]ology [address] [place] [address] Jody Sheldon MD Medication Refill 02/24/2025 Telephone [facility] Rheumatology [address] [place] [address] [place] [address] Jody Sheldon MD Labs 01/27/2025 Refill [facility] Rheumatology [address] [place] [address] [place] [address] Francisca Loaiza CMA Medication Refill from Last [...] Info) Description 05/12/2025 11:30 AM EDT Infusion [facility] [address] [place] [address] Jody Sheldon MD [address] [place] [address], [address] [address] 07/06/2025 2:00 PM EDT Office Visit [facility] Rheumatology [address] [place] [id number] Jody Sheldon MD [address] [place] [address], [address] [address] [email or web address] Health Maintenance Due Date Last Done Comments [...] SCREEN Routine 03/03/2025 8:3 3 AM EDT senior care current use of opiate analgesic COMPREHENSIVE METABOLIC [...] ORDERABLES Fin al Result Performing Organization Address [facility] de Phone Number EXTERNAL NON-INTERFACED REF LAB * CBC and differential (04/21/2025 11:40 AM EDT) Only the most recent of2 resultswithin the time period is included. Blood Joyd Sheldon MD LAB BLOOD ORDERABLES Fin al Result Performing Organization Address [facility] de Phone Number EXTERNAL NON-INTERFACED REF LAB * Sedimentation rate (ESR) (04/21/2025 11:40 AM EDT) Only the most recent of2 resultswithin the time period is included. Blood Jody Sheldon MD LAB BLOOD ORDERABLES Fin al Result Performing Organization Address [facility] de Phone Number EXTERNAL NON-INTERFACED REF LAB * C-Reactive Protein (04/21/2025 11:40 AM EDT) Only the most recent of2 resultswithin the time period is included. Blood us Jody Sheldon MD LAB BLOOD ORDERABLES Fin al Result Performing Organization Address [facility]/ZIP Co de Phone Number EXTERNAL NON-INTERFACED REF LAB * Urine Drug Screen (03/03/2025 8:33 AM EDT) Urine (Urine) us Jody Sheldon MD URINE ORDERABLES Final R esult Performing Organization Address City/[facility] Co de Phone Number EXTERNAL NON-INTERFACED REF LAB from Last 3 Months or Most Recently Relevant to Health Maintenance Insurance MEDICARE PART A & B [facility] MEDICARE PART A & B [facility] MEDICARE PART A & B [facility] MEDICARE PART A & B [facility] MEDICARE PART A & B [facility] [place] [id number] MEDICARE PART A & [place] [facility] [place] [id number] MEDICARE PART A & B [facility] [place] [id number] MEDICARE PART A & B [place] MEDICARE PART A & [facility] Care Teams Space Engineer Relationship Specialty Start Date End Date Saeid Singh MD [address] [place] [address] [address] [place] [id number] PCP - General 07/17/17 Jody Sheldon MD [address] [place] [address], [address] [place] [address] [email or web address] Historical LMR Provider Rheumatology 07/19/17 Additional Source Comments The information contained in this document represents components of the legal health record. It is not the complete legal health record.[facility]
--- OUTSIDE RECORDS SUMMARY | 2025-04-29 11:00 | XMS_ITS | Patient Health Record ---
Author Organization [facility] Address [address] [place] [address] Care Team Providers Care Pediatric Cardiologist Name Role Phone Saeid Singh MD Primary [...] Problem Status W/U Status Risk Notes Problem [id number] Rectal bleeding (K62.5) Active confirmed Plan Of Treatment Future Test Test Name Order Date COLONOSCOPY 01/03/2022 Insurance Providers Payer Name Payer Address Payer Phone Subscriber Number Group Number Insured Name Patient Relationship to Insured Coverage Start Date Coverage End Date MEDICARE OF [place] [address] JYOTI GABRIEL [id number] [phone] [id number] MARGOT FRANCO III Self - patient is the insured MEDICAID OF [facility] [address] [place] [address] [id number] MARGOT FRANCO III Self - patient is the insured Medical (General) History Medical History History ICD Code diabetes asthma Hypertension Elevated cholesterol anxiety Rheumatoid arthritis Anemia HELEN/CPAP Surgical History Surgery Date(Month/Year) gastric bypass 2016
--- OUTSIDE RECORDS SUMMARY | 2025-04-29 11:00 | XMS_ITS | Clinical Summary ---
Author Organization [facility] Address [address] [place] [address] [place] [address] Phone Care Team Providers Care Tool Setter Apprentice Name Role Phone Saeid Singh MD Primary Care Provider [phone] Allergies Active Allergy Reactions Criticality Noted Date [...] to adjust dosing of Remicade for it. gas controller current use of aspirin 01/10/2020 06/22/2021 Overview [...] restarting weekly methotrexate on its usual schedule. gas controller current use of opiate analgesic 08/20/2017 06/22/2021 [...] sure to inform any new Medical doctor, LOW VOLTAGE TECHNICIAN or PA about chronic immunosuppression with methotrexate [...] Vaccine (#1) 2025 08/03/2020 Insurance [place] [id number] Medicare Medicaid [place] * Guarantor: JORGE LUIS FRANCO A Account Type Relation to Patient Date of Phone Billing Address Personal/Family 1975 [address] [facility] [address] [place] Care Teams Tool Setter Apprentice Relationship Specialty Start Date End Date Saeid Singh MD [address] [place], [place] PCP - General 10/09/20
== END 2025-04-29 11:50 | disposition home or self-care (01) ==
LOC: HO.HMCH 10:51
PROVIDERS: PCP Internal Medicine; Visit Provider Internal Medicine
DX: Z00.00 Encounter for general adult medical examination without abnormal findings (principal); E11.65 Type 2 diabetes mellitus with hyperglycemia; E66.01 Morbid (severe) obesity due to excess calories; Z68.41 Body mass index [BMI] 40.0-44.9, adult; M06.9 Rheumatoid arthritis, unspecified; E78.00 Pure hypercholesterolemia, unspecified; I25.10 Atherosclerotic heart disease of native coronary artery without angina pectoris; I10 Essential (primary) hypertension; Z98.84 Bariatric surgery status; K21.9 Gastro-esophageal reflux disease without esophagitis; K76.0 Fatty (change of) liver, not elsewhere classified; N20.0 Calculus of kidney

== ENCOUNTER → 2025-04-29 10:50 | Outpatient (BNVA) | payer MEDICARE, MEDICAID, SELFPAY | PROVIDERS: PCP Internal Medicine; Visit Provider Internal Medicine | DX: Z00.00 Encounter for general adult medical examination without abnormal findings (principal); E11.65 Type 2 diabetes mellitus with hyperglycemia; E78.00 Pure hypercholesterolemia, unspecified; I25.10 Atherosclerotic heart disease of native coronary artery without angina pectoris; I10 Essential (primary) hypertension; E66.01 Morbid (severe) obesity due to excess calories; Z68.41 Body mass index [BMI] 40.0-44.9, adult; K21.9 Gastro-esophageal reflux disease without esophagitis; K76.0 Fatty (change of) liver, not elsewhere classified; M06.9 Rheumatoid arthritis, unspecified; N20.0 Calculus of kidney; G47.33 Obstructive sleep apnea (adult) (pediatric); D12.6 Benign neoplasm of colon, unspecified; Z98.84 Bariatric surgery status; Z87.891 Personal history of nicotine dependence; Z71.3 Dietary counseling and surveillance | CPT/HCPCS: 96127 ==

== ENCOUNTER 2025-06-08 15:05 | Outpatient (REF) | payer MEDICARE, MEDICAID, SELFPAY ==
--- OUTSIDE RECORDS SUMMARY | 2025-06-08 18:13 | XMS_ITS | Clinical Summary ---
Author Organization [facility] Address [address] [place] [address] Phone Care Team Providers Care Financial Examiner Name Role Phone Saeid Singh MD Primary Care Provider [phone] Jody Sheldon MD Unavailable Allergies Active Allergy Reactions Criticality Noted Date [...] Active ferrous sulfate 325 mg (65 mg [place] iron) tablet Take 325 mg by mouth [...] a day with meals. 10/01/19 24 Active celecoxib (CELEBREX) 200 MG capsuleIndications [...] days. 12 mL 1 03/02/20 25 Active folic acid (FOLVITE) 1 MG tabletIndications: Seropositive rheumatoid arthritis of multiple sites TAKE 1 TABLET BY MOUTH EVERY DAY 90 tablet 3 05/02/20 25 Active oxyCODONE HCl 10 mg TabIndications:Delia miguel osteoarthritis involving multiple joints,Seropositiv e rheumatoid arthritis of multiple sites Take 1 tablet (10 mg total) by mouth 2 (two) times a day as needed (severe pain). Pt. may request partial fill 56 tablet 05/23/20 25 025 Active oxyCODONE HCl 10 mg TabIndications:Delia rivera osteoarthritis involving multiple joints,Seropositiv e rheumatoid arthritis of multiple sites Take 1 tablet (10 mg total) by mouth 2 (two) times a day as needed (severe pain). Pt. may request partial fill 56 tablet 04/27/20 025 Discontin ued(Reord er) Active Problems Problem Noted Date Diagnosed Date [facility] current use of oral hypoglycemic drug 03/02/2025 [...] at least every 6 weeks-standing orders in [facility]. Call if questions or problems. [...] 7:20 PM EDT): Continue regular follow-up with hopper attendant as scheduled to maintain best quality of [...] restart every 6 weeks Remicade infusions at [facility] since colonoscopy returned reassuring. Get labs monitoring safety and efficacy of therapy at least every 6 weeks- standing orders in [facility] Monitor carefully for any signs of developing infection such as fever, excessive tiredness, flulike symptoms, headaches, cough, skin rashes etc. Make sure to inform any new Medical doctor, DIGITAL STRATEGY MANAGER or PA about chronic immunosuppression with methotrexate and Remicade especially in emergency situations Assessment & Plan (08/30/2024 2:30 PM EST): Carefully restart every 6 weeks Remicade infusions at [facility] since colonoscopy returned reassuring. Get labs monitoring safety and efficacy of therapy at least every 6 weeks- standing orders in epic Monitor carefully for any signs of developing infection such as fever, excessive tiredness, flulike symptoms, headaches, cough, skin rashes etc. Make sure to inform any new Medical doctor, DIGITAL STRATEGY MANAGER or PA about chronic immunosuppression with methotrexate and Remicade especially in emergency situations Assessment & Plan (04/28/2024 4:18 PM EDT): Carefully restart every 6 weeks Remicade infusions at [facility] since colonoscopy returned reassuring. Get labs monitoring safety and efficacy of therapy at least every 6 weeks- standing orders in epic Monitor carefully for any signs of developing infection such as fever, excessive tiredness, flulike symptoms, headaches, cough, skin rashes etc. Make sure to inform any new Medical doctor, DIGITAL STRATEGY MANAGER or PA about chronic immunosuppression with methotrexate and Remicade especially in emergency situations Assessment & Plan (06/12/2023 3:39 PM EDT): Carefully restart every 6 weeks Remicade infusions at [facility] since colonoscopy returned reassuring. Get labs monitoring safety and efficacy of therapy at least every 6 weeks- standing orders in epic Monitor carefully for any signs of developing infection such as fever, excessive tiredness, flulike symptoms, headaches, cough, skin rashes etc. Make sure to inform any new Medical doctor, DIGITAL STRATEGY MANAGER or PA about chronic immunosuppression with methotrexate and Remicade especially in emergency situations Assessment & Plan (03/10/2023 2:12 PM EDT): Carefully restart every 6 weeks Remicade infusions at [facility] since colonoscopy returned reassuring. Get labs monitoring safety and efficacy of therapy at least every 6 weeks- standing orders in epic Monitor carefully for any signs of developing infection such as fever, excessive tiredness, flulike symptoms, headaches, cough, skin rashes etc. Make sure to inform any new Medical doctor, DIGITAL STRATEGY MANAGER or PA about chronic immunosuppression with methotrexate and Remicade especially in emergency situations Assessment & Plan (09/15/2022 9:31 PM EST): Carefully restart every 6 weeks Remicade infusions at [facility] since colonoscopy returned reassuring. Get labs monitoring safety and efficacy of therapy at least every 6 weeks- standing orders in epic Monitor carefully for any signs of developing infection such as fever, excessive tiredness, flulike symptoms, headaches, cough, skin rashes etc. Make sure to inform any new Medical doctor, DIGITAL STRATEGY MANAGER or PA about chronic immunosuppression with methotrexate and Remicade especially in emergency situations Assessment & Plan (03/03/2022 9:43 PM EDT): Hold until clarified regarding GI bleeding by colonoscopy & GI c consultant. Get labs monitoring safety and efficacy of therapy at least every 6 weeks- standing orders in epic Monitor carefully for any signs of developing infection such as fever, excessive tiredness, flulike symptoms, headaches, cough, skin rashes etc. Make sure to inform any new Medical doctor, DIGITAL STRATEGY MANAGER or PA about chronic immunosuppression with [...] sure to inform any new Medical doctor, DIGITAL STRATEGY MANAGER or PA about chronic immunosuppression with [...] sure to inform any new Medical doctor, DIGITAL STRATEGY MANAGER or PA about chronic immunosuppression with [...] sure to inform any new Medical doctor, DIGITAL STRATEGY MANAGER or PA about chronic immunosuppression with [...] sure to inform any new Medical doctor, DIGITAL STRATEGY MANAGER or PA about chronic immunosuppression with [...] sure to inform any new Medical doctor, DIGITAL STRATEGY MANAGER or PA about chronic immunosuppression with [...] sure to inform any new Medical doctor, DIGITAL STRATEGY MANAGER or PA about chronic immunosuppression with [...] sure to inform any new Medical doctor, DIGITAL STRATEGY MANAGER or PA about chronic immunosuppression with [...] sure to inform any new Medical doctor, DIGITAL STRATEGY MANAGER or PA about chronic immunosuppression with methotrexate and Remicade especially in emergency situations . Next infusion on 02/10/20. Assessment & Plan (10/11/2019 1:55 PM EST): Monitor carefully for any signs of developing infection such as fever, excessive tiredness, flulike symptoms, headaches, cough, skin rashes etc. Make sure to inform any new Medical doctor, DIGITAL STRATEGY MANAGER or PA about chronic immunosuppression with methotrexate and Remicade especially in emergency situations . Next infusion on 10/19/19. Assessment & Plan (08/18/2019 9:38 PM EST): Monitor carefully for any signs of developing infection such as fever, excessive tiredness, flulike symptoms, headaches, cough, skin rashes etc. Make sure to inform any new Medical doctor, DIGITAL STRATEGY MANAGER or PA about chronic immunosuppression with methotrexate and Remicade especially in emergency situations . Next infusion in 6 weeks from 07/21/2019 (on 09/01/2019). Assessment & Plan (02/14/2019 8:28 PM EDT): Monitor carefully for any signs of developing infection such as fever, excessive tiredness, flulike symptoms, headaches, cough, skin rashes etc. Make sure to inform any new Medical doctor, DIGITAL STRATEGY MANAGER or PA about chronic immunosuppression with methotrexate and Remicade especially in emergency situations . Next infusion in 6 weeks from 01/29/2019 (on 03/12/2019). Assessment & Plan (11/28/2018 7:44 PM EST): Monitor carefully for any signs of developing infection such as fever, excessive tiredness, flulike symptoms, headaches, cough, skin rashes etc. Make sure to inform any new Medical doctor, DIGITAL STRATEGY MANAGER or PA about chronic immunosuppression with [...] and every 6 weeks IV Remicade at [facility] infusion center. Avoid sick contacts. Joint protection, [...] at least every 6 weeks-standing orders in [facility]. Check if ankle swelling and [...] at least every 6 weeks-standing orders in [facility]. Get yearly influenza vaccine 3 [...] at least every 6 weeks-standing orders in [facility]. Call if questions or problems. [...] needed. 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 Portion [...] Encounters Date Type Department Care Team Description 05/23/2025 Refill [facility] Rheumatology [address] [place] [address] Soinya Carl MA Medication Refill 05/12/2025 11:30 AM EDT Infusion [facility] [address] [place] [address] Jody Sheldon MD Rheumatoid arthritis involving multiple sites with positive rheumatoid factor (Primary Dx) 05/11/2025 Telephone [facility] Infusion [address] [address] Saeid Singh MD 04/30/2025 Refill [facility] Rheumatology [address] [place] [address] [place] [address] Jody Sheldon MD Medication Refill 04/25/2025 Refill [facility] Rheumatology [address] [place] [address] Soniya Carl MA Medication Refill 04/22/2025 Orders Only [facility] Rheumatology [address] [place] [address] Sarah Thrasher MA Rheumatoid arthritis involving multiple sites with positive rheumatoid factor 03/29/2025 Telephone [facility] [address] [address] Saeid Singh MD 03/24/2025 Refill [facility] Rheumatology [address] [place] [address] Soniya Carl MA 03/10/2025 Telephone [facility] Rheumatology [address] [place] [address] Francisca Loaiza CMA from Last 3 Months Immunizations Immunization Administration Dates Next Due INFLUENZA, SPLIT VIRUS, TRIVALENT PF 08/30/2024 Influenza Quadrivalent Preservative Free IM 01/2020 Family History Medical History Relation Comments Diabetes mellitus Mother 2 Relation Status Comments Mother 1 Alive Mother 2 Social History Tobacco Use Types Packs/Day Years Used Date Smoking Tobacco: Former Cigarettes 1 18 1 988 - 2006 Smokeless Tobacco: Never Tobacco Cessation:Counseling Given: Not [...] Sign Reading Time Taken Comments Blood Pressure 124/82 05/12/2025 2:27 PM EDT Pulse 79 05/12/2025 2:27 PM EDT Temperature 36.8 C (98.2 F) 05/12/2025 2:27 PM EDT Respiratory Rate 18 05/12/2025 2:27 PM EDT Oxygen Saturation 98% 05/12/2025 2:27 PM EDT Inhaled Oxygen Concentration - - Weight 102.3 kg (225 lb 9.6 oz) 03/02/2025 2:59 PM EDT Height 162.6 cm (5' 4.02 ) 03/02/2025 2:59 PM ED T Body Mass Index 38.7 03/02/2025 2:59 PM EDT Plan of Treatment Upcoming Encounters Date Type Department Care Team (Late st Contact Info) Description 06/27/2025 11:30 AM EDT Infusion [facility] [address] [place] [address] Jody Sheldon MD [address] [place] [address] 07/06/2025 2:00 PM EDT Office Visit [facility] Rheumatology [address] [place] [address] Jody Sheldon MD [address] [place] [address] 08/08/2025 11:30 AM EST Infusion [facility] [address] [place] [address] Jody Sheldon MD [address] [place] [address] 09/19/2025 11:30 AM EST Infusion [facility] [address] [place] [address] Jody Sheldon MD [address] [place] [address] 10/31/2025 11:30 AM EST Infusion [facility] [address] [place] [address] Jody Sheldon MD [address] [place] [address] 12/12/2025 11:30 AM EDT Infusion [facility] [address] [place] [address] Jody Sheldon MD [address] [place] [address], [address] [address] 01/23/2026 11:30 AM EDT Infusion [facility] [address] [place] [address] Jody Sheldon MD [address] [place] [address], [address] [place] [address] Health Maintenance Due Date Last Done Comments LIPID PANEL 1975 DEPRESSION SCREENING 1987 HEPATITIS C SCREENING 1993 HIV ONE-TIME SCREENING (18-65 YEARS) 1993 PNEUMOCOCCAL VACCINES (50+ years) (1 of 2 - PCV) 1994 ZOSTER VACCINES (1 of 2) 1994 COLOGUARD 2020 COLONOSCOPY 2020 COLORECTAL CANCER SCREENING 2020 FIT TEST 2020 FOBT 2020 SIGMOIDOSCOPY 2020 VIRTUAL COLONOSCOPY 2020 INFLUENZA VACCINE (#1) 2025 , 10/01/2023, 08/28/2022, Additional history exists COVID-19 VACCINE (2024- season) 2025 11/09/2023, 02/01/2021, 01/11/2021 BLOOD PRESSURE 11/12/2025 05/12/2025 CREATININE LEVEL 05/12/2026 05/12/2025, , 03/02/2025, Additional history exists POTASSIUM LEVEL 05/12/2026 05/12/2025, 11/28, 11/03/2024, Additional history exists SCREENING FOR DIABETES [...] Procedure Name Priority Date/Time Associated Diagnosis Comments C-REACTIVE PROTEIN Routine 05/12/2025 11 :27 AM EDT Rheumatoid arthritis involving multiple sites with positive rheumatoid factor SEDIMENTATION RATE (ESR) Routine 05/12/2025 11:27 AM EDT Rheumatoid arthritis involving multiple sites with positive rheumatoid factor CBC AND DIFFERENTIAL Routine 05/12/2025 11:27 AM EDT Rheumatoid arthritis involving multiple sites with positive rheumatoid factor COMPREHENSIVE METABOLIC PANEL Routine 05/12/2025 11:27 AM EDT Rheumatoid arthritis involving multiple sites with positive rheumatoid factor COMPREHENSIVE METABOLIC PANEL Routine 04/21/2025 11:40 AM [...] positive rheumatoid factor from Last 3 Months Results * (ABNORMAL) Comprehensive metabolic panel (05/12/2025 11:27 AM EDT) Only the most recent of2 resultswithin the time period is included. SODIUM 132(L) 133 - 146 mmol/L [facility] POTASSIUM 4.1 3.3 - 5.1 mmol/L [facility] CHLORIDE 96 96 - 108 mmol/L [facility] CO2 25 21 - 35 mmol/L [facility] BUN 22(H) 6 - 19 mg/dL [facility] CREATININE 0.90 0.5 - 1.5 mg/dL [facility] GLUCOSE 159(H) 70 - 99 mg/dL [facility] ALBUMIN 4.2 3.9 - 4.8 g/dL [facility] TOTAL PROTEIN 8.0 6.5 - 8.0 g/dL [facility] CALCIUM 10.1 8.4 - 10.3 mg/dL [facility] ALKALINE PHOSPHATASE 69 39 - 117 U/L [facility] TOTAL BILIRUBIN 0.3 0.0 - 1.2 mg/dL [facility] AST 27 0 - 37 U/L [facility] ALT 52(H) 0 - 40 U/L [facility] GLOBULIN 3.8 1 - 4.8 g/dL [facility] EGFR 104 >59 mL/min/1.7 3m2 [facility] Comment:Estimated glomerular filtration rate calculated using the CKD-EPI refit equation. ANION GAP 15 10 - 20 mmol/L [facility] 05/12/2025 11:2 7 AM EDT 05/12/2025 12:03 PM EDT us Jody Sheldon MD LAB BLOOD ORDERABLES Fin al Result [address] [address] * (ABNORMAL) Sedimentation rate (ESR) (05/12/2025 11:27 AM EDT) Only the most recent of2 resultswithin the time period is included. ESR 30(H) 0 - 15 mm/h [facility] 05/12/2025 11:2 7 AM EDT 05/12/2025 12:03 PM EDT us Jody Sheldon MD LAB BLOOD ORDERABLES Fin al Result [address] [address] * (ABNORMAL) CBC and differential (05/12/2025 11:27 AM EDT) Only the most recent of2 resultswithin the time period is included. WBC 8.61 4.00 - 11.00 K/uL [facility] RBC 4.55 4.50 - 5.90 M/uL [facility] HGB 12.6(L) 13.5 - 17.5 g/dL [facility] HCT 39.2(L) 41.0 - 53.0 % [facility] PLT 278 150 - 450 K/uL [facility] MCV 86.2 80.0 - 100.0 fL [facility] MCH 27.7 27.0 - 31.0 pg [facility] MCHC 32.1 32.0 - 36.0 g/dL [facility] RDW 13.1 11.5 - 14.5 % [facility] MPV 10.3 8.4 - 12.0 fL [facility] NRBC 0.00 0.00 /100 WBCs [facility] ABSOLUTE NRBC 0.00 0.00 K/uL [facility] DIFF METHOD Auto [facility] NEUTS 71.4 48.0 - 76.0 % [facility] LYMPHS 18.6 18.0 - 41.0 % [facility] MONOS 7.2 4.0 - 11.0 % [facility] EOS 1.7 0.0 - 5.0 % [facility] BASOS 0.5 0.0 - 1.5 % [facility] Granulocytes, immature (%) 0.6 0.0 - 0.9 % [facility] ABSOLUTE NEUTS 6.15 1.92 - 7.60 K/uL [facility] ABSOLUTE LYMPHS 1.60 0.72 - 4.10 K/uL [facility] ABSOLUTE MONOS 0.62 0.16 - 1.10 K/uL [facility] ABSOLUTE EOS 0.15 0.00 - 0.50 K/uL [facility] ABSOLUTE BASOS 0.04 0.00 - 0.15 K/uL [facility] Granulocytes, immature 0.05 0.00 - 0.09 K/uL [facility] Blood 05/12/2025 11:2 7 AM EDT 05/12/2025 12:03 PM EDT us Jody Sheldon MD LAB BLOOD ORDERABLES Fin al Result Performing Organization Address City/[facility]/ZIP Co de Phone Number [address] [address] * (ABNORMAL) C-Reactive Protein (05/12/2025 11:27 AM EDT) Only the most recent of2 resultswithin the time period is included. C REACTIVE PROTEIN 8.9(H) 0.0 - 4.0 mg/L [facility] 05/12/2025 11:2 7 AM EDT 05/12/2025 12:03 PM EDT us Jody Sheldon MD LAB BLOOD ORDERABLES Fin al Result Performing Organization Address [facility] Co de Phone Number [address] [address] from Last 3 Months [facility] [place] [address] MEDICARE PART A & B [facility] MEDICARE PART A & B [place] PART [place] [facility] [place] B [facility] [place] [address] MEDICARE PART A & B [facility] & [facility] PART A & [facility] Care Teams Financial Examiner Relationship Specialty Start Date End Date Po, Saeid Robb MD [address] [place] [address] Drive [address] [place] [phone] PCP - General 07/17/17 Jody Sheldon MD [address] [facility], [address] [place] [address] [email or web address] Historical LMR Provider Rheumatology 07/19/17 Additional Source Comments The information contained in this document represents components of the legal health record. It is not the complete legal health record.[facility]
--- OUTSIDE RECORDS SUMMARY | 2025-06-08 18:13 | XMS_ITS | Clinical Summary ---
Author Organization [facility] Address [address] [place] [address] Phone Care Team Providers Care Diesel Engine Tester Name Role Phone Saeid Singh MD Primary Care Provider [phone] Allergies Active Allergy Reactions Criticality Noted Date [...] to adjust dosing of Remicade for it. detention current use of aspirin 01/10/2020 06/22/2021 Overview [...] restarting weekly methotrexate on its usual schedule. 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
--- OUTSIDE RECORDS SUMMARY | 2025-06-08 18:13 | XMS_ITS | Encounter Summary ---
Author Organization [facility] Address [address] [facility] [facility] [facility] [place] [address] Phone Care Team Providers Care It Operations Specialist Name Role Phone Saeid Singh MD Primary Care Provider [phone] Encounter Details Date Type Department Care Team (Late st Contact Info) Description 2021 Orders Only [facility] [address] [place] [phone] [...] kidney documented in this encounter Care Teams It Operations Specialist Relationship Specialty Start Date End Date Saeid Singh MD [place] [facility] [address] [place] PCP - General 10/09/20 documented as of this encounter
--- OUTSIDE RECORDS SUMMARY | 2025-06-08 18:13 | XMS_ITS | Encounter Summary ---
Author Organization [facility] Address [address] [place] [address] Phone Care Team Providers Care Finish Filer Name Role Phone Saeid Singh MD Primary Care Provider [phone] Jody Sheldon MD Unavailable [phone] Encounter Details Date Type Department Care Team (Late st Contact Info) Description 03/29/2025 Telephone [facility] Medical Infusion Center [address] [place] [address] Saeid Singh MD [address] [place] [address] Social History Tobacco Use Types Packs/Day Years Used Date Smoking Tobacco: Former Cigarettes 1 18 1 988 - 2006 Smokeless Tobacco: Never Alcohol Use Standard Drinks/Week Comments No 0 [...] on file documented as of this encounter Progress Notes * Taco Castillo - 03/29/2025 10:00 AM EDT Patient reached, confirmed 03/31 appointment. documented in this encounter Plan of Treatment Upcoming Encounters Date Type Department Care Team (Late st Contact Info) Description 06/27/2025 11:30 AM EDT Infusion [facility] Medical Infusion Center [address] [place] [address] Jody Sheldon MD [address] [place] [address] 07/06/2025 2:00 PM EDT Office Visit [facility] Rheumatology [address] [place] [address] Jody Sheldon MD [address] [place] [address] 08/08/2025 11:30 AM EST Infusion [facility] Medical Infusion Center [address] [place] [address] Jody Sheldon MD [address] [place] [address] 09/19/2025 11:30 AM EST Infusion [facility] Medical Infusion Center [address] [place] [address] Jody Sheldon MD [address] [place] [address] 10/31/2025 11:30 AM EST Infusion [facility] Medical Infusion Center [address] [place] [address] Jody Sheldon MD [address] [place] [address] 12/12/2025 11:30 AM EDT Infusion [facility] Medical Infusion Center [address] [place] [address] Jody Sheldon MD [address] [place] [address], [address] [place] [address] 01/23/2026 11:30 AM EDT Infusion [facility] Infusion [address] [address] Jody Sheldon MD [address] [place] [address] documented as of this encounter Visit Diagnoses Not on filedocumented in this encounter Care Teams Finish Filer Relationship Specialty Start Date End Date Po, Saeid Robb MD [address] [place] [address] [place] [id number] PCP - General 07/17/17 Jody Sheldon MD [address] [place] [address], [address] [place] [address] Historical LMR Provider Rheumatology 07/19/17 documented as of this encounter Additional Source Comments The information contained in this document represents components of the legal health record. It is not the complete legal health record.[facility]
--- OUTSIDE RECORDS SUMMARY | 2025-06-08 18:13 | XMS_ITS | Patient Health Record ---
Author Organization [facility] Address [address] [place] [address] Care Team Providers Care Facilities Maintenance Technician Name Role Phone Saeid Singh MD Primary Care Provider Darrell Chong Jr [phone] Allergies Allergen (clinical drug ingredient) Drug/Non Drug [...] Problem Status W/U Status Risk Notes Problem [id number] Rectal bleeding (K62.5) Active confirmed Plan Of Treatment Future Test Test Name Order Date COLONOSCOPY 01/03/2022 Insurance Providers Payer Name Payer Address Payer Phone Subscriber Number Group Number Insured Name Patient Relationship to Insured Coverage Start Date Coverage End Date MEDICARE OF [place] [address] JYOTI GABRIEL [id number] MARGOT FRANCO III Self - patient is the insured MEDICAID OF [facility] [address] [place] [address] [id number] MARGOT FRANCO III Self - patient is the insured Medical (General) History Medical History History ICD Code diabetes asthma Hypertension Elevated cholesterol anxiety Rheumatoid arthritis Anemia HELEN/CPAP Surgical History Surgery Date(Month/Year) gastric bypass 2016
--- NOTE | 2025-06-09 13:15 | MHC.AU.HA3 ---
Hearing Instrument Follow-Up- Binaural Date of Visit: 06/09/25 Right Ear: Fran, , Color, Serial Number: Lissa Lisa [id number] SN: [id number] Color: Tinae Piano Mechanic Repair Warranty: 12/29/2021 Piano Mechanic Loss and Damage Warranty: 12/29/2021 Battery Size: Rechargeable Cook Helper Dessert/Slim Tube: 2M Earmold/Dome/CShell/SlimTip:Small power dome (no retention tail) Type of Wax Guard: CeruShield Dispensed By: [facility] Date of Fittin10/12/2018 Left Ear: Fran, Model, Color, Serial Number: Lissa Lisa [id number] SN: [id number] Color: Mela Piano Mechanic Repair Warranty: 12/29/2021 Piano Mechanic Loss and Damage Warranty: 12/29/2021 Battery Size: Rechargeable Cook Helper Dessert/Slim Tube: 2M Earmold/Dome/CShell/SlimTip: Small power dome (no retention tail) Type of Wax Guard: CeruShield Dispensed By: [facility] Date of Fittin10/12/2018 Follow-Up Summary: Right PRICE dropped off 06/08/2025 noting , not charging. Assessed on 06/09/2025. PRICE in factory mode, microphones occluded. Reset PRICE. Cleaned PRICE (1). Vacuumed microphones (1). Replaced dome (1) and wax guard (1). 57014 x4. Listening check demonstrated PRICE amplifying clearly. Charging appropriately in stock charger operator helper. Connected to [employer] - no firmware updated available. Recommendations: Hearing instrument follow-up or maintenance as needed. Please contact our clinic with any questions or concerns. Diagnosis Code(s): Primary Diagnosis: H90.3 Bilateral Sensorineural Hearing Loss Signature: Provider: Lam Chopra, [facility]
== END 2025-06-08 15:06 | disposition home or self-care (01) ==
LOC: HO.HAP 15:05
PROVIDERS: Visit Provider Internal Medicine
DX: Z13.89 Encounter for screening for other disorder (principal)

== ENCOUNTER 2025-06-09 13:42 | Outpatient (REF) | payer MEDICARE, MEDICAID, SELFPAY ==
--- OUTSIDE RECORDS SUMMARY | 2025-06-09 17:32 | XMS_ITS | Encounter Summary ---
Author Organization [facility] Address [address] [facility] [address] [place] [address] Phone Care Team Providers Care Corrective Therapy Aide Name Role Phone Saeid Singh MD Primary Care Provider [phone] Encounter Details Date Type Department Care Team (Late st Contact Info) Description 2021 Orders Only [facility] [address] [place] [address] Andre [...] kidney documented in this encounter Care Teams Corrective Therapy Aide Relationship Specialty Start Date End Date Saeid Singh MD [place] [facility] [address] [place] PCP - General 10/09/20 documented as of this encounter
--- OUTSIDE RECORDS SUMMARY | 2025-06-09 17:32 | XMS_ITS | Clinical Summary ---
Author Organization [facility] Address [address] [place] [address] Phone Care Team Providers Care Lead Painter Name Role Phone Saeid Singh MD Primary Care Provider [phone] Allergies Active Allergy Reactions Criticality Noted Date [...] to adjust dosing of Remicade for it. 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
--- OUTSIDE RECORDS SUMMARY | 2025-06-09 17:32 | XMS_ITS | Clinical Summary ---
Author Organization [facility] Address [address] [place] [address] Phone Care Team Providers Care Bookkeeper Name Role Phone Saeid Singh MD Primary Care Provider [phone] Jody Sheldon MD Unavailable [phone] Allergies Active Allergy Reactions Criticality Noted Date [...] Active Problems Problem Noted Date Diagnosed Date [facility] current use of oral hypoglycemic drug 03/02/2025 [...] at least every 6 weeks-standing orders in [facility]. Call if questions or problems. History [...] 7:20 PM EDT): Continue regular follow-up with solutions architect as scheduled to maintain best quality of [...] restart every 6 weeks Remicade infusions at [facility] since colonoscopy returned reassuring. Get labs monitoring safety and efficacy of therapy at least every 6 weeks- standing orders in [facility] Monitor carefully for any signs of developing infection such as fever, excessive tiredness, flulike symptoms, headaches, cough, skin rashes etc. Make sure to inform any new Medical doctor, MENTAL HEALTH SOCIAL WORKER or PA about chronic immunosuppression with methotrexate and Remicade especially in emergency situations Assessment & Plan (08/30/2024 2:30 PM EST): Carefully restart every 6 weeks Remicade infusions at [facility] since colonoscopy returned reassuring. Get labs monitoring safety and efficacy of therapy at least every 6 weeks- standing orders in epic Monitor carefully for any signs of developing infection such as fever, excessive tiredness, flulike symptoms, headaches, cough, skin rashes etc. Make sure to inform any new Medical doctor, MENTAL HEALTH SOCIAL WORKER or PA about chronic immunosuppression with methotrexate and Remicade especially in emergency situations Assessment & Plan (04/28/2024 4:18 PM EDT): Carefully restart every 6 weeks Remicade infusions at [facility] since colonoscopy returned reassuring. Get labs monitoring safety and efficacy of therapy at least every 6 weeks- standing orders in epic Monitor carefully for any signs of developing infection such as fever, excessive tiredness, flulike symptoms, headaches, cough, skin rashes etc. Make sure to inform any new Medical doctor, MENTAL HEALTH SOCIAL WORKER or PA about chronic immunosuppression with methotrexate and Remicade especially in emergency situations Assessment & Plan (06/12/2023 3:39 PM EDT): Carefully restart every 6 weeks Remicade infusions at [facility] since colonoscopy returned reassuring. Get labs monitoring safety and efficacy of therapy at least every 6 weeks- standing orders in epic Monitor carefully for any signs of developing infection such as fever, excessive tiredness, flulike symptoms, headaches, cough, skin rashes etc. Make sure to inform any new Medical doctor, MENTAL HEALTH SOCIAL WORKER or PA about chronic immunosuppression with methotrexate and Remicade especially in emergency situations Assessment & Plan (03/10/2023 2:12 PM EDT): Carefully restart every 6 weeks Remicade infusions at [facility] since colonoscopy returned reassuring. Get labs monitoring safety and efficacy of therapy at least every 6 weeks- standing orders in epic Monitor carefully for any signs of developing infection such as fever, excessive tiredness, flulike symptoms, headaches, cough, skin rashes etc. Make sure to inform any new Medical doctor, MENTAL HEALTH SOCIAL WORKER or PA about chronic immunosuppression with methotrexate and Remicade especially in emergency situations Assessment & Plan (09/15/2022 9:31 PM EST): Carefully restart every 6 weeks Remicade infusions at [facility] since colonoscopy returned reassuring. Get labs monitoring safety and efficacy of therapy at least every 6 weeks- standing orders in epic Monitor carefully for any signs of developing infection such as fever, excessive tiredness, flulike symptoms, headaches, cough, skin rashes etc. Make sure to inform any new Medical doctor, MENTAL HEALTH SOCIAL WORKER or PA about chronic immunosuppression with methotrexate and Remicade especially in emergency situations Assessment & Plan (03/03/2022 9:43 PM EDT): Hold until clarified regarding GI bleeding by colonoscopy & GI operational risk consultant. Get labs monitoring safety and efficacy of therapy at least every 6 weeks- standing orders in epic Monitor carefully for any signs of developing infection such as fever, excessive tiredness, flulike symptoms, headaches, cough, skin rashes etc. Make sure to inform any new Medical doctor, MENTAL HEALTH SOCIAL WORKER or PA about chronic immunosuppression with methotrexate [...] sure to inform any new Medical doctor, MENTAL HEALTH SOCIAL WORKER or PA about chronic immunosuppression with methotrexate [...] sure to inform any new Medical doctor, MENTAL HEALTH SOCIAL WORKER or PA about chronic immunosuppression with methotrexate [...] sure to inform any new Medical doctor, MENTAL HEALTH SOCIAL WORKER or PA about chronic immunosuppression with methotrexate [...] sure to inform any new Medical doctor, MENTAL HEALTH SOCIAL WORKER or PA about chronic immunosuppression with methotrexate [...] sure to inform any new Medical doctor, MENTAL HEALTH SOCIAL WORKER or PA about chronic immunosuppression with methotrexate [...] sure to inform any new Medical doctor, MENTAL HEALTH SOCIAL WORKER or PA about chronic immunosuppression with methotrexate [...] sure to inform any new Medical doctor, MENTAL HEALTH SOCIAL WORKER or PA about chronic immunosuppression with methotrexate [...] sure to inform any new Medical doctor, MENTAL HEALTH SOCIAL WORKER or PA about chronic immunosuppression with methotrexate and Remicade especially in emergency situations . Next infusion on 02/10/20. Assessment & Plan (10/11/2019 1:55 PM EST): Monitor carefully for any signs of developing infection such as fever, excessive tiredness, flulike symptoms, headaches, cough, skin rashes etc. Make sure to inform any new Medical doctor, MENTAL HEALTH SOCIAL WORKER or PA about chronic immunosuppression with methotrexate and Remicade especially in emergency situations . Next infusion on 10/19/19. Assessment & Plan (08/18/2019 9:38 PM EST): Monitor carefully for any signs of developing infection such as fever, excessive tiredness, flulike symptoms, headaches, cough, skin rashes etc. Make sure to inform any new Medical doctor, MENTAL HEALTH SOCIAL WORKER or PA about chronic immunosuppression with methotrexate and Remicade especially in emergency situations . Next infusion in 6 weeks from 07/21/2019 (on 09/01/2019). Assessment & Plan (02/14/2019 8:28 PM EDT): Monitor carefully for any signs of developing infection such as fever, excessive tiredness, flulike symptoms, headaches, cough, skin rashes etc. Make sure to inform any new Medical doctor, MENTAL HEALTH SOCIAL WORKER or PA about chronic immunosuppression with methotrexate and Remicade especially in emergency situations . Next infusion in 6 weeks from 01/29/2019 (on 03/12/2019). Assessment & Plan (11/28/2018 7:44 PM EST): Monitor carefully for any signs of developing infection such as fever, excessive tiredness, flulike symptoms, headaches, cough, skin rashes etc. Make sure to inform any new Medical doctor, MENTAL HEALTH SOCIAL WORKER or PA about chronic immunosuppression with methotrexate [...] and every 6 weeks IV Remicade at [facility] infusion center. Avoid sick contacts. Joint protection, [...] at least every 6 weeks-standing orders in [facility]. Check if ankle swelling and blood [...] at least every 6 weeks-standing orders in [facility]. Get yearly influenza vaccine 3 weeks [...] at least every 6 weeks-standing orders in [facility]. Call if questions or problems. Assessment [...] needed. 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 Portion [...] Refill [facility] Rheumatology [address] [place] [address] Soniya Carl MA Medication Refill 05/12/2025 11:30 AM EDT Infusion [facility] Medical Infusion Center [address] [place] [address] Jody Sheldon MD Rheumatoid arthritis involving multiple sites with positive rheumatoid factor (Primary Dx) 05/11/2025 Telephone [facility] Infusion [address] [address] Saeid Singh MD 04/30/2025 Refill [facility] Rheumatology [address] [place] [address] [place] [address] Jody Sheldon MD Medication Refill 04/25/2025 Refill [facility] Rheumatology [address] [place] [address] Soniya Carl MA Medication Refill 04/22/2025 Orders Only [facility] Rheumatology [address] [place] [address] Sarah Thrasher MA Rheumatoid arthritis involving multiple sites with positive rheumatoid factor 03/29/2025 Telephone [facility] Infusion [address] [address] Saeid Singh MD 03/24/2025 Refill [facility] Rheumatology [address] [place] [address] Soniya Carl MA 03/10/2025 Telephone [facility] Rheumatology [address] [place] [address] Francisca Loaiza CMA from Last 3 Months [...] AM EDT Infusion [facility] [address] [place] [address] Jody Sheldon MD [address] [place] [address] 07/06/2025 2:00 PM EDT Office Visit [facility] Rheumatology [address] [place] [address] Jody Sheldon MD [address] [place] [address] 08/08/2025 11:30 AM EST Infusion [facility] Medical Infusion Center [address] [place] [address] Jody Sheldon MD [address] [place] [address] 09/19/2025 11:30 AM EST Infusion [facility] Medical Infusion Center [address] [place] [address] Jody Sheldon MD [address] [place] [address] 10/31/2025 11:30 AM EST Infusion [facility] Medical Infusion Center [address] [place] [address] Jody Sheldon MD [address] [place] [address] 12/12/2025 11:30 AM EDT Infusion [facility] Medical Infusion Center [address] [place] [address] Jody Sheldon MD [address] [place] [address], [address] [address] 01/23/2026 11:30 AM EDT Infusion [facility] Infusion Center [address] [place] [address] Jody Sheldon MD [address] [place] [address], [address] [place] [address] Health Maintenance Due Date Last Done Comments [...] included. SODIUM 132(L) 133 - 146 mmol/L [facility] POTASSIUM 4.1 3.3 - 5.1 mmol/L [facility] CHLORIDE 96 96 - 108 mmol/L [facility] CO2 25 21 - 35 mmol/L [facility] BUN 22(H) 6 - 19 mg/dL [facility] CREATININE 0.90 0.5 - 1.5 mg/dL [facility] GLUCOSE 159(H) 70 - 99 mg/dL [facility] ALBUMIN 4.2 3.9 - 4.8 g/dL [facility] TOTAL PROTEIN 8.0 6.5 - 8.0 g/dL [facility] CALCIUM 10.1 8.4 - 10.3 mg/dL [facility] ALKALINE PHOSPHATASE 69 39 - 117 U/L [facility] TOTAL BILIRUBIN 0.3 0.0 - 1.2 mg/dL [facility] AST 27 0 - 37 U/L [facility] ALT 52(H) 0 - 40 U/L [facility] GLOBULIN 3.8 1 - 4.8 g/dL [facility] EGFR 104 >59 mL/min/1.7 3m2 [facility] Comment:Estimated glomerular filtration rate calculated using the CKD-EPI refit equation. ANION GAP 15 10 - 20 mmol/L [facility] 05/12/2025 11:2 7 AM EDT 05/12/2025 12:03 PM EDT us Jody Sheldon MD LAB BLOOD ORDERABLES Fin al Result [address] [address] * (ABNORMAL) Sedimentation rate (ESR) (05/12/2025 11:27 AM EDT) Only the most recent of2 resultswithin the time period is included. ESR 30(H) 0 - 15 mm/h [facility] 05/12/2025 11:2 7 AM EDT 05/12/2025 12:03 PM EDT us Jody Sheldon MD LAB BLOOD ORDERABLES Fin al Result [address] [address] * (ABNORMAL) CBC and differential (05/12/2025 11:27 AM EDT) Only the most recent of2 resultswithin the time period is included. WBC 8.61 4.00 - 11.00 K/uL [facility] RBC 4.55 4.50 - 5.90 M/uL [facility] HGB 12.6(L) 13.5 - 17.5 g/dL [facility] HCT 39.2(L) 41.0 - 53.0 % [facility] PLT 278 150 - 450 K/uL [facility] MCV 86.2 80.0 - 100.0 fL [facility] MCH 27.7 27.0 - 31.0 pg [facility] MCHC 32.1 32.0 - 36.0 g/dL [facility] RDW 13.1 11.5 - 14.5 % [facility] MPV 10.3 8.4 - 12.0 fL [facility] NRBC 0.00 0.00 /100 WBCs [facility] ABSOLUTE NRBC 0.00 0.00 K/uL [facility] DIFF METHOD Auto [facility] NEUTS 71.4 48.0 - 76.0 % [facility] LYMPHS 18.6 18.0 - 41.0 % [facility] MONOS 7.2 4.0 - 11.0 % [facility] EOS 1.7 0.0 - 5.0 % [facility] BASOS 0.5 0.0 - 1.5 % [facility] Granulocytes, immature (%) 0.6 0.0 - 0.9 % [facility] ABSOLUTE NEUTS 6.15 1.92 - 7.60 K/uL [facility] ABSOLUTE LYMPHS 1.60 0.72 - 4.10 K/uL [facility] ABSOLUTE MONOS 0.62 0.16 - 1.10 K/uL [facility] ABSOLUTE EOS 0.15 0.00 - 0.50 K/uL [facility] ABSOLUTE BASOS 0.04 0.00 - 0.15 K/uL [facility] Granulocytes, immature 0.05 0.00 - 0.09 K/uL [facility] Blood 05/12/2025 11:2 7 AM EDT 05/12/2025 12:03 PM EDT us Jody Sheldon MD LAB BLOOD ORDERABLES Fin al Result Performing Organization Address City/[facility]/ZIP Co de Phone Number [address] [address] * (ABNORMAL) C-Reactive Protein (05/12/2025 11:27 AM EDT) Only the most recent of2 resultswithin the time period is included. C REACTIVE PROTEIN 8.9(H) 0.0 - 4.0 mg/L [facility] 05/12/2025 11:2 7 AM EDT 05/12/2025 12:03 PM EDT us Jody Sheldon MD LAB BLOOD ORDERABLES Fin al Result Performing Organization Address [facility] Co de Phone Number [address] [address] from Last 3 Months Insurance [facility] [address] MEDICARE PART A & B [facility] MEDICARE PART A & B [place] A & [facility] [place] MED[place] A & B [facility] [place] [address] MEDICARE PART A & B [facility] MED[facility] PART A & B [facility] MED[facility] PART A & [facility] Care Teams Bookkeeper Relationship Specialty Start Date End Date Po, Saeid Robb MD [address] [place] [address] Drive [address] [place] [phone] PCP - General 07/17/17 Jody Sheldon MD [address] [facility], [address] [place] [address] [email or web address] Historical LMR Provider Rheumatology 07/19/17 Additional Source Comments The information contained in this document represents components of the legal health record. It is not the complete legal health record.[facility]
--- OUTSIDE RECORDS SUMMARY | 2025-06-09 17:32 | XMS_ITS | Encounter Summary ---
Author Organization [facility] Address [address] [place] [address] Phone Care Team Providers Care Interventional Technologist Name Role Phone Saeid Singh MD Primary Care Provider Jody Sheldon MD Unavailable [phone] Encounter Details Date Type Department Care Team (Late st Contact Info) Description 03/29/2025 Telephone [facility] [address] [place] [address] Saeid Singh MD [address] [place] [address] Social History Tobacco Use Types [...] 06/27/2025 11:30 AM EDT Infusion [facility] [address] [place] [address] Jody Sheldon MD [address] [place] [address] 07/06/2025 2:00 PM EDT Office Visit [facility] Rheumatology [address] [place] [address] Jody Sheldon MD [address] [place] [address] 08/08/2025 11:30 AM EST Infusion [facility] [address] [place] [address] Jody Sheldon MD [address] [place] [address] 09/19/2025 11:30 AM EST Infusion [facility] [address] [place] [address] Jody Sheldon MD [address] [place] [address] 10/31/2025 11:30 AM EST Infusion [facility] [address] [place] [address] Jody Sheldon MD [address] [place] [address] 12/12/2025 11:30 AM EDT Infusion [facility] [address] [place] [address] Jody Sheldon MD [address] [place] [address], [address] [place] [address] 01/23/2026 11:30 AM EDT Infusion [facility] Infusion [address] [address] Jody Sheldon MD [address] [place] [address] documented as of this encounter Visit Diagnoses Not on filedocumented in this encounter Care Teams Interventional Technologist Relationship Specialty Start Date End Date Po, Saeid Robb MD [address] [place] [address] [place] [phone] PCP - General 07/17/17 Jody Sheldon MD [address] [place] [address], [address] [place] [phone] Historical LMR Provider Rheumatology 07/19/17 documented as of this encounter Additional Source Comments The information contained in this document represents components of the legal health record. It is not the complete legal health record.[facility]
--- OUTSIDE RECORDS SUMMARY | 2025-06-09 17:32 | XMS_ITS | Patient Health Record ---
Author Organization [facility] Address [address] [place] [address] Care Team Providers Care Teacher Industrial Arts Name Role Phone Saeid Singh MD Primary [...] Problem Status W/U Status Risk Notes Problem [id number] Rectal bleeding (K62.5) Active confirmed Plan Of Treatment Future Test Test Name Order Date COLONOSCOPY 01/03/2022 Insurance Providers Payer Name Payer Address Payer Phone Subscriber Number Group Number Insured Name Patient Relationship to Insured Coverage Start Date Coverage End Date MEDICARE OF [place] [address] JYOTI GABRIEL [id number] [phone] [id number] MARGOT FRANCO III Self - patient is the insured MEDICAID OF [facility] [address] [place] [address] [id number] MARGOT FRANCO III Self - patient is the insured Medical (General) History Medical History History ICD Code diabetes asthma Hypertension Elevated cholesterol anxiety Rheumatoid arthritis Anemia HELEN/CPAP Surgical History Surgery Date(Month/Year) gastric bypass 2016
== END 2025-06-09 13:43 | disposition home or self-care (01) ==
LOC: HO.HAP 13:42
PROVIDERS: Visit Provider Internal Medicine
DX: Z13.89 Encounter for screening for other disorder (principal)

== ENCOUNTER 2025-06-09 13:48 | Outpatient (REF) | payer SELFPAY | END 2025-06-09 13:49 | disposition home or self-care (01) | LOC: HO.HAP 13:48 | PROVIDERS: Visit Provider Internal Medicine | DX: Z13.89 Encounter for screening for other disorder (principal) ==

== ENCOUNTER 2025-07-26 15:24 | Outpatient (AMB) | payer MEDICARE, MEDICAID, SELFPAY ==
--- NOTE | 2025-07-26 15:26 | A.OFFPC_ITS ---
Vital Signs 07/26/25 15:28 07/26/25 16:03 Height 5 ft 2 in Weight 221 lb 8 oz BMI 40.5 BP 142/84 H 118/80 Blood Pressure Location Lt brachial Lt brachial Position Sitting Sitting Pulse 101 H Pulse Source Pulse Oximeter Temp 97.5 F Temp Source Temporal Artery Scan Pulse Oximetry (%) 98 Oxygen Delivery Method Room Air Intake Visit Reasons: 3 mo follow up DM Allergies Iodinated Contrast Media (Iodinated Contrast Media - IV Dye) Allergy (Mild, Verified 07/26/25 15:34) HIVE AND ITCHINESS ON FACE Tobacco use date assessed: 07/26/25 Dental Screening Dental Screen Date: 07/26/25 Did you have a dental visit in the last 12 months?: No Did you have a dental problem in the last 6 months where you did not have access to dental care?: No Was dental information given to patient?: No [facility] Medical History Type 2 diabetes mellitus with unspecified complications Liver lesion Screening for prostate cancer History of COVID-19 COVID-19 virus infection Personal history of nicotine dependence Morbid obesity with BMI of 40.0-44.9, adult Atherosclerotic cardiovascular disease Suspected deep vein thrombosis Leg swelling Type 2 diabetes mellitus with hyperglycemia GERD (gastroesophageal reflux disease) Vitamin D deficiency Left renal mass Rheumatoid arthritis H/O hidradenitis suppurativa Lung nodule Vertigo Anxiety Asthma Obstructive sleep apnea Hyperlipidemia Surgical History History of bronchoscopy (~2020) History of cystoscopy (~2013) Status post biopsy of kidney (~2013) History of surgical removal of pilonidal cyst (~1990) S/P laparoscopic sleeve gastrectomy (~2017) Family History Father Heart problem Acute arthritis Mother Breast cancer Diabetes mellitus Liver cancer Son No problems noted. Maternal Uncle Myocardial infarct Maternal Aunt Breast cancer Social History Housing: Apartment Alcohol intake: never Patient Tobacco Use Status: Former Tobacco user Tobacco use type: Cigarette Cigarettes Per Day: 15 Years Smoked: stopped 2004 e-Cigarette/Vaping Use: Never Used Second Hand Smoke Exposure: No service: No Current occupational status: disabled Cognitive needs: No Hearing needs: Yes (hearig aide) Vision needs: Yes (glasses) Questionnaire PHQ-9 Over the last 2 weeks, how often have you been bothered by any of the following problems? 1. Little interest or pleasure in doing things: several days 2. Feeling down, depressed, or hopeless: not at all 3. Trouble falling or staying asleep, or sleeping too much: not at all 4. Feeling tired or having little energy: not at all 5. Poor appetite or overeating: not at all 6. Feeling bad about yourself - or that you are a failure or have let yourself or your family down: not at all 7. Trouble concentrating on things, such as reading the newspaper or watching television: not at all 8. Moving or speaking so slowly that other people could have noticed. Or the opposite - being so fidgety or restless that you have been moving around a lot more than usual: not at all 9. Thoughts that you would be better off or of hurting yourself in some way: not at all Total score: 1 Depression Screening Interpretation: Negative Depression Screening Done: Yes Source: Developed by Drs. Ye Galdamez, Marie Sofia, Beltran Blair and colleagues, with an educational racquel from [email or web address]. Thrive Questionnaire Date Thrive assessed: 04/12/25 I am a: Patient What is your living situation today?: I have a steady place to live Within the past 12 months, did the food you bought not last and you didn't have the money to get more?: Often true Within the past 12 months, did you worry whether your food would run out before you got money to buy more?: Often true Do you have trouble paying for medicines?: No Do you have trouble getting transportation to medical appointments?: No Do you have trouble paying your heating and electricity bill?: No Do you have trouble taking care of your child, family member or friend?: I choose not to answer this question Do you have trouble with day-to-day activities such as bathing, preparing meals, shopping, managing finances, etc.?: No Are you currently unemployed and looking for a job?: I choose not to answer this question Are you interested in more education?: No Please select the resources that you would like help with: None Currently or been in a relationship where the following occur: I choose not to answer THRIVE Score: 2 AUDIT C Alcohol Use Questionnaire (AUDIT-C) 1. How often do you have a drink containing alcohol?: Never 3. How often do you have six or more drinks on one occasion?: Never Total Score: 0 EPHRAIM-7 AMB Questionnaire EPHRAIM-7 Date EPHRAIM - 7 assessed: 04/12/25 Feeling nervous, anxious, or on edge: 0 = Not at all Not being able to stop or control worryin = Not at all Worrying too much about different things: 0 = Not at all Trouble relaxin = Not at all Being so restless that it is hard to sit still: 0 = Not at all Becoming easily annoyed or irritable: 0 = Not at all Feeling afraid as if something awful might happen: 0 = Not at all Total EPHRAIM-7 score (0-4 normal; 5-9 mild; 10-14 moderate; 15-21 severe): 0 Source: Developed by Drs. Ye Galdamez, Marie Sofia, Beltran Blair and colleagues, with an educational racquel from [email or web address]. Physical exam (Primary Care) Vital Signs: Last Vital Signs Temp 97.5 F 07/26/25 15:28 Pulse 101 H 07/26/25 15:28 BP 142/84 H 07/26/25 15:28 Pulse Ox 98 07/26/25 15:28 Oxygen Delivery Method Room Air 07/26/25 15:28 BMI result Body Mass Index 40.5 Tobacco/Smoking Status: Tobacco use Status Tobacco use date assessed 07/26/25 07/26/25 15:35 Patient Tobacco Use Status Former Tobacco user 07/26/25 15:28 Tobacco use type Cigarette 07/26/25 15:28 e-Cigarette/Vaping Use Never Used 07/26/25 15:28 PHQ-9: PHQ-9 Score PHQ-9: Total score 1 07/26/25 15:35 Depression Screening Interpretation: Negative Thrive Assessment: Date of Thrive Assessment Date Thrive assessed 04/12/25 07/26/25 15:28 Currently or been in a relationship where the following occur: I choose not to answer Const General: alert; No acute distress Eyes Conjunctivae: conjunctivae normal Resp Auscultation: clear to auscultation bilaterally Cardio Rate: regular rate Rhythm: regular rhythm GI Inspection: Yes normal to inspection Extrem General: Yes normal to inspection and No edema Results AMB Hemoglobin A1c AMB Hemoglobin A1c 8.6 % Last Edit by Lisa Javed CMA on 07/26/25 15:37 Results Reviewed Results Reviewed: Laboratory Last Values Hgb A1c (Clinic) 8.6 % (4.0-6.0) H 07/26/25 15:36 Coding Level of Care Code Est Pt Level 4 (17541) Complex EM visit Add On G2211 Diagnoses Type 2 diabetes mellitus with hyperglycemia, without long-term current use of insulin E11.65 Diabetes mellitus intermodal customer service insulin use: without intermodal customer service use S/P laparoscopic sleeve gastrectomy Z98.84 Morbid obesity with BMI of 40.0-44.9, adult E66.01; Z68.41 Pure hypercholesterolemia E78.00 Hyperlipidemia type: pure hypercholesterolemia Atherosclerotic cardiovascular disease I25.10 Hypertension I10 Generalized anxiety disorder F41.1 Gastroesophageal reflux disease without esophagitis K21.9 Esophagitis presence: without esophagitis Fatty liver K76.0 Tubular adenoma of colon D12.6 Rheumatoid arthritis involving multiple sites, unspecified whether rheumatoid factor present M06.9 Rheumatoid arthritis location: multiple sites Rheumatoid factor presence: unspecified presence Obstructive sleep apnea G47.33 Assessment & Plan Assessment & Plan (1) Type 2 diabetes mellitus with hyperglycemia: Comment: Dr. Stephens Code(s): E11.65 - Type 2 diabetes mellitus with hyperglycemia Category: Medical Qualifiers: Diabetes mellitus shelter insulin use: without shelter use Qualified Code(s): E11.65 - Type 2 diabetes mellitus with hyperglycemia Plan: Decrease the amount of carbohydrate intake, pasta, bread, rice and potatoes are all sugar and that is aside from all the sweet stuff, remember that fruits are good but they are Sweet also. Hemoglobin A1c goal of less than 6.5. Patient is on Jardiance 10 mg once a day metformin 500 mg twice a day (2) S/P laparoscopic sleeve gastrectomy: Onset Date: ~2017 Comment: (Dr. Mara Bradford, [facility] – [place], [place] - 06/23/2018) Code(s): Z98.84 - Bariatric surgery status Category: Surgical Plan: Continue to follow-up with bariatric (3) Morbid obesity with BMI of 40.0-44.9, adult: Comment: (Morbid Obesity - persistent s/p sleeve gastrectomy 2018) Code(s): E66.01 - Morbid (severe) obesity due to excess calories; Z68.41 - Body mass index [BMI] 40.0-44.9, adult Category: Medical Plan: Diet and exercise (4) Hyperlipidemia: Code(s): E78.5 - Hyperlipidemia, unspecified Category: Medical Qualifiers: Hyperlipidemia type: pure hypercholesterolemia Qualified Code(s): E78.00 - Pure hypercholesterolemia, unspecified Plan: Avoid fried foods, chicken skin, eggs, butter margarine, pastries and meat. Be it pork or beef they have a lot of cholesterol LDL goal of less than 70 and triglyceride of less than 150 on atorvastatin 20 mg once a day (5) Atherosclerotic cardiovascular disease: Code(s): I25.10 - Atherosclerotic heart disease of [place] coronary artery without angina pectoris Category: Medical Plan: Control the cholesterol, weight, blood pressure, diabetes continue with aspirin (6) Hypertension: Code(s): I10 - Essential (primary) hypertension Category: Medical Plan: Continue with blood pressure medication. Decrease salt intake and exercise patient takes amlodipine 5 mg once a day ear irbesartan 300 mg once a day metoprolol 25 mg twice a day spironolactone hydrochlorothiazide 25/25 once a day (7) Generalized anxiety disorder: Code(s): F41.1 - Generalized anxiety disorder Category: Medical Plan: Continue with present medication (8) GERD (gastroesophageal reflux disease): Code(s): K21.9 - Gastro-esophageal reflux disease without esophagitis Category: Medical Qualifiers: Esophagitis presence: without esophagitis Qualified Code(s): K21.9 - Gastro-esophageal reflux disease without esophagitis Plan: Avoid the foods that causes that usually spicy foods, tomato products, juices, coffee, soda and foods that your sensitive to. After eating do not lie down, allow 3-4 hours before in lie down. And keep the head of bed above 30 degrees to avoid the acid from going up. (9) Fatty liver: Comment: September 2023 Punctate nonobstructing left lower pole renal stone new from prior. 2. Hepatic steatosis. 3. Splenomegaly. 4. Portions of the pancreas and aorta were obscured by bowel gas limiting evaluation. Code(s): K76.0 - Fatty (change of) liver, not elsewhere classified Category: Medical Plan: Low-fat diet and exercise (10) Tubular adenoma of colon: Code(s): D12.6 - Benign neoplasm of colon, unspecified Category: Medical Plan: Patient is reminded about colonoscopy (11) Rheumatoid arthritis: Comment: (RA + OA - see [facility] Rheum - Dr. Sheldon) Code(s): M06.9 - Rheumatoid arthritis, unspecified Category: Medical Qualifiers: Rheumatoid arthritis location: multiple sites Rheumatoid factor presence: unspecified presence Qualified Code(s): M06.9 - Rheumatoid arthritis, unspecified Plan: Continue with Rheumatology (12) Obstructive sleep apnea: Comment: (on CPAP) Code(s): G47.33 - Obstructive sleep apnea (adult) (pediatric) Category: Medical Plan: Continue to use the CPAP more than 4 hours a night and benefits from this. Plan History of Present Illness The patient is a 50-year-old morbidly obese male presenting for chronic disease management. His past medical history is significant for rheumatoid arthritis, status post laparoscopic sleeve gastrectomy in 2017, GERD, diabetes mellitus, atherosclerotic cardiovascular disease, hypercholesterolemia, generalized anxiety disorder, and hypertension. Other conditions include obstructive sleep apnea treated with CPAP, hepatic steatosis, a history of left nephrolithiasis, and a history of tubular adenoma of the colon diagnosed via colonoscopy in June 2022. The patient was last seen in April and follows with rheumatology. Blood work from July 05 showed normal electrolytes and renal function with a creatinine of 1.0, blood sugar of 170, a C-reactive protein of 10.9, and a sedimentation rate of 27. At that time, his blood count showed mild anemia with a hemoglobin of 12.7 and hematocrit of 39.9. His hemoglobin A1c today is 8.6, and he has a known history of elevated liver function tests. His last cholesterol test was in August 2024, with an LDL of 55. The patient utilizes a hearing aid. Health Maintenance The patient was reminded about the need for a follow-up colonoscopy due to his history of a tubular adenoma. He will also continue to follow up with bariatrics. Social History Review of Systems Physical Exam Results - Labs (Today): - Hemoglobin A1c: 8.6 - Labs (July 05): - Electrolytes: Normal - Renal function: Normal - Creatinine: 1.0 - Blood sugar: 170 - Liver numbers: Fine - C-reactive protein: 10.9 - Sed rate: 27 - Hemoglobin/Hematocrit: 12.7/39.9 (mildly anemic) - Labs (August 2024): - LDL: 55 - Procedures: - Colonoscopy (June 2022): Revealed tubular adenoma Plan Patient was informed and verbally consented to the use of an ambient scribe for clinic note documentation during this visit. 1. Type 2 Diabetes Mellitus The patient's hemoglobin A1c is 8.6, which is above the goal of less than 6.5. He will continue his current medication regimen of Jardiance 10 mg once a day and metformin 500 mg twice a day. The importance of diet and exercise was reinforced. 2. Hypercholesterolemia And Atherosclerotic Cardiovascular Disease The LDL goal is less than 70, and his most recent LDL was 55. He will continue atorvastatin 20 mg once a day for hypercholesterolemia and aspirin for cardiovascular disease prevention. 3. Hypertension The plan is to continue the patient's current antihypertensive medications. This includes amlodipine 5 mg once a day, irbesartan 300 mg once a day, metoprolol 25 mg twice a day, and spironolactone/hydrochlorothiazide 25/25 mg once a day. 4. Gastroesophageal Reflux Disease The patient was advised to follow a low-fat diet and engage in exercise to manage symptoms. 5. Obstructive Sleep Apnea The patient is encouraged to continue using his CPAP for more than 4 hours per night as he benefits from this. 6. Rheumatoid Arthritis The patient will continue to follow up with rheumatology for management. Discussion Notes I reviewed the patient's current health status and management plan for his multiple chronic conditions. We discussed his diabetes, noting the elevated hemoglobin A1c of 8.6, and agreed to continue his current regimen of Jardiance and metformin, emphasizing the importance of diet and exercise. Regarding his cholesterol and cardiovascular health, I explained that his LDL is at goal, and we will continue atorvastatin and aspirin. His blood pressure plan remains the same, continuing all current medications. I also advised him on dietary modifications for his acid reflux, the importance of consistent CPAP use for his sleep apnea, and the need to follow up with rheumatology and bariatrics. Finally, I reminded him of the importance of scheduling a follow-up colonoscopy. Patient Instructions - Continue taking all your current medications as prescribed, including those for diabetes, cholesterol, and high blood pressure. - Your diabetes medications include Jardiance 10 mg once a day and Metformin 500 mg twice a day. - Your blood pressure medications include amlodipine, irbesartan, metoprolol, and a spironolactone/hydrochlorothiazide combination pill. - Continue taking atorvastatin for cholesterol and aspirin for heart health. - Follow a low-fat diet and continue to exercise to help with your acid reflux and overall health. - It is very important to use your CPAP machine for more than 4 hours every night. - Please make sure to schedule a follow-up colonoscopy. - Continue your follow-up appointments with your rheumatology and bariatric specialists. Orders: Orders Complete Blood Count Auto Diff 2 Months E11. - Type 2 diabetes mellitus with hyperglycemia Creatinine Urine 2 Months E11. - Type 2 diabetes mellitus with hyperglycemia Microalbumin, Random (w Creat) 2 Months . - Type 2 diabetes mellitus with hyperglycemia Vitamin B12 and Folate 2 Months . - Type 2 diabetes mellitus with hyperglycemia AMB Hemoglobin A1c Today Z13.9 - Encounter for screening, unspecified Comprehensive Met. Panel 2 Months . - Type 2 diabetes mellitus with hyperglycemia Free T4 (Free Thyroxine) 2 Months E11. - Type 2 diabetes mellitus with hyperglycemia Thyroid Stimulating Hormone 2 Months E11. - Type 2 diabetes mellitus with hyperglycemia Lipid Panel 2 Months E11.65 - Type 2 diabetes mellitus with hyperglycemia, E78.00 - Pure hypercholesterolemia, unspecified Hemoglobin A1c 2 Months E11. - Type 2 diabetes mellitus with hyperglycemia Prostate Specific Antigen Scr 2 Months E11. - Type 2 diabetes mellitus with hyperglycemia Medications: Changed From empagliflozin (Jardiance) 10 mg PO DAILY 30 tabs 3RF E11.65 - Type 2 diabetes mellitus with hyperglycemia To empagliflozin 25 mg PO DAILY 30 tabs 3RF E11.65 - Type 2 diabetes mellitus with hyperglycemia
[2025-07-26 15:28] VITALS: BP 142/84; PULSE 101; TEMP 36.4; O2SAT 98; BMI 40.5
[2025-07-26 16:03] VITALS: BP 118/80
--- OUTSIDE RECORDS SUMMARY | 2025-07-26 19:48 | XMS_ITS | Encounter Summary ---
Author Organization [facility] Address [address] [address] [place] [address] Phone Care Team Providers Care Foreman Or Supervisor And Operator Name Role Phone Saeid Singh MD Primary Care Provider [phone] Encounter Details Date Type Department Care Team (Late st Contact Info) Description 2021 Orders Only [facility] [address] [place] [address] [place] [id number] Andre [...] kidney documented in this encounter Care Teams Foreman Or Supervisor And Operator Relationship Specialty Start Date End Date Saeid Singh MD [place] [facility] [address] [place] PCP - General 10/09/20 documented as of this encounter
--- OUTSIDE RECORDS SUMMARY | 2025-07-26 19:48 | XMS_ITS | Patient Health Record ---
Author Organization [facility] Address [address] [place] [address] Care Team Providers Care Molasses And Caramel Operator Name Role Phone Saeid Singh MD Primary Care Provider Darrell Chong Jr [phone] Allergies Allergen (clinical drug ingredient) Drug/Non Drug Allergy documented on EMR Reaction Allergy Type Onset Date Status iv contrast (uncoded) Unknown Allergy Active Reason For Referral No Information Medications Medication SIG (Take, Route, Frequency, Duration) Notes Start Date End Date Status Irbesartan 300 MG 1 tablet Orally Once a day; Duration: 30 day(s) Active Nitrostat 0.4 MG as directed Sublingual Active Remicade 100 MG as directed Intravenous Active tylenol 1 tab Oral; Duration : 14 days Active amLODIPine Besy-Benazepril HCl 5-10 MG as directed Orally Active Aspirin 81 81 MG 1 tablet Orally Once a day; Duration: 30 day(s) Active Fluticasone Propionate (Inhal) 50 MCG/BLIST 1 puff Inhalation Twice a day Active Multivitamin - 1 tablet Orally Once a day; Duration: 30 day(s) Active Meclizine HCl 25 MG 1 tablet as needed O rally Once a day; Duration: 30 day(s) Active Docusate Sodium 100 MG 1 capsule as need ed Orally Once a day; Duration: 30 day(s) Active LORazepam 1 MG 1 tablet at bedtime as needed Orally Once a day Active Atorvastatin Calcium 10 MG 1 tablet Oral ly Once a day; Duration: 30 day(s) Active Escitalopram Oxalate 5 MG 1 tablet Orall y Once a day; Duration: 30 day(s) Active Calcitrate Plus D 315-200 MG-UNIT 1 tablet Orally Twice a day; Duration: 30 day(s) Active Ventolin HFA 108 (90 Base) MCG/ACT 1 puff as needed Inhalation every 4 hrs Active hydrOXYzine HCl 25 MG/ML 2 ml as needed Intramuscular every 6 hrs; Duration: 30 day(s) Active oxyCODONE HCl 10 MG 1 tablet as needed O rally every 6 hrs Active Vitamin C Adult Gummies 125 MG as directed Orally Active MiraLax 17 GM/SCOOP as directed Orally Active Folic Acid 1 MG 1 tablet Orally Once a day; Duration: 30 day(s) Active metFORMIN HCl ER 500 MG 1 tablet with ev ening meal Orally Once a day; Duration: 30 day(s) Active Methotrexate (PF) 15 MG/0.3ML as directed Subcutaneous Act christopher Spironolactone 25 MG 1 tablet Orally; Duration: 30 day(s) Active Immunizations Vaccine Route Administration [...] Problem Status W/U Status Risk Notes Problem Rectal bleeding (11625518) Rectal bleeding (K62.5) Active confirmed Plan Of Treatment Future Test Test Name Order Date COLONOSCOPY 01/03/2022 Insurance Providers Payer Name Payer Address Payer Phone Subscriber Number Group Number Insured Name Patient Relationship to Insured Coverage Start Date Coverage End Date MEDICARE OF [place] [address] [id number] MARGOT FRANCO III Self - patient is the insured [facility] [address] [place] [phone] [id number] MARGOT FRANCO III Self - patient is the insured Medical (General) History Medical History History ICD Code diabetes asthma Hypertension Elevated cholesterol anxiety Rheumatoid arthritis Anemia HELEN/CPAP Surgical History Surgery Date(Month/Year) gastric bypass 2016
--- OUTSIDE RECORDS SUMMARY | 2025-07-26 19:48 | XMS_ITS | Data Portability ---
Author Organization [place] [facility] Address [address] [place] [id number] Care Team Providers Care House Supervisor Name Role Phone GUILLERMO MORA Primary Care [...] Patient reports that he was contacted by [facility] on Friday reporting that his mother's [...] after care of this patient according to On license of [facility]'s infection prevention protocols. -will call [...] I have accessed patient records on the [employer]. This information was pertinent in my medical decision making today. camille Not available 12/28/2020 20:26:17 Plan of Treatment Reminders Order Date Submit Date Provider Last Modified By Organization Details Last Modified Time Details Appointments None recorded. Lab SARS CoV 2 RNA (COVID-19), QL, pediatric oncologist-PCR, respiratory specimen 2020 021 [email or web address] [facility] (Centralized Electronic Ordering - All Locations), Patient Can Go To The Location Of Their Choice, [id number] 09:27:46 Referral None recorded. Procedures None recorded. [...] Go To The Location Of Their Choice, [id number] 12/29/2020 10:26:18 12/29/19 21 12/29/2020 covid -19 [...] ng. Resul t repor marcelo to the [facility]. To preve nt error s in diagn [...] perfo rmed by real time PCR [facility] [employer] SARS- CoV-2 test. Not Available [facility] (Centralized Electronic Ordering - All Locations) Patient Can Go To The Location Of Their Choice, [id number] 12/29/2020 10:26:18 Result Notes None recorded. Problems Name Problem SNOMED Code Status Onset Date Resolution Date Notes Provider Name and Address Organization Details Recorded Time Rheumatoid arthritis 78343920 Active 2020 WALTER RAVI [address] [place], [address], [place] [facility] 20:[facility]31 Problem Notes None recorded. Medical Equipment None Reported. Allergies Allergen ID Allergen Name Allergen Category Reaction Reaction Severity Criticality Documentation Date Start Date Code Code System Note Provider Name and Address Organization Details Recorded Time 110697 Iodinated contrast media (substanc e) medicatio n Not available Not available Not available 12/28/2020 46746 2003 SNOMED WALTER RAVI [address] [place], [address], [place] [facility] [...] % 96 % 148/64 mm[Hg] Not [facility] Social History Question Answer Notes LastModified by Organizat ion Details LastModified Time Tobacco Smoking Status Former Smoker WALTER RAVI [address] [place], [address], [place] [facility] 12/28/2020 20:04:06 Do You Have An Advance Directive? Yes [email or web address] Information not available 12/28/2020 What Is Your Code Status? Full Code lindaAffordable [email or web address] Information not available 12/28/2020 Excessive Alcohol Or Drug Use No l[employer]Affordable [employer] Information not available 12/28/2020 How Much Tobacco [...] Response Diabetes N Coronary Artery Disease Y High Cholesterol Y Pulmonary Embolism N Cancer N Hypertension Y Stroke N Asthma Y COPD N Depression N Kidney Disease Y Past Encounters Encounter ID Performer Location Encounter Start Date Encounter Closed Date Diagnosis/Indication Diagnosis SNOMED-CT Code Diagnosis ICD10 Code Diagnosis IMO Codes Diagnosis Note [id number] WALTER RAVI [facility] [address] [place] [address] 12/28/2020 19:17:25 12/29/2020 08:02:13 Exposure to communicable disease 116567888 Z20.822 Hypertensive disorder 38 473425 I10 Health Concerns Section Related Observation LastModified by Organization Detai ls LastModified Time None Recorded Concern Status LastModified by Organization Details LastModified Time None Recorded Advance Directives Directive Y: Payers Insurance Date Sequence Insurance Name Policy Number Policy Fox Covered Member ID Fox Member ID Guarantor Name 12/28/2020 1 *SELF PAY* Jorge Luis Bright [id number] Syed Bright 12/28/2020 2 [place] Syed Bright [id number] Syed Bright 01/01/2021 1 [place] [employer] Syed Bright III [id number] Jorge Luis Bright Notes Date Note Type Note Provider Name and Address Organization Details Recorded Time 12/28/2020 text/html 45 y/o M with PMHx sig for asthma, CAD, HLD, HTN, CKD with R renal mass, RA, anemia, preDM, and lung nodules, new to , presents for asymptomatic COVID test after low risk exposure. Patient reports that he was contacted by [facility] on Friday reporting that his mother's [...] denies any symptoms. WALTER RAVI [address] [place], [address], [place] [facility] 12/28/2020 20:26:40
--- OUTSIDE RECORDS SUMMARY | 2025-07-26 19:48 | XMS_ITS | Clinical Summary ---
Author Organization [facility] Address [address] [place] [address] Phone Care Team Providers Care Content Coordinator Name Role Phone Saeid Singh MD Primary Care Provider [phone] Jody Sheldon MD Unavailable [phone] Allergies Active Allergy Reactions Criticality Noted Date [...] Active ferrous sulfate 325 mg (65 mg teller iron) tablet Take 325 mg by mouth daily with breakfast. Active hydrOXYzine (ATARAX) 25 MG tablet Take 25 mg by mouth nightly at bedtime. Active irbesartan (AVAPRO) 150 MG tablet Take 300 mg by mouth daily. Active SENNA 8.6 mg tablet TAKE 2 [...] DAY 90 tablet 3 05/02/20 25 Active JARDIANCE 10 mg tablet Take 1 tablet by mouth every morning. 06/09/20 25 Active celecoxib (CELEBREX) 200 MG capsuleIndications :Rheumatoid arthritis involving multiple sites with positive rheumatoid factor Take 1 capsule (200 mg total) by mouth 2 (two) times a day as needed (for joint pain & swelling). 180 capsule 1 07/06/20 25 Active methotrexate sodium 25 mg/mL injectionIndicatio ns:Seropositive rheumatoid arthritis of multiple sites Inject 1 mL (25 mg total) under the skin every 7 days. 12 mL 1 07/06/20 25 Active syringe with needle (BD SAFETYGLIDE TB REG BEVEL) 1 mL 27 x 1/2 SyrgIndications:On methotrexate therapy,Seropositi ve rheumatoid arthritis of multiple sites Inject 1 each under the skin every 7 days. 50 each 1 07/06/20 25 Active oxyCODONE HCl 10 mg TabIndications:Delia miguel osteoarthritis involving multiple joints,Seropositiv e rheumatoid arthritis of multiple sites Take 1 tablet (10 mg total) by mouth 2 (two) times a day as needed (severe pain). Pt. may request partial fill 56 tablet 07/21/20 25 025 Active syringe with needle (BD SAFETYGLIDE TB REG BEVEL) 1 mL 27 x 1/2 SyrgIndications:Se ropositive rheumatoid arthritis of multiple sites,On methotrexate therapy Inject 1 each under the skin every 7 days. 50 each 1 09/14/20 21 025 Discontin ued(Reord er) celecoxib (CELEBREX) 200 MG capsuleIndications :Rheumatoid arthritis involving multiple sites with positive rheumatoid factor Take 1 capsule (200 mg total) by mouth 2 (two) times a day. 180 capsule 1 08/30/20 24 025 Discontin ued(Reord er) methotrexate sodium 25 mg/mL injectionIndicatio ns:Seropositive rheumatoid arthritis of multiple sites Inject 1 mL (25 mg total) under the skin every 7 days. 12 mL 1 03/02/20 25 025 Discontin ued(Reord er) oxyCODONE HCl 10 mg TabIndications:Delia miguel osteoarthritis involving multiple joints,Seropositiv e rheumatoid arthritis of multiple sites Take 1 tablet (10 mg total) by mouth 2 (two) times a day as needed (severe pain). Pt. may request partial fill 56 tablet 06/20/20 025 Discontin ued(Reord er) Active Problems Problem Noted Date Diagnosed Date Salivary stone 07/06/2025 longterm current use of oral hypoglycemic drug 03/02/2025 Assessment & Plan (07/06/2025 2:10 PM EDT): Take exactly as prescribed and monitor for side effects. Aim at blood glucose 90-120 mg % Assessment & Plan (03/29/2025 7:23 PM EDT): [...] 38.9 in adult 03/25/2023 Assessment & Plan (07/06/2025 2:10 PM EDT): Encouraged to continue diligent portion control particularly in view of gaining 12 pounds from 213 on 08/30/2024 up to 225 today. Limit concentrated sugars, saturated fats and calories in the diet. Keep well-hydrated. If unable to achieve expected goal consider formal dietary/nutritional support. Assessment & Plan (03/29/2025 7:22 PM EDT): [...] 7:20 PM EDT): Continue regular follow-up with salvage mend worker as scheduled to maintain best quality of [...] (Remicade) long-term use 11/29/2017 Assessment & Plan (07/06/2025 2:51 PM EDT): Carefully continue every 6 weeks Remicade infusions at [facility] since colonoscopy returned reassuring. Get labs monitoring safety and efficacy of therapy at least every 6 weeks- standing orders in epic Monitor carefully for any signs of developing infection such as fever, excessive tiredness, flulike symptoms, headaches, cough, skin rashes etc. Make sure to inform any new Medical doctor, WOOD GRINDER or PA about chronic immunosuppression with methotrexate and Remicade especially in emergency situations Assessment & Plan (03/02/2025 3:49 PM EDT): Carefully restart every 6 weeks Remicade infusions at [facility] since colonoscopy returned reassuring. Get labs monitoring safety and efficacy of therapy at least every 6 weeks- standing orders in epic Monitor carefully for any signs of developing infection such as fever, excessive tiredness, flulike symptoms, headaches, cough, skin rashes etc. Make sure to inform any new Medical doctor, WOOD GRINDER or PA about chronic immunosuppression with methotrexate and Remicade especially in emergency situations Assessment & Plan (08/30/2024 2:30 PM EST): Carefully restart every 6 weeks Remicade infusions at [facility] since colonoscopy returned reassuring. Get labs monitoring safety and efficacy of therapy at least every 6 weeks- standing orders in epic Monitor carefully for any signs of developing infection such as fever, excessive tiredness, flulike symptoms, headaches, cough, skin rashes etc. Make sure to inform any new Medical doctor, WOOD GRINDER or PA about chronic immunosuppression with methotrexate and Remicade especially in emergency situations Assessment & Plan (04/28/2024 4:18 PM EDT): Carefully restart every 6 weeks Remicade infusions at [facility] since colonoscopy returned reassuring. Get labs monitoring safety and efficacy of therapy at least every 6 weeks- standing orders in epic Monitor carefully for any signs of developing infection such as fever, excessive tiredness, flulike symptoms, headaches, cough, skin rashes etc. Make sure to inform any new Medical doctor, WOOD GRINDER or PA about chronic immunosuppression with methotrexate and Remicade especially in emergency situations Assessment & Plan (06/12/2023 3:39 PM EDT): Carefully restart every 6 weeks Remicade infusions at [facility] since colonoscopy returned reassuring. Get labs monitoring safety and efficacy of therapy at least every 6 weeks- standing orders in epic Monitor carefully for any signs of developing infection such as fever, excessive tiredness, flulike symptoms, headaches, cough, skin rashes etc. Make sure to inform any new Medical doctor, WOOD GRINDER or PA about chronic immunosuppression with methotrexate and Remicade especially in emergency situations Assessment & Plan (03/10/2023 2:12 PM EDT): Carefully restart every 6 weeks Remicade infusions at [facility] since colonoscopy returned reassuring. Get labs monitoring safety and efficacy of therapy at least every 6 weeks- standing orders in epic Monitor carefully for any signs of developing infection such as fever, excessive tiredness, flulike symptoms, headaches, cough, skin rashes etc. Make sure to inform any new Medical doctor, WOOD GRINDER or PA about chronic immunosuppression with methotrexate and Remicade especially in emergency situations Assessment & Plan (09/15/2022 9:31 PM EST): Carefully restart every 6 weeks Remicade infusions at [facility] since colonoscopy returned reassuring. Get labs monitoring safety and efficacy of therapy at least every 6 weeks- standing orders in epic Monitor carefully for any signs of developing infection such as fever, excessive tiredness, flulike symptoms, headaches, cough, skin rashes etc. Make sure to inform any new Medical doctor, WOOD GRINDER or PA about chronic immunosuppression with methotrexate and Remicade especially in emergency situations Assessment & Plan (03/03/2022 9:43 PM EDT): Hold until clarified regarding GI bleeding by colonoscopy & GI bi consultant. Get labs monitoring safety and efficacy of therapy at least every 6 weeks- standing orders in epic Monitor carefully for any signs of developing infection such as fever, excessive tiredness, flulike symptoms, headaches, cough, skin rashes etc. Make sure to inform any new Medical doctor, WOOD GRINDER or PA about chronic immunosuppression with methotrexate [...] sure to inform any new Medical doctor, WOOD GRINDER or PA about chronic immunosuppression with methotrexate [...] sure to inform any new Medical doctor, WOOD GRINDER or PA about chronic immunosuppression with methotrexate and Remicade especially in emergency situations Assessment & Plan (06/08/2021 3:50 PM EDT): Get labs monitoring safety and efficacy of therapy at least every 6 weeks- standing orders in [facility] Monitor carefully for any signs of developing infection such as fever, excessive tiredness, flulike symptoms, headaches, cough, skin rashes etc. Make sure to inform any new Medical doctor, WOOD GRINDER or PA about chronic immunosuppression with methotrexate and Remicade especially in emergency situations Assessment & Plan (04/24/2021 11:13 AM EDT): Get labs monitoring safety and efficacy of therapy at least every 6 weeks- standing orders in [facility] Monitor carefully for any signs of developing infection such as fever, excessive tiredness, flulike symptoms, headaches, cough, skin rashes etc. Make sure to inform any new Medical doctor, WOOD GRINDER or PA about chronic immunosuppression with methotrexate [...] sure to inform any new Medical doctor, WOOD GRINDER or PA about chronic immunosuppression with methotrexate [...] sure to inform any new Medical doctor, WOOD GRINDER or PA about chronic immunosuppression with methotrexate [...] sure to inform any new Medical doctor, WOOD GRINDER or PA about chronic immunosuppression with methotrexate [...] sure to inform any new Medical doctor, WOOD GRINDER or PA about chronic immunosuppression with methotrexate and Remicade especially in emergency situations . Next infusion on 02/10/20. Assessment & Plan (10/11/2019 1:55 PM EST): Monitor carefully for any signs of developing infection such as fever, excessive tiredness, flulike symptoms, headaches, cough, skin rashes etc. Make sure to inform any new Medical doctor, WOOD GRINDER or PA about chronic immunosuppression with methotrexate and Remicade especially in emergency situations . Next infusion on 10/19/19. Assessment & Plan (08/18/2019 9:38 PM EST): Monitor carefully for any signs of developing infection such as fever, excessive tiredness, flulike symptoms, headaches, cough, skin rashes etc. Make sure to inform any new Medical doctor, WOOD GRINDER or PA about chronic immunosuppression with methotrexate and Remicade especially in emergency situations . Next infusion in 6 weeks from 07/21/2019 (on 09/01/2019). Assessment & Plan (02/14/2019 8:28 PM EDT): Monitor carefully for any signs of developing infection such as fever, excessive tiredness, flulike symptoms, headaches, cough, skin rashes etc. Make sure to inform any new Medical doctor, WOOD GRINDER or PA about chronic immunosuppression with methotrexate and Remicade especially in emergency situations . Next infusion in 6 weeks from 01/29/2019 (on 03/12/2019). Assessment & Plan (11/28/2018 7:44 PM EST): Monitor carefully for any signs of developing infection such as fever, excessive tiredness, flulike symptoms, headaches, cough, skin rashes etc. Make sure to inform any new Medical doctor, WOOD GRINDER or PA about chronic immunosuppression with methotrexate and Remicade especially in emergency situations . Next infusion scheduled for 12/07/18. On methotrexate therapy 10/15/2017 Assessment & Plan (07/06/2025 2:10 PM EDT): Continue subcutaneous administration every 7 [...] stomach upset, diarrhea etc. Assessment & Plan (03/02/2025 3:49 PM EDT): [...] positive rheumatoid factor 08/20/2017 Assessment & Plan (07/06/2025 2:50 PM EDT): Carefully continue weekly methotrexate 1.0 cc= 25 mg every week on , continue daily folic acid & every 6 weeks Remicade . Get yearly influenza and COVID-19 booster vaccine 2 weeks prior to next Remicade infusion and hold methotrexate for 2 weekly doses after vaccination. Avoid sick contacts. Joint protection, energy conservation. Get labs monitoring safety and efficacy at least every 6 weeks-standing orders in epic. Call if questions or problems otherwise return in 4 months. Assessment & Plan (08/30/2024 2:36 PM EST): [...] and every 6 weeks IV Remicade at [facility] infusion center. Avoid sick contacts. Joint [...] least every 6 weeks-standing orders in epic. Get yearly influenza vaccine 3 weeks after Remicade infusion preferably by June 2021. Check if ankle swelling and [...] involving multiple joints 08/20/2017 Assessment & Plan (07/06/2025 2:09 PM EDT): Joint protection, energy conservation. Gentle, regular exercise routine. Avoid falls, injuries, overuse. Keep body weight in ideal range for his height. He may benefit from topical cream such as Arnica, Biofreeze, Aspercreme versus medicated patches such as salonpas, icy hot patch 2-3 times daily and if necessary at bedtime x 3 weeks. Assessment & Plan (03/02/2025 3:37 PM EDT): [...] needed. Call if worse or with questions. longterm current use of opiate analgesic 2016 Assessment & Plan (07/06/2025 2:10 PM EDT): Take exactly as prescribed, try [...] monitoring urine test today. Assessment & Plan (03/29/2025 7:19 PM EDT): [...] of breath, reduced respiratory drive, increasing constipation salvage determiner current use of non -steroidal anti-inflammatories (NSAID) 08/20/2017 Assessment & Plan (07/06/2025 2:10 PM EDT): Take the lowest dose, with least frequency, for shortest time. Remember to take it always with food. Favor topical over oral preparations. Assessment & Plan (03/02/2025 3:48 PM EDT): [...] On statin therapy 08/20/2017 Assessment & Plan (07/06/2025 2:10 PM EDT): Monitor for muscle tenderness, swelling and weakness Assessment & Plan (03/02/2025 3:48 PM EDT): [...] 11:12 AM EDT): Continue close follow-up with athletic agent from weight management program as scheduled. Portion [...] Encounters Date Type Department Care Team Description 07/15/2025 Refill [facility] Rheumatology [address] [place] [address] [place] [address] Francisca Loaiza CMA Medication Refill 07/06/2025 2:00 PM EDT Office Visit [facility] Rheumatology [address] [place] [address] [place] [address] Jody Sheldon MD Rheumatoid arthritis involving multiple sites with positive rheumatoid factor (Primary Dx); Primary osteoarthritis involving multiple joints; Infliximab (Remicade) long-term use; On methotrexate therapy; salvage determiner current use of non-steroidal anti-inflammatories (NSAID); longterm current use of opiate analgesic; On statin therapy; Class 2 severe obesity due to excess calories with serious comorbidity and body mass index (BMI) of 38.0 to 38.9 in adult; longterm current use of oral hypoglycemic drug; Salivary stone; Seropositive rheumatoid arthritis of multiple sites 07/05/2025 11:30 AM EDT Infusion [facility] [address] [place] [address] Jody Sheldon MD Rheumatoid arthritis involving multiple sites with positive rheumatoid factor (Primary Dx) 07/04/2025 Telephone [facility]fusion [address] [address] Christin Medeiros RN 06/17/2025 Refill [facility] Rheumatology [address] [place] [address] Soniya Carl MA 06/17/2025 Orders Only [facility] Pharmacy Department Virtual Deparment [address] [place] [address] Jody Sheldon MD 05/23/2025 Refill [facility] Rheumatology [address] [place] [address] Soniya Carl MA Medication Refill 05/12/2025 11:30 AM EDT Infusion [facility] [address] [place] [address] Jody Sheldon MD Rheumatoid arthritis involving multiple sites with positive rheumatoid factor (Primary Dx) 05/11/2025 Telephone [facility] [address] [place] [address] Francisco, Saeid Robb MD 04/30/2025 Refill [facility] Rheumatology [address] [place] [address] Jody Sheldon MD Medication Refill 04/25/2025 Refill [facility] Rheumatology [address] [place] [address] Soniya Carl MA Medication Refill from Last 3 Months Immunizations Immunization Administration Dates Next Due INFLUENZA, SPLIT VIRUS, TRIVALENT PF 08/30/2024 Influenza Quadrivalent Prese rvative Free IM 10/01/2023,08/28/2022,08/03/2020,2018,07/22/2016 Influenza Quadrivalent w/ Preservative IM 08/23/2017 Tdap 11/19/2019 Family History Medical History Relation Comments Diabetes [...] Reading Time Taken Comments Blood Pressure 134/82 07/06/2025 1:47 PM EDT Pulse 77 07/06/2025 1:47 PM EDT Temperature 36.1 C (97 F) 07/05/2025 1:55 PM EDT Respiratory Rate 18 07/05/2025 1:55 PM EDT Oxygen Saturation 98% 07/06/2025 1:47 PM EDT Inhaled Oxygen Concentration - - Weight 100.5 kg (221 lb 9.6 oz) 07/06/2025 1:47 PM EDT Height 162.6 cm (5' 4.02 ) 07/06/2025 1:47 PM ED T Body Mass Index 38.02 07/06/2025 1:47 PM EDT Plan of Treatment Upcoming Encounters Date Type Department Care Team (Late st Contact Info) Description 08/08/2025 11:30 AM EST Infusion [facility] Medical Infusion [facility] [address] [place] [address] Jody Sheldon MD [address] [place] [address], [address] [address] 09/19/2025 11:30 AM EST Infusion [facility] Medical Infusion Center [address] [place] [address] Jody Sheldon MD [address] [place] [address], [address] [address] 10/31/2025 11:30 AM EST Infusion [facility] [address] [address] Jody Sheldon MD [address] [place] [address], [address] [address] 11/07/2025 2:00 PM EST Office Visit [facility] Rheumatology [address] [place] [address] Jody Sheldon MD [address] [place] [address] 12/12/2025 11:30 AM EDT Infusion [facility] [address] [address] Jody Sheldon MD [address] [place] [id number] 01/23/2026 11:30 AM EDT Infusion [facility] [address] [address] Jody Sheldon MD [address] [place] [address] Health Maintenance Due Date Last Done Comments LIPID PANEL 1975 DEPRESSION SCREENING 1987 HEPATITIS C SCREENING 1993 HIV ONE-TIME SCREENING (18-65 YEARS) 1993 PNEUMOCOCCAL VACCINES (50+ years) (1 of 2 - PCV) 1994 ZOSTER VACCINES (1 of 2) 1994 COLOGUARD 2020 COLONOSCOPY 2020 COLORECTAL CANCER SCREENING 2020 FIT TEST 2020 FOBT 2020 SIGMOIDOSCOPY 2020 VIRTUAL COLONOSCOPY 2020 RSV VACCINE (1 - Risk 50-74 years 1-dose series) 2025 INFLUENZA VACCINE (#1) 2025 , 10/01/2023, 08/28/2022, Additional history exists COVID-19 VACCINE (2024- season) 2025 11/09/2023, 02/01/2021, 01/11/2021 BLOOD PRESSURE 01/04/2026 07/06/2025 CREATININE LEVEL 07/05/2026 07/05/2025, , 04/21/2025, Additional history exists POTASSIUM LEVEL 07/05/2026 07/05/2025, 04/29, 12/20/2024, Additional history exists SCREENING FOR DIABETES 11/03/2027 11/03/2024 Adult Td,Tdap Booster 11/19/2029 11/19/2019 SMOKING STATUS SCREENING (Once After 26 Yrs) Completed 07/06/2025 HEPATITIS A VACCINES Aged Out No long [...] Date/Time Associated Diagnosis Comments C-REACTIVE PROTEIN Routine 07/05/2025 11 :33 AM EDT Rheumatoid arthritis involving multiple sites with positive rheumatoid factor SEDIMENTATION RATE (ESR) Routine 07/05/2025 11:33 AM EDT Rheumatoid arthritis involving multiple sites with positive rheumatoid factor CBC AND DIFFERENTIAL Routine 07/05/2025 11:33 AM EDT Rheumatoid arthritis involving multiple sites with positive rheumatoid factor COMPREHENSIVE METABOLIC PANEL Routine 07/05/2025 11:33 AM EDT Rheumatoid arthritis involving multiple sites with positive rheumatoid factor C-REACTIVE PROTEIN Routine 05/12/2025 11 :27 AM [...] Months Results * (ABNORMAL) Comprehensive metabolic panel (07/05/2025 11:33 AM EDT) Only the most recent of2 resultswithin the time period is included. SODIUM 136 133 - 146 mmol/L [facility] POTASSIUM 4.6 3.3 - 5.1 mmol/L [facility] CHLORIDE 99 96 - 108 mmol/L [facility] CO2 25 21 - 35 mmol/L [facility] BUN 20(H) 6 - 19 mg/dL [facility] CREATININE 1.00 0.5 - 1.5 mg/dL [facility] GLUCOSE 170(H) 70 - 99 mg/dL [facility] ALBUMIN 4.1 3.9 - 4.8 g/dL [facility] TOTAL PROTEIN 7.7 6.5 - 8.0 g/dL [facility] CALCIUM 10.2 8.4 - 10.3 mg/dL [facility] ALKALINE PHOSPHATASE 71 39 - 117 U/L [facility] TOTAL BILIRUBIN <0.2 0.0 - 1.2 mg/dL [facility] AST 24 0 - 37 U/L [facility] ALT 36 0 - 40 U/L [facility] GLOBULIN 3.6 1 - 4.8 g/dL [facility] EGFR 92 >59 mL/min/1.7 3m2 [facility] Comment:Estimated glomerular filtration rate calculated using the CKD-EPI refit equation. ANION GAP 17 10 - 20 mmol/L [facility] 07/05/2025 11:3 3 AM EDT 07/05/2025 12:08 PM EDT us Jody Sheldon MD LAB BLOOD ORDERABLES Fin al Result Performing Organization Address City/[facility]/ZIP Co de Phone Number [address] [address] * (ABNORMAL) Sedimentation rate (ESR) (07/05/2025 11:33 AM EDT) Only the most recent of2 resultswithin the time period is included. ESR 27(H) 0 - 15 mm/h [facility] 07/05/2025 11:3 3 AM EDT 07/05/2025 12:08 PM EDT us Jody Sheldon MD LAB BLOOD ORDERABLES Fin al Result Performing Organization Address [facility] Co de Phone Number [address] [address] * (ABNORMAL) CBC and differential (07/05/2025 11:33 AM EDT) Only the most recent of2 resultswithin the time period is included. WBC 8.29 4.00 - 11.00 K/uL [facility] RBC 4.66 4.50 - 5.90 M/uL [facility] HGB 12.7(L) 13.5 - 17.5 g/dL [facility] HCT 39.9(L) 41.0 - 53.0 % [facility] PLT 261 150 - 450 K/uL [facility] MCV 85.6 80.0 - 100.0 fL [facility] MCH 27.3 27.0 - 31.0 pg [facility] MCHC 31.8(L) 32.0 - 36.0 g/dL [facility] RDW 13.0 11.5 - 14.5 % [facility] MPV 10.3 8.4 - 12.0 fL [facility] NRBC 0.00 0.00 /100 WBCs [facility] ABSOLUTE NRBC 0.00 0.00 K/uL [facility] DIFF METHOD Auto [facility] NEUTS 61.3 48.0 - 76.0 % [facility] LYMPHS 27.3 18.0 - 41.0 % [facility] MONOS 8.1 4.0 - 11.0 % [facility] EOS 2.2 0.0 - 5.0 % [facility] BASOS 0.6 0.0 - 1.5 % [facility] Granulocytes, immature (%) 0.5 0.0 - 0.9 % [facility] ABSOLUTE NEUTS 5.09 1.92 - 7.60 K/uL [facility] ABSOLUTE LYMPHS 2.26 0.72 - 4.10 K/uL [facility] ABSOLUTE MONOS 0.67 0.16 - 1.10 K/uL [facility] ABSOLUTE EOS 0.18 0.00 - 0.50 K/uL [facility] ABSOLUTE BASOS 0.05 0.00 - 0.15 K/uL [facility] Granulocytes, immature 0.04 0.00 - 0.09 K/uL [facility] Blood 07/05/2025 11:3 3 AM EDT 07/05/2025 12:08 PM EDT us Jody Sheldon MD LAB BLOOD ORDERABLES Fin al Result Performing Organization Address City/State/[facility] Co de Phone Number [address] [address] * (ABNORMAL) C-Reactive Protein (07/05/2025 11:33 AM EDT) Only the most recent of2 resultswithin the time period is included. C REACTIVE PROTEIN 10.9(H) 0.0 - 4.0 mg/L [facility] 07/05/2025 11:3 3 AM EDT 07/05/2025 12:08 PM EDT Jody Sheldon MD LAB BLOOD ORDERABLES Fin al Result [address] [address] from Last 3 Months Insurance MEDICARE PART [place] [facility] [place] [facility] [facility] [place] & B [facility] Care Teams Content Coordinator Relationship Specialty Start Date End Date , Saeid Robb MD [address] [facility] [address] [place] [address] PCP - General 07/17/17 Jody Sheldon MD [address], [address] [place] [address] [email or web address] Historical LMR Provider Rheumatology 07/19/17 Additional Source Comments The information contained in this document represents components of the legal health record. It is not the complete legal health record.[facility]
--- OUTSIDE RECORDS SUMMARY | 2025-07-26 19:48 | XMS_ITS | Clinical Summary ---
Author Organization [facility] Address [address] [place] [address] Phone Care Team Providers Care Title Insurance Examiner Name Role Phone Saeid Singh MD Primary Care Provider [phone] Allergies Active Allergy Reactions Criticality Noted Date [...] to adjust dosing of Remicade for it. assisted current use of aspirin 01/10/2020 06/22/2021 Overview [...] Pain of knee region 03/06/2018 06/22/20 21 Generalized osteoarthritis 08/20/2017 0 06/22/2021 Overview (12/14/2020): Last Assessment & Plan: [...] restarting weekly methotrexate on its usual schedule. assisted current use of opiate analgesic 08/20/2017 06/22/2021 [...] sure to inform any new Medical doctor, WIPER BLENDER or PA about chronic immunosuppression with methotrexate [...] 2024 Influenza Vaccine (#1) 2025 08/03/2020 [facility] [place] [place] [id number] Medicare Medicaid [place] * Guarantor: JORGE LUIS FRANCO Account Type Relation to Patient Date of Phone Billing Address Personal/Family 1975 [address] [place] [address] [place] Care Teams Title Insurance Examiner Relationship Specialty Start Date End Date Saeid Singh MD [facility] [address] [place], [place] PCP - General 10/09/20
== END 2025-07-26 16:15 | disposition home or self-care (01) ==
LOC: HO.HMCH 15:25
PROVIDERS: PCP Internal Medicine; Visit Provider Internal Medicine
DX: E11.65 Type 2 diabetes mellitus with hyperglycemia (principal); E66.01 Morbid (severe) obesity due to excess calories; Z68.41 Body mass index [BMI] 40.0-44.9, adult; M06.9 Rheumatoid arthritis, unspecified; Z98.84 Bariatric surgery status; E78.00 Pure hypercholesterolemia, unspecified; I25.10 Atherosclerotic heart disease of native coronary artery without angina pectoris; I10 Essential (primary) hypertension; F41.1 Generalized anxiety disorder; K21.9 Gastro-esophageal reflux disease without esophagitis; K76.0 Fatty (change of) liver, not elsewhere classified; D12.6 Benign neoplasm of colon, unspecified

== ENCOUNTER → 2025-07-26 15:24 | Outpatient (BNVA) | payer MEDICARE, MEDICAID, SELFPAY | PROVIDERS: PCP Internal Medicine; Visit Provider Internal Medicine | DX: E11.65 Type 2 diabetes mellitus with hyperglycemia (principal); Z98.84 Bariatric surgery status; E66.01 Morbid (severe) obesity due to excess calories; Z68.41 Body mass index [BMI] 40.0-44.9, adult; E78.00 Pure hypercholesterolemia, unspecified; I25.10 Atherosclerotic heart disease of native coronary artery without angina pectoris; I10 Essential (primary) hypertension; F41.1 Generalized anxiety disorder; K21.9 Gastro-esophageal reflux disease without esophagitis; K76.0 Fatty (change of) liver, not elsewhere classified; D12.6 Benign neoplasm of colon, unspecified; M06.9 Rheumatoid arthritis, unspecified; G47.33 Obstructive sleep apnea (adult) (pediatric); Z71.3 Dietary counseling and surveillance | CPT/HCPCS: 83036; 99212 ==

== ENCOUNTER 2025-07-28 13:39 | Outpatient (REF) | payer MEDICARE, MEDICAID, SELFPAY ==
--- NOTE | 2025-07-28 16:38 | MHC.AU.MED ---
Medical Clearance for Hearing Instrumentation Date: 07/28/25 Patient Name: Jorge Luis Bright Date of : 1975 Primary Care Provider: Saeid Singh MD We have seen your patient on 07/28/25 and have determined that they are a candidate for amplification (See accompanying report). Specifically, they would benefit from: Hearing aid use in both ears There is a statute that addresses Medical Evaluation Requirements prior to fitting a patient with a hearing aid. According to [place] statute 265 CMR:6.03(1), (a) General. Except as provided in 265 CMR 6.03(1)(b), a physical science teacher shall not sell a hearing aid unless the prospective user has presented to the physical science teacher a written statement signed by a licensed physician that states that the patient's hearing loss has been medically evaluated and the patient may be considered a candidate for a hearing aid. The medical evaluation must have taken place within the preceding six months. Please note: Due to the [place] Statute referenced above, we cannot accept a signature other than that of a licensed physician. [employer] and PA signatures cannot be accepted. I am in agreement with the above recommendation. There is no medical contraindication for hearing instrumentation. Physician Signature Date Physician Name (Printed)
--- OUTSIDE RECORDS SUMMARY | 2025-07-28 16:38 | XMS_ITS | Clinical Summary ---
Author Organization [facility] Address [address] [place] [address] Phone Care Team Providers Care Racquet Maker Name Role Phone Saeid Singh MD Primary Care Provider [phone] Jody Sheldon MD Unavailable [phone] Allergies Active Allergy Reactions Criticality Noted Date [...] Active ferrous sulfate 325 mg (65 mg confederated coos iron) tablet Take 325 mg by mouth [...] 7:20 PM EDT): Continue regular follow-up with associate professor of education as scheduled to maintain best quality of [...] continue every 6 weeks Remicade infusions at [facility] since colonoscopy returned reassuring. Get labs monitoring safety and efficacy of therapy at least every 6 weeks- standing orders in epic Monitor carefully for any signs of developing infection such as fever, excessive tiredness, flulike symptoms, headaches, cough, skin rashes etc. Make sure to inform any new Medical doctor, DOCUMENT ANALYST or PA about chronic immunosuppression with methotrexate and Remicade especially in emergency situations Assessment & Plan (03/02/2025 3:49 PM EDT): Carefully restart every 6 weeks Remicade infusions at [facility] since colonoscopy returned reassuring. Get labs monitoring safety and efficacy of therapy at least every 6 weeks- standing orders in epic Monitor carefully for any signs of developing infection such as fever, excessive tiredness, flulike symptoms, headaches, cough, skin rashes etc. Make sure to inform any new Medical doctor, DOCUMENT ANALYST or PA about chronic immunosuppression with methotrexate and Remicade especially in emergency situations Assessment & Plan (08/30/2024 2:30 PM EST): Carefully restart every 6 weeks Remicade infusions at [facility] since colonoscopy returned reassuring. Get labs monitoring safety and efficacy of therapy at least every 6 weeks- standing orders in epic Monitor carefully for any signs of developing infection such as fever, excessive tiredness, flulike symptoms, headaches, cough, skin rashes etc. Make sure to inform any new Medical doctor, DOCUMENT ANALYST or PA about chronic immunosuppression with methotrexate and Remicade especially in emergency situations Assessment & Plan (04/28/2024 4:18 PM EDT): Carefully restart every 6 weeks Remicade infusions at [facility] since colonoscopy returned reassuring. Get labs monitoring safety and efficacy of therapy at least every 6 weeks- standing orders in epic Monitor carefully for any signs of developing infection such as fever, excessive tiredness, flulike symptoms, headaches, cough, skin rashes etc. Make sure to inform any new Medical doctor, DOCUMENT ANALYST or PA about chronic immunosuppression with methotrexate and Remicade especially in emergency situations Assessment & Plan (06/12/2023 3:39 PM EDT): Carefully restart every 6 weeks Remicade infusions at [facility] since colonoscopy returned reassuring. Get labs monitoring safety and efficacy of therapy at least every 6 weeks- standing orders in epic Monitor carefully for any signs of developing infection such as fever, excessive tiredness, flulike symptoms, headaches, cough, skin rashes etc. Make sure to inform any new Medical doctor, DOCUMENT ANALYST or PA about chronic immunosuppression with methotrexate and Remicade especially in emergency situations Assessment & Plan (03/10/2023 2:12 PM EDT): Carefully restart every 6 weeks Remicade infusions at [facility] since colonoscopy returned reassuring. Get labs monitoring safety and efficacy of therapy at least every 6 weeks- standing orders in epic Monitor carefully for any signs of developing infection such as fever, excessive tiredness, flulike symptoms, headaches, cough, skin rashes etc. Make sure to inform any new Medical doctor, DOCUMENT ANALYST or PA about chronic immunosuppression with methotrexate and Remicade especially in emergency situations Assessment & Plan (09/15/2022 9:31 PM EST): Carefully restart every 6 weeks Remicade infusions at [facility] since colonoscopy returned reassuring. Get labs monitoring safety and efficacy of therapy at least every 6 weeks- standing orders in epic Monitor carefully for any signs of developing infection such as fever, excessive tiredness, flulike symptoms, headaches, cough, skin rashes etc. Make sure to inform any new Medical doctor, DOCUMENT ANALYST or PA about chronic immunosuppression with methotrexate and Remicade especially in emergency situations Assessment & Plan (03/03/2022 9:43 PM EDT): Hold until clarified regarding GI bleeding by colonoscopy & GI hr business partner consultant. Get labs monitoring safety and efficacy of therapy at least every 6 weeks- standing orders in epic Monitor carefully for any signs of developing infection such as fever, excessive tiredness, flulike symptoms, headaches, cough, skin rashes etc. Make sure to inform any new Medical doctor, DOCUMENT ANALYST or PA about chronic immunosuppression with methotrexate [...] sure to inform any new Medical doctor, DOCUMENT ANALYST or PA about chronic immunosuppression with methotrexate [...] sure to inform any new Medical doctor, DOCUMENT ANALYST or PA about chronic immunosuppression with methotrexate and Remicade especially in emergency situations Assessment & Plan (06/08/2021 3:50 PM EDT): Get labs monitoring safety and efficacy of therapy at least every 6 weeks- standing orders in [facility] Monitor carefully for any signs of developing infection such as fever, excessive tiredness, flulike symptoms, headaches, cough, skin rashes etc. Make sure to inform any new Medical doctor, DOCUMENT ANALYST or PA about chronic immunosuppression with methotrexate and Remicade especially in emergency situations Assessment & Plan (04/24/2021 11:13 AM EDT): Get labs monitoring safety and efficacy of therapy at least every 6 weeks- standing orders in [facility] Monitor carefully for any signs of developing infection such as fever, excessive tiredness, flulike symptoms, headaches, cough, skin rashes etc. Make sure to inform any new Medical doctor, DOCUMENT ANALYST or PA about chronic immunosuppression with methotrexate [...] sure to inform any new Medical doctor, DOCUMENT ANALYST or PA about chronic immunosuppression with methotrexate [...] sure to inform any new Medical doctor, DOCUMENT ANALYST or PA about chronic immunosuppression with methotrexate [...] sure to inform any new Medical doctor, DOCUMENT ANALYST or PA about chronic immunosuppression with methotrexate [...] sure to inform any new Medical doctor, DOCUMENT ANALYST or PA about chronic immunosuppression with methotrexate and Remicade especially in emergency situations . Next infusion on 02/10/20. Assessment & Plan (10/11/2019 1:55 PM EST): Monitor carefully for any signs of developing infection such as fever, excessive tiredness, flulike symptoms, headaches, cough, skin rashes etc. Make sure to inform any new Medical doctor, DOCUMENT ANALYST or PA about chronic immunosuppression with methotrexate and Remicade especially in emergency situations . Next infusion on 10/19/19. Assessment & Plan (08/18/2019 9:38 PM EST): Monitor carefully for any signs of developing infection such as fever, excessive tiredness, flulike symptoms, headaches, cough, skin rashes etc. Make sure to inform any new Medical doctor, DOCUMENT ANALYST or PA about chronic immunosuppression with methotrexate and Remicade especially in emergency situations . Next infusion in 6 weeks from 07/21/2019 (on 09/01/2019). Assessment & Plan (02/14/2019 8:28 PM EDT): Monitor carefully for any signs of developing infection such as fever, excessive tiredness, flulike symptoms, headaches, cough, skin rashes etc. Make sure to inform any new Medical doctor, DOCUMENT ANALYST or PA about chronic immunosuppression with methotrexate and Remicade especially in emergency situations . Next infusion in 6 weeks from 01/29/2019 (on 03/12/2019). Assessment & Plan (11/28/2018 7:44 PM EST): Monitor carefully for any signs of developing infection such as fever, excessive tiredness, flulike symptoms, headaches, cough, skin rashes etc. Make sure to inform any new Medical doctor, DOCUMENT ANALYST or PA about chronic immunosuppression with methotrexate [...] and every 6 weeks IV Remicade at [facility] infusion center. Avoid sick contacts. 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); longterm current use of opiate analgesic; On statin therapy; Class 2 severe obesity due to excess calories with serious comorbidity and body mass index (BMI) of 38.0 to 38.9 in adult; longterm current use of oral hypoglycemic drug; Salivary stone; Seropositive rheumatoid arthritis of multiple sites 07/05/2025 11:30 AM EDT Infusion [facility] [address] [place] [address] Joyd Sheldon MD Rheumatoid arthritis involving multiple sites with positive rheumatoid factor (Primary Dx) 07/04/2025 Telephone [facility] Infusion [address] [address] Christin Medeiros RN 06/17/2025 Refill [facility] Rheumatology [address] [place] [address] Soniya Carl MA 06/17/2025 Orders Only [facility] Pharmacy Department Virtual [address] [place] [address] Jody Sheldon MD 05/23/2025 Refill [facility] Rheumatology [address] [place] [address] Soniya Carl MA Medication Refill 05/12/2025 11:30 AM EDT Infusion [facility] [address] [place] [address] Jody Sheldon MD Rheumatoid arthritis involving multiple sites with positive rheumatoid factor (Primary Dx) 05/11/2025 Telephone [facility] [address] [place] [address] Francisco, Saeid Robb MD 04/30/2025 Refill [facility] Rheumatology [address] [place] [address] Jody Sheldon MD Medication Refill from Last 3 Months Immunizations [...] Info) Description 08/08/2025 11:30 AM EST Infusion [facility] Medical Infusion Center [address] [place] [address] Jody Sheldon MD [address] [place] [address], [address] [address] 09/19/2025 11:30 AM EST Infusion [facility] Medical Infusion Center [address] [place] [address] Jody Sheldon MD [address] [place] [address], [address] [address] 10/31/2025 11:30 AM EST Infusion [facility] Medical Infusion Center [address] [place] [address] Jody Sheldon MD [address] [place] [address], [address] [address] 11/07/2025 2:00 PM EST Office Visit [facility] Rheumatology [address] [place] [address] Jody Sheldon MD [address] [place] [address], [address] [address] 12/12/2025 11:30 AM EDT Infusion [facility] [address] [place] [address] Jody Sheldon MD [address] [place] [address], [address] [address] 01/23/2026 11:30 AM EDT Infusion [facility] [address] [place] [address] Jody Sheldon MD [address] [place] [address], [address] [address] Health Maintenance Due Date Last Done Comments [...] 10/01/2023, 08/28/2022, Additional history exists COVID-19 VACCINE (4 - 2025- season) 2025 11/09/2023, 02/01/2021, 01/11/2021 BLOOD PRESSURE [...] included. SODIUM 136 133 - 146 mmol/L [facility] POTASSIUM 4.6 3.3 - 5.1 mmol/L [facility] CHLORIDE 99 96 - 108 mmol/L [facility] CO2 25 21 - 35 mmol/L [facility] BUN 20(H) 6 - 19 mg/dL [facility] CREATININE 1.00 0.5 - 1.5 mg/dL [facility] GLUCOSE 170(H) 70 - 99 mg/dL [facility] ALBUMIN 4.1 3.9 - 4.8 g/dL [facility] TOTAL PROTEIN 7.7 6.5 - 8.0 g/dL [facility] CALCIUM 10.2 8.4 - 10.3 mg/dL [facility] ALKALINE PHOSPHATASE 71 39 - 117 U/L [facility] TOTAL BILIRUBIN <0.2 0.0 - 1.2 mg/dL [facility] AST 24 0 - 37 U/L [facility] ALT 36 0 - 40 U/L [facility] GLOBULIN 3.6 1 - 4.8 g/dL [facility] EGFR 92 >59 mL/min/1.7 3m2 [facility] Comment:Estimated glomerular filtration rate calculated using the CKD-EPI refit equation. ANION GAP 17 10 - 20 mmol/L [facility] 07/05/2025 11:3 3 AM EDT 07/05/2025 12:08 PM EDT us Jody Sheldon MD LAB BLOOD ORDERABLES Fin al Result [facility] [address] [place] [address] * (ABNORMAL) Sedimentation rate (ESR) (07/05/2025 11:33 AM EDT) Only the most recent of2 resultswithin the time period is included. ESR 27(H) 0 - 15 mm/h [facility] 07/05/2025 11:3 3 AM EDT 07/05/2025 12:08 PM EDT us Jody Sheldon MD LAB BLOOD ORDERABLES Fin al Result [facility] [address], [place] [id number] * (ABNORMAL) CBC and differential (07/05/2025 11:33 AM EDT) Only the most recent of2 resultswithin the time period is included. WBC 8.29 4.00 - 11.00 K/uL [facility] RBC 4.66 4.50 - 5.90 M/uL [facility] HGB 12.7(L) 13.5 - 17.5 g/dL [facility] HCT 39.9(L) 41.0 - 53.0 % [facility] PLT 261 150 - 450 K/uL [facility] MCV 85.6 80.0 - 100.0 fL [facility] MCH 27.3 27.0 - 31.0 pg [facility] MCHC 31.8(L) 32.0 - 36.0 g/dL [facility] RDW 13.0 11.5 - 14.5 % [facility] MPV 10.3 8.4 - 12.0 fL [facility] NRBC 0.00 0.00 /100 WBCs [facility] ABSOLUTE NRBC 0.00 0.00 K/uL [facility] DIFF METHOD Auto [facility] NEUTS 61.3 48.0 - 76.0 % [facility] LYMPHS 27.3 18.0 - 41.0 % [facility] MONOS 8.1 4.0 - 11.0 % [facility] EOS 2.2 0.0 - 5.0 % [facility] BASOS 0.6 0.0 - 1.5 % [facility] Granulocytes, immature (%) 0.5 0.0 - 0.9 % [facility] ABSOLUTE NEUTS 5.09 1.92 - 7.60 K/uL [facility] ABSOLUTE LYMPHS 2.26 0.72 - 4.10 K/uL [facility] ABSOLUTE MONOS 0.67 0.16 - 1.10 K/uL [facility] ABSOLUTE EOS 0.18 0.00 - 0.50 K/uL [facility] ABSOLUTE BASOS 0.05 0.00 - 0.15 K/uL [facility] Granulocytes, immature 0.04 0.00 - 0.09 K/uL [facility] Blood 07/05/2025 11:3 3 AM EDT 07/05/2025 12:08 PM EDT us Jody Sheldon MD LAB BLOOD ORDERABLES Fin al Result Performing Organization Address City/[facility]/ZIP Co de Phone Number [address] [address] * (ABNORMAL) C-Reactive Protein (07/05/2025 11:33 AM EDT) Only the most recent of2 resultswithin the time period is included. C REACTIVE PROTEIN 10.9(H) 0.0 - 4.0 mg/L [facility] 07/05/2025 11:3 3 AM EDT 07/05/2025 12:08 PM EDT us Jody Sheldon MD LAB BLOOD ORDERABLES Fin al Result [address] [address] from Last 3 Months Insurance MEDICARE PART [place] MED[place] PART A & [place] MED[place] PART [place] [address] MEDICARE PART A & [facility] [place] [address] MEDICARE PART A & [place] [facility] [place] [address] MEDICARE PART A & [facility] [place] [address] MEDICARE PART A & [place] MEDIC[place] PART A & B Member Subscriber Plan / Payer ([facility] 08/29/2013-) Name:Jorge Luis Bright Member ID:[id number] Relation to Subscriber:Self Name:Jorge Luis Bright Subscriber ID:[id number] Payer ID:[id number] Group ID:Not on file Type:Medicare Address: [facility] [address] [place] [address] [place] [address] MEDICARE PART A & B [facility] Care Teams Racquet Maker Relationship Specialty Start Date End Date Saeid MD [address] [place] [address] [address] [place] [address] PCP - General 07/17/17 Jody Sheldon MD [address] [place] [address], [address] [place] [address] [email or web address] Historical LMR Provider Rheumatology 07/19/17 Additional Source Comments The information contained in this document represents components of the legal health record. It is not the complete legal health record.[facility]
--- OUTSIDE RECORDS SUMMARY | 2025-07-28 16:38 | XMS_ITS | Encounter Summary ---
Author Organization [facility] Address [address] [facility] [place] [address] Phone Care Team Providers Care Animal Trainer Name Role Phone Saeid Singh MD Primary Care Provider [phone] Encounter Details Date Type Department Care Team (Late st Contact Info) Description 2021 Orders Only [facility] [address] [place] [address] Andre [...] kidney documented in this encounter Care Teams Animal Trainer Relationship Specialty Start Date End Date Saeid Singh MD [place] [facility] [address] [place] [address] PCP - General 10/09/20 documented as of this encounter
--- OUTSIDE RECORDS SUMMARY | 2025-07-28 16:38 | XMS_ITS | Clinical Summary ---
Author Organization [facility] Address [address] [place] [address] Phone Care Team Providers Care Elephant Keeper Name Role Phone Saeid Singh MD Primary Care Provider [phone] Allergies Active Allergy Reactions Criticality Noted Date [...] to adjust dosing of Remicade for it. USP current use of aspirin 01/10/2020 06/22/2021 Overview [...] restarting weekly methotrexate on its usual schedule. USP current use of opiate analgesic 08/20/2017 06/22/2021 [...] sure to inform any new Medical doctor, TOP FRAME MAKER or PA about chronic immunosuppression with methotrexate [...] 2024 Influenza Vaccine (#1) 2025 08/03/2020 [place] [id number] Medicare Medicaid [place] * Guarantor: JORGE LUIS FRANCO Account Type Relation to Patient Date of Phone Billing Address Personal/Family 1975 [address] [place] [address] [place] Care Teams Elephant Keeper Relationship Specialty Start Date End Date Saeid Singh MD [facility] [address] [place], [place] PCP - General 10/09/20
--- OUTSIDE RECORDS SUMMARY | 2025-07-28 16:38 | XMS_ITS | Patient Health Record ---
Author Organization [facility] Address [address] [place] [address] Care Team Providers Care Confectionery Laboratory Manager Name Role Phone Saeid Singh MD Primary Care Provider Darrell Chong Jr [phone] Allergies Allergen (clinical drug ingredient) Drug/Non Drug [...] W/U Status Risk Notes Problem Rectal bleeding (05036145) Rectal bleeding (K62.5) Active confirmed Plan Of Treatment Future Test Test Name Order Date COLONOSCOPY 01/03/2022 Insurance Providers Payer Name Payer Address Payer Phone Subscriber Number Group Number Insured Name Patient Relationship to Insured Coverage Start Date Coverage End Date MEDICARE OF [place] [address] [id number] [phone] [id number] MARGOT FRANCO III Self - patient is the insured [place] [facility] [address] [place] [phone] [id number] MARGOT FRANCO III Self - patient is the insured Medical (General) History Medical History History ICD Code diabetes asthma Hypertension Elevated cholesterol anxiety Rheumatoid arthritis Anemia HELEN/CPAP Surgical History Surgery Date(Month/Year) gastric bypass 2016
--- NOTE | 2025-07-28 16:45 | MHC.AU.HA1 ---
Hearing Aid Evaluation Date of Visit: 07/28/25 Historical Information: Description of Hearing: Right Ear: Mild sloping to moderately-severe sensorineural hearing loss; Left Ear: Mild sloping to moderately-severe rising to mild sensorineural hearing loss Current personal amplification information: Phonak Audeo M50-Rs fit in September 2018 Summary: Ready to pursue new HAs due to age of current pair. Reported current HAs having issues with bluetooth connectivity - phone calls are intermittent, changing in volume, difficulty hearing other person. Connected to [employer], no firmware updates available. Discussed new HAs including manufacturers, styles, and technology. Opted for same style, rechargeable. Hearing Aid Prescription: Based on the individual?s shared listening needs, communication environments, dexterity, desire for connectivity, and personal preferences, the following prescription for amplification has been made: Right ear: Make, Model, Color: Phonak Audeo I70-R Color: Champagne Battery Size: Rechargeable Pmp Certified Project Manager/Slim Tube: 2M Type of Earmold/Dome/CShell/SlimTip: Small power dome (no retention tail) Left ear: Left ear prescription to be same as Right Hearing Aid above: Make, Model, Color: Phonak Audeo I70-R Color: Champagne Battery Size: Rechargeable Pmp Certified Project Manager/Slim Tube: 2M Type of Earmold/Dome/CShell/SlimTip: Small power dome (no retention tail) Accessories/Assistive Technology: Vp Patient Plan of Care: Patient wishes to purchase hearing aids as prescribed Action Taken/Action Needed: Medical Clearance to be requested from PCP/ENT. Hearing Instrument Fitting to be scheduled when materials arrive Primary Diagnosis: H90.3 Bilateral Sensorineural Hearing Loss Signature: Provider: Lam Chopra, [facility]
== END 2025-07-28 13:40 | disposition home or self-care (01) ==
LOC: HO.SH 13:39
PROVIDERS: Visit Provider Internal Medicine
DX: Z01.118 Encounter for examination of ears and hearing with other abnormal findings (principal); Z46.1 Encounter for fitting and adjustment of hearing aid; H90.3 Sensorineural hearing loss, bilateral
CPT/HCPCS: 92552; 92556; 92591